=== PATIENT | male | born 1940 | race Caucasian/White ===

== ENCOUNTER 2020-02-22 15:28 | Inpatient (IN) | payer OTHER, BC ==
--- NOTE | 2020-02-22 15:41 | PDOC ---
Rapid Medical Evaluation Time Seen by Provider: 02/22/20 15:33 Medical Evaluation: 02/22/20 15:38 I have performed a brief in-person evaluation of this patient. CC: left sided chest pain staring this morning at rest. D/C'd from [facility] with dx- ileus, DUNG, hypoNa+, urinary retention PE: Lungs CTAB. RRR. No m/r/g. 2+ pedal edema. Orders: cardiac w/u Patient will proceed to ED for further evaluation. Discharge Disposition - Diagnosis Chest pain - Referrals - Patient Instructions - Post Discharge Activity
--- NOTE | 2020-02-22 16:28 | PDOC ---
History of Present Illness - General Chief Complaint: Chest Pain Stated Complaint: CHEST PAIN Time Seen by Provider: 02/22/20 15:33 - History of Present Illness Initial Comments: 79 yo male with PMH of htn, hld, chf, TIA, GERD, BPH w/ indwelling catheter, aortic stenosis w/ valve replacement, and coronary stents presenting with 2 day hx of chest pressure. Chest pressure started at noon, lasted 15 minutes, and radiated to the left arm. He endorses SOB that is consistent with his baseline CHF. He had 1 episode of hematuria that resolved spontaneously. He denies meneses, n/v/d, abd pain, bloody stool. 02/22/20 18:24 Past History - Medical History Allergies/Adverse Reactions: Allergies Allergy/AdvReac Type Severity Reaction Status Date / Time No Known Allergies Allergy Verified 02/22/20 15:43 Home Medications: Ambulatory Orders Amlodipine Besylate 5 mg PO DAILY 02/22/20 Atorvastatin Ca [Lipitor] 20 mg PO HS 02/22/20 Carvedilol [Coreg -] 3.125 mg PO BID 02/22/20 Docusate Sodium [Colace -] 100 mg PO BID 02/22/20 Ergocalciferol (Vitamin D2) [Vitamin D2] 50,000 unit PO WEEKLY 02/22/20 Ferrous Sulfate 325 mg PO BID 02/22/20 Levothyroxine [Synthroid -] 100 mcg PO DAILY 02/22/20 Metoprolol Succinate [Toprol Xl] 25 mg PO DAILY 02/22/20 Tamsulosin HCl 0.4 mg PO DAILY 02/22/20 Cardiac Disorders: Yes COPD: No CHF: No Disorders: Yes (urinary retention iyer in place) HTN: Yes - Surgical History Cardiac Surgery: Yes (x 2) GI Surgery: Yes - Psycho-Social/Smoking History Smoking History: Never smoked - Substance Abuse Hx (Audit-C & DAST Scrn) How often the patient has a drink containing alcohol: Never Score: In Men: 4 or > Positive; In Women: 3 or > Positive: 0 Screen Result (Pos requires Nsg. Audit-10AR): Negative Review of Systems - Review of Systems Constitutional: No: Chills, Fever HEENTM: No: Recent change in vision, Double Vision Respiratory: Yes: Shortness of Breath. No: Cough Cardiac (ROS): Yes: Chest Pain, Edema, Chest Tightness (radiating to the left). No: Palpitations ABD/GI: No: Blood Streaked Bowels, Diarrhea, Nausea, Vomiting : Yes: Hematuria. No: Dysuria Musculoskeletal: No: Joint Pain, Joint Swelling Integumentary: No: Dryness, Erythema, Lesions Neurological: No: Headache Psychiatric: No: Anxiety, Depression, Mood Swings Endocrine: No: Intolerance to Cold, Intolerance to Heat *Physical Exam - Vital Signs Last Vital Signs Temp Pulse Resp BP Pulse Ox 98 F 61 18 116/70 99 02/22/20 15:38 02/22/20 15:38 02/22/20 15:38 02/22/20 15:38 02/22/20 15:38 - Physical Exam General Appearance: Yes: Appropriately Dressed. No: Apparent Distress HEENT: positive: Normal Voice. negative: EOMI Neck: negative: Tender, Rigid Respiratory/Chest: positive: Normal Breath Sounds, Other. negative: Chest Tender, Respiratory Distress Cardiovascular: positive: Regular Rhythm, Regular Rate, S1, S2, Edema (b/l LE edema) Gastrointestinal/Abdominal: positive: Flat, Soft. negative: Tender Musculoskeletal: positive: Normal Inspection. negative: CVA Tenderness Extremity: positive: Normal Inspection Integumentary: positive: Normal Color, Dry, Warm Neurologic: positive: Fully Oriented, Alert, Normal Mood/Affect ED Treatment Course - LABORATORY CBC & Chemistry Diagram: 02/22/20 16:15 02/22/20 16:15 Medical Decision Making - Medical Decision Making 79 yo male with PMH of htn, hld, chf, TIA, GERD, BPH w/ indwelling catheter, aortic stenosis w/ valve replacement, and coronary stents presenting with 2 day hx of chest pressure. EKG does not show any st elevations. BNP is elevated at 6400 1st Troponin is negative 2nd Troponin is pending Plan to admit for observation/telemetry Discharge - Discharge Information Problems reviewed: Yes Clinical Impression/Diagnosis: Chest pain, Bilateral lower extremity edema - Admission Yes - Follow up/Referral - Patient Discharge Instructions - Post Discharge Activity
[2020-02-22 16:40] LABS: BASO % 0.7 % (0-2.0); EOS % 3.1 % (0-4.5); HEMATOCRIT 34.9 % (35.4-49); HEMOGLOBIN 11.3 GM/dL (11.7-16.9); LYMPH % 11.3 % (8-40); MCH 26.2 pg (25.7-33.7); MCHC 32.3 g/dl (32.0-35.9); MEAN CELL VOLUME 81.2 fl (80-96); MEAN PLT VOLUME 8.5 fl (7.5-11.1); MONO % 9.8 % (3.8-10.2); NEUT % 75.1 % (42.8-82.8); PLATELET COUNT 271 K/MM3 (134-434); RBC 4.29 M/mm3 (4.00-5.60); RDW 17.5 % (11.9-15.9)
[2020-02-22 16:47] LABS: INR 1.18 (0.83-1.09); PROTHROMBIN TIME (PATIENT) 13.9 SEC (9.7-13.0)
[2020-02-22 16:50] LABS: ACTIVATED PTT 34.9 SECONDS (25.2-36.5)
[2020-02-22 17:29] LABS: ALBUMIN 2.8 g/dl (3.4-5.0); BILIRUBIN,TOTAL 0.4 mg/dL (0.2-1); BLOOD UREA NITROGEN 26.3 mg/dL (7-18); CALCIUM 8.6 mg/dL (8.5-10.1); CREATININE 1.3 mg/dL (0.55-1.3); MAGNESIUM 2.2 mg/dL (1.8-2.4); N-TERMINAL BNP 6407.7 pg/ml (5-450); POTASSIUM 4.8 mmol/L (3.5-5.1); TOT PROT 6.9 g/dl (6.4-8.2)
--- NOTE | 2020-02-22 18:23 | PDOC ---
Documentation entered by Tyra Grady SCRIBE, acting as scribe for Sharonda Morales MD. Sharonda Morales MD: This documentation has been prepared by the edmondibeMiguel A Ana, SCRIBE, under my direction and personally reviewed by me in its entirety. I confirm that the documentation accurately reflects all work, treatment, procedures, and medical decision making performed by me. Attending Attestation - Resident Resident Name: Cindy Tarango - ED Attending Attestation I have performed the following: I have examined & evaluated the patient, The case was reviewed & discussed with the resident, I agree w/resident's findings & plan, Exceptions are as noted - HPI HPI: 02/22/20 17:03 Patient is an 79 year old male with a significant past medical history of hypertension, hld, chf, TIA, GERD, BPH w/ indwelling catheter, aortic stenosis w/ valve replacement, and coronary stents, who presents to the ED with chest pressure x2 days. Patient denies: This patient's just 2 1/2 weeks ago and he then he recently moved to [place] because his daughter lives here. All his physicians were in [place] Allergies: NKDA 02/22/20 18:18 02/22/20 18:49 - Physicial Exam PE: 02/22/20 18:23 wnwd 79 yo male p/w 2 days of shortness of breath and chest pain head ncat neck supple lungs fine bibasilar rales cvs [id number] abdomen nontender skin warm and dry extremities +3 pitting edema LE neuro axox3,ambulatory psych sad affect - Medical Decision Making 02/22/20 18:29 troponin first negative bnp >6000 02/22/20 18:38 ekg NSR with !st degree AV block with , RBBB, qs in II,III,aVF We have no prior ekgs pt now comfortable, he took 325 mg aspirin this morning plan Telemetry admission Discharge - Discharge Information Problems reviewed: Yes Clinical Impression/Diagnosis: Chest pain, Bilateral lower extremity edema - Follow up/Referral - Patient Discharge Instructions - Post Discharge Activity
--- NOTE | 2020-02-22 19:34 | PN ---
Teaching Attending Note Name of Resident: Bowen Ojeda ATTENDING PHYSICIAN STATEMENT I saw and evaluated the patient. I reviewed the resident's note and discussed the case with the resident. I agree with the resident's findings and plan as documented. SUBJECTIVE: Patient is an 79 year old man with a PMH of HTN, CHF, TIA, GERD, BPH, Hypothy roidism, Urinary retention (with indwelling iyer catheter), Aortic stenosis (with valve replacement) and Coronary stents presenting with 2 day history of chest pressure. Chest pressure started at noon, lasted 15 minutes, and radiated to the left arm. He reports SOB that is consistent with his baseline CHF, but he has had worsening SOB over the past 6 months. has also had orthopnea and increasing leg edema. He has not been taking prescribed Lasix as well as most his other drugs because he feels they are "too many". He had 1 episode of hematuria that resolved spontaneously. Patient denies abdominal pain, headache, palpitations, dizziness, fever, chills, nausea, vomiting, diarrhea, constipation, dysuria, frequency, urgency, melena or hematochezia. Patient's about twenty days ago and he then moved to [place] because his daughter lives here. All his physicians were in [place], [place]. Uses a walker/cane. Denies alcohol, tobacco or illicit drug use. No sick contacts or recent travels. Family history is unremarkable. OBJECTIVE: Alert Vital Signs Period Temp Pulse Resp BP Sys/Pantoja Pulse Ox Last 24 Hr 98 F 61-61 18-18 116/70 99-100 HEENT: No Jaundice, eye redness or discharge, PERRLA, EOMI. Normocephalic, atraumatic. External ears are normal and hearing is grossly intact. No nasal discharge. Neck: Supple, nontender. No palpable adenopathy or thyromegaly. No JVD Chest: Good effort. Bibasilar crackles. Clear to percussion. Heart: Regular. No S3 or rub; 2/6 MARISSA. Abdomen: Not distended, soft, nontender and no HSM. No rebound or guarding. Normal bowel sounds. Ext: Peripheral pulses intact. Leg edema. Chronic stasis dermatitis changes. Skin: Warm and dry. No petechiae, rash or ecchymosis. Neuro: Alert. Oriented x3. CN 2-12 grossly intact. Sensation grossly intact in all four extremities and DTR are symmetric. Psych: Appropriate mood and affect. Good insight. Home Medications Medication Instructions Recorded Amlodipine Besylate 5 mg PO DAILY 02/22/20 Aspirin [ASA -] 325 mg PO DAILY 02/22/20 Atorvastatin Ca [Lipitor] 20 mg PO HS 02/22/20 Carvedilol [Coreg -] 3.125 mg PO BID 02/22/20 Docusate Sodium [Colace -] 100 mg PO BID 02/22/20 Ergocalciferol (Vitamin D2) 50,000 unit PO WEEKLY 02/22/20 [Vitamin D2] Ferrous Sulfate 325 mg PO BID 02/22/20 Levothyroxine [Synthroid -] 100 mcg PO DAILY 02/22/20 Metoprolol Succinate [Toprol Xl] 25 mg PO DAILY 02/22/20 Sodium Bicarbonate - 1,950 mg PO TID 02/22/20 Tamsulosin HCl 0.4 mg PO DAILY 02/22/20 Abnormal Lab Results 02/22/20 02/22/20 02/22/20 16:15 16:15 16:15 Hgb 11.3 L Hct 34.9 L RDW 17.5 H PT with INR 13.90 H INR 1.18 H Anion Gap 4 L BUN 26.3 H ALT 12 L B-Natriuretic Peptide 6407.7 H Albumin 2.8 L Current Medications Generic Name Dose Route Start Last Admin Trade Name Freq PRN Reason Stop Dose Admin Atorvastatin Calcium 20 mg 02/22/20 22:00 Lipitor - PO HS [facility] Docusate Sodium 100 mg 02/22/20 22:00 Colace - PO BID [facility] Enoxaparin Sodium 40 mg 02/23/20 10:00 Lovenox - SQ DAILY [facility] Ergocalciferol 50,000 unit 02/22/20 22:00 Drisdol - PO Serrano@2200 [facility] Ferrous Sulfate 325 mg 02/22/20 22:00 Feosol - PO BID [facility] Furosemide 40 mg 02/22/20 21:45 Lasix Injection - IVPUSH DAILY [facility] Levothyroxine Sodium 100 mcg 02/23/20 07:00 Synthroid - PO DAILY@0700 [facility] Tamsulosin HCl 0.4 mg 02/23/20 10:00 Flomax - PO DAILY [facility] ASSESSMENT AND PLAN: 1. Chest pain/CHF exacerbation - Has risk factors for ACS. CHF exacerbation likely precipitated in part by nonadherence with medications. EKG shows NSR at 63/minute, 1o AV block, RBBB, LAD, LAE, q wave in II, III, aVF and QTc [address]-T wave changes. No old EKG available for comparison. Troponin is negative x2. Will avoid drugs that may prolong QTc. CXR has been done, but we are unable to see the film. Reportedly took Aspirin 325 mg. Will admit to telemetry, get ECHO, TSH, fasting lipids and urinalysis STAT. Will treat with escalating doses of IV Lasix to achieve adequate diuresis, restrict dietary salt intake, monitor renal function, monitor and replete electrolytes, get daily weight and consult Cardiology. During the day, will work with his family to get his medical records from [facility]. Will also confirm the last time his iyer was changed. Viral testing for COVID-19 ordered and patient placed on airborne, droplet and contact isolation. Will continue comprehensive care for all of patients comorbid conditions including Flomax for BPH and Synthroid for hypothroidism. 2. Hypoalbuminemia - Possibly due to combined effects of malnutrition and inflammation associated with comorbid conditions. Will ensure adequate dietary protein intake and also consult statistics manager. Urinalysis pending. 3. Anemia - Cause unclear. Will do basic anemia work up including serial stool guaiacs, reticulocyte count and iron studies. 4. Hypertension Will hold all outpatient antihypertensive drugs for now to permit liberal use of IV lasix for diuresis. Subsequently, will revise regimen to ensure [id number] excellent BP control. Patient counseled on the injurious effects of uncontrolled hypertension. Nonpharmacologic measures to control hypertension like weight loss, salt restriction and exercise stressed. Importance of adherence to treatment regimen and attainment of normotension emphasized. 5. DVT prophylaxis - Lovenox 40 mg SQ q 24 hours. 6. Advance directives - Full code
--- NOTE | 2020-02-22 21:44 | HP ---
CHIEF COMPLAINT: chest pain PCP: none, recently moved to area HISTORY OF PRESENT ILLNESS: Patient is an 79 year old man with a PMH of HTN, CHF, Aortic Stenosis (with valve replacement), coronary stent placement, TIA, GERD, BPH, Urinary retention (with indwelling iyer catheter), and Hypothyroidism with 2 day history of chest pain. Pt reports 2 episodes (once yesterday evening and once today afternoon) of 5/10 pressure-like chest pain that radiates to his L shoulder and resolve spontaneously. The first episode lasted "1-2 minutes" and the second episode today lasted longer at "about 5-10 minutes." Reports taking aspiring 325 mg after his second episode. Pt was sitting during both episodes with no exertion beforehand. Pt reports associated dizziness, orthopnea, leg swelling (over the last 2-3 weeks), and dyspnea on exertion (over the last 6 months; not acutely worsened from baseline). Denies headache, PND, palpitations, fevers, chills, nausea, vomiting, diarrhea, abdominal pain, and constipation. Pt reports not taking his prescribed lasix along with his other home medications because he doesn't want to be taking so many medications. A recent change in the pt's life has been that his of nearly 60 years about 3 weeks ago and the pt reports feelings of depression and hopelessness; without active suicidal or homicidal ideation. Pt also with 1 episode of self-resolving hematuria. ER course was notable for: (1) Trops neg x 2; BNP > 6000 (2) No ST elevations or T wave changes on EKG (3) CXR to be done Recent Travel: none; Sick Contacts: none PAST MEDICAL HISTORY: As per HPI. Per pt's daughter, pt seen at [facility] on 01[facility]; indwelling iyer placed then. Most of pt's doctor were at [facility] PAST SURGICAL HISTORY: Stent Placement x2 (appox 10 years ago and 20 years ago) Aortic Valve Replacement ("at least 10 years ago" Social History: Pt used to live in [place] with his before his passed. He has now moved to [place] to be closer to his daughter and lives on his own; within 5 minutes of his daughter. Daughter checks in on pt 3-5 days/week; expresses desire to get the pt a home health aide. Pt ambulates on own with walker/cane and can handle most of his ADLs. Smoking: quit 40 years ago; 10 year hx of 1.5 ppd before then Alcohol: denies Drugs: denies Family Hx - denies family hx Allergies - no known allergies No Known Allergies Allergy (Verified 02/22/20 15:43) HOME MEDICATIONS: Home Medications Medication Instructions Recorded Amlodipine Besylate 5 mg PO DAILY 02/22/20 Atorvastatin Ca [Lipitor] 20 mg PO HS 02/22/20 Carvedilol [Coreg -] 3.125 mg PO BID 02/22/20 Docusate Sodium [Colace -] 100 mg PO BID 02/22/20 Ergocalciferol (Vitamin D2) 50,000 unit PO WEEKLY 02/22/20 [Vitamin D2] Ferrous Sulfate 325 mg PO BID 02/22/20 Levothyroxine [Synthroid -] 100 mcg PO DAILY 02/22/20 Metoprolol Succinate [Toprol Xl] 25 mg PO DAILY 02/22/20 Tamsulosin HCl 0.4 mg PO DAILY 02/22/20 Patient reports he has not been taking his home meds. REVIEW OF SYSTEMS as per HPI PHYSICAL EXAMINATION Vital Signs - 24 hr 02/22/20 02/22/20 02/22/20 15:38 16:00 16:54 Temperature 98 F Pulse Rate 61 61 Respiratory 18 18 Rate Blood Pressure 116/70 O2 Sat by Pulse 99 100 100 Oximetry (%) GENERAL: Awake, alert, and fully oriented, in no acute distress. HEAD: NCAT EYES: PERRLA, EOMI, sclera white, conjunctiva clear. EARS, NOSE, THROAT: oropharynx clear without exudates. Moist mucous membranes. NECK: supple without lymphadenopathy, trachea midline LUNGS: Bilateral crackles at the bases. Breath sounds equal. No wheezes. No accessory muscle use. HEART: Regular rate and rhythm, normal S1 and S2. Systolic mumur over aortic area. ABDOMEN: Soft, nontender, not distended, normoactive bowel sounds. No suprapubic tenderness MUSCULOSKELETAL: Moving all extremities equally and spontaneously. UPPER EXTREMITIES: 2+ pulses, warm, well-perfused. No edema. LOWER EXTREMITIES: 2+ pulses, warm, well-perfused. No calf tenderness. 2+ pitting edema NEUROLOGICAL: Sensation to light touch and strength grossly intact. Normal speech. Normal gait. PSYCHIATRIC: Cooperative. Good eye contact. Depressed mood and affect. SKIN: lower extremity skin excoriations bilaterally; hyperkeratosis around both ankles. Laboratory Results - last 24 hr 02/22/20 02/22/20 02/22/20 16:15 16:15 16:15 WBC 8.0 RBC 4.29 Hgb 11.3 L Hct 34.9 L MCV 81.2 MCH 26.2 MCHC 32.3 RDW 17.5 H Plt Count 271 MPV 8.5 Absolute Neuts (auto) 6.0 Neutrophils % 75.1 Lymphocytes % 11.3 Monocytes % 9.8 Eosinophils % 3.1 Basophils % 0.7 Nucleated RBC % 0 PT with INR 13.90 H INR 1.18 H PTT (Actin FS) 34.9 Sodium 137 Potassium 4.8 Chloride 107 Carbon Dioxide 25 Anion Gap 4 L BUN 26.3 H Creatinine 1.3 Est GFR (CKD-EPI)AfAm 59.73 Est GFR (CKD-EPI)NonAf 51.53 Random Glucose 78 Calcium 8.6 Magnesium 2.2 Total Bilirubin 0.4 AST 32 ALT 12 L Alkaline Phosphatase 101 Creatine Kinase 35 Troponin I 0.02 B-Natriuretic Peptide 6407.7 H Total Protein 6.9 Albumin 2.8 L 02/22/20 19:35 WBC RBC Hgb Hct MCV MCH MCHC RDW Plt Count MPV Absolute Neuts (auto) Neutrophils % Lymphocytes % Monocytes % Eosinophils % Basophils % Nucleated RBC % PT with INR INR PTT (Actin FS) Sodium Potassium Chloride Carbon Dioxide Anion Gap BUN Creatinine Est GFR (CKD-EPI)AfAm Est GFR (CKD-EPI)NonAf Random Glucose Calcium Magnesium Total Bilirubin AST ALT Alkaline Phosphatase Creatine Kinase Troponin I 0.02 B-Natriuretic Peptide Total Protein Albumin ASSESSMENT/PLAN: Patient is an 79 year old man with a PMH of HTN, CHF, Aortic Stenosis (with valve replacement), coronary stent placement, TIA, GERD, BPH, Urinary retention (with indwelling iyer catheter), and Hypothyroidism being admitted to telemetry for CHF exacerbation. #Chest Pain/Acute on Chronic CHF exacerbation (likely 2/2 to medication non- adherence) Troponin neg (x2) Pt recently moved from [place]; no ECHO on file; BNP 6407.7 (baseline unkn own) - continue to trend troponin - IV lasix 40 daily; escalate according to pt response - f/u CXR - ECHO - Strict monitoring of I/O; daily weights - Repeat EKG as pt has no previous EKG in system for comparison - check TSH, fasting lipids, and UA - monitor electrolytes and renal function #Anemia (unclear etiology, Hb 11.3) self-resolving hematuria - check iron studies, reticulocyte count, and serial stool guiacs - check UA #Suspected Acute Complicated UTI Likely 2/2 to chronic indwelling iyer cather (played on 02/06) - UA with 3+ leuk esterase, wbc - check urine cx - rocephin 1g daily #Hypoalbuminemia 2/2 to malnutrition vs inflammation from comorbid conditions - consult jewel hole driller - check UA #HTN - hold home antihypertensive: metoprolol 25 daily; amlodipine 5 daily; coreg 3.125 bid #BPH - continue home flomax 0.4 mg #HLD - continue lipitor 20 mg #Hypothyroid - Synthroid 100 mcg PO #DVT PPx - Lovenox 40 mg SQ daily #FEN -F - PO -E - monitor lytes; replete PRN -N - low Na diet Dispo: Admit to telemetry Visit type - Medication Review Med list reviewed for High Risk Meds patients 65 and older: Yes - Emergency Visit Emergency Visit: Yes ED Registration Date: 02/22/20 Care time: The patient presented to the Emergency Department on the above date and was hospitalized for further evaluation of their emergent condition. - New Patient This patient is new to me today: Yes Date on this admission: 02/23/20 - Critical Care Critical Care patient: No ATTENDING PHYSICIAN STATEMENT I saw and evaluated the patient. I reviewed the resident's note and discussed the case with the resident. I agree with the resident's findings and plan as documented. SUBJECTIVE: OBJECTIVE: ASSESSMENT AND PLAN:
[2020-02-22] MEDS ORDERED: DOCUSATE SODIUM 100 MG CAPSULE (FP) PO ONE (21:52)
[2020-02-22] MEDS ORDERED: ATORVASTATIN CA 20 MG TABLET (FP) ONE (21:52)
[2020-02-22] MEDS ORDERED: FERROUS SO4 325 MG TABLET (FP) ONE (21:53)
[2020-02-22] MEDS ORDERED: FUROSEMIDE 40 MG/4 ML INJECTABLE VIAL ONE (21:53)
[2020-02-22] MEDS ORDERED: ERGOCALCIFEROL (VIT D2) 50,000 UNIT (1.25 MG) CAPSULE PO SCH (22:00)
[2020-02-22] MEDS: ATORVASTATIN CA 20 MG TABLET (FP) PO SCH (22:29)
[2020-02-22] MEDS: DOCUSATE SODIUM 100 MG CAPSULE (FP) PO SCH (22:29)
[2020-02-22] MEDS: FUROSEMIDE 40 MG/4 ML INJECTABLE VIAL IVPUSH SCH (22:29)
[2020-02-22] MEDS: FERROUS SO4 325 MG TABLET (FP) PO SCH (22:29)
[2020-02-22 22:50] LABS: EPI CELLS 20 /uL (0-25.1); HYALINE CASTS 5 /uL (0-3.1); URINE APPEARANCE TURBID; URINE BACTERIA 5261 /uL (0-1359); URINE BILIRUBIN NEGATIVE (NEGATIVE); URINE COLOR YELLOW; URINE GLUCOSE (UA) NEGATIVE (NEGATIVE); URINE KETONE NEGATIVE (NEGATIVE); URINE LEUK ESTERASE 3+ (NEGATIVE); URINE NITRITE NEGATIVE (NEGATIVE); URINE PROTEIN 1+ (NEGATIVE); URINE RBC 132 /uL (0-23.9); URINE UROBILINOGEN 0.2 mg/dL (0.2-1.0); URINE WBC 1575 /uL (0-25.8)
[2020-02-23 00:23] LABS: YEAST NONE SEEN (NEGATIVE)
[2020-02-23] MEDS: LEVOTHYROXINE NA 100 MCG TABLET (FP) PO SCH (06:33)
[2020-02-23 08:17] LABS: ALBUMIN 2.7 g/dl (3.4-5.0); BILIRUBIN,TOTAL 0.5 mg/dL (0.2-1); BLOOD UREA NITROGEN 25.8 mg/dL (7-18); CALCIUM 8.3 mg/dL (8.5-10.1); CREATININE 1.3 mg/dL (0.55-1.3); MAGNESIUM 2.1 mg/dL (1.8-2.4); PHOSPHOROUS 3.2 mg/dL (2.5-4.9); POTASSIUM 4.6 mmol/L (3.5-5.1); TOT PROT 6.2 g/dl (6.4-8.2)
[2020-02-23] MEDS ORDERED: DEXTROSE 5%-WATER - 50 ML IVPB ONE (09:28)
[2020-02-23] MEDS ORDERED: cefTRIAXone SODIUM 1 GM VIAL ONE (09:28)
[2020-02-23] MEDS: DOCUSATE SODIUM 100 MG CAPSULE (FP) PO SCH ×2 (09:43→21:05)
[2020-02-23] MEDS: FERROUS SO4 325 MG TABLET (FP) PO SCH ×2 (09:43→21:05)
[2020-02-23] MEDS: TAMSULOSIN HCL 0.4 MG CAP PO SCH (09:43)
[2020-02-23] MEDS: ENOXAPARIN NA (PORCINE) 40 MG/0.4 ML DISP.SYRIN SQ SCH (09:44)
--- NOTE | 2020-02-23 09:58 | EKG ---
Test Reason : Blood Pressure : / mmHG Vent. Rate : 063 BPM Atrial Rate : 063 BPM P-R Int : 248 ms QRS Dur : 168 ms QT Int : 492 ms P-R-T Axes : 033 -88 067 degrees QTc Int : 503 ms SINUS RHYTHM WITH 1ST DEGREE A-V BLOCK WITH PREMATURE ATRIAL COMPLEXES POSSIBLE LEFT ATRIAL ENLARGEMENT LEFT AXIS DEVIATION /LAFB RIGHT BUNDLE BRANCH BLOCK INFERIOR INFARCT , AGE UNDETERMINED ANTEROLATERAL INFARCT , AGE UNDETERMINED ABNORMAL ECG NO PREVIOUS ECGS AVAILABLE Confirmed by Rivas Puri ([id number]) on 02/23/2020 9:57:36 AM Referred By: Confirmed By:Rivas Puri
[2020-02-23] MEDS ORDERED: CEFTRIAXONE 1 GM in DEXTROSE 5%-WATER - 50 ML IVPB SCH (10:00)
--- NOTE | 2020-02-23 10:01 | EKG ---
Test Reason : Blood Pressure : / mmHG Vent. Rate : 061 BPM Atrial Rate : 061 BPM P-R Int : 238 ms QRS Dur : 174 ms QT Int : 498 ms P-R-T Axes : 012 244 055 degrees QTc Int : 501 ms SINUS RHYTHM WITH 1ST DEGREE A-V BLOCK WITH PREMATURE ATRIAL COMPLEXES RIGHT BUNDLE BRANCH BLOCK INFERIOR INFARCT (CITED ON OR BEFORE 22-FEB-2020) ANTEROLATERAL INFARCT (CITED ON OR BEFORE 22-FEB-2020) ABNORMAL ECG WHEN COMPARED WITH ECG OF 22-FEB-2020 15:42, NO SIGNIFICANT CHANGE WAS FOUND Confirmed by Rivas Puri ([id number]) on 02/23/2020 10:01:34 AM Referred By: Confirmed By:Rivas Puri
[2020-02-23 10:36] LABS: HEMATOCRIT 33.8 % (35.4-49); HEMOGLOBIN 10.6 GM/dL (11.7-16.9); MCH 25.5 pg (25.7-33.7); MCHC 31.4 g/dl (32.0-35.9); MEAN CELL VOLUME 81.2 fl (80-96); MEAN PLT VOLUME 8.7 fl (7.5-11.1); PLATELET COUNT 255 K/MM3 (134-434); RBC 4.16 M/mm3 (4.00-5.60); RDW 16.9 % (11.9-15.9); WHITE BLOOD COUNT 7.8 K/mm3 (4.0-10.0)
[2020-02-23] MEDS: CEFTRIAXONE 1 GM in DEXTROSE 5%-WATER - 50 ML IVPB SCH (11:13)
[2020-02-23] MEDS: FUROSEMIDE 40 MG/4 ML INJECTABLE VIAL IVPUSH SCH (11:13)
--- NOTE | 2020-02-23 11:40 | ECHO ---
Name: LANI LEBRON Exam:Adult Echocardiogram Study Date: 02/23/2020 10:19 AM Age: 79 yrs Reason For Study: LV Function Height: 72 in Weight: 140 lb BSA: 1.8 m2 MMode/2D Measurements & Calculations IVSd: 2.0 cm Ao root diam: 3.6 cm LVIDd: 4.4 cm LA dimension: 4.6 cm LVIDs: 4.0 cm ACS: 1.4 cm LVPWd: 0.92 cm LVPWs: 0.94 cm EDV(Teich): 86.4 ml ESV(Teich): 70.0 ml LVOT diam: 2.3 cm LAV (MOD-bp): 56.0 ml TAPSE: 1.1 cm Doppler Measurements & Calculations MVA(VTI): 2.2 cm2 MV E max junior: 108.1 cm/sec MV V2 max: 127.0 cm/sec MV A max junior: 69.6 cm/sec MV max P.5 mmHg MV E/A: 1.6 MV V2 mean: 78.9 cm/sec MV dec time: 0.20 sec MV mean P.7 mmHg MV V2 VTI: 35.3 cm Ao V2 max: 184.6 cm/sec LV V1 max P.5 mmHg Ao max P.6 mmHg LV V1 mean P.4 mmHg Ao V2 mean: 127.8 cm/sec LV V1 max: 78.5 cm/sec Ao mean P.8 mmHg LV V1 mean: 56.7 cm/sec Ao V2 VTI: 40.7 cm LV V1 VTI: 18.4 cm SERAFIN(I,D): 1.9 cm2 SERAFIN(V,D): 1.8 cm2 MR max junior: 471.3 cm/sec SV(LVOT): 76.9 ml MR max P.8 mmHg TR max junior: 258.8 cm/sec PA V2 max: 93.7 cm/sec TR max P.0 mmHg PA max P.5 mmHg Med Peak E' Junior: 4.1 cm/sec Med E/e': 26.6 Lat Peak E' Junior: 8.0 cm/sec Lat E/e': 13.5 Tech Comments Study not completed because patient grew impatient. Procedure Study Quality: Fair. Left Ventricle The left ventricle is normal in size. There is mild concentric left ventricular hypertrophy. Ejection Fraction = 35%. Left ventricular systolic function is mild to moderately reduced. The transmitral spectral Dop pler flow pattern is suggestive of pseudonormalization. There is moderate global hypokinesis of the left ventri ena. Right Ventricle The right ventricle is normal in size and function. Atria The left atrium is mildly dilated. Right atrial size is normal. Mitral Valve There is mild mitral valve thickening. There is mild mitral regurgitation. Tricuspid Valve The tricuspid valve is not well visualized, but is grossly normal. There is mild tricuspid regurgitat ion. Right ventricular systolic pressure is elevated at 30-40mmHg. Aortic Valve The prosthetic aortic valve is well-seated. There is a bioprosthetic aortic valve. No hemodynamically significant valvular aortic stenosis. No aortic regurgitation is present. Pulmonic Valve The pulmonic valve is not well seen, but is grossly normal. Great Vessels The aortic root is not well visualized. Pericardium/Pleura There is no pericardial effusion. Interpretation Summary LV: Normal size,mild LVH, global hypokinesia, EF around 35% , pseudonormal pattern on inflow, E/e' 13 mmhg RV: Appears normal LA: Mildly dilated AV; Bioprosthesis, we; seated, normal functio, mPG 8 mmHg Mild MR Mild TR with RVSP 38 mmHg. Rivas Puri 02/23/2020 11:40 AM
[2020-02-23 13:28] VITALS: BMI 19.9
--- NOTE | 2020-02-23 14:43 | CON.CARD ---
Cardiology Consult (text) - Consultation Consultation Note: cc: le edema, abd pain hpi: 79 m hx htn, syst chf, as s/p remote bio avr, cad s/p remote pci, tia, here with le edema, abd pain. Pt poor historian. Denies cp, says he had epigastric bloating yesterday that has resolved. No sob palps dizzy loc pnd orthopnea. Reports le edema present for several days. Has not followed with cardio recently since moving from [place]. pmh: per hpi psh: avr social: no tob fam: no premature cad ros: per hpi; all others nl meds: Ambulatory Orders Amlodipine Besylate 5 mg PO DAILY 02/22/20 Atorvastatin Ca [Lipitor] 20 mg PO HS 02/22/20 Carvedilol [Coreg -] 3.125 mg PO BID 02/22/20 Docusate Sodium [Colace -] 100 mg PO BID 02/22/20 Ergocalciferol (Vitamin D2) [Vitamin D2] 50,000 unit PO WEEKLY 02/22/20 Ferrous Sulfate 325 mg PO BID 02/22/20 Levothyroxine [Synthroid -] 100 mcg PO DAILY 02/22/20 Metoprolol Succinate [Toprol Xl] 25 mg PO DAILY 02/22/20 Tamsulosin HCl 0.4 mg PO DAILY 02/22/20 Current Medications Generic Name Dose Route Start Last Admin Trade Name Freq PRN Reason Stop Dose Admin Atorvastatin Calcium 20 mg 02/22/20 22:00 02/22/20 22:29 Lipitor - PO Not Given HS [facility] Carvedilol 3.125 mg 02/23/20 22:00 Coreg - PO BID JORDAN Docusate Sodium 100 mg 02/22/20 22:00 02/23/20 09:43 Colace - PO 100 mg BID JORDAN Administration Enoxaparin Sodium 40 mg 02/23/20 10:00 02/23/20 09:44 Lovenox - SQ Not Given DAILY JORDAN Ergocalciferol 50,000 unit 02/22/20 22:00 02/22/20 22:29 Drisdol - PO Not Given Serrano@2200 JORDAN Ferrous Sulfate 325 mg 02/22/20 22:00 02/23/20 09:43 Feosol - PO 325 mg BID JORDAN Administration Furosemide 40 mg 02/22/20 21:45 02/23/20 11:13 Lasix Injection - IVPUSH 40 mg DAILY JORDAN Administration Ceftriaxone Sodium 1 gm/ 50 mls @ 100 mls/hr 02/23/20 10:00 02/23/20 11:13 Dextrose IVPB 100 mls/hr DAILY JORDAN Administration Levothyroxine Sodium 100 mcg 02/23/20 07:00 02/23/20 06:33 Synthroid - PO 100 mcg DAILY@0700 JORDAN Administration Tamsulosin HCl 0.4 mg 02/23/20 10:00 02/23/20 09:43 Flomax - PO 0.4 mg DAILY JORDAN Administration pe: Vital Signs Period Temp Pulse Resp BP Sys/Pantoja Pulse Ox Last 24 Hr 97.7 F-98.1 F 60-65 18-20 114-141/60-79 96-100 nad no jvd rrr s1s2 no mrg cta bl nl eff aao3 1-2+ le edema bl, no c/c abd nt nd pos bs no jaundice diaphoresis +dp pt no carotid bruits Laboratory Last Values WBC 7.8 K/mm3 (4.0-10.0) 02/23/20 06:05 RBC 4.16 M/mm3 (4.00-5.60) 02/23/20 06:05 Hgb 10.6 GM/dL (11.7-16.9) L 02/23/20 06:05 Hct 33.8 % (35.4-49) L 02/23/20 06:05 MCV 81.2 fl (80-96) 02/23/20 06:05 MCH 25.5 pg (25.7-33.7) L 02/23/20 06:05 MCHC 31.4 g/dl (32.0-35.9) L 02/23/20 06:05 RDW 16.9 % (11.9-15.9) H 02/23/20 06:05 Plt Count 255 K/MM3 (134-434) 02/23/20 06:05 MPV 8.7 fl (7.5-11.1) 02/23/20 06:05 Absolute Neuts (auto) 6.0 K/mm3 (1.5-8.0) 02/22/20 16:15 Neutrophils % 75.1 % (42.8-82.8) 02/22/20 16:15 Lymphocytes % 11.3 % (8-40) 02/22/20 16:15 Monocytes % 9.8 % (3.8-10.2) 02/22/20 16:15 Eosinophils % 3.1 % (0-4.5) 02/22/20 16:15 Basophils % 0.7 % (0-2.0) 02/22/20 16:15 Nucleated RBC % 0 % (0-0) 02/22/20 16:15 Retic Count 1.81 % (0.5-1.5) H 02/23/20 09:36 PT with INR 13.90 SEC (9.7-13.0) H 02/22/20 16:15 INR 1.18 (0.83-1.09) H 02/22/20 16:15 PTT (Actin FS) 34.9 SECONDS (25.2-36.5) 02/22/20 16:15 Sodium 139 mmol/L (136-145) 02/23/20 06:05 Potassium 4.6 mmol/L (3.5-5.1) 02/23/20 06:05 Chloride 108 mmol/L (98-107) H 02/23/20 06:05 Carbon Dioxide 25 mmol/L (21-32) 02/23/20 06:05 Anion Gap 6 MMOL/L (8-16) L 02/23/20 06:05 BUN 25.8 mg/dL (7-18) H 02/23/20 06:05 Creatinine 1.3 mg/dL (0.55-1.3) 02/23/20 06:05 Est GFR (CKD-EPI)AfAm 59.73 02/23/20 06:05 Est GFR (CKD-EPI)NonAf 51.53 02/23/20 06:05 Random Glucose 75 mg/dL (74-106) 02/23/20 06:05 Calcium 8.3 mg/dL (8.5-10.1) L 02/23/20 06:05 Phosphorus 3.2 mg/dL (2.5-4.9) 02/23/20 06:05 Magnesium 2.1 mg/dL (1.8-2.4) 02/23/20 06:05 Iron 30 ug/dL (50-175) L 02/23/20 06:05 TIBC 274 ug/dL (250-450) 02/23/20 06:05 Iron Saturation 10 % (17.5-39) L 02/23/20 06:05 Unsaturated IBC 244 ug/dL (200-275) 02/23/20 06:05 Ferritin 40.7 ng/ml (8-388) 02/23/20 06:05 Total Bilirubin 0.5 mg/dL (0.2-1) 02/23/20 06:05 AST 28 U/L (15-37) 02/23/20 06:05 ALT 10 U/L (13-61) L 02/23/20 06:05 Alkaline Phosphatase 89 U/L (45-117) 02/23/20 06:05 Creatine Kinase 35 U/L (26-308) 02/22/20 16:15 Troponin I 0.02 ng/ml (0.00-0.05) 02/23/20 01:06 B-Natriuretic Peptide 6407.7 pg/ml (5-450) H 02/22/20 16:15 Total Protein 6.2 g/dl (6.4-8.2) L 02/23/20 06:05 Albumin 2.7 g/dl (3.4-5.0) L 02/23/20 06:05 Triglycerides 58 mg/dL (0-150) 02/23/20 06:05 Cholesterol 125 mg/dL (50-200) 02/23/20 06:05 Total LDL Cholesterol 65 mg/dL (5-100) 02/23/20 06:05 HDL Cholesterol 43 mg/dL (40-60) 02/23/20 06:05 TSH 5.05 uIU/ml (0.358-3.74) H 02/23/20 06:05 Urine Color Yellow 02/22/20 21:28 Urine Appearance Turbid 02/22/20 21:28 Urine pH 6.0 (5.0-8.0) 02/22/20 21:28 Ur Specific [place] 1.015 (1.010-1.035) 02/22/20 21:28 Urine Protein 1+ (NEGATIVE) H 02/22/20 21:28 Urine Glucose (UA) Negative (NEGATIVE) 02/22/20 21:28 Urine Ketones Negative (NEGATIVE) 02/22/20 21:28 Urine Blood 2+ (NEGATIVE) H 02/22/20 21:28 Urine Nitrite Negative (NEGATIVE) 02/22/20 21:28 Urine Bilirubin Negative (NEGATIVE) 02/22/20 21:28 Urine Urobilinogen 0.2 mg/dL (0.2-1.0) 02/22/20 21:28 Ur Leukocyte Esterase 3+ (NEGATIVE) H 02/22/20 21:28 Urine WBC (Auto) 1575 /uL (0-25.8) 02/22/20 21:28 Urine RBC (Auto) 132 /uL (0-23.9) 02/22/20 21:28 Urine Casts (Auto) 5 /uL (0-3.1) 02/22/20 21:28 U Pathogenic Cast Auto None seen /lpf (NEGATIVE) 02/22/20 21:28 U Epithel Cells (Auto) 20 /uL (0-25.1) 02/22/20 21:28 Urine Bacteria (Auto) 5261 /uL (0-1359) 02/22/20 21:28 Urine Yeast (Auto) None seen (NEGATIVE) 02/22/20 21:28 echo 02/2020: lvef 35%, global hk, nl rv, lae, nl bio avr, mild mr, mild tr, rvsp 38 ecg: sr, rbbb cxr: clear tele: sr a/p: 79 m hx htn, syst chf, as s/p remote bio avr, cad s/p remote pci, tia, here with le edema, abd pain. acute syst chf: -continue iv lasix, monitor daily chem7, wts -resume home coreg for chf regimen -no signs acs, trops negx3 htn: -cont coreg, monitor avr: -stable, nl fcn on echo cad, remote pci: -stable, no signs acs -cont statin, bb, asa uti: -on abx
--- NOTE | 2020-02-23 15:00 | PN ---
Teaching Attending Note Name of Resident: Tor Thorne ATTENDING PHYSICIAN STATEMENT I saw and evaluated the patient. I reviewed the resident's note and discussed the case with the resident. I agree with the resident's findings and plan as documented. SUBJECTIVE: No further CP. No palpitations/SOB/cough/sputum.No fevers/chills. Reports lghtheadedness. No nausea/vomiting/limb numbness or weakness. OBJECTIVE: Afebrile, Hemodynamicaly Stable. Last Vital Signs Temp Pulse Resp BP Pulse Ox 98.1 F 65 18 114/62 96 02/23/20 09:46 02/23/20 09:46 02/23/20 09:46 02/23/20 09:46 02/23/20 09:46 HEENT - Atraumatic, normocephalic. Heart - S1, S2, SM Lungs - decreased air entry at bases Abdomen - Soft, non-tender. Bowel Sounds normal. Extremities - bilateral LE edema L>R, with venous stasis skin changes on L Laboratory Results - last 24 hr 02/22/20 02/22/20 02/22/20 16:15 16:15 16:15 WBC 8.0 RBC 4.29 Hgb 11.3 L Hct 34.9 L MCV 81.2 MCH 26.2 MCHC 32.3 RDW 17.5 H Plt Count 271 MPV 8.5 Absolute Neuts (auto) 6.0 Neutrophils % 75.1 Lymphocytes % 11.3 Monocytes % 9.8 Eosinophils % 3.1 Basophils % 0.7 Nucleated RBC % 0 Retic Count PT with INR 13.90 H INR 1.18 H PTT (Actin FS) 34.9 Sodium 137 Potassium 4.8 Chloride 107 Carbon Dioxide 25 Anion Gap 4 L BUN 26.3 H Creatinine 1.3 Est GFR (CKD-EPI)AfAm 59.73 Est GFR (CKD-EPI)NonAf 51.53 Random Glucose 78 Calcium 8.6 Phosphorus Magnesium 2.2 Iron TIBC Iron Saturation Unsaturated IBC Ferritin Total Bilirubin 0.4 AST 32 ALT 12 L Alkaline Phosphatase 101 Creatine Kinase 35 Troponin I 0.02 B-Natriuretic Peptide 6407.7 H Total Protein 6.9 Albumin 2.8 L Triglycerides Cholesterol Total LDL Cholesterol HDL Cholesterol TSH Urine Color Urine Appearance Urine pH Ur Specific [place] Urine Protein Urine Glucose (UA) Urine Ketones Urine Blood Urine Nitrite Urine Bilirubin Urine Urobilinogen Ur Leukocyte Esterase Urine WBC (Auto) Urine RBC (Auto) Urine Casts (Auto) U Pathogenic Cast Auto U Epithel Cells (Auto) Urine Bacteria (Auto) Urine Yeast (Auto) 02/22/20 02/22/20 02/23/20 19:35 21:28 01:06 WBC RBC Hgb Hct MCV MCH MCHC RDW Plt Count MPV Absolute Neuts (auto) Neutrophils % Lymphocytes % Monocytes % Eosinophils % Basophils % Nucleated RBC % Retic Count PT with INR INR PTT (Actin FS) Sodium Potassium Chloride Carbon Dioxide Anion Gap BUN Creatinine Est GFR (CKD-EPI)AfAm Est GFR (CKD-EPI)NonAf Random Glucose Calcium Phosphorus Magnesium Iron TIBC Iron Saturation Unsaturated IBC Ferritin Total Bilirubin AST ALT Alkaline Phosphatase Creatine Kinase Troponin I 0.02 0.02 B-Natriuretic Peptide Total Protein Albumin Triglycerides Cholesterol Total LDL Cholesterol HDL Cholesterol TSH Urine Color Yellow Urine Appearance Turbid Urine pH 6.0 Ur Specific [place] 1.015 Urine Protein 1+ H Urine Glucose (UA) Negative Urine Ketones Negative Urine Blood 2+ H Urine Nitrite Negative Urine Bilirubin Negative Urine Urobilinogen 0.2 Ur Leukocyte Esterase 3+ H Urine WBC (Auto) 1575 Urine RBC (Auto) 132 Urine Casts (Auto) 5 U Pathogenic Cast Auto None seen U Epithel Cells (Auto) 20 Urine Bacteria (Auto) 5261 Urine Yeast (Auto) None seen 02/23/20 02/23/20 02/23/20 06:05 06:05 06:05 WBC 7.8 RBC 4.16 Hgb 10.6 L Hct 33.8 L MCV 81.2 MCH 25.5 L MCHC 31.4 L RDW 16.9 H Plt Count 255 MPV 8.7 Absolute Neuts (auto) Neutrophils % Lymphocytes % Monocytes % Eosinophils % Basophils % Nucleated RBC % Retic Count Cancelled PT with INR INR PTT (Actin FS) Sodium 139 Potassium 4.6 Chloride 108 H Carbon Dioxide 25 Anion Gap 6 L BUN 25.8 H Creatinine 1.3 Est GFR (CKD-EPI)AfAm 59.73 Est GFR (CKD-EPI)NonAf 51.53 Random Glucose 75 Calcium 8.3 L Phosphorus 3.2 Magnesium 2.1 Iron 30 L TIBC 274 Iron Saturation 10 L Unsaturated IBC 244 Ferritin 40.7 Total Bilirubin 0.5 AST 28 ALT 10 L Alkaline Phosphatase 89 Creatine Kinase Troponin I B-Natriuretic Peptide Total Protein 6.2 L Albumin 2.7 L Triglycerides 58 Cholesterol 125 Total LDL Cholesterol 65 HDL Cholesterol 43 TSH 5.05 H Urine Color Urine Appearance Urine pH Ur Specific [place] Urine Protein Urine Glucose (UA) Urine Ketones Urine Blood Urine Nitrite Urine Bilirubin Urine Urobilinogen Ur Leukocyte Esterase Urine WBC (Auto) Urine RBC (Auto) Urine Casts (Auto) U Pathogenic Cast Auto U Epithel Cells (Auto) Urine Bacteria (Auto) Urine Yeast (Auto) 02/23/20 09:36 WBC RBC Hgb Hct MCV MCH MCHC RDW Plt Count MPV Absolute Neuts (auto) Neutrophils % Lymphocytes % Monocytes % Eosinophils % Basophils % Nucleated RBC % Retic Count 1.81 H PT with INR INR PTT (Actin FS) Sodium Potassium Chloride Carbon Dioxide Anion Gap BUN Creatinine Est GFR (CKD-EPI)AfAm Est GFR (CKD-EPI)NonAf Random Glucose Calcium Phosphorus Magnesium Iron TIBC Iron Saturation Unsaturated IBC Ferritin Total Bilirubin AST ALT Alkaline Phosphatase Creatine Kinase Troponin I B-Natriuretic Peptide Total Protein Albumin Triglycerides Cholesterol Total LDL Cholesterol HDL Cholesterol TSH Urine Color Urine Appearance Urine pH Ur Specific [place] Urine Protein Urine Glucose (UA) Urine Ketones Urine Blood Urine Nitrite Urine Bilirubin Urine Urobilinogen Ur Leukocyte Esterase Urine WBC (Auto) Urine RBC (Auto) Urine Casts (Auto) U Pathogenic Cast Auto U Epithel Cells (Auto) Urine Bacteria (Auto) Urine Yeast (Auto) Current Medications Generic Name Dose Route Start Last Admin Trade Name Freq PRN Reason Stop Dose Admin Aspirin 81 mg 02/24/20 10:00 Asa - PO DAILY ON LICENSE OF [facility] Atorvastatin Calcium 20 mg 02/22/20 22:00 02/22/20 22:29 Lipitor - PO Not Given HS ON LICENSE OF [facility] Carvedilol 3.125 mg 02/23/20 22:00 Coreg - PO BID ON LICENSE OF [facility] Docusate Sodium 100 mg 02/22/20 22:00 02/23/20 09:43 Colace - PO 100 mg BID ON LICENSE OF [facility] Administration Enoxaparin Sodium 40 mg 02/23/20 10:00 02/23/20 09:44 Lovenox - SQ Not Given DAILY ON LICENSE OF [facility] Ergocalciferol 50,000 unit 02/22/20 22:00 02/22/20 22:29 Drisdol - PO Not Given [email or web address]@2200 ON LICENSE OF [facility] Ferrous Sulfate 325 mg 02/22/20 22:00 02/23/20 09:43 Feosol - PO 325 mg BID ON LICENSE OF [facility] Administration Furosemide 40 mg 02/22/20 21:45 02/23/20 11:13 Lasix Injection - IVPUSH 40 mg DAILY JORDAN Administration Ceftriaxone Sodium 1 gm/ 50 mls @ 100 mls/hr 02/23/20 10:00 02/23/20 11:13 Dextrose IVPB 100 mls/hr DAILY JODRAN Administration Levothyroxine Sodium 100 mcg 02/23/20 07:00 02/23/20 06:33 Synthroid - PO 100 mcg DAILY@0700 JORDAN Administration Tamsulosin HCl 0.4 mg 02/23/20 10:00 02/23/20 09:43 Flomax - PO 0.4 mg DAILY JORDAN Administration Home Medications Medication Instructions Recorded Amlodipine Besylate 5 mg PO DAILY 02/22/20 Atorvastatin Ca [Lipitor] 20 mg PO HS 02/22/20 Carvedilol [Coreg -] 3.125 mg PO BID 02/22/20 Docusate Sodium [Colace -] 100 mg PO BID 02/22/20 Ergocalciferol (Vitamin D2) 50,000 unit PO WEEKLY 02/22/20 [Vitamin D2] Ferrous Sulfate 325 mg PO BID 02/22/20 Levothyroxine [Synthroid -] 100 mcg PO DAILY 02/22/20 Metoprolol Succinate [Toprol Xl] 25 mg PO DAILY 02/22/20 Tamsulosin HCl 0.4 mg PO DAILY 02/22/20 ASSESSMENT/PLAN: 79 year old male with history of HTN, CHF, Aortic Stenosis (s/p bioprosthetic valve replacement), CAD s/p PCI/Stent, Hx TIA, GERD, BPH, Urinary retention (with indwelling jauregui catheter), and Hypothyroidism presents with 2 day history of intermittent chest pain, Le edema, orthopnea, SOB on exertion. Admits to non- compliance with home meds including Lasix. 1. Acute on Chronic Systolic CHF decompensation CXR - Cardiomegaly BNP - 6407 Echo - global hypokinesis, EF 35%, Bioprosthetic AVR Seen by Cardiology - to continue IV lasix diuresis, BB For optimization of HF meds by Cardio. LE edema, L>R - Duplex shows no evidence of DVT. 2. Hx Iron Deficiency Anemia Iron Sat 10/ Feritin 40 On Fe SO4 supplementation Hx of Hematuria - No evidence of current acute blood loss - GI nor For further out-patient work-up with GI and Urology. 3. Possible UTI (Catheter associated) Urine Cx pending Empiric Ceftriaxone pending Urine Cx. Change Jauregui. 4. CAD - no signs of ACS Continue Aspirin, BB, Statin. 5. Lightheadedness - etiology unclear. Will check orthostatics and CT Head. No acute neurological deficits. PT eval. 6. HTN - Resume Coreg. Hold Norvasc. Confirm BP meds as home meds have Coreg and metoprolol listed. 7. BPH with indwelling jauregui - continue Flomax. 8. HLD - Continiue Statin 9. Hypothyroidism - continue Synthroid, TSH 5.05. DVT Px - Lovenox SQ
[2020-02-23] MEDS: ATORVASTATIN CA 20 MG TABLET (FP) PO SCH (21:04)
[2020-02-23] MEDS: CARVEDILOL 3.125 MG TABLET (FP) PO SCH (21:04)
--- NOTE | 2020-02-23 22:16 | PN ---
Physical Exam: SUBJECTIVE: No overnight events.Patient seen and examined. Complains back pain. OBJECTIVE: Vital Signs Period Temp Pulse Resp BP Sys/Pantoja Pulse Ox Last 24 Hr 97.7 F-98.1 F 60-67 18-20 114-149/60-88 96-100 GENERAL: The patient is awake, alert, and oriented X 2, in no acute distress. HEENT: Normal with no signs of trauma. No ptosis. Ears normal, nares patent, oropharynx clear without exudates, moist mucous membranes. LUNGS: Breath sounds at bases, clear to auscultation bilaterally, no wheezes, no crackles, no accessory muscle use. HEART: Regular rate and rhythm, S1, S2 without murmur, rub or gallop.systolic murmur ABDOMEN: Soft, nontender, nondistended, normoactive bowel sounds, EXTREMITIES: 2+ edema b/l LE. edema increased more on L. skin changes associated with venous stasis on L LE. NEUROLOGICAL: Normal speech, gait not observed. PSYCH: normal affect. SKIN: Warm, dry, normal turgor, no rashes or lesions noted BACK: Stage 1 ulcer in sacral decubitus ulcer Laboratory Results - last 24 hr 02/22/20 02/23/20 02/23/20 21:28 01:06 06:05 WBC 7.8 RBC 4.16 Hgb 10.6 L Hct 33.8 L MCV 81.2 MCH 25.5 L MCHC 31.4 L RDW 16.9 H Plt Count 255 MPV 8.7 Retic Count Cancelled Sodium Potassium Chloride Carbon Dioxide Anion Gap BUN Creatinine Est GFR (CKD-EPI)AfAm Est GFR (CKD-EPI)NonAf Random Glucose Calcium Phosphorus Magnesium Iron TIBC Iron Saturation Unsaturated IBC Ferritin Total Bilirubin AST ALT Alkaline Phosphatase Troponin I 0.02 Total Protein Albumin Triglycerides Cholesterol Total LDL Cholesterol HDL Cholesterol Vitamin B12 Serum Folate TSH Urine Color Yellow Urine Appearance Turbid Urine pH 6.0 Ur Specific [place] 1.015 Urine Protein 1+ H Urine Glucose (UA) Negative Urine Ketones Negative Urine Blood 2+ H Urine Nitrite Negative Urine Bilirubin Negative Urine Urobilinogen 0.2 Ur Leukocyte Esterase 3+ H Urine WBC (Auto) 1575 Urine RBC (Auto) 132 Urine Casts (Auto) 5 U Pathogenic Cast Auto None seen U Epithel Cells (Auto) 20 Urine Bacteria (Auto) 5261 Urine Yeast (Auto) None seen 02/23/20 02/23/20 02/23/20 06:05 06:05 09:36 WBC RBC Hgb Hct MCV MCH MCHC RDW Plt Count MPV Retic Count 1.81 H Sodium 139 Potassium 4.6 Chloride 108 H Carbon Dioxide 25 Anion Gap 6 L BUN 25.8 H Creatinine 1.3 Est GFR (CKD-EPI)AfAm 59.73 Est GFR (CKD-EPI)NonAf 51.53 Random Glucose 75 Calcium 8.3 L Phosphorus 3.2 Magnesium 2.1 Iron 30 L TIBC 274 Iron Saturation 10 L Unsaturated IBC 244 Ferritin 40.7 Total Bilirubin 0.5 AST 28 ALT 10 L Alkaline Phosphatase 89 Troponin I Total Protein 6.2 L Albumin 2.7 L Triglycerides 58 Cholesterol 125 Total LDL Cholesterol 65 HDL Cholesterol 43 Vitamin B12 191 L Serum Folate 10 TSH 5.05 H Urine Color Urine Appearance Urine pH Ur Specific [place] Urine Protein Urine Glucose (UA) Urine Ketones Urine Blood Urine Nitrite Urine Bilirubin Urine Urobilinogen Ur Leukocyte Esterase Urine WBC (Auto) Urine RBC (Auto) Urine Casts (Auto) U Pathogenic Cast Auto U Epithel Cells (Auto) Urine Bacteria (Auto) Urine Yeast (Auto) Active Medications Generic Name Dose Route Start Last Admin Trade Name Freq PRN Reason Stop Dose Admin Aspirin 81 mg 02/24/20 10:00 Asa - PO DAILY [facility] Atorvastatin Calcium 20 mg 02/22/20 22:00 02/23/20 21:04 Lipitor - PO 20 mg HS JORDAN Administration Carvedilol 3.125 mg 02/23/20 22:00 02/23/20 21:04 Coreg - PO 3.125 mg BID [facility] Administration Docusate Sodium 100 mg 02/22/20 22:00 02/23/20 21:05 Colace - PO Not Given BID [facility] Enoxaparin Sodium 40 mg 02/23/20 10:00 02/23/20 09:44 Lovenox - SQ Not Given DAILY [facility] Ergocalciferol 50,000 unit 02/22/20 22:00 02/22/20 22:29 Drisdol - PO Not Given Serrano@2200 [facility] Ferrous Sulfate 325 mg 02/22/20 22:00 02/23/20 21:05 Feosol - PO Not Given BID [facility] Furosemide 40 mg 02/22/20 21:45 02/23/20 11:13 Lasix Injection - IVPUSH 40 mg DAILY JORDAN Administration Ceftriaxone Sodium 1 gm/ 50 mls @ 100 mls/hr 02/23/20 10:00 02/23/20 11:13 Dextrose IVPB 100 mls/hr DAILY JORDAN Administration Levothyroxine Sodium 100 mcg 02/23/20 07:00 02/23/20 06:33 Synthroid - PO 100 mcg DAILY@0700 JORDAN Administration Tamsulosin HCl 0.4 mg 02/23/20 10:00 02/23/20 09:43 Flomax - PO 0.4 mg DAILY JORDAN Administration ASSESSMENT/PLAN: 79 YO PMH BPH, urinary retention w/ indwelling iyer catheter, LE edema HTN, CHF, aortic stenosis (s/p bioprosthetic valve replacement), CAD s/p PCI/Stent, GERD, and TIA hx p/w 2 days of iintermittent CP. SOB, orthopnea, and LE edema worsened over the past 6 months 2/2 noncomplaince with home meds. #Chest pain EKG: NSR. 1st degree AV block w/ premature atrial complexes. R bundle branch block. trops negative X3 #Acute on Chronic Systolic CHF -CXR: Cardiomegaly, BNP - 6407 -Echo: global hypokinesis, EF 35% -cardio c/s apprecaited. C/w IV lasix & coreg -LE edema more on the L LE. Duplex LE: no evidence of DVT #UTI -UA: 1+ protein, 2+ blood, 132 RBCs, 3+ leukoesterase, 1575 WBcs, 5261 bacteria, epithelial cells 20 -Urine Cx pending. started on Empiric Ceftriaxone 1 gm -Change Iyer. #Lightheadedness/blurry vision -CTH: no acute pathology. multiple chronic supratentorial & infratentorial infarcts -check orthostatics in AM #Stage 1 ulcer -frequent positioning every 2 hrs #Iron Deficiency Anemia LOWIron 30, Iron Sat 10 NORMAL ferritin 40.7, TIBC 274 home dose of ferrous sulfate 325 PO BID h/o hematuria. outpt f/u w/ Urology & GI #CAD -c/w ASA, atorvastatin 20 mg PO HS, coreg 3.125 mg PO BID #HTN c/w coreg #BPH c/w flomax #HLD -c.w atorvastatin 20 mg PO HS #Hypothyroidism continue Synthroid 100 mcg PO DAILY #DVT PPX Lovenox 40 mg SQ #Severe protein calorie malnutrition >2% wt loss in 1 weeek, caloric intake <50% of nutritional needs for >5 days Visit type - Emergency Visit Emergency Visit: Yes ED Registration Date: 02/22/20 Care time: The patient presented to the Emergency Department on the above date and was hospitalized for further evaluation of their emergent condition. - New Patient This patient is new to me today: No - Critical Care Critical Care patient: No - Medication Review Med list reviewed for High Risk Meds patients 65 and older: Yes ATTENDING PHYSICIAN STATEMENT I saw and evaluated the patient. I reviewed the resident's note and discussed the case with the resident. I agree with the resident's findings and plan as documented. SUBJECTIVE: OBJECTIVE: ASSESSMENT AND PLAN:
[2020-02-24] MEDS ORDERED: cefTRIAXone SODIUM 1 GM VIAL ONE (09:20)
[2020-02-24] MEDS ORDERED: DEXTROSE 5%-WATER - 50 ML IVPB ONE (09:21)
[2020-02-24] MEDS: DOCUSATE SODIUM 100 MG CAPSULE (FP) PO SCH ×3 (10:23→21:42)
[2020-02-24] MEDS: CARVEDILOL 3.125 MG TABLET (FP) PO SCH ×2 (10:23→21:43)
[2020-02-24] MEDS: FERROUS SO4 325 MG TABLET (FP) PO SCH ×3 (10:23→21:41)
[2020-02-24] MEDS: ASPIRIN 81 MG CHEWABLE TABLETS PO SCH (10:23)
[2020-02-24] MEDS: LEVOTHYROXINE NA 100 MCG TABLET (FP) PO SCH (10:23)
[2020-02-24] MEDS: TAMSULOSIN HCL 0.4 MG CAP PO SCH (10:23)
[2020-02-24] MEDS: FUROSEMIDE 40 MG/4 ML INJECTABLE VIAL IVPUSH SCH (10:23)
[2020-02-24] MEDS: ENOXAPARIN NA (PORCINE) 40 MG/0.4 ML DISP.SYRIN SQ SCH ×2 (10:24→10:36)
[2020-02-24] MEDS: CEFTRIAXONE 1 GM in DEXTROSE 5%-WATER - 50 ML IVPB SCH (10:24)
[2020-02-24] MEDS: ASCORBIC ACID 250 MG TABLET (FP) PO SCH (12:07)
[2020-02-24] MEDS ORDERED: LIDOCAINE HCL 2% JELLY (30 ML/TUBE) TP ONE (12:30)
--- NOTE | 2020-02-24 12:32 | PN ---
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 (short form) - Note 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: ID CONSULT DICTATED + URINE C/S PSEUDOMONAS IN PT WITH CHRONIC INDWELLING CATHETER FOR BPH ? SIGNIFICANCE PT NON TOXIC APPEARING NO EVIDENCE OF SYSTEMIC INFECTION AFEBRILE, NORMAL WBC CHANGE BARNETT, REPEAT U/A, C/S OBSERVE OFF ANTIBIOTICS
--- NOTE | 2020-02-24 12:48 | PN ---
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 (short form) - Note 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: cc: le edema, abd pain s: edema, dyspnea improvign. no chest pain, palps, dizziness Current Medications Generic Name Dose Route Start Last Admin Trade Name Ernesto PRN Reason Stop Dose Admin Ascorbic Acid 250 mg 02/24/20 12:00 Vitamin C - PO DAILY [facility] Aspirin 81 mg 02/24/20 10:00 02/24/20 10:23 Asa - PO 81 mg DAILY JORDAN Administration Atorvastatin Calcium 20 mg 02/22/20 22:00 02/23/20 21:04 Lipitor - PO 20 mg HS JORDAN Administration Carvedilol 3.125 mg 02/23/20 22:00 02/24/20 10:23 Coreg - PO 3.125 mg BID JORDAN Administration Docusate Sodium 100 mg 02/22/20 22:00 02/24/20 10:35 Colace - PO Not Given BID JORDAN Enoxaparin Sodium 40 mg 02/23/20 10:00 02/24/20 10:36 Lovenox - SQ Not Given DAILY [facility] Ergocalciferol 50,000 unit 02/22/20 22:00 02/22/20 22:29 Drisdol - PO Not Given Serrano@2200 [facility] Ferrous Sulfate 325 mg 02/22/20 22:00 02/24/20 10:36 Feosol - PO Not Given BID [facility] Furosemide 40 mg 02/22/20 21:45 02/24/20 10:23 Lasix Injection - IVPUSH 40 mg DAILY JORDAN Administration Levothyroxine Sodium 100 mcg 02/23/20 07:00 02/24/20 10:23 Synthroid - PO Not Given DAILY@0700 [facility] Tamsulosin HCl 0.4 mg 02/23/20 10:00 02/24/20 10:23 Flomax - PO 0.4 mg DAILY JORDAN Administration Vital Signs Period Temp Pulse Resp BP Sys/Pantoja Pulse Ox Last 24 Hr 97.8 F-98.3 F 63-74 18-20 127-149/64-88 97-100 nad no jvd rrr s1s2 no mrg cta bl nl eff aao3 1-2+ le edema bl, no c/c abd nt nd pos bs no jaundice diaphoresis +dp pt no carotid bruits not agitated echo 02/2020: lvef 35%, global hk, nl rv, lae, nl bio avr, mild mr, mild tr, rvsp 38 ecg: sr, rbbb cxr: clear tele: sr a/p: 80 m hx htn, syst chf, as s/p remote bio avr, cad s/p remote pci, tia, here with le edema, abd pain. acute syst chf: -continue iv lasix, monitor daily chem7, wts -resumed home coreg for chf regimen -no signs acs, trops negx3 htn: -cont coreg, monitor avr: -stable, nl fcn on echo cad, remote pci: -stable, no signs acs -cont statin, bb, asa uti: -on abx
[2020-02-24] MEDS ORDERED: PIPERACILLIN/TAZOB 3.375 GM 3.375 GM in DEXTROSE 5%-WATER - 50 ML IVPB SCH ×2 (13:00→18:00)
--- NOTE | 2020-02-24 13:33 | CONS ---
DATE OF CONSULTATION: DATE OF DICTATION: 02/24/2020 CHIEF COMPLAINT: The patient is an 79-year-old male who is evaluated for positive urine culture. The patient does not give a reliable history. He recently became a . His approximately 2-1/2 weeks ago. Since that time he has been despondent and had admitted to noncompliance with his medication. He is from [place]; however, moved to [place] to be with his daughters. He is now admitted with 2-day history of chest pain. He was admitted to the telemetry floor and was evaluated by cardiology. The patient has an indwelling Jauregui catheter. According to the notes, it was placed on February 07, 2020, at a facility in [place] due to acute urinary retention from BPH. Urinalysis shows many white cells. Urine culture is growing a pseudomonas species. He was empirically treated with ceftriaxone. At the present time he is awake and alert. He has no complaints of suprapubic or flank pain. The urine in the Jauregui collection bag has been clear. He denies any fever or chills. Denies prior history of urinary tract infection or history of multidrug-resistant organisms. Patient reportedly had 1 episode of gross hematuria which has since resolved. PAST MEDICAL HISTORY: Positive for hypertension, hyperlipidemia, congestive heart failure, TIA, gastroesophageal reflux, BPH, aortic stenosis, coronary artery disease. PAST SURGICAL HISTORY: Status post coronary artery stent, aortic valve replacement with a bioprosthetic valve approximately 10 years ago. ALLERGIES: No known allergies. MEDICATIONS: Include Zosyn, Flomax, Lovenox, Lipitor, Coreg, aspirin, Lasix, Colace, Synthroid. SOCIAL HISTORY: As per HPI. Nonsmoker, nondrinker. REVIEW OF SYSTEMS: Neurologic: No loss of consciousness, seizure activity, focal weakness. Cardiac: As per HPI. Respiratory: Negative cough or sputum production. Gastrointestinal: Negative vomiting or diarrhea. Genitourinary: As per HPI. LABORATORY DATA: White count 7.8, hematocrit 33.8, platelet count 255, creatinine 1.3. Urinalysis: White cells 1575, 132 red cells. Chest x-ray negative. Urine culture growing pseudomonas species. COVID-19 PCR negative. PHYSICAL EXAMINATION: General: He is out of bed to chair. Vital Signs: Temperature 98.3, blood pressure 127/64, pulse 66, regular. Respirations 20 per minute. Patient is nontoxic appearing, in no acute distress. Cardiac: Heart sounds S1, S2. Lungs: Clear. Abdomen: Soft, nontender. No suprapubic or flank tenderness. Extremities: Positive for edema. Genitourinary: Urine in Jauregui collection bag appears clear. IMPRESSION: Positive urine culture pseudomonas species in patient with chronic indwelling Jauregui catheter for benign prostatic hypertrophy. Significance of positive urine culture not clear. Patient is not toxic appearing. No evidence of systemic infection. He is afebrile with a normal white blood cell count. At this time advise change of Jauregui catheter, repeat urinalysis and urine culture. Observe off antibiotics at this time. Should he develop any fever or other change in his clinical condition, will start antibiotics, but for now will observe. Case discussed with primary care physician. Thank you for the kind referral. OLENA ATKINS M.D. [id number]
--- NOTE | 2020-02-24 14:56 | PN ---
Teaching Attending Note Name of Resident: Tor Thorne ATTENDING PHYSICIAN STATEMENT I saw and evaluated the patient. I reviewed the resident's note and discussed the case with the resident. I agree with the resident's findings and plan as documented. SUBJECTIVE: Seen and examined at bedside. Patient reports he feels weak. Has LLE pain which appears muscular on exam. 2+ LE edema Satting in the high 90s on room air. Has poor air movement. OBJECTIVE: Last Vital Signs Temp Pulse Resp BP Pulse Ox 98.1 F 74 20 104/56 L 97 02/24/20 13:39 02/24/20 13:39 02/24/20 10:49 02/24/20 13:39 02/24/20 10:49 PE: per resident note Labs/Imaging: reviewed ASSESSMENT AND PLAN: 79 year old male with history of HTN, CHF, Aortic Stenosis (s/p bioprosthetic valve replacement), CAD s/p PCI/Stent, Hx TIA, GERD, BPH, Urinary retention (with indwelling iyer catheter), and Hypothyroidism presents with 2 day history of intermittent chest pain, Le edema, orthopnea, SOB on exertion. Admits to non- compliance with home meds including Lasix. # Acute on Chronic Systolic CHF decompensation. Pt remains hypervolemic: requires additional inpt diuresis CXR - Cardiomegaly BNP - 6407 Echo - global hypokinesis, EF 35%, Bioprosthetic AVR Seen by Cardiology - to continue IV lasix diuresis, BB For optimization of HF meds by Cardio. LE edema, L>R - Duplex shows no evidence of DVT. #Hx Iron Deficiency Anemia Iron Sat 10/ Feritin 40 On Fe SO4 supplementation Hx of Hematuria - No evidence of current acute blood loss - GI nor For further out-patient work-up with GI and Urology. # Possible UTI (Catheter associated) Urine Cx shows pseudomonas will replace iyer and reculture DC abx for now ID on board: appreciate recs # CAD - no signs of ACS Continue Aspirin, BB, Statin. # Lightheadedness - etiology unclear. Will check orthostatics and CT Head. No acute neurological deficits. PT eval. # HTN - Resume Coreg. Hold Norvasc. Confirm BP meds as home meds have Coreg and metoprolol listed. # BPH with indwelling iyer - continue Flomax. # HLD - Continiue Statin # Hypothyroidism - continue Synthroid, TSH 5.05. DVT Px - Lovenox SQ
--- NOTE | 2020-02-24 15:34 | PN ---
Physical Exam: SUBJECTIVE: No overnight events.Patient seen and examined. Complains of LLE pain. OBJECTIVE: Vital Signs Period Temp Pulse Resp BP Sys/Pantoja Pulse Ox Last 24 Hr 97.8 F-98.3 F 63-74 18-20 104-149/56-86 97-100 GENERAL: The patient is awake, alert, and oriented X 2, in no acute distress. HEENT: Normal with no signs of trauma. No ptosis. Ears normal, nares patent, oropharynx clear without exudates, moist mucous membranes. LUNGS: decreased Breath sounds at bases, clear to auscultation bilaterally, no wheezes, no crackles, no accessory muscle use. HEART: Regular rate and rhythm, S1, S2 without murmur, rub or gallop.systolic murmur ABDOMEN: Soft, nontender, nondistended, normoactive bowel sounds, EXTREMITIES: 2+ edema b/l LE. edema increased more on L. skin changes associated with venous stasis on L LE. NEUROLOGICAL: Normal speech, gait not observed. PSYCH: normal affect. SKIN: Warm, dry, normal turgor, no rashes or lesions noted BACK: Stage 1 ulcer in sacral decubitus ulcer Laboratory Results - last 24 hr 02/23/20 02/23/20 01:06 06:05 Iron 30 L TIBC 274 Iron Saturation 10 L Unsaturated IBC 244 Ferritin 40.7 Triglycerides 58 Cholesterol 125 Total LDL Cholesterol 65 HDL Cholesterol 43 Vitamin B12 191 L Serum Folate 10 COVID-19 (ROBIN) Not detected Active Medications Generic Name Dose Route Start Last Admin Trade Name Freq PRN Reason Stop Dose Admin Ascorbic Acid 250 mg 02/24/20 12:00 02/24/20 12:07 Vitamin C - PO Not Given DAILY [facility] Aspirin 81 mg 02/24/20 10:00 02/24/20 10:23 Asa - PO 81 mg DAILY JORDAN Administration Atorvastatin Calcium 20 mg 02/22/20 22:00 02/23/20 21:04 Lipitor - PO 20 mg HS JORDAN Administration Carvedilol 3.125 mg 02/23/20 22:00 02/24/20 10:23 Coreg - PO 3.125 mg BID JORDAN Administration Docusate Sodium 100 mg 02/22/20 22:00 02/24/20 10:35 Colace - PO Not Given BID JORDAN Enoxaparin Sodium 40 mg 02/23/20 10:00 02/24/20 10:36 Lovenox - SQ Not Given DAILY [facility] Ergocalciferol 50,000 unit 02/22/20 22:00 02/22/20 22:29 Drisdol - PO Not Given [email or web address] [facility] Ferrous Sulfate 325 mg 02/22/20 22:00 02/24/20 10:36 Feosol - PO Not Given BID JORDAN Furosemide 40 mg 02/22/20 21:45 02/24/20 10:23 Lasix Injection - IVPUSH 40 mg DAILY JORDAN Administration Levothyroxine Sodium 100 mcg 02/23/20 07:00 02/24/20 10:23 Synthroid - PO Not Given DAILY@0700 [facility] Tamsulosin HCl 0.4 mg 02/23/20 10:00 02/24/20 10:23 Flomax - PO 0.4 mg DAILY JORDAN Administration ASSESSMENT/PLAN: 79 YO PMH BPH, urinary retention w/ indwelling iyer catheter, LE edema HTN, CHF, aortic stenosis (s/p bioprosthetic valve replacement), CAD s/p PCI/Stent, GERD, and TIA hx p/w 2 days of iintermittent CP. SOB, orthopnea, and LE edema worsened over the past 6 months 2/2 noncompliance with home meds. #Chest pain EKG: NSR. 1st degree AV block w/ premature atrial complexes. R bundle branch block. trops negative X3 #Acute on Chronic Systolic CHF -CXR: Cardiomegaly, BNP - 6407 -Echo: global hypokinesis, EF 35% -C/w IV lasix & coreg -LE edema more on the L LE. Duplex LE: no evidence of DVT #UTI -UA: 1+ protein, 2+ blood, 132 RBCs, 3+ leukoesterase, 1575 WBcs, 5261 bacteria, epithelial cells 20 -Urine Cx pseudomonas > 100,00 CFU. s/p Ceftriaxone 1 gm -ID C/S appreciated. replace indwelling iyer catheter. order repeat urine cx after iyer catheter replaced, as per ID #Lightheadedness/blurry vision -CTH: no acute pathology. multiple chronic supratentorial & infratentorial infarcts -check orthostatics in AM #Stage 1 ulcer -frequent positioning every 2 hrs, out of bed as tolerated -air flow mattress ordered #Iron Deficiency Anemia LOWIron 30, Iron Sat 10 NORMAL ferritin 40.7, TIBC 274 -home dose of ferrous sulfate 325 PO BID -started vitamin C 250 mg PO daily h/o hematuria. outpt f/u w/ Urology & GI #CAD -c/w ASA, atorvastatin 20 mg PO HS, coreg 3.125 mg PO BID #HTN c/w coreg #BPH c/w flomax #HLD -c.w atorvastatin 20 mg PO HS #Hypothyroidism continue Synthroid 100 mcg PO DAILY #DVT PPX Lovenox 40 mg SQ #DISPO maintain med surg Visit type - Emergency Visit Emergency Visit: Yes ED Registration Date: 02/22/20 Care time: The patient presented to the Emergency Department on the above date and was hospitalized for further evaluation of their emergent condition. - New Patient This patient is new to me today: No - Critical Care Critical Care patient: No - Medication Review Med list reviewed for High Risk Meds patients 65 and older: Yes ATTENDING PHYSICIAN STATEMENT I saw and evaluated the patient. I reviewed the resident's note and discussed the case with the resident. I agree with the resident's findings and plan as documented. SUBJECTIVE: OBJECTIVE: ASSESSMENT AND PLAN:
[2020-02-24 18:15] LABS: EPI CELLS >36 /uL (0-25.1); HYALINE CASTS 6 /uL (0-3.1); URINE APPEARANCE CLEAR; URINE BACTERIA 48 /uL (0-1359); URINE BILIRUBIN NEGATIVE (NEGATIVE); URINE COLOR YELLOW; URINE GLUCOSE (UA) NEGATIVE (NEGATIVE); URINE KETONE NEGATIVE (NEGATIVE); URINE LEUK ESTERASE 2+ (NEGATIVE); URINE NITRITE NEGATIVE (NEGATIVE); URINE PROTEIN TRACE (NEGATIVE); URINE RBC 92 /uL (0-23.9); URINE UROBILINOGEN 0.2 mg/dL (0.2-1.0); URINE WBC 68 /uL (0-25.8)
[2020-02-24] MEDS: ATORVASTATIN CA 20 MG TABLET (FP) PO SCH (21:43)
[2020-02-25] MEDS: LEVOTHYROXINE NA 100 MCG TABLET (FP) PO SCH (06:56)
[2020-02-25 07:54] LABS: BASO % 0.8 % (0-2.0); EOS % 3.6 % (0-4.5); HEMATOCRIT 33.7 % (35.4-49); HEMOGLOBIN 10.9 GM/dL (11.7-16.9); LYMPH % 13.7 % (8-40); MCHC 32.2 g/dl (32.0-35.9); MEAN CELL VOLUME 80.5 fl (80-96); MEAN PLT VOLUME 8.9 fl (7.5-11.1); MONO % 10.3 % (3.8-10.2); NEUT % 71.6 % (42.8-82.8); PLATELET COUNT 264 K/MM3 (134-434); RBC 4.18 M/mm3 (4.00-5.60); RDW 16.9 % (11.9-15.9)
[2020-02-25 08:36] LABS: BILIRUBIN,TOTAL 0.2 mg/dL (0.2-1); POTASSIUM 4.5 mmol/L (3.5-5.1)
[2020-02-25 08:44] LABS: ALBUMIN 2.7 g/dl (3.4-5.0); BLOOD UREA NITROGEN 26.6 mg/dL (7-18); CALCIUM 8.2 mg/dL (8.5-10.1); CREATININE 1.3 mg/dL (0.55-1.3); PHOSPHOROUS 3.1 mg/dL (2.5-4.9); TOT PROT 6.4 g/dl (6.4-8.2)
[2020-02-25] MEDS: FUROSEMIDE 40 MG/4 ML INJECTABLE VIAL IVPUSH SCH (10:17)
[2020-02-25] MEDS: CARVEDILOL 3.125 MG TABLET (FP) PO SCH ×2 (10:17→21:18)
[2020-02-25] MEDS: ASPIRIN 81 MG CHEWABLE TABLETS PO SCH (10:17)
[2020-02-25] MEDS: TAMSULOSIN HCL 0.4 MG CAP PO SCH (10:17)
[2020-02-25] MEDS: ASCORBIC ACID 250 MG TABLET (FP) PO SCH (10:18)
[2020-02-25] MEDS: DOCUSATE SODIUM 100 MG CAPSULE (FP) PO SCH ×2 (10:18→21:21)
[2020-02-25] MEDS: FERROUS SO4 325 MG TABLET (FP) PO SCH ×2 (10:18→21:18)
[2020-02-25] MEDS: ENOXAPARIN NA (PORCINE) 40 MG/0.4 ML DISP.SYRIN SQ SCH (10:18)
--- NOTE | 2020-02-25 11:54 | PN ---
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 (short form) - Note 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: cc: le edema, abd pain s: edema improving. no chest pain, palps, dizziness. complains of nausea. Current Medications Generic Name Dose Route Start Last Admin Trade Name Ernesto PRN Reason Stop Dose Admin Ascorbic Acid 250 mg 02/24/20 12:00 02/25/20 10:18 Vitamin C - PO Not Given DAILY [facility] Aspirin 81 mg 02/24/20 10:00 02/25/20 10:17 Asa - PO 81 mg DAILY JORDAN Administration Atorvastatin Calcium 20 mg 02/22/20 22:00 02/24/20 21:43 Lipitor - PO 20 mg HS JORDAN Administration Carvedilol 3.125 mg 02/23/20 22:00 02/25/20 10:17 Coreg - PO 3.125 mg BID JORDAN Administration Docusate Sodium 100 mg 02/22/20 22:00 02/25/20 10:18 Colace - PO Not Given BID JORDAN Enoxaparin Sodium 40 mg 02/23/20 10:00 02/25/20 10:18 Lovenox - SQ Not Given DAILY [facility] Ergocalciferol 50,000 unit 02/22/20 22:00 02/22/20 22:29 Drisdol - PO Not Given [email or web address]@2200 [facility] Ferrous Sulfate 325 mg 02/22/20 22:00 02/25/20 10:18 Feosol - PO Not Given BID JORDAN Furosemide 40 mg 02/22/20 21:45 02/25/20 10:17 Lasix Injection - IVPUSH 40 mg DAILY JORDAN Administration Levothyroxine Sodium 100 mcg 02/23/20 07:00 02/25/20 06:56 Synthroid - PO 100 mcg DAILY@0700 JORDAN Administration Tamsulosin HCl 0.4 mg 02/23/20 10:00 02/25/20 10:17 Flomax - PO 0.4 mg DAILY JORDAN Administration Vital Signs Period Temp Pulse Resp BP Sys/Pantoja Pulse Ox Last 24 Hr 97.8 F-98.4 F 63-86 20-20 104-141/56-84 96-98 nad no jvd rrr s1s2 no mrg cta bl nl eff aao3 1-2+ le edema bl, no c/c abd nt nd pos bs no jaundice diaphoresis +dp pt no carotid bruits not agitated echo 02/2020: lvef 35%, global hk, nl rv, lae, nl bio avr, mild mr, mild tr, rvsp 38 ecg: sr, rbbb cxr: clear tele: sr a/p: 79 m hx htn, syst chf, as s/p remote bio avr, cad s/p remote pci, tia, here with le edema, abd pain. acute syst chf: -edema improving. continue iv lasix, monitor daily chem7, wts -resumed home coreg for chf regimen, start lisinopril 2.5 mg daily -no signs acs, trops negx3 htn: -cont coreg, monitor avr: -stable, nl fcn on echo cad, remote pci: -stable, no signs acs -cont statin, bb, asa uti: -on abx
[2020-02-25] MEDS: PANTOPRAZOLE 20 MG TABLET PO SCH (13:21)
[2020-02-25] MEDS: LISINOPRIL 5 MG TABLET (FP) PO SCH (13:21)
--- NOTE | 2020-02-25 14:36 | PN ---
Teaching Attending Note Name of Resident: Tor Thorne ATTENDING PHYSICIAN STATEMENT I saw and evaluated the patient. I reviewed the resident's note and discussed the case with the resident. I agree with the resident's findings and plan as documented. SUBJECTIVE: Seen and examined at bedside. Patient complains of some burning abdominal pain after eating. Hemodynamically stable. Volume status improved but still not euvolemic.Restarted on Coreg and lisinopril per cardiology. OBJECTIVE: Last Vital Signs Temp Pulse Resp BP Pulse Ox 98.7 F 76 20 133/77 97 02/25/20 09:00 02/25/20 09:00 02/25/20 09:00 02/25/20 09:00 02/25/20 09:00 PE: per resident note Labs/Imaging: reviewed ASSESSMENT AND PLAN: 79 year old male with history of HTN, CHF, Aortic Stenosis (s/p bioprosthetic valve replacement), CAD s/p PCI/Stent, Hx TIA, GERD, BPH, Urinary retention (with indwelling iyer catheter), and Hypothyroidism presents with 2 day history of intermittent chest pain, Le edema, orthopnea, SOB on exertion. Admits to non- compliance with home meds including Lasix. # Acute on Chronic Systolic CHF decompensation. Pt remains hypervolemic: requires additional inpt diuresis CXR - Cardiomegaly BNP - 6407 Echo - global hypokinesis, EF 35%, Bioprosthetic AVR Seen by Cardiology - to continue IV lasix diuresis, BB For optimization of HF meds by Cardio. LE edema, L>R - Duplex shows no evidence of DVT. #Hx Iron Deficiency Anemia Iron Sat 10/ Feritin 40 On Fe SO4 supplementation Hx of Hematuria - No evidence of current acute blood loss - GI nor For further out-patient work-up with GI and Urology. # Possible UTI (Catheter associated) Urine Cx shows pseudomonas. Iyer replaced and pending reculture holding abx for now ID on board: appreciate recs # CAD - no signs of ACS Continue Aspirin, BB, Statin. # Lightheadedness - etiology unclear. Will check orthostatics and CT Head. No acute neurological deficits. PT eval. # HTN - Resume Coreg. Hold Norvasc. Confirm BP meds as home meds have Coreg and metoprolol listed. # BPH with indwelling iyer - continue Flomax. # HLD - Continiue Statin # Hypothyroidism - continue Synthroid, TSH 5.05. DVT Px - Lovenox SQ
--- NOTE | 2020-02-25 17:24 | PN ---
Physical Exam: SUBJECTIVE: No overnight events. Patient seen and examined. C/o L leg pain again. Also c/o burning epigastric pain after meals OBJECTIVE: Vital Signs Period Temp Pulse Resp BP Sys/Patnoja Pulse Ox Last 24 Hr 97.6 F-98.7 F 63-86 20-20 112-141/65-84 96-98 GENERAL: The patient is awake, alert, and oriented X 2, in no acute distress. HEENT: Normal with no signs of trauma. No ptosis. Ears normal, nares patent, oropharynx clear without exudates, moist mucous membranes. LUNGS: decreased Breath sounds at bases, clear to auscultation bilaterally, no wheezes, no crackles, no accessory muscle use. HEART: Regular rate and rhythm, S1, S2 without murmur, rub or gallop.systolic murmur ABDOMEN: Soft, nontender, nondistended, normoactive bowel sounds, EXTREMITIES: 2+ edema b/l LE; improving. skin changes associated with venous stasis on L LE. L Leg non-TTP. NEUROLOGICAL: Normal speech, gait not observed. PSYCH: normal affect. SKIN: Warm, dry, normal turgor, no rashes or lesions noted BACK: Stage 1 ulcer in sacral decubitus ulcer Laboratory Results - last 24 hr 02/24/20 02/25/20 02/25/20 16:05 05:25 05:25 WBC 7.0 RBC 4.18 Hgb 10.9 L Hct 33.7 L MCV 80.5 MCH 26.0 MCHC 32.2 RDW 16.9 H Plt Count 264 MPV 8.9 Absolute Neuts (auto) 5.0 Neutrophils % 71.6 Lymphocytes % 13.7 D Monocytes % 10.3 H Eosinophils % 3.6 Basophils % 0.8 Nucleated RBC % 0 Sodium 138 Potassium 4.5 Chloride 105 Carbon Dioxide 26 Anion Gap 8 BUN 26.6 H Creatinine 1.3 Est GFR (CKD-EPI)AfAm 59.73 Est GFR (CKD-EPI)NonAf 51.53 Random Glucose 76 Calcium 8.2 L Phosphorus 3.1 Magnesium 2.0 Total Bilirubin 0.2 AST 26 ALT 11 L Alkaline Phosphatase 82 Total Protein 6.4 Albumin 2.7 L Urine Color Yellow Urine Appearance Clear Urine pH 6.0 Ur Specific Harleigh 1.010 Urine Protein Trace Urine Glucose (UA) Negative Urine Ketones Negative Urine Blood 2+ H Urine Nitrite Negative Urine Bilirubin Negative Urine Urobilinogen 0.2 Ur Leukocyte Esterase 2+ H Urine WBC (Auto) 68 Urine RBC (Auto) 92 Urine Casts (Auto) 6 U Pathogenic Cast Auto None U Epithel Cells (Auto) >36 U Sm Round Cell (Auto) None Urine Bacteria (Auto) 48 Active Medications Generic Name Dose Route Start Last Admin Trade Name Freq PRN Reason Stop Dose Admin Ascorbic Acid 250 mg 02/24/20 12:00 02/25/20 10:18 Vitamin C - PO Not Given DAILY REPLACED BY [facility] Aspirin 81 mg 02/24/20 10:00 02/25/20 10:17 Asa - PO 81 mg DAILY REPLACED BY [facility] Administration Atorvastatin Calcium 20 mg 02/22/20 22:00 02/24/20 21:43 Lipitor - PO 20 mg HS REPLACED BY [facility] Administration Carvedilol 3.125 mg 02/23/20 22:00 02/25/20 10:17 Coreg - PO 3.125 mg BID REPLACED BY [facility] Administration Docusate Sodium 100 mg 02/22/20 22:00 02/25/20 10:18 Colace - PO Not Given BID REPLACED BY [facility] Enoxaparin Sodium 40 mg 02/23/20 10:00 02/25/20 10:18 Lovenox - SQ Not Given DAILY REPLACED BY [facility] Ergocalciferol 50,000 unit 02/22/20 22:00 02/22/20 22:29 Drisdol - PO Not Given [email or web address]@2200 REPLACED BY [facility] Ferrous Sulfate 325 mg 02/22/20 22:00 02/25/20 10:18 Feosol - PO Not Given BID REPLACED BY [facility] Furosemide 40 mg 02/22/20 21:45 02/25/20 10:17 Lasix Injection - IVPUSH 40 mg DAILY REPLACED BY [facility] Administration Levothyroxine Sodium 100 mcg 02/23/20 07:00 02/25/20 06:56 Synthroid - PO 100 mcg DAILY@0700 REPLACED BY [facility] Administration Lisinopril 2.5 mg 02/25/20 12:00 02/25/20 13:21 Prinivil PO Not Given DAILY REPLACED BY [facility] Pantoprazole Sodium 20 mg 02/25/20 13:00 02/25/20 13:21 Protonix - PO Not Given DAILY REPLACED BY [facility] Tamsulosin HCl 0.4 mg 02/23/20 10:00 02/25/20 10:17 Flomax - PO 0.4 mg DAILY REPLACED BY [facility] Administration ASSESSMENT/PLAN: 79 YO PMH BPH, urinary retention w/ indwelling iyer catheter, LE edema HTN, CHF, aortic stenosis (s/p bioprosthetic valve replacement), CAD s/p PCI/Stent, GERD, and TIA hx p/w 2 days of iintermittent CP. SOB, orthopnea, and LE edema worsened over the past 6 months 2/2 noncompliance with home meds. #Chest pain EKG: NSR. 1st degree AV block w/ premature atrial complexes. R bundle branch block. trops negative X3 resolved #Acute on Chronic Systolic CHF -CXR: Cardiomegaly, BNP - 6407 -Echo: global hypokinesis, EF 35% - Duplex LE: no evidence of DVT -Cardio c/s appreciated. start lisinopril 2.5 mg daily -C/w IV lasix & coreg. #UTI -UA: 1+ protein, 2+ blood, 132 RBCs, 3+ leukoesterase, 1575 WBcs, 5261 bacteria, epithelial cells 20 -Urine Cx pseudomonas > 100,00 CFU. s/p Ceftriaxone 1 gm -indwelling iyer catheter replaced. f/u repeat urine cx after iyer was replaced as per ID #Stage 1 ulcer -frequent positioning every 2 hrs, out of bed as tolerated -air flow mattress ordered #Iron Deficiency Anemia LOWIron 30, Iron Sat 10 NORMAL ferritin 40.7, TIBC 274 -home dose of ferrous sulfate 325 PO BID -started vitamin C 250 mg PO daily h/o hematuria. outpt f/u w/ Urology & GI #GERD Start Protonix 20 mg Daily #Lightheadedness/blurry vision -CTH: no acute pathology. multiple chronic supratentorial & infratentorial infarcts -resolved #CAD -c/w ASA, atorvastatin 20 mg PO HS, coreg 3.125 mg PO BID #HTN c/w coreg #BPH c/w flomax #HLD -c.w atorvastatin 20 mg PO HS #Hypothyroidism continue Synthroid 100 mcg PO DAILY #DVT PPX Lovenox 40 mg SQ #DISPO maintain med surg Visit type - Emergency Visit Emergency Visit: Yes ED Registration Date: 02/22/20 Care time: The patient presented to the Emergency Department on the above date and was hospitalized for further evaluation of their emergent condition. - New Patient This patient is new to me today: No - Critical Care Critical Care patient: No - Medication Review Med list reviewed for High Risk Meds patients 65 and older: Yes ATTENDING PHYSICIAN STATEMENT I saw and evaluated the patient. I reviewed the resident's note and discussed the case with the resident. I agree with the resident's findings and plan as documented. SUBJECTIVE: OBJECTIVE: ASSESSMENT AND PLAN:
[2020-02-25] MEDS: ATORVASTATIN CA 20 MG TABLET (FP) PO SCH (21:18)
[2020-02-26] MEDS: LEVOTHYROXINE NA 100 MCG TABLET (FP) PO SCH (06:21)
[2020-02-26] MEDS: ASPIRIN 81 MG CHEWABLE TABLETS PO SCH (09:54)
[2020-02-26] MEDS: FUROSEMIDE 40 MG/4 ML INJECTABLE VIAL IVPUSH SCH (09:54)
[2020-02-26] MEDS: TAMSULOSIN HCL 0.4 MG CAP PO SCH (09:54)
[2020-02-26] MEDS: DOCUSATE SODIUM 100 MG CAPSULE (FP) PO SCH (09:54)
[2020-02-26] MEDS: FERROUS SO4 325 MG TABLET (FP) PO SCH (09:54)
[2020-02-26] MEDS: CARVEDILOL 3.125 MG TABLET (FP) PO SCH (09:54)
[2020-02-26] MEDS: ENOXAPARIN NA (PORCINE) 40 MG/0.4 ML DISP.SYRIN SQ SCH (09:54)
[2020-02-26] MEDS: ASCORBIC ACID 250 MG TABLET (FP) PO SCH (09:55)
[2020-02-26] MEDS: PANTOPRAZOLE 20 MG TABLET PO SCH (09:55)
[2020-02-26] MEDS: LISINOPRIL 5 MG TABLET (FP) PO SCH (09:55)
--- NOTE | 2020-02-26 12:15 | PN ---
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 (short form) - Note 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: cc: le edema, abd pain s: edema improved. no chest pain, palps, dizziness. walked in halls, felt well Current Medications Generic Name Dose Route Start Last Admin Trade Name Ernesto PRN Reason Stop Dose Admin Ascorbic Acid 250 mg 02/24/20 12:00 02/26/20 09:55 Vitamin C - PO 250 mg DAILY J[facility]AN Administration Aspirin 81 mg 02/24/20 10:00 02/26/20 09:54 Asa - PO 81 mg DAILY [facility] Administration Atorvastatin Calcium 20 mg 02/22/20 22:00 02/25/20 21:18 Lipitor - PO Not Given HS JORDAN Carvedilol 3.125 mg 02/23/20 22:00 02/26/20 09:54 Coreg - PO 3.125 mg BID JORDAN Administration Docusate Sodium 100 mg 02/22/20 22:00 02/26/20 09:54 Colace - PO Not Given BID J[facility] Enoxaparin Sodium 40 mg 02/23/20 10:00 02/26/20 09:54 Lovenox - SQ Not Given DAILY [facility] Ergocalciferol 50,000 unit 02/22/20 22:00 02/22/20 22:29 Drisdol - PO Not Given Serrano@2200 [facility] Ferrous Sulfate 325 mg 02/22/20 22:00 02/26/20 09:54 Feosol - PO 325 mg BID [facility] Administration Furosemide 40 mg 02/22/20 21:45 02/26/20 09:54 Lasix Injection - IVPUSH 40 mg DAILY [facility] Administration Levothyroxine Sodium 100 mcg 02/23/20 07:00 02/26/20 06:21 Synthroid - PO 100 mcg DAILY@0700 [facility] Administration Lisinopril 2.5 mg 02/25/20 12:00 02/26/20 09:55 Prinivil PO 2.5 mg DAILY [facility] Administration Pantoprazole Sodium 20 mg 02/25/20 13:00 02/26/20 09:55 Protonix - PO 20 mg DAILY J[facility] Administration Tamsulosin HCl 0.4 mg 02/23/20 10:00 02/26/20 09:54 Flomax - PO 0.4 mg DAILY [facility] Administration Vital Signs Period Temp Pulse Resp BP Sys/Pantoja Pulse Ox Last 24 Hr 97.4 F-98.4 F 62-81 18-20 112-138/63-88 96-100 nad no jvd rrr s1s2 no mrg cta bl nl eff aao3 trace le edema bl, no c/c abd nt nd pos bs no jaundice diaphoresis +dp pt no carotid bruits not agitated CBC, BMP 02/25/20 05:25 02/25/20 05:25 echo 02/2020: lvef 35%, global hk, nl rv, lae, nl bio avr, mild mr, mild tr, rvsp 38 ecg: sr, rbbb cxr: clear tele: sr a/p: 79 m hx htn, syst chf, as s/p remote bio avr, cad s/p remote pci, tia, here with le edema, abd pain. acute syst chf: -vol status improved after iv lasix, can change to po for tomorrow -cont coreg, lisinopril for chf -no signs acs, trops negx3 htn: -cont current meds avr: -stable, nl fcn on echo cad, remote pci: -stable, no signs acs -cont statin, bb, asa
[2020-02-26 13:52] VITALS: BP 125/69; PULSE 83; TEMP 97.8
--- NOTE | 2020-02-26 14:47 | PN ---
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, Physician History of Present Illness: AWAKE, ALERT IN BED NO COMPLAINTS NO C/O SUPRAPUBIC OR FLANK PAIN NO F/C URINE IN BARNETT COLLECTION BAG CLEAR REPEAT URINE C/S MIXED ORGANISMS - Current Medication List Current Medications: Active Medications Ascorbic Acid (Vitamin C -) 250 mg PO DAILY [facility] Last Admin: 02/26/20 09:55 Dose: 250 mg Documented by: Aspirin (Asa -) 81 mg PO DAILY [facility] Last Admin: 02/26/20 09:54 Dose: 81 mg Documented by: Atorvastatin Calcium (Lipitor -) 20 mg PO HS [facility] Last Admin: 02/25/20 21:18 Dose: Not Given Documented by: Carvedilol (Coreg -) 3.125 mg PO BID [facility] Last Admin: 02/26/20 09:54 Dose: 3.125 mg Documented by: Docusate Sodium (Colace -) 100 mg PO BID [facility] Last Admin: 02/26/20 09:54 Dose: Not Given Documented by: Enoxaparin Sodium (Lovenox -) 40 mg SQ DAILY [facility] Last Admin: 02/26/20 09:54 Dose: Not Given Documented by: Ergocalciferol (Drisdol -) 50,000 unit PO Serrano@2200 [facility] Last Admin: 02/22/20 22:29 Dose: Not Given Documented by: Ferrous Sulfate (Feosol -) 325 mg PO BID [facility] Last Admin: 02/26/20 09:54 Dose: 325 mg Documented by: Furosemide (Lasix -) 40 mg PO DAILY [facility] Levothyroxine Sodium (Synthroid -) 100 mcg PO DAILY@0700 [facility] Last Admin: 02/26/20 06:21 Dose: 100 mcg Documented by: Lisinopril (Prinivil) 2.5 mg PO DAILY [facility] Last Admin: 02/26/20 09:55 Dose: 2.5 mg Documented by: Pantoprazole Sodium (Protonix -) 20 mg PO DAILY [facility] Last Admin: 02/26/20 09:55 Dose: 20 mg Documented by: Tamsulosin HCl (Flomax -) 0.4 mg PO DAILY [facility] Last Admin: 02/26/20 09:54 Dose: 0.4 mg Documented by: - Objective Vital Signs: Vital Signs Temperature 97.8 F 02/26/20 13:50 Pulse Rate 83 02/26/20 13:50 Respiratory Rate 18 02/26/20 09:35 Blood Pressure 125/69 02/26/20 13:50 O2 Sat by Pulse Oximetry (%) 100 02/26/20 13:50 Constitutional: Yes: No Distress Eyes: Yes: Conjunctiva Clear Cardiovascular: Yes: Regular Rate and Rhythm, S1, S2 Respiratory: Yes: CTA Bilaterally Gastrointestinal: Yes: Normal Bowel Sounds, Soft, Tenderness Labs: CBC, BMP 02/25/20 05:25 02/25/20 05:25 INR, PTT INR 1.18 (0.83-1.09) H 02/22/20 16:15 Assessment/Plan PROBABLE URINARY TRACT COLONIZATION NON-TOXIC APPEARING NO EVIDENCE OF SYSTEMIC INFECTION AFEBRILE WBC WNL OBSERVE OFF ANTIBIOTICS
--- NOTE | 2020-02-26 16:05 | PN ---
Teaching Attending Note Name of Resident: Tor Thorne ATTENDING PHYSICIAN STATEMENT I saw and evaluated the patient. I reviewed the resident's note and discussed the case with the resident. I agree with the resident's findings and plan as documented. SUBJECTIVE: Seen and examined at bedside. Patient's edema is significantly improved. Mild 2+ edema to mid calf and left lower extremity. Patient received 40 units IV Lasix today. Can be discharged on his home medications. Repeat urine culture again positive for non-lactose fermenting gram-negative bacilli, assumed to be repeat positive Pseudomonas culture. Discussed with ID: This likely represents colonization, not infection and we will not treat with antibiotics at this time.Patient is medically cleared for discharge. OBJECTIVE: Last Vital Signs Temp Pulse Resp BP Pulse Ox 97.8 F 83 18 125/69 100 02/26/20 13:50 02/26/20 13:50 02/26/20 09:35 02/26/20 13:50 02/26/20 13:50 PE: per resident note Labs/Imaging: reviewed ASSESSMENT AND PLAN: 79 year old male with history of HTN, CHF, Aortic Stenosis (s/p bioprosthetic valve replacement), CAD s/p PCI/Stent, Hx TIA, GERD, BPH, Urinary retention (with indwelling iyer catheter), and Hypothyroidism presents with 2 day history of intermittent chest pain, Le edema, orthopnea, SOB on exertion. Admits to non- compliance with home meds including Lasix. Patient admitted for CHF exacerbation. Echocardiogram showed global hypokinesis and EF of 35%. Patient was diuresed with good effect. Can be discharged on his home medications. Repeat urine culture again positive for non-lactose fermenting gram-negative bacilli, assumed to be repeat positive Pseudomonas culture. Discussed with ID: This likely represents colonization, not infection and we will not treat with antibiotics at this time.Patient is medically cleared for discharge.
--- NOTE | 2020-02-26 19:17 | DS ---
Physical Exam: SUBJECTIVE: No overnight events. Patient seen and examined. Endorses leg cramp improved. OBJECTIVE: Vital Signs Period Temp Pulse Resp BP Sys/Pantoja Pulse Ox Last 24 Hr 97.7 F-98.4 F 62-83 18-20 117-137/63-81 96-100 PHYSICAL EXAM GENERAL: The patient is awake, alert, and oriented X 2, in no acute distress. HEENT: Normal with no signs of trauma. No ptosis. Ears normal, nares patent, oropharynx clear without exudates, moist mucous membranes. LUNGS: decreased Breath sounds at bases, clear to auscultation bilaterally, no wheezes, no crackles, no accessory muscle use. HEART: Regular rate and rhythm, S1, S2 without murmur, rub or gallop.systolic murmur ABDOMEN: Soft, nontender, nondistended, normoactive bowel sounds, EXTREMITIES: 2+ edema b/l LE; improving. skin changes associated with venous stasis on L LE. L Leg non-TTP. NEUROLOGICAL: Normal speech, gait not observed. PSYCH: normal affect. SKIN: Warm, dry, normal turgor, no rashes or lesions noted BACK: Stage 1 ulcer in sacral decubitus ulcer LABS HOSPITAL COURSE: 79 YO PMH BPH, urinary retention w/ indwelling iyer catheter, LE edema HTN, CHF, aortic stenosis (s/p bioprosthetic valve replacement), CAD s/p PCI/Stent, GERD, and TIA hx p/w 2 days of iintermittent CP. SOB, orthopnea, and LE edema worsened over the past 6 months 2/2 noncompliance with home meds. EKG showed NSR w/ 1st degree AV block w/ premature atrial complexes. R bundle branch block. T rops negative X3. Chest pain resolved. Patient was found to have acute on Chronic Systolic CHF. CXR showed Cardiomegaly. BNP was 6407. Echo showed global hypokinesis, EF 35%. Pt was given lisinopril, lasix, and coreg. UA showed 1+ protein, 2+ blood, 132 RBCs, 3+ leukoesterase, 1575 WBcs, 5261 bacteria, epithelial cells 20, and urine culture showed pseudomonas > 100,00 CFU. Managed with Ceftriaxone. Indwelling iyer catheter was replaced. Pt found to have protein calorie malnutrition. Was found to have Iron Deficiency Anemia. LOW Iron 30, Iron Sat 10// NORMAL ferritin 40.7, TIBC 274. Managed with iron supplements and vitamin C. Pt is stable for discharge. Date of Admission:02/22/20 Date of Discharge: 02/26/20 Minutes to complete discharge: 45 Discharge Summary Problems reviewed: Yes Reason For Visit: HEMATURIA CHEST PAIN Condition: Stable - Instructions Diet, Activity, Other Instructions: You came into the hospital for chest pain and worsening shortness of breath/leg swelling. You were found to have an exacerbation of your congestive heart failure. Echocardiogram showed reduced functioning of your heart. This condition is known as "CONGESTIVE HEART FAILURE (CHF)". You were given medication to promote urination of the excessive fluid in your body. You were also given medication to lower your blood pressure. Your symptoms improved. EKG showed a normal rhythm, and a "First-Degree AV Block". This AV block is a very common benign finding. Imaging of your chest showed an enlarged heart. Analysis of your urine showed bacteria within your bladder. An infectious disease specialist determined that this is likely due to colonization. This does not require antibiotic treatment. Your iyer catheter was changed. Your bloodwork showed that you are anemic and iron deficient. Please continue taking your iron supplements (ferrous sulfate) and take vitamin C daily to help the iron absorption. You reported a history of chronic blood in urine. Please follow-up with a urologist regarding your bloody urine. Your symptoms improved. You are stable for discharge. MEDICATION Please STOP taking metoprolol succinate (Toprol). Please STOP taking amlodipine besylate. Please START taking furosemide (Lasix) 40 mg once a day. Please START taking Aspirin 81 mg once a day. Please START taking carvedilol (coreg) 3.125 mg twice a day. Please START taking lisinopril (Prinivil) 2.5 mg daily Please START taking pantoprazole (protonix) 20 mg once a day. Please START taking vitamin C 250 mg once a day. Please START taking colace 100mg twice a day. Please CONTINUE taking your home medication ferrous sulfate (iron supplements) 325 mg twice day. Please CONTINUE taking your other home medications as prescribed. FOLLOW-UP Please follow-up with primary care physician or a physician [facility] regarding your hospital visit and for general health maintenance. Please follow-up with field checker, Dr. Lozano, regarding your heart failure re [facility]. Please follow-up with urologist, Dr. Owens, regarding your urinary tract infection, iyer catheter, and history of blood in the urine. Please continue with a low sodium/fat/cholesterol diet. ADDITIONAL INFORMATION Please call 911 or come directly to the emergency department if you experience chest pain, shortness of breath, unusual bleeding, unusual headache, vision change, difficulty speaking, numbness, tingling, loss of alertness/awareness, loss of function, or any alarming symptoms. Referrals: [facility] [Provider Group] Alexei Lozano MD [Staff Physician] - Rosalina Owens MD [Staff Physician] - Disposition: PENITENTIARY FACILITY - Home Medications Comprehensive Discharge Medication List: Ambulatory Orders Atorvastatin Ca [Lipitor] 20 mg PO HS 02/22/20 Docusate Sodium [Colace -] 100 mg PO BID 02/22/20 Ergocalciferol (Vitamin D2) [Vitamin D2] 50,000 unit PO WEEKLY 02/22/20 Ferrous Sulfate 325 mg PO BID 02/22/20 Levothyroxine [Synthroid -] 100 mcg PO DAILY 02/22/20 Tamsulosin HCl 0.4 mg PO DAILY 02/22/20 Ascorbic Acid [Vitamin C -] 250 mg PO DAILY tablet 02/26/20 Aspirin [ASA -] 81 mg PO DAILY tab.chew 02/26/20 Carvedilol [Coreg -] 3.125 mg PO BID tablet 02/26/20 Docusate Sodium [Colace -] 100 mg PO BID capsule 02/26/20 Furosemide [Lasix -] 40 mg PO DAILY tablet 02/26/20 Lisinopril [Prinivil] 2.5 mg PO DAILY tablet 02/26/20 Pantoprazole Sodium [Protonix -] 20 mg PO DAILY tablet.ec 02/26/20 This patient is new to me today: No Emergency Visit: Yes ED Registration Date: 02/22/20 Care time: The patient presented to the Emergency Department on the above date and was hospitalized for further evaluation of their emergent condition. Critical Care patient: No - Discharge Referral Referred to [facility] No ATTENDING PHYSICIAN STATEMENT I saw and evaluated the patient. I reviewed the resident's note and discussed the case with the resident. I agree with the resident's findings and plan as documented. SUBJECTIVE: OBJECTIVE: ASSESSMENT AND PLAN:
[2020-02-27] MEDS ORDERED: FUROSEMIDE 40 MG TABLET (FP) PO SCH (10:00)
== END 2020-02-26 18:11 | DRG 291 ==
LOC: JER 15:28 → JERBED 17:39 → OBSVTOIN 20:52 → J4W 02-23 02:49
PROVIDERS: ADMIT Internal Medicine; ATTEND Internal Medicine
DX: I11.0 Hypertensive heart disease with heart failure (principal); E43 Unspecified severe protein-calorie malnutrition; T83.518A Infection and inflammatory reaction due to other urinary catheter, initial encounter; N39.0 Urinary tract infection, site not specified; E46 Unspecified protein-calorie malnutrition; Z68.1 Body mass index [BMI] 19.9 or less, adult; E78.5 Hyperlipidemia, unspecified; B96.5 Pseudomonas (aeruginosa) (mallei) (pseudomallei) as the cause of diseases classified elsewhere; I50.23 Acute on chronic systolic (congestive) heart failure; K21.9 Gastro-esophageal reflux disease without esophagitis; N40.0 Benign prostatic hyperplasia without lower urinary tract symptoms; I35.0 Nonrheumatic aortic (valve) stenosis; D50.9 Iron deficiency anemia, unspecified; I44.0 Atrioventricular block, first degree; I45.10 Unspecified right bundle-branch block; E03.9 Hypothyroidism, unspecified; R33.9 Retention of urine, unspecified; L89.151 Pressure ulcer of sacral region, stage 1; D50.1 Sideropenic dysphagia; I25.10 Atherosclerotic heart disease of native coronary artery without angina pectoris; R42 Dizziness and giddiness; Z95.2 Presence of prosthetic heart valve; Z86.73 Personal history of transient ischemic attack (TIA), and cerebral infarction without residual deficits; Z95.5 Presence of coronary angioplasty implant and graft
CPT/HCPCS: 36415; 70450-TC; 71045-TC-FY; 80053; 80061; 81003; 82550; 82607; 82728; 82746; 83540; 83550; 83721; 83735; 83880; 84100; 84443; 84484; 85025; 85027; 85044; 85610; 85730; 87077; 87086; 87186; 93005; 93010; 93306-TC; 93971-TC; 97116-GP; 97161-GP; 99285-25; E0186; G0378; U0003

== ENCOUNTER 2020-03-29 21:50 | Inpatient (IN) | payer OTHER, BC ==
[2020-03-29] MEDS ORDERED: SODIUM CHLORIDE IV ONE (22:17)
--- NOTE | 2020-03-29 22:27 | PDOC ---
History of Present Illness - General Chief Complaint: Blood Pressure Problem Stated Complaint: HYPOTENSION Time Seen by Provider: 03/29/20 21:57 History Source: [facility] Exam Limitations: Clinical Condition, Dementia - History of Present Illness Initial Comments: 03/29/20 22:20 79M PMH CHF, CAD, HTN, BPH, hypothyroidism BIBEMS from [facility] for hypotension and lethargy. Pt c/o suprapubic pain. Pt unable to fully participate in H&P 2/2 AAOx1, poor historian. Hx per [place] paperwork. Notably, DNR / DNI, no abx. NKDA. Past History - Medical History Allergies/Adverse Reactions: Allergies Allergy/AdvReac Type Severity Reaction Status Date / Time No Known Allergies Allergy Verified 03/29/20 22:00 Home Medications: Ambulatory Orders Atorvastatin Ca [Lipitor] 20 mg PO HS 02/22/20 Ergocalciferol (Vitamin D2) [Vitamin D2] 50,000 unit PO WEEKLY 02/22/20 Ferrous Sulfate 325 mg PO DAILY 02/22/20 Levothyroxine [Synthroid -] 100 mcg PO DAILY 02/22/20 Tamsulosin HCl 0.4 mg PO DAILY 02/22/20 Ascorbic Acid [Vitamin C -] 250 mg PO DAILY tablet 02/26/20 Aspirin [ASA -] 81 mg PO DAILY tab.chew 02/26/20 Carvedilol [Coreg -] 3.125 mg PO BID tablet 02/26/20 Docusate Sodium [Colace -] 100 mg PO BID capsule 02/26/20 Furosemide [Lasix -] 40 mg PO DAILY tablet 02/26/20 Pantoprazole Sodium [Protonix -] 20 mg PO DAILY tablet.ec 02/26/20 Acetaminophen 650 mg PO QID PRN 03/29/20 Albuterol Sulfate [Proventil Hfa] 6.7 gm IH TID PRN 03/29/20 Mag Hydrox/Aluminum Hyd/Simeth [Maalox Advanced Suspension] 30 ml PO BID PRN 03/29/20 Melatonin 3 mg PO HS 03/29/20 Cardiac Disorders: Yes COPD: No CHF: No GI Disorders: Yes (GERD) Disorders: Yes (urinary retention iyer in place) HTN: Yes - Surgical History Cardiac Surgery: Yes (x 2) GI Surgery: Yes - Psycho-Social/Smoking History Smoking History: Never smoked Have you smoked in the past 12 months: No - Substance Abuse Hx (Audit-C & DAST Scrn) How often the patient has a drink containing alcohol: Never Score: In Men: 4 or > Positive; In Women: 3 or > Positive: 0 Screen Result (Pos requires Nsg. Audit-10AR): Negative In the last yr the pt used illegal drug/Rx for NonMed reason: No Score: Yes response is considered Positive: 0 Screen Result (Positive result requires Nsg. DAST-10): Negative Review of Systems - Review of Systems Able to Perform ROS?: No Comments:: 03/30/20 01:47 LIMITED 2/2 POOR HISTORIAN Denies f/c RESP: Denies SOB, cough CARD: Denies chest pain GI: + abd pain *Physical Exam - Vital Signs Last Vital Signs Temp Pulse Resp BP Pulse Ox 97.3 F L 72 17 71/52 L 100 03/29/20 21:55 03/29/20 21:55 03/29/20 21:55 03/29/20 21:55 03/29/20 21:55 - Physical Exam 03/30/20 01:47 GEN: Elderly, NAD, AAOx1 to self only. HEENT: NC/AT, EOMI, PERRL. Supple neck w/ FROM. CV: S1/S2, RRR, no m/r/g LUNG: CTAB, no wheezes, crackles, rales, rhonchi. GI: +TTP suprapubically, o/w soft w/ +BS. No blood on stool via rectal thermometer MSK: No LE edema. No obvious deformities of all extremities. SKIN: stage II sacral decub PSYCH: Follows simple commands NEURO: Moves all extremities ED Treatment Course - LABORATORY CBC & Chemistry Diagram: 03/29/20 22:50 03/29/20 22:50 Medical Decision Making - Medical Decision Making 03/30/20 01:47 79M BIBEMS from [facility] for hypotension and lethargy. Limited hx by patient. BP 70s/50s. Sepsis w/u; consider UTI as source fluids Per MOLST and goals of care: DNR/DNI, no abx 03/29/20 23:03 dw HCP Amber re: goals of care: states please provide abx as indicated; dw risks and benefits of central line and decided against central access. Maintain DNR/DNI. 03/29/20 23:32 read back WBC 34 CBC reviewed; large left shift CXR reviewed w/o obvious infiltrates Will obtain urine and start Vanc/Zosyn admit 03/29/20 23:53 labs reviewed hemolysis on K very high BNP but BP also fluid responsive will sign out to PM team for further management 03/30/20 00:03 read back BUN/CR 190s/7 Discharge - Discharge Information Problems reviewed: Yes Clinical Impression/Diagnosis: Sepsis Condition: Poor - Admission Yes - Follow up/Referral - Patient Discharge Instructions - Post Discharge Activity
--- NOTE | 2020-03-29 22:30 | PDOC ---
Documentation entered by Kerrie John SCRIBE, acting as scribe for Sharonda Morales MD. Sharonda Morales MD: This documentation has been prepared by the Dora christensen Brenda, SCRIBE, under my direction and personally reviewed by me in its entirety. I confirm that the documentation accurately reflects all work, treatment, procedures, and medical decision making performed by me. Attending Attestation - Resident Resident Name: Eddie Camacho - ED Attending Attestation I have performed the following: I have examined & evaluated the patient, The case was reviewed & discussed with the resident, I agree w/resident's findings & plan, Exceptions are as noted - HPI HPI: 03/29/20 22:22 this 79 yo male BIBA from [facility] for hypotension PMH: HTN,BPH,indwelling iyer catheter, chf,aortic stenosis s/p bioprosthetic valve replacement,CAD s/p PCI,stent,GERD,TIA - Physicial Exam PE: 03/29/20 22:24 Cachetic 79 yo male BIBA for low blood pressure head ncat dry mucus membranes neck no jvd,no bruit lungs cta b/l cvs [id number] abdomen distended bladder there is a stage 2 decubitus ulcer on sacrum skin warm and dry extremities LE edema neuro alert and conversant 03/29/20 22:26 03/30/20 00:30 - Medical Decision Making 03/29/20 22:28 79 yo male who is DNI/DNR was brought in from care home for hypotension concern for sepsis,ACS plan CBC,COMP,TROPONIN,ua,CXR,bc 03/29/20 22:59 In reviewing the specifics of his advanced directives and he does not want cpr,intubation,surgery,dialysis,antibiotics His daughter is the health care proxy 03/29/20 23:11 Dr Eddie Ruvalcaba spoke with the health care proxy daughter Amber and she refused placement of the central line but did give approval of antibiotics 03/30/20 00:17 pt appears very dehydrated ,he has dry mucus membranes Last month his bun was 25 with a normal creatinin and today the bun= 190 and his cr=7 -Leukocytosis of 35,000 wih shift 03/30/20 00:31 imp: sepsis,DUNG Discharge - Discharge Information Problems reviewed: Yes Clinical Impression/Diagnosis: Sepsis Condition: Poor - Follow up/Referral - Patient Discharge Instructions - Post Discharge Activity
[2020-03-29 23:17] LABS: BASO % 0.1 % (0-2.0); HEMATOCRIT 36.3 % (35.4-49); HEMOGLOBIN 11.9 GM/dL (11.7-16.9); LYMPH % 1.3 % (8-40); MCH 25.6 pg (25.7-33.7); MCHC 32.7 g/dl (32.0-35.9); MEAN CELL VOLUME 78.2 fl (80-96); MEAN PLT VOLUME 9.7 fl (7.5-11.1); MONO % 1.6 % (3.8-10.2); RBC 4.64 M/mm3 (4.00-5.60); RDW 17.8 % (11.9-15.9)
[2020-03-29 23:26] LABS: INR 0.95 (0.83-1.09); PROTHROMBIN TIME (PATIENT) 11.2 SEC (9.7-13.0)
[2020-03-29 23:29] LABS: ACTIVATED PTT 29.3 SECONDS (25.2-36.5); PLATELET COUNT 116 K/MM3 (134-434); WHITE BLOOD COUNT 34.9 K/mm3 (4.0-10.0)
[2020-03-29] MEDS ORDERED: PIPERACILLIN/TAZOB 3.375 GM 3.375 GM in DEXTROSE 5%-WATER - 50 ML IVPB ONE (23:31)
[2020-03-29] MEDS ORDERED: VANCOMYCIN 1 GM in D5W (PRE-DOCKED) 1,000 MG/250 ML IVPB ONE (23:31)
[2020-03-29 23:45] LABS: ALBUMIN 2.1 g/dl (3.4-5.0); BILIRUBIN,TOTAL 0.7 mg/dL (0.2-1); CALCIUM 8.4 mg/dL (8.5-10.1); POTASSIUM 5.9 mmol/L (3.5-5.1); TOT PROT 6.6 g/dl (6.4-8.2)
[2020-03-29] MEDS ORDERED: VANCOMYCIN 1 GRAM (PRE-DOCKED) 1,000 MG/250 ML BAG IVPB ONE (23:48)
[2020-03-29] MEDS ORDERED: PIPERACILLIN/TAZOB 3.375 GM 3.375 GM/50 ML BAG IVPB ONE (23:49)
[2020-03-29 23:50] LABS: N-TERMINAL BNP > 35000.0 pg/ml (5-450)
[2020-03-30] LABS: BLOOD UREA NITROGEN 192.9 mg/dL (7-18); CREATININE 7.8 mg/dL (0.55-1.3)
[2020-03-30] MEDS ORDERED: ACETAMINOPHEN 1000 MG/100 ML VIAL (NON FORMULARY) IVPB ONE (00:07)
[2020-03-30] MEDS ORDERED: ACETAMINOPHEN INJECTION 100 ML IVPB ONE (00:08)
[2020-03-30] MEDS ORDERED: SODIUM CHLORIDE 1,000 ML IV SCH ×2 (00:30→02:15)
[2020-03-30 01:01] LABS: EPI CELLS >36 /uL (0-25.1); HYALINE CASTS 5 /uL (0-3.1); URINE APPEARANCE CLEAR; URINE BACTERIA 8997 /uL (0-1359); URINE BILIRUBIN NEGATIVE (NEGATIVE); URINE COLOR YELLOW; URINE GLUCOSE (UA) NEGATIVE (NEGATIVE); URINE KETONE NEGATIVE (NEGATIVE); URINE LEUK ESTERASE 3+ (NEGATIVE); URINE NITRITE NEGATIVE (NEGATIVE); URINE PROTEIN 1+ (NEGATIVE); URINE RBC 20 /uL (0-23.9); URINE UROBILINOGEN 0.2 mg/dL (0.2-1.0); URINE WBC 20 /uL (0-25.8)
--- NOTE | 2020-03-30 01:02 | HP ---
CHIEF COMPLAINT:here from [facility] with low blood pressure PCP: Dr. Saldana HISTORY OF PRESENT ILLNESS: Mr. Solares is an 79 year old male BIBA from [facility] for hypotension (SBP in the 70's). He has a past medical history of hypertension, CHF, aortic stenosis s/p bioprosthetic valve replacement, CAD, prior stent, GERD,TIA,BPH and indwelling iyer. ER course notable for: (1)leukocytosis (WBC 34.9), lactic acid level normal, received IV Vancomycin and Pippercillin. (2)BUN 192.9 creatinine 7.8, received 2 liters of IVF. (3)potassium 5.9 (4) sodium 131 (5) BNP >15498 (60 UA with 3+ leukoesterase and 2+ blood Resuscitation Status: DNR/DNI status As per health care proxy ,does not want aggressive medical treatment and was ok with giving IV antibiotics. Recent Travel: no PAST MEDICAL HISTORY: hypertension CHF aortic stenosis CAD with PCI GERD TIA BPH PAST SURGICAL HISTORY: aortic valve replacement Social History: Smoking:unable to obtain Alcohol:unable to obtain Drugs:unable to obtain Allergies No Known Allergies Allergy (Verified 03/29/20 22:00) HOME MEDICATIONS: Home Medications Medication Instructions Recorded Atorvastatin Ca [Lipitor] 20 mg PO HS 02/22/20 Ergocalciferol (Vitamin D2) 50,000 unit PO WEEKLY 02/22/20 [Vitamin D2] Ferrous Sulfate 325 mg PO DAILY 02/22/20 Levothyroxine [Synthroid -] 100 mcg PO DAILY 02/22/20 Tamsulosin HCl 0.4 mg PO DAILY 02/22/20 Ascorbic Acid [Vitamin C -] 250 mg PO DAILY tablet 02/26/20 Aspirin [ASA -] 81 mg PO DAILY tab.chew 02/26/20 Carvedilol [Coreg -] 3.125 mg PO BID tablet 02/26/20 Docusate Sodium [Colace -] 100 mg PO BID capsule 02/26/20 Furosemide [Lasix -] 40 mg PO DAILY tablet 02/26/20 Pantoprazole Sodium [Protonix -] 20 mg PO DAILY tablet.ec 02/26/20 Acetaminophen 650 mg PO QID PRN 03/29/20 Albuterol Sulfate [Proventil Hfa] 6.7 gm IH TID PRN 03/29/20 Mag Hydrox/Aluminum Hyd/Simeth 30 ml PO BID PRN 03/29/20 [Maalox Advanced Suspension] Melatonin 3 mg PO HS 03/29/20 REVIEW OF SYSTEMS unable to obtain accurate ROS due to patient mental status CONSTITUTIONAL: Absent: fever, chills, diaphoresis, generalized weakness, malaise, loss of appetite, weight change HEENT: Absent: rhinorrhea, nasal congestion, throat pain, throat swelling, difficulty swallowing, mouth swelling, ear pain, eye pain, visual changes CARDIOVASCULAR: Absent: chest pain, syncope, palpitations, irregular heart rate, lighthead edness, peripheral edema RESPIRATORY: Absent: cough, shortness of breath, dyspnea with exertion, orthopnea, wheezing, stridor, hemoptysis GASTROINTESTINAL: Absent: abdominal pain, abdominal distension, nausea, vomiting, diarrhea, constipation, melena, hematochezia GENITOURINARY: Absent: dysuria, frequency, urgency, hesitancy, hematuria, flank pain, genital pain MUSCULOSKELETAL: Absent: myalgia, arthralgia, joint swelling, back pain, neck pain SKIN: Absent: rash, itching, pallor HEMATOLOGIC/IMMUNOLOGIC: Absent: easy bleeding, easy bruising, lymphadenopathy, frequent infections ENDOCRINE: Absent: unexplained weight gain, unexplained weight loss, heat intolerance, cold intolerance NEUROLOGIC: Absent: headache, focal weakness or paresthesias, dizziness, unsteady gait, seizure, mental status changes, bladder or bowel incontinence PSYCHIATRIC: Absent: anxiety, depression, suicidal or homicidal ideation, hallucinations. PHYSICAL EXAMINATION Vital Signs - 24 hr 03/29/20 03/29/20 03/30/20 21:55 23:15 00:15 Temperature 97.3 F L Pulse Rate 72 Pulse Rate [ 66 72 Apical] Respiratory 17 15 18 Rate Blood Pressure 71/52 L Blood Pressure 81/60 L 109/66 [Right Arm] O2 Sat by Pulse 100 100 100 Oximetry (%) General no acute distress, poor dentition Vital signs reviewed afebrile bp improved Neck no JVD Neuro awake, appears disoriented speech clear answers simple questions appropriatelt Lungs CTA nonlabored breathing effort Heart s1s2 rate regular + grade 3/6 MARISSA Abdomen soft nontender nondistended Extremities warm to touch no pitting edema no cyanosis Mood appears Laboratory Results - last 24 hr 03/29/20 03/29/20 03/29/20 22:50 22:50 22:50 WBC 34.9 H* RBC 4.64 Hgb 11.9 Hct 36.3 MCV 78.2 L MCH 25.6 L MCHC 32.7 RDW 17.8 H Plt Count 116 L D MPV 9.7 Absolute Neuts (auto) 33.8 H Neutrophils % 97.0 H D Lymphocytes % 1.3 L D Monocytes % 1.6 L D Eosinophils % 0.0 D Basophils % 0.1 Nucleated RBC % 0 PT with INR 11.20 INR 0.95 PTT (Actin FS) 29.3 Sodium 131 L Potassium 5.9 H Chloride 96 L Carbon Dioxide 19 L Anion Gap 16 BUN 192.9 H* Creatinine 7.8 H* Est GFR (CKD-EPI)AfAm 6.84 Est GFR (CKD-EPI)NonAf 5.91 Random Glucose 106 Lactic Acid Calcium 8.4 L Total Bilirubin 0.7 AST 78 H ALT 21 Alkaline Phosphatase 217 H Troponin I B-Natriuretic Peptide Total Protein 6.6 Albumin 2.1 L 03/29/20 03/29/20 22:50 22:50 WBC RBC Hgb Hct MCV MCH MCHC RDW Plt Count MPV Absolute Neuts (auto) Neutrophils % Lymphocytes % Monocytes % Eosinophils % Basophils % Nucleated RBC % PT with INR INR PTT (Actin FS) Sodium Potassium Chloride Carbon Dioxide Anion Gap BUN Creatinine Est GFR (CKD-EPI)AfAm Est GFR (CKD-EPI)NonAf Random Glucose Lactic Acid 1.9 Calcium Total Bilirubin AST ALT Alkaline Phosphatase Troponin I 0.05 B-Natriuretic Peptide > 93330.0 H Total Protein Albumin ASSESSMENT/PLAN: Mr. Solares is an 79 year old male with a past medical history of hypertension, CHF, aortic stenosis s/p bioprosthetic valve replacement,CAD s/p PCI,stent,GERD,TIA, BPH and indwelling iyer who presented from [facility] with hypotension. He was found to have leukocytosis/sepsis, acute renal insufficiency, hyperkalemia and hyponatremia. He is being admitted to telemetry for conservative medical treatment. As per health care proxy she does not want aggressive medical treatment. 1. hypotension likely in the setting of sepsis and acute renal failure improved with IVF continue to monitor BP closely hold coreg 2. acute renal failure /hyperkalemia received 2 liters of IVF c/w NS @ 75cc/hr repeat BMP in am Nephrology consulted- Dr. Hollingsworth 3. leukocytosis currently afebrile, lactic acid normal, UA w/ 3+ leukoesterase and 2+ blood received IV Vancomycin and pippercillin c/w IV pippercillin 2.275gm q8hr urine and blood cultures pending Infectious Diseases- Dr. Crews consulted for IV antibiotic recs in the setting of ARF 4. elevated BNP/Hx aortic stenosis with aortic valve replacement patient has a harsh systolic murmur appears euvolemic on exam monitor for signs of fluid overload 5. hx CAD denies active angina troponin normal c/w asa and statin 6. BPH c/w tamulosin 7. hypopthyroidism c/w synthroid 8. rule out covid follow up on covid test maintain o2 sat >90% maintain strict contact and droplet isolation precautions FEN IVF NS @75cc/hr BMP daily low sodium diet DVT Prophylaxis heparin sq Patient prognosis is poor. Health care proxy does not want aggressive treatment. Resuscitation Status: DNR/DNI status Family Medical History Family History: Unable to Obtain Visit type - Medication Review Med list reviewed for High Risk Meds patients 65 and older: Yes - Emergency Visit Emergency Visit: Yes ED Registration Date: 03/29/20 Care time: The patient presented to the Emergency Department on the above date and was hospitalized for further evaluation of their emergent condition. - New Patient This patient is new to me today: Yes Date on this admission: 03/30/20 - Critical Care Critical Care patient: No
[2020-03-30] MEDS ORDERED: ALBUTEROL SO4 HFA INHALER IH PRN (01:38)
[2020-03-30] MEDS ORDERED: PIPERACILLIN/TAZOB 3.375 GM 3.375 GM in DEXTROSE 5%-WATER - 50 ML IVPB SCH (02:00)
[2020-03-30 02:49] LABS: ANISOCYTOSIS 1+; MACROCYTOSIS 1+
[2020-03-30] MEDS ORDERED: LEVOTHYROXINE NA 25 MCG TABLET (FP) ONE (05:43)
[2020-03-30] MEDS ORDERED: PANTOPRAZOLE 20 MG TABLET PO ONE (05:43)
[2020-03-30] MEDS: LEVOTHYROXINE NA 100 MCG TABLET (FP) PO SCH (06:08)
[2020-03-30] MEDS: PANTOPRAZOLE 20 MG TABLET PO SCH (06:08)
--- NOTE | 2020-03-30 07:15 | CONSULT ---
Consult Consult Specialty:: Nephrology Reason for Consultation:: DUNG - History of Present Illness Chief Complaint: sent in for hypotension History of Present Illness: Pt is an 79 year old male with pmhx of chf, htn, aortic stenosis, cad, gerd, tia, and bph with indwelling iyer who was sent in for hypotension. He was found to be in acute renal failure. He is awake and able to answer some questions. He denies shortness of breath. I called his daughter Amber [phone] and discussed his care. She does not want any aggressive measures including dialysis. He denies chest pain. He did respond to fluids. - History Source History Provided By: Patient, Family Member, Medical Record - Past Medical History Cardio/Vascular: Yes: CHF, HTN - Smoking History Smoking history: Never smoked Have you smoked in the past 12 months: No Home Medications - Allergies Allergies/Adverse Reactions: Allergies Allergy/AdvReac Type Severity Reaction Status Date / Time No Known Allergies Allergy Verified 03/29/20 22:00 - Home Medications Home Medications: Ambulatory Orders Atorvastatin Ca [Lipitor] 20 mg PO HS 02/22/20 Ergocalciferol (Vitamin D2) [Vitamin D2] 50,000 unit PO WEEKLY 02/22/20 Ferrous Sulfate 325 mg PO DAILY 02/22/20 Levothyroxine [Synthroid -] 100 mcg PO DAILY 02/22/20 Tamsulosin HCl 0.4 mg PO DAILY 02/22/20 Ascorbic Acid [Vitamin C -] 250 mg PO DAILY tablet 02/26/20 Aspirin [ASA -] 81 mg PO DAILY tab.chew 02/26/20 Carvedilol [Coreg -] 3.125 mg PO BID tablet 02/26/20 Docusate Sodium [Colace -] 100 mg PO BID capsule 02/26/20 Furosemide [Lasix -] 40 mg PO DAILY tablet 02/26/20 Pantoprazole Sodium [Protonix -] 20 mg PO DAILY tablet.ec 02/26/20 Acetaminophen 650 mg PO QID PRN 03/29/20 Albuterol Sulfate [Proventil Hfa] 6.7 gm IH TID PRN 03/29/20 Mag Hydrox/Aluminum Hyd/Simeth [Maalox Advanced Suspension] 30 ml PO BID PRN 03/29/20 Melatonin 3 mg PO HS 03/29/20 Family Medical History Family History: Denies Review of Systems - Review of Systems Constitutional: reports: Loss of Appetite, Malaise, Weakness Eyes: reports: No Symptoms HENT: reports: No Symptoms Neck: reports: No Symptoms Cardiovascular: reports: No Symptoms Respiratory: reports: No Symptoms Gastrointestinal: reports: No Symptoms Genitourinary: reports: Other (iyer) Musculoskeletal: reports: Muscle Weakness Hematology/Lymphatic: reports: No Symptoms Psychiatric: reports: No Symptoms Physical Exam Vital Signs: Vital Signs Temperature 97.3 F L 03/29/20 21:55 Pulse Rate 65 03/30/20 06:08 Respiratory Rate 18 03/30/20 06:08 Blood Pressure 92/58 L 03/30/20 06:08 O2 Sat by Pulse Oximetry (%) 100 03/30/20 06:08 Constitutional: Yes: Calm Eyes: Yes: Conjunctiva Clear HENT: Yes: Atraumatic Neck: Yes: Supple Cardiovascular: Yes: S1, S2 Respiratory: Yes: On Nasal O2 Gastrointestinal: Yes: Soft Renal/: Yes: Iyer Present Musculoskeletal: Yes: Muscle Weakness Edema: No Integumentary: Yes: Venous Stasis Changes Neurological: Yes: Oriented Psychiatric: Yes: Oriented Labs: CBC, BMP 03/29/20 22:50 03/29/20 22:50 Imaging - Results Chest X-ray: Report Reviewed Problem List - Problems (1) DUNG (acute kidney injury) Code(s): N17.9 - ACUTE KIDNEY FAILURE, UNSPECIFIED (2) Hyperkalemia Code(s): E87.5 - HYPERKALEMIA (3) Sepsis Code(s): A41.9 - SEPSIS, UNSPECIFIED ORGANISM Assessment/Plan Current Medications Generic Name Dose Route Start Last Admin Trade Name Freq PRN Reason Stop Dose Admin Albuterol Sulfate 2 puff 03/30/20 01:38 Ventolin Hfa Inhaler - IH TID PRN ASTHMA Ascorbic Acid 250 mg 03/30/20 10:00 Vitamin C - PO DAILY JORDAN Aspirin 81 mg 03/30/20 10:00 Asa - PO DAILY JORDAN Atorvastatin Calcium 20 mg 03/30/20 22:00 Lipitor - PO HS JORDAN Docusate Sodium 100 mg 03/30/20 10:00 Colace - PO BID JORDAN Ergocalciferol 50,000 unit 03/30/20 01:45 Drisdol - PO WEEKLY JORDAN Ferrous Sulfate 325 mg 03/30/20 10:00 Feosol - PO DAILY JORDAN Heparin Sodium (Porcine) 5,000 unit 03/30/20 10:00 Heparin - SQ BID JORDAN Piperacillin Sod/Tazobactam 50 mls @ 100 mls/hr 03/30/20 02:00 Sod 2.25 gm/ Dextrose IVPB Q8H-IV JORDAN Protocol Sodium Chloride 1,000 mls @ 75 mls/hr 03/30/20 02:15 03/30/20 02:16 Normal Saline - IV 75 mls/hr ASDIR JORDAN Administration Piperacillin Sod/Tazobactam 50 mls @ 100 mls/hr 03/30/20 10:00 Sod 2.25 gm/ Dextrose IVPB 03/31/20 02:29 Q8H-IV [facility] Protocol Levothyroxine Sodium 100 mcg 03/30/20 07:00 03/30/20 06:08 Synthroid - PO 100 mcg ACBK JORDAN Administration Pantoprazole Sodium 20 mg 03/30/20 07:00 03/30/20 06:08 Protonix - PO 20 mg ACBK JORDAN Administration Tamsulosin HCl 0.4 mg 03/30/20 08:30 Flomax - PO DAILY@0830 [facility] Laboratory Tests 03/29/20 03/29/20 03/30/20 22:50 22:50 10:05 Sodium 137 Potassium 4.7 BUN 176.2 H* Creatinine 6.6 H Lactic Acid 1.9 B-Natriuretic Peptide > 92220.0 H Impression 1. DUNG 2. sepsis 3. hyperkalemia 4. hypotension 5. chf 6. bph 7. cad 8. tia 9. 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
[2020-03-30] MEDS ORDERED: TAMSULOSIN HCL 0.4 MG CAP ONE (08:34)
[2020-03-30] MEDS: TAMSULOSIN HCL 0.4 MG CAP PO SCH (08:54)
[2020-03-30 08:58] LABS: EPI CELLS >36 /uL (0-25.1); HYALINE CASTS 247 /uL (0-3.1); URINE APPEARANCE TURBID; URINE BACTERIA 7864 /uL (0-1359); URINE BILIRUBIN NEGATIVE (NEGATIVE); URINE COLOR YELLOW; URINE GLUCOSE (UA) NEGATIVE (NEGATIVE); URINE KETONE NEGATIVE (NEGATIVE); URINE LEUK ESTERASE 3+ (NEGATIVE); URINE NITRITE NEGATIVE (NEGATIVE); URINE PROTEIN 2+ (NEGATIVE); URINE WBC 27186 /uL (0-25.8)
--- NOTE | 2020-03-30 09:24 | PN ---
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, Physician Chief Complaint: Sepsis DUNG History of Present Illness: Mr. Solares is an 79 year old male BIBA from [facility] for hypotension (SBP in the 70's). He has a past medical history of hypertension, CHF, aortic stenosis s/p bioprosthetic valve replacement, CAD, prior stent, GERD,TIA,BPH and indwelling iyer. NAD c/o fatigue lethargic Denies any pain or SOB - Current Medication List Current Medications: Active Medications Albuterol Sulfate (Ventolin Hfa Inhaler -) 2 puff IH TID PRN PRN Reason: ASTHMA Ascorbic Acid (Vitamin C -) 250 mg PO DAILY [facility] Aspirin (Asa -) 81 mg PO DAILY JORDAN Atorvastatin Calcium (Lipitor -) 20 mg PO HS JORDAN Docusate Sodium (Colace -) 100 mg PO BID JORDAN Ergocalciferol (Drisdol -) 50,000 unit PO WEEKLY JORDAN Ferrous Sulfate (Feosol -) 325 mg PO DAILY JORDAN Heparin Sodium (Porcine) (Heparin -) 5,000 unit SQ BID JORDAN Piperacillin Sod/Tazobactam (Sod 2.25 gm/ Dextrose) 50 mls @ 100 mls/hr IVPB Q8H-IV [facility]; Protocol Sodium Chloride (Normal Saline -) 1,000 mls @ 75 mls/hr IV ASDIR [facility] Last Admin: 03/30/20 02:16 Dose: 75 mls/hr Documented by: Piperacillin Sod/Tazobactam (Sod 2.25 gm/ Dextrose) 50 mls @ 100 mls/hr IVPB Q8H-IV [facility]; Protocol Stop: 03/31/20 02:29 Levothyroxine Sodium (Synthroid -) 100 mcg PO ACBK [facility] Last Admin: 03/30/20 06:08 Dose: 100 mcg Documented by: Pantoprazole Sodium (Protonix -) 20 mg PO ACBK [facility] Last Admin: 03/30/20 06:08 Dose: 20 mg Documented by: Tamsulosin HCl (Flomax -) 0.4 mg PO DAILY@0830 [facility] Last Admin: 03/30/20 08:54 Dose: Not Given Documented by: - Objective Vital Signs: Vital Signs Temperature 97.3 F L 03/29/20 21:55 Pulse Rate 65 03/30/20 08:40 Respiratory Rate 20 03/30/20 07:20 Blood Pressure 102/63 03/30/20 07:20 O2 Sat by Pulse Oximetry (%) 100 03/30/20 08:40 Constitutional: Yes: No Distress, Calm, Cachectic Cardiovascular: Yes: Regular Rate and Rhythm Respiratory: Yes: Regular, CTA Bilaterally Gastrointestinal: Yes: Normal Bowel Sounds, Soft, Tenderness (LLQ) Genitourinary: Yes: Iyer Present Musculoskeletal: Yes: Muscle Weakness Extremities: Yes: Other (generalized atrophy) Edema: No Peripheral Pulses WNL: Yes Neurological: Yes: Alert, Lethargy Labs: CBC, BMP 03/29/20 22:50 03/29/20 22:50 INR, PTT INR 0.95 (0.83-1.09) 03/29/20 22:50 Problem List - Problems (1) Chronic retention of urine Assessment/Plan: -Continue iyer cath Problems reviewed: Yes Code(s): R33.9 - RETENTION OF URINE, UNSPECIFIED (2) DUNG (acute kidney injury) Assessment/Plan: -IVF -Nephrology consult -Renal U/S -UC pending -Cr trending down -Continue IVF Problems reviewed: Yes Code(s): N17.9 - ACUTE KIDNEY FAILURE, UNSPECIFIED (3) Hyperkalemia Assessment/Plan: -resolved Problems reviewed: Yes Code(s): E87.5 - HYPERKALEMIA (4) Sepsis Assessment/Plan: -ID consult -IV Zosyn -No Lactic acidosis -Afebrile -Cultures: Microbiology 03/29/20 22:50 Blood - Peripheral Venous Blood Culture - Preliminary Pending Organism Pending Organism#2 03/29/20 22:50 Blood - Peripheral Venous Blood Culture - Preliminary Pending Organism Pending Organism#2 Problems reviewed: Yes Code(s): A41.9 - SEPSIS, UNSPECIFIED ORGANISM Assessment/Plan See problem list
[2020-03-30] MEDS: ASPIRIN 81 MG CHEWABLE TABLETS PO SCH (09:44)
[2020-03-30] MEDS: FERROUS SO4 325 MG TABLET (FP) PO SCH (09:45)
[2020-03-30] MEDS: DOCUSATE SODIUM 100 MG CAPSULE (FP) PO SCH ×2 (09:45→22:09)
[2020-03-30] MEDS: ASCORBIC ACID 250 MG TABLET (FP) PO SCH (09:45)
[2020-03-30] MEDS ORDERED: PIPERACILLIN/TAZOB 2.25 GM 2.25 GM/50 ML BAG IVPB ONE ×2 (09:47→18:41)
[2020-03-30] MEDS ORDERED: HEPARIN NA (PORCINE) 5,000 UNITS/ML 1ML VIAL ONE ×3 (09:47→22:12)
[2020-03-30] MEDS ORDERED: PIPERACILLIN/TAZOB 2.25 GM 2.25 GM in DEXTROSE 5%-WATER - 50 ML IVPB SCH (10:00)
[2020-03-30] MEDS: HEPARIN NA (PORCINE) 5,000 UNITS/ML 1ML VIAL SQ SCH ×2 (10:00→22:37)
[2020-03-30] MEDS ORDERED: PATIENT'S OWN MEDICATION (NON-FORMULARY) (Ferrous Sulfate [Ferrous Sulfate] 325 MG) PO SCH (10:00)
[2020-03-30] MEDS ORDERED: VANCOMYCIN 1 GM in D5W (PRE-DOCKED) 1,000 MG/250 ML IVPB SCH (10:00)
[2020-03-30 10:53] LABS: BASO % 0.3 % (0-2.0); EOS % 0.1 % (0-4.5); HEMATOCRIT 35.1 % (35.4-49); LYMPH % 1.6 % (8-40); MCH 24.6 pg (25.7-33.7); MCHC 31.3 g/dl (32.0-35.9); MEAN CELL VOLUME 78.6 fl (80-96); MEAN PLT VOLUME 9.2 fl (7.5-11.1); MONO % 3.3 % (3.8-10.2); NEUT % 94.7 % (42.8-82.8); PLATELET COUNT 103 K/MM3 (134-434); RBC 4.46 M/mm3 (4.00-5.60); RDW 17.6 % (11.9-15.9)
--- NOTE | 2020-03-30 10:53 | EKG ---
Test Reason : Blood Pressure : / mmHG Vent. Rate : 073 BPM Atrial Rate : 073 BPM P-R Int : 144 ms QRS Dur : 206 ms QT Int : 482 ms P-R-T Axes : 000 -81 083 degrees QTc Int : 531 ms NORMAL SINUS RHYTHM LEFT AXIS DEVIATION NON-SPECIFIC INTRA-VENTRICULAR CONDUCTION BLOCK INFERIOR INFARCT (CITED ON OR BEFORE 22-FEB-2020) ANTEROLATERAL INFARCT (CITED ON OR BEFORE 22-FEB-2020) ABNORMAL ECG Confirmed by Christiano Arias MD ([id number]) on 03/30/2020 10:52:36 AM Referred By: Confirmed By:Christiano Arias MD
[2020-03-30 11:14] LABS: ALBUMIN 1.8 g/dl (3.4-5.0); BILIRUBIN,TOTAL 0.6 mg/dL (0.2-1); CALCIUM 8.1 mg/dL (8.5-10.1); CREATININE 6.6 mg/dL (0.55-1.3); POTASSIUM 4.7 mmol/L (3.5-5.1); TOT PROT 5.6 g/dl (6.4-8.2)
[2020-03-30 11:15] LABS: WHITE BLOOD COUNT 31.5 K/mm3 (4.0-10.0)
[2020-03-30 11:37] LABS: BLOOD UREA NITROGEN 176.2 mg/dL (7-18)
--- NOTE | 2020-03-30 13:54 | PN ---
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 (short form) - Note 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: ID consult dictated imp/reccd gram positive bacteremia- ?strep UTI ARF with bioprosthetic aortic valve DNR/DNI vanco by levels ceftriaxone f/u cultures will need echo with history of bioprosthetic valve f/u renal sonogram
[2020-03-30 14:01] LABS: ANISOCYTOSIS 1+; MACROCYTOSIS 0; PLATELET ESTIMATE DECREASED
[2020-03-30] MEDS ORDERED: SODIUM CHLORIDE 0.45% 1,000 ML with SODIUM BICARBONATE 8.4% - 50 MEQ IV SCH (15:00)
[2020-03-30] MEDS ORDERED: CEFTRIAXONE 2 GM-D5W BAG 2 GM/50 ML BAG IVPB SCH (15:15)
[2020-03-30] MEDS ORDERED: CEFTRIAXONE 2 GM/100 ML BAG IVPB ONE (15:32)
[2020-03-30] MEDS: PIPERACILLIN/TAZOB 2.25 GM 2.25 GM in DEXTROSE 5%-WATER - 50 ML IVPB SCH ×2 (16:00→18:51)
[2020-03-30] MEDS ORDERED: CEFTRIAXONE 2 GM in DEXTROSE 5%-WATER 100 ML IVPB SCH (16:23)
[2020-03-30] MEDS: SODIUM CHLORIDE 0.45% 1,000 ML with SODIUM BICARBONATE 8.4% - 50 MEQ IV SCH (16:32)
--- NOTE | 2020-03-30 19:22 | CONS ---
DATE OF CONSULTATION: DATE OF DICTATION: 03/30/2020 INFECTIOUS DISEASE CONSULTATION HISTORY OF PRESENT ILLNESS: This is an elderly man, he is 79. He was recently in the hospital in February at which time he presented with chest pain, shortness of breath, orthopnea, and lower extremity edema. His chest pain resolved. He had some mild heart failure, for which he was treated. He was admitted on the and discharged on the . He now presents on the 29 of March with hypotension and lethargy and suprapubic discomfort. In the ER he was noted to have a white count of 34,000. He received vancomycin and Zosyn. Urinalysis was noted to have blood and leukocyte esterase positive. He was noted to be in acute renal failure with a creatinine of 7.8. He was admitted. PAST MEDICAL HISTORY: Notable for a history of hypertension, CHF, aortic stenosis, coronary artery disease with stents, GERD, TIA, BPH. He has had a bioprosthetic aortic valve. He has a chronic indwelling Jauregui catheter, history of lower extremity edema, and CHF in the past. He has had a TIA in the past. He had no known drug allergies. Current he is unable to give any history. [facility] tamsulosin, Protonix, melatonin, levothyroxine, Lasix, ferrous sulfate, vitamin D, Colace, Coreg, Lipitor, aspirin, vitamin C, Proventil. SOCIAL HISTORY: No history of cigarette use. Rest is unknown. [facility] at the [facility]. Per the history and physical he is DNR, DNI, but family is okay with IV antibiotics. There is no history of any recent travel. He has no allergies. REVIEW OF SYSTEMS: Was not obtainable. PHYSICAL EXAMINATION: General: He has no fever. Vital Signs: Temperature is 97.7, pulse is 67, blood pressure is 100/62, respiratory rate is 16, he is saturating 100% on 2 L. HEENT: Normocephalic. Eyes are anicteric. He had dry oral mucosa. Lungs: Diminished breath sounds at the bases. Heart: Regular rate and rhythm. Abdomen: Soft, nontender. He has a Jauregui draining. Extremities: Without edema. Skin: He has a stage 2 decubitus ulcer that has no edema or drainage. LABORATORY: Notable for an admitting white count of 34.9 today is 31.5, hemoglobin of 11, platelets of 103. BUN and creatinine are 192 and 7.8 on admission, this morning 176 and 6.6. Albumin is 1.8, alkaline phosphatase of 188 with an AST of 76. Urinalysis has 3+ leukocytes with 27,000 white cells. COVID PCR serology is pending. Blood cultures are growing gram-positive cocci in chains. Prior urine from February shows pseudomonas and group B enterococcus. IMPRESSION: In summary, this is an elderly man with sepsis secondary to gram- positive bacteremia possibly Streptococcus, urinary tract infection, acute renal failure, aortic stenosis with bioprosthetic aortic valve, do not resuscitate/do not intubate. Would continue vancomycin by levels and ceftriaxone. Follow up cultures. Will need echocardiogram given the bioprosthetic valve, and follow up a renal sonogram. Further recommendations to follow. Kalani [id number] MTDIra
[2020-03-30] MEDS: ATORVASTATIN CA 20 MG TABLET (FP) PO SCH (22:37)
[2020-03-31] MEDS: PIPERACILLIN/TAZOB 2.25 GM 2.25 GM in DEXTROSE 5%-WATER - 50 ML IVPB SCH ×3 (03:12→17:46)
[2020-03-31] MEDS ORDERED: PIPERACILLIN/TAZOB 2.25 GM 2.25 GM/50 ML BAG IVPB ONE ×2 (03:13→11:23)
[2020-03-31 07:35] LABS: HEMATOCRIT 37.4 % (35.4-49); HEMOGLOBIN 12.1 GM/dL (11.7-16.9); LYMPH % 1.4 % (8-40); MCH 25.5 pg (25.7-33.7); MCHC 32.4 g/dl (32.0-35.9); MEAN CELL VOLUME 78.7 fl (80-96); MEAN PLT VOLUME 9.4 fl (7.5-11.1); NEUT % 95.6 % (42.8-82.8); PLATELET COUNT 102 K/MM3 (134-434); RBC 4.76 M/mm3 (4.00-5.60)
[2020-03-31 07:50] LABS: ALBUMIN 1.9 g/dl (3.4-5.0); ALK PHOS 215 U/L (45-117); ANION GAP 15 MMOL/L (8-16); BILIRUBIN,TOTAL 0.7 mg/dL (0.2-1); CALCIUM 7.9 mg/dL (8.5-10.1); CHLORIDE 104 mmol/L (98-107); CO2 18 mmol/L (21-32); CREATININE 5.2 mg/dL (0.55-1.3); GLUCOSE,RANDOM 64 mg/dL (74-106); MAGNESIUM 2.4 mg/dL (1.8-2.4); POTASSIUM 4.1 mmol/L (3.5-5.1); SGOT/AST 99 U/L (15-37); SGPT/ALT 31 U/L (13-61); SODIUM 137 mmol/L (136-145)
[2020-03-31 07:51] LABS: WHITE BLOOD COUNT 34.2 K/mm3 (4.0-10.0)
[2020-03-31 08:06] LABS: BLOOD UREA NITROGEN > 150.0 mg/dL (7-18)
--- NOTE | 2020-03-31 08:50 | PN ---
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, Physician - Current Medication List Current Medications: Active Medications Albuterol Sulfate (Ventolin Hfa Inhaler -) 2 puff IH TID PRN PRN Reason: ASTHMA Ascorbic Acid (Vitamin C -) 250 mg PO DAILY [facility] Last Admin: 03/30/20 09:45 Dose: Not Given Documented by: Aspirin (Asa -) 81 mg PO DAILY [facility] Last Admin: 03/30/20 09:44 Dose: Not Given Documented by: Atorvastatin Calcium (Lipitor -) 20 mg PO HS [facility] Last Admin: 03/30/20 22:37 Dose: 20 mg Documented by: Docusate Sodium (Colace -) 100 mg PO BID [facility] Last Admin: 03/30/20 22:09 Dose: Not Given Documented by: Ergocalciferol (Drisdol -) 50,000 unit PO WEEKLY [facility] Ferrous Sulfate (Feosol -) 325 mg PO DAILY [facility] Last Admin: 03/30/20 09:45 Dose: Not Given Documented by: Heparin Sodium (Porcine) (Heparin -) 5,000 unit SQ BID [facility] Last Admin: 03/30/20 22:37 Dose: 5,000 unit Documented by: Sodium Bicarbonate 50 meq/ (Sodium Chloride) 1,050 mls @ 65 mls/hr IV Q16H [facility] Last Admin: 03/30/20 16:32 Dose: 65 mls/hr Documented by: Piperacillin Sod/Tazobactam (Sod 2.25 gm/ Dextrose) 50 mls @ 100 mls/hr IVPB Q8H-IV [facility]; Protocol Last Admin: 03/31/20 03:12 Dose: 100 mls/hr Documented by: Levothyroxine Sodium (Synthroid -) 100 mcg PO ACBK [facility] Last Admin: 03/30/20 06:08 Dose: 100 mcg Documented by: Pantoprazole Sodium (Protonix -) 20 mg PO ACBK [facility] Last Admin: 03/30/20 06:08 Dose: 20 mg Documented by: Tamsulosin HCl (Flomax -) 0.4 mg PO DAILY@0830 [facility] Last Admin: 03/30/20 08:54 Dose: Not Given Documented by: - Objective Vital Signs: Vital Signs Temperature 98.6 F 03/31/20 07:00 Pulse Rate 78 03/31/20 08:45 Respiratory Rate 17 03/31/20 08:32 Blood Pressure 118/73 03/31/20 08:45 O2 Sat by Pulse Oximetry (%) 100 03/31/20 08:32 Cardiovascular: Yes: S1, S2 Respiratory: Yes: Regular, CTA Bilaterally Gastrointestinal: Yes: Normal Bowel Sounds, Soft. No: Tenderness Neurological: Yes: Alert, Weakness Labs: CBC, BMP 03/31/20 06:13 03/31/20 06:13 INR, PTT INR 0.95 (0.83-1.09) 03/29/20 22:50 Problem List - Problems (1) Dysphagia Assessment/Plan: swallow eval Code(s): R13.10 - DYSPHAGIA, UNSPECIFIED (2) Weakness Code(s): R53.1 - WEAKNESS (3) DUNG (acute kidney injury) Assessment/Plan: -IVF -Nephrology consult -Renal U/S -UC pending -Cr trending down -Continue IVF Code(s): N17.9 - ACUTE KIDNEY FAILURE, UNSPECIFIED (4) Chronic retention of urine Assessment/Plan: -Continue iyer cath Code(s): R33.9 - RETENTION OF URINE, UNSPECIFIED (5) Sepsis Assessment/Plan: -ID consult -IV Zosyn -No Lactic acidosis -Afebrile -Cultures: Microbiology 03/29/20 22:50 Blood - Peripheral Venous Blood Culture - Preliminary Group D Strep Or Entero Coccus Non Lactose Fermenting Gnb 03/29/20 22:50 Blood - Peripheral Venous Blood Culture - Preliminary Group D Strep Or Entero Coccus Non Lactose Fermenting Gnb 03/30/20 00:27 Urine - Urine - Catheterized Urine Culture - Final Contaminated: Please Repeat Code(s): A41.9 - SEPSIS, UNSPECIFIED ORGANISM
[2020-03-31] MEDS: LEVOTHYROXINE NA 100 MCG TABLET (FP) PO SCH (09:01)
[2020-03-31] MEDS: PANTOPRAZOLE 20 MG TABLET PO SCH (09:01)
--- NOTE | 2020-03-31 09:14 | CONSULT ---
Admitting History and Physical - Admission History of Present Illness: 79 year old male BIBA from [facility] for hypotension (SBP in the 70's). He has a past medical history of hypertension, CHF, aortic stenosis s/p bioprosthetic valve replacement, CAD, prior stent, GERD,TIA,BPH and indwelling iyer. NAD c/o fatigue lethargic Denies any pain or SOB Selected Entries 03/31/20 03/31/20 03/31/20 00:00 02:00 03:17 Temperature 98.7 F Pulse Rate [ 66 68 65 Apical] Blood Pressure 98/63 105/73 101/75 [Right Arm] 03/31/20 03/31/20 07:00 08:45 Temperature 98.6 F Pulse Rate [ 74 78 Apical] Blood Pressure 95/80 118/73 [Right Arm] Laboratory Tests 03/29/20 03/30/20 03/31/20 22:50 00:27 06:13 WBC 34.9 H* BUN > 150.0 H* COVID-19 (ROBIN) Pending 03/31/20 06:13 WBC 34.2 H* BUN COVID-19 (ROBIN) ID imp-gram positive bacteremia- ?strep UTI ARF with bioprosthetic aortic valve DNR/DNI History Source: Patient Limitations to Obtaining History: Clinical Condition - Past Medical History Cardiovascular: Yes: CHF, HTN - Smoking History Smoking history: Never smoked Have you smoked in the past 12 months: No History - Admission Reason For Visit: SEPSIS, HYPOTENSION - Diagnostics X-ray: Report Reviewed - General Mental Status: Awake and Alert, Able to Follow Commands, Vague, Intermittently Confused Attention: Intact Ability to Follow Directions: Good Head/Neck Control: WFL - Hearing Hearing: Functional Speech Evaluation - Communication Primary Language: MALAY Communication: Yes: Within Normal Limits Oral Expression Ability: Yes: No Impairment - Speech Production Able to Make Needs Known: Yes: WNL Intelligibility: Yes: WNL - Speech Characteristics Voice Loudness: Normal Voice Pitch: Yes: Normal Voice Phonatory-based Quality: Yes: Normal Speech Pattern: Normal Speech Clarity: < 100% Nasal Resonance: Normal Articulation: Yes: Precise - Language/Auditory Comprehension Follows: Yes: 2 Stage Simple Commands Observation: Able to respond to yes/no queries: Yes, Yes/No Confusion: No, Comprehends Conversational Speech: Yes - Language/Verbal Expression Able to Respond to Simple Queries: Yes: WNL - Swallow Evaluation/Bedside Assessment Current Nutritional Intake: NPO Oral Secretions: Yes: Dryness Facial Symmetry at Rest: Symmetrical Facial Symmetry on Retraction: Symmetrical Against Resistance Opening: Normal Against Resistance Closing: Normal Pucker Lips: Normal Smile: Normal Lingual Movement: Normal, Symmetric Lingual Speed of Movement: Normal Lingual Movement Strgth Against Opposition: Normal Lingual Movement Characteristics: Normal Velopharyngeal Movement: Normal Laryngeal Elevation: Impaired Laryngeal Movement: Reduced Excursion, Labored,delay initiation Rate of Intake: Slow/Holding Bolus Size: Small Labial Seal: WFL Chewing: Impaired Oral Prep Time: Increased A-P Transit: Impaired Pocketing: None Timing of Swallow: Delayed Coughing/Throat Clear: No Change in Voice: No Recommendations - Speech Evaluation, Impression/Plan Impression: with oral holding, effortful swallow onset. Overtly tolerated 1 sip of water, 2 1/2 tsp puree. Resistent for PO trials but seems to tolerate? - Dysphagia Impressions/Plan Swallowing Skills: Impaired Dysphagia Impressions: Ongoing Evaluation *Silent aspiration: cannot be R/O at bedside Dysphagia Treatment Plan: Small Bites, Chin Tuck/Down, Clear Pocket Food, Safe Rate, 1/2 tsp. at a time, Elevate HOB during feed Recommendations: Modified Barium Swallow (if difficulty persists) - Recommendations Diet Consistency: Dysphagia Pureed Medication Administration: Crushed with applesauce Liquids: [place] Thick Supplement: Ensure Pudding, Other (2 suzette hn)
[2020-03-31] MEDS ORDERED: VANCOMYCIN 1 GRAM (PRE-DOCKED) 1,000 MG/250 ML BAG IVPB ONE ×2 (09:15→09:28)
[2020-03-31] MEDS: TAMSULOSIN HCL 0.4 MG CAP PO SCH (09:24)
[2020-03-31] MEDS: SODIUM BICARBONATE 8.4% - 50 MEQ in SODIUM CHLORIDE 0.45% 1,000 ML IV SCH (09:53)
[2020-03-31 10:40] LABS: ANISOCYTOSIS 1+; MACROCYTOSIS 0; PLATELET ESTIMATE DECREASED; TARGET CELLS 1+
[2020-03-31 10:48] LABS: HEMATOCRIT 34.3 % (35.4-49); MCH 24.7 pg (25.7-33.7); MEAN CELL VOLUME 77.1 fl (80-96); MEAN PLT VOLUME 8.9 fl (7.5-11.1); PLATELET COUNT 108 K/MM3 (134-434); RBC 4.44 M/mm3 (4.00-5.60); RDW 17.9 % (11.9-15.9)
[2020-03-31 10:52] LABS: WHITE BLOOD COUNT 35.2 K/mm3 (4.0-10.0)
[2020-03-31] MEDS: ASPIRIN 81 MG CHEWABLE TABLETS PO SCH (11:22)
[2020-03-31] MEDS: FERROUS SO4 325 MG TABLET (FP) PO SCH (11:22)
[2020-03-31] MEDS: DOCUSATE SODIUM 100 MG CAPSULE (FP) PO SCH ×2 (11:22→22:09)
[2020-03-31] MEDS: ASCORBIC ACID 250 MG TABLET (FP) PO SCH (11:22)
[2020-03-31] MEDS ORDERED: HEPARIN NA (PORCINE) 5,000 UNITS/ML 1ML VIAL ONE (11:24)
[2020-03-31] MEDS: HEPARIN NA (PORCINE) 5,000 UNITS/ML 1ML VIAL SQ SCH ×3 (11:31→22:17)
[2020-03-31] MEDS: SODIUM CHLORIDE 0.45% 1,000 ML with SODIUM BICARBONATE 8.4% - 50 MEQ IV SCH (12:06)
--- NOTE | 2020-03-31 16:15 | CONSULT ---
Consultation: REQUESTING PROVIDER: Dr. Saldana CONSULT REQUEST: We have been asked to medically evaluate this patient for leukocytosis. HISTORY OF PRESENT ILLNESS: Patient is an 79 year old male with past medical history of HTN, CHF, aortic stenosis, CAD, GERD, TIA, BPH on indwelling iyer and hypothyroidism, was brought in from [facility] for hypotension. At the ED, patient was found to be hypotensive, with elevated wbc and in acute renal failure. He was started on IVF to which he responded and IV antibiotics. Patient is lethargic, answers yes or no to some questions. He reports feeling unwell and fatigue, but denies any fevers, chills, headache, chest pain, shortness of breath, abdominal pain, diarrhea, urinary symptoms. During his hospital course, patient was found to have UTI and grp D strep and NLFGNB bacteremia. We were consulted for further evaluation of leukocytosis. PMHx; HTN, CHF, aortic stenosis, CAD, GERD, TIA, BPH on indwelling iyer and hypothyroidism PSHx:aortic valve replacement Allergies: NKDA SHx: unable to obtain REVIEW OF SYSTEMS: CONSTITUTIONAL: generalized weakness Absent: fever, chills, diaphoresis,malaise, loss of appetite, weight change HEENT: Absent: rhinorrhea, nasal congestion, throat pain, throat swelling, difficulty swallowing, mouth swelling, ear pain, eye pain, visual changes CARDIOVASCULAR: Absent: chest pain, syncope, palpitations, irregular heart rate, lightheadedness, peripheral edema RESPIRATORY: Absent: cough, shortness of breath, dyspnea with exertion, orthopnea, wheezing, stridor, hemoptysis GASTROINTESTINAL: Absent: abdominal pain, abdominal distension, nausea, vomiting, diarrhea, con stipation, melena, hematochezia GENITOURINARY: Absent: dysuria, frequency, urgency, hesitancy, hematuria, flank pain, genital pain MUSCULOSKELETAL: Absent: myalgia, arthralgia, joint swelling, back pain, neck pain SKIN: Absent: rash, itching, pallor HEMATOLOGIC/IMMUNOLOGIC: Absent: easy bleeding, easy bruising, lymphadenopathy, frequent infections ENDOCRINE: Absent: unexplained weight gain, unexplained weight loss, heat intolerance, cold intolerance NEUROLOGIC: Absent: headache, focal weakness or paresthesias, dizziness, unsteady gait, seizure, mental status changes, bladder or bowel incontinence PSYCHIATRIC: Absent: anxiety, depression, suicidal or homicidal ideation, hallucinations. PHYSICAL EXAMINATION Vital Signs - 24 hr 03/31/20 03/31/20 03/31/20 00:00 02:00 03:17 Temperature 98.7 F Pulse Rate Pulse Rate [ 66 68 65 Apical] Respiratory 17 22 H Rate Blood Pressure Blood Pressure 98/63 105/73 101/75 [Right Arm] O2 Sat by Pulse 98 96 100 Oximetry (%) 03/31/20 03/31/20 03/31/20 07:00 08:32 08:45 Temperature 98.6 F Pulse Rate Pulse Rate [ 74 78 Apical] Respiratory 17 17 Rate Blood Pressure Blood Pressure 95/80 118/73 [Right Arm] O2 Sat by Pulse 100 100 Oximetry (%) 03/31/20 03/31/20 03/31/20 14:03 14:09 15:36 Temperature 98.4 F 98.1 F Pulse Rate 72 Pulse Rate [ 66 Apical] Respiratory 18 18 16 Rate Blood Pressure 112/64 Blood Pressure 102/66 [Right Arm] O2 Sat by Pulse 100 100 99 Oximetry (%) GENERAL: lethargic, in no acute distress. HEAD: Normal with no signs of trauma. EYES:sclera anicteric, conjunctiva clear. EARS, NOSE, THROAT: dry mucous membranes. NECK: Normal range of motion, supple LUNGS: decreased breath sounds on bilateral bases HEART: Regular rate and rhythm, normal S1 and S2, +holosytolic murmur ABDOMEN: Soft, nontender, not distended, normoactive bowel sounds LOWER EXTREMITIES: 2+ pulses, warm, well-perfused. No peripheral edema. SKIN: Warm, dry, normal t[place]. Laboratory Results - last 24 hr 03/30/20 03/31/20 03/31/20 00:27 06:13 06:13 WBC RBC Hgb Hct MCV MCH MCHC RDW Plt Count MPV Absolute Neuts (auto) Neutrophils % Neutrophils % (Manual) Band Neutrophils % Lymphocytes % Lymphocytes % (Manual) Monocytes % Monocytes % (Manual) Eosinophils % Eosinophils % (Manual) Basophils % Basophils % (Manual) Myelocytes % (Man) Promyelocytes % (Man) Blast Cells % (Manual) Nucleated RBC % Metamyelocytes Hypochromia Platelet Estimate Polychromasia Poikilocytosis Anisocytosis Microcytosis Macrocytosis Target Cells Sumner Cells Sodium 137 Potassium 4.1 Chloride 104 Carbon Dioxide 18 L Anion Gap 15 BUN > 150.0 H* Creatinine 5.2 H Est GFR (CKD-EPI)AfAm 11.18 Est GFR (CKD-EPI)NonAf 9.64 Random Glucose 64 L Calcium 7.9 L Magnesium 2.4 Total Bilirubin 0.7 AST 99 H ALT 31 Alkaline Phosphatase 215 H Total Protein 6.0 L Albumin 1.9 L Random Vancomycin 8.6 COVID-19 (ROBIN) Not detected 03/31/20 03/31/20 06:13 10:35 WBC 34.2 H* 35.2 H* RBC 4.76 4.44 Hgb 12.1 11.0 L Hct 37.4 34.3 L MCV 78.7 L 77.1 L MCH 25.5 L 24.7 L MCHC 32.4 32.0 RDW 18.0 H 17.9 H Plt Count 102 L 108 L MPV 9.4 8.9 Absolute Neuts (auto) 32.7 H Neutrophils % 95.6 H Neutrophils % (Manual) 95.9 H Band Neutrophils % 0.0 Lymphocytes % 1.4 L Lymphocytes % (Manual) 2.1 L D Monocytes % 3.0 L Monocytes % (Manual) 2 L Eosinophils % 0.0 D Eosinophils % (Manual) 0.0 D Basophils % 0.0 Basophils % (Manual) 0.0 Myelocytes % (Man) 0 Promyelocytes % (Man) 0 Blast Cells % (Manual) 0 Nucleated RBC % 0 Metamyelocytes 0 Hypochromia 0 Platelet Estimate Decreased Polychromasia 0 Poikilocytosis 0 Anisocytosis 1+ Microcytosis 1+ Macrocytosis 0 Target Cells 1+ Lakia Cells 2+ Sodium Potassium Chloride Carbon Dioxide Anion Gap BUN Creatinine Est GFR (CKD-EPI)AfAm Est GFR (CKD-EPI)NonAf Random Glucose Calcium Magnesium Total Bilirubin AST ALT Alkaline Phosphatase Total Protein Albumin Random Vancomycin COVID-19 (ROBIN) Active Medications Generic Name Dose Route Start Last Admin Trade Name Freq PRN Reason Stop Dose Admin Albuterol Sulfate 2 puff 03/30/20 01:38 Ventolin Hfa Inhaler - IH TID PRN ASTHMA Ascorbic Acid 250 mg 03/30/20 10:00 03/31/20 11:22 Vitamin C - PO Not Given DAILY [facility] Aspirin 81 mg 03/30/20 10:00 03/31/20 11:22 Asa - PO Not Given DAILY [facility] Atorvastatin Calcium 20 mg 03/30/20 22:00 03/30/20 22:37 Lipitor - PO 20 mg HS JORDAN Administration Docusate Sodium 100 mg 03/30/20 10:00 03/31/20 11:22 Colace - PO Not Given BID JORDAN Ergocalciferol 50,000 unit 04/02/20 10:00 Drisdol - PO Fr@1000 JORDAN Ferrous Sulfate 325 mg 03/30/20 10:00 03/31/20 11:22 Feosol - PO Not Given DAILY JORDAN Heparin Sodium (Porcine) 5,000 unit 03/30/20 10:00 03/31/20 11:31 Heparin - SQ 5,000 unit BID JORDAN Administration Piperacillin Sod/Tazobactam 50 mls @ 100 mls/hr 03/30/20 18:30 03/31/20 11:31 Sod 2.25 gm/ Dextrose IVPB 100 mls/hr Q8H-IV JORDAN Administration Protocol Sodium Bicarbonate 50 meq/ 1,050 mls @ 65 mls/hr 03/31/20 09:10 03/31/20 09:53 Sodium Chloride IV 65 mls/hr Q16H JORDAN Administration Levothyroxine Sodium 100 mcg 03/30/20 07:00 03/31/20 09:01 Synthroid - PO Not Given ACBK [facility] Pantoprazole Sodium 20 mg 03/30/20 07:00 03/31/20 09:01 Protonix - PO Not Given ACBK JORDAN Tamsulosin HCl 0.4 mg 03/30/20 08:30 03/31/20 09:24 Flomax - PO Not Given DAILY@0830 [facility] ASSESSMENT/PLAN: Patient is an 79 year old male with past medical history of HTN, CHF, aortic stenosis, CAD, GERD, TIA, BPH on indwelling iyer and hypothyroidism, was brought in from [facility] for hypotension. Patient was found to have UTI and bacteremia. We have been asked to medically evaluate this patient for leukocytosis. #Leukocytosis -neutrophilia with left shift most likely 2/2 sepsis 2/2 bacteremia and UTI -peripheral smear no bands or blast cells -continue IV antibiotics -trend cbc - Dispo: We will continue to follow the patient. Thank you for this consultative o pportunity. Visit type - Medication Review Med list reviewed for High Risk Meds patients 65 and older: Yes - Emergency Visit Emergency Visit: Yes ED Registration Date: 03/29/20 Care time: The patient presented to the Emergency Department on the above date and was hospitalized for further evaluation of their emergent condition. - New Patient This patient is new to me today: Yes Date on this admission: 03/31/20 - Critical Care Critical Care patient: No ATTENDING PHYSICIAN STATEMENT I saw and evaluated the patient. I reviewed the resident's note and discussed the case with the resident. I agree with the resident's findings and plan as documented. SUBJECTIVE: OBJECTIVE: ASSESSMENT AND PLAN:
--- NOTE | 2020-03-31 16:45 | PN ---
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 (short form) - Note 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: more awake he wants orange juice feels lousy Vital Signs Period Temp Pulse Resp BP Sys/Pantoja Pulse Ox Last 24 Hr 98.1 F-98.7 F 65-78 16-22 95-118/63-80 96-100 cor-rrr lungs decreased bs at bases abd soft,nt ext no edema +iyer CBC, BMP 03/31/20 10:35 03/31/20 06:13 Microbiology 03/29/20 22:50 Blood - Peripheral Venous Blood Culture - Preliminary Group D Strep Or Entero Coccus Non Lactose Fermenting Gnb 03/29/20 22:50 Blood - Peripheral Venous Blood Culture - Preliminary Group D Strep Or Entero Coccus Non Lactose Fermenting Gnb 03/30/20 00:27 Urine - Urine - Catheterized Urine Culture - Final Contaminated: Please Repeat imp/reccd polymicrobial bacteremia- suspect urinary source UTI ARF with bioprosthetic aortic valve DNR/DNI vanco by levels-redosed this am, level in am zosyn repeat blood cultures f/u cultures will need echo with history of bioprosthetic valve
[2020-03-31] MEDS ORDERED: PIPERACILLIN/TAZOBACTAM 2.25 GM VIAL IVPB ONE (17:43)
[2020-03-31] MEDS ORDERED: DEXTROSE 5%-WATER - 50 ML IVPB ONE (17:43)
--- NOTE | 2020-03-31 18:12 | PN ---
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, Physician History of Present Illness: Pt seen and examined at bedside. He is awake but appears fatigued. He denies shortness of breath. - Current Medication List Current Medications: Active Medications Albuterol Sulfate (Ventolin Hfa Inhaler -) 2 puff IH TID PRN PRN Reason: ASTHMA Ascorbic Acid (Vitamin C -) 250 mg PO DAILY [facility] Last Admin: 03/31/20 11:22 Dose: Not Given Documented by: Aspirin (Asa -) 81 mg PO DAILY [facility] Last Admin: 03/31/20 11:22 Dose: Not Given Documented by: Atorvastatin Calcium (Lipitor -) 20 mg PO HS [facility] Last Admin: 03/30/20 22:37 Dose: 20 mg Documented by: Docusate Sodium (Colace -) 100 mg PO BID [facility] Last Admin: 03/31/20 11:22 Dose: Not Given Documented by: Ergocalciferol (Drisdol -) 50,000 unit PO Fr@1000 JORDAN Ferrous Sulfate (Feosol -) 325 mg PO DAILY [facility] Last Admin: 03/31/20 11:22 Dose: Not Given Documented by: Heparin Sodium (Porcine) (Heparin -) 5,000 unit SQ BID [facility] Last Admin: 03/31/20 11:31 Dose: 5,000 unit Documented by: Piperacillin Sod/Tazobactam (Sod 2.25 gm/ Dextrose) 50 mls @ 100 mls/hr IVPB Q8H-IV JORDAN; Protocol Last Admin: 03/31/20 17:46 Dose: 100 mls/hr Documented by: Sodium Bicarbonate 50 meq/ (Sodium Chloride) 1,050 mls @ 65 mls/hr IV Q16H [facility] Last Admin: 03/31/20 09:53 Dose: 65 mls/hr Documented by: Levothyroxine Sodium (Synthroid -) 100 mcg PO ACBK [facility] Last Admin: 03/31/20 09:01 Dose: Not Given Documented by: Pantoprazole Sodium (Protonix -) 20 mg PO ACBK [facility] Last Admin: 03/31/20 09:01 Dose: Not Given Documented by: Tamsulosin HCl (Flomax -) 0.4 mg PO DAILY@0830 [facility] Last Admin: 03/31/20 09:24 Dose: Not Given Documented by: - Objective Vital Signs: Vital Signs Temperature 98.1 F 03/31/20 15:36 Pulse Rate 72 03/31/20 15:36 Respiratory Rate 16 03/31/20 15:36 Blood Pressure 112/64 03/31/20 15:36 O2 Sat by Pulse Oximetry (%) 99 03/31/20 16:01 Constitutional: Yes: Calm Eyes: Yes: Conjunctiva Clear Cardiovascular: Yes: S1, S2 Respiratory: Yes: On Nasal O2 Gastrointestinal: Yes: Soft Genitourinary: Yes: Incontinence Musculoskeletal: Yes: Muscle Weakness Edema: No Neurological: Yes: Confusion Labs: CBC, BMP 03/31/20 10:35 03/31/20 06:13 INR, PTT INR 0.95 (0.83-1.09) 03/29/20 22:50 Problem List - Problems (1) DUNG (acute kidney injury) Code(s): N17.9 - ACUTE KIDNEY FAILURE, UNSPECIFIED (2) Hyperkalemia Code(s): E87.5 - HYPERKALEMIA (3) Sepsis Code(s): A41.9 - SEPSIS, UNSPECIFIED ORGANISM Assessment/Plan Current Medications Generic Name Dose Route Start Last Admin Trade Name Freq PRN Reason Stop Dose Admin Albuterol Sulfate 2 puff 03/30/20 01:38 Ventolin Hfa Inhaler - IH TID PRN ASTHMA Ascorbic Acid 250 mg 03/30/20 10:00 03/31/20 11:22 Vitamin C - PO Not Given DAILY [facility] Aspirin 81 mg 03/30/20 10:00 03/31/20 11:22 Asa - PO Not Given DAILY [facility] Atorvastatin Calcium 20 mg 03/30/20 22:00 03/30/20 22:37 Lipitor - PO 20 mg HS JORDAN Administration Docusate Sodium 100 mg 03/30/20 10:00 03/31/20 11:22 Colace - PO Not Given BID JORDAN Ergocalciferol 50,000 unit 04/02/20 10:00 Drisdol - PO Fr@1000 JORDAN Ferrous Sulfate 325 mg 03/30/20 10:00 03/31/20 11:22 Feosol - PO Not Given DAILY [facility] Heparin Sodium (Porcine) 5,000 unit 03/30/20 10:00 03/31/20 11:31 Heparin - SQ 5,000 unit BID JORDAN Administration Piperacillin Sod/Tazobactam 50 mls @ 100 mls/hr 03/30/20 18:30 03/31/20 17:46 Sod 2.25 gm/ Dextrose IVPB 100 mls/hr Q8H-IV JORDAN Administration Protocol Sodium Bicarbonate 50 meq/ 1,050 mls @ 65 mls/hr 03/31/20 09:10 03/31/20 09:53 Sodium Chloride IV 65 mls/hr Q16H JORDAN Administration Levothyroxine Sodium 100 mcg 03/30/20 07:00 03/31/20 09:01 Synthroid - PO Not Given ACBK [facility] Pantoprazole Sodium 20 mg 03/30/20 07:00 03/31/20 09:01 Protonix - PO Not Given ACBK [facility] Tamsulosin HCl 0.4 mg 03/30/20 08:30 03/31/20 09:24 Flomax - PO Not Given DAILY@0830 [facility] Impression 1. DUNG 2. sepsis 3. hyperkalemia 4. hypotension 5. chf 6. bph 7. cad 8. tia 9. gerd Plan - renal function continues to improve - cont current fluids - repeat labs in am - daughter does not want any aggressive measures - follow cultures - potassium is improved
[2020-03-31] MEDS: ATORVASTATIN CA 20 MG TABLET (FP) PO SCH (22:11)
[2020-04-01] MEDS ORDERED: PIPERACILLIN/TAZOBACTAM 2.25 GM VIAL IVPB ONE ×3 (01:01→17:01)
[2020-04-01] MEDS ORDERED: DEXTROSE 5%-WATER - 50 ML IVPB ONE ×3 (01:01→17:02)
[2020-04-01] MEDS: SODIUM BICARBONATE 8.4% - 50 MEQ in SODIUM CHLORIDE 0.45% 1,000 ML IV SCH (01:24)
[2020-04-01] MEDS: PIPERACILLIN/TAZOB 2.25 GM 2.25 GM in DEXTROSE 5%-WATER - 50 ML IVPB SCH ×3 (01:25→17:58)
[2020-04-01] MEDS: LEVOTHYROXINE NA 100 MCG TABLET (FP) PO SCH (06:31)
[2020-04-01] MEDS: PANTOPRAZOLE 20 MG TABLET PO SCH (06:31)
--- NOTE | 2020-04-01 08:30 | PN ---
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, Physician - Current Medication List Current Medications: Active Medications Albuterol Sulfate (Ventolin Hfa Inhaler -) 2 puff IH TID PRN PRN Reason: ASTHMA Ascorbic Acid (Vitamin C -) 250 mg PO DAILY [facility] Last Admin: 03/31/20 11:22 Dose: Not Given Documented by: Aspirin (Asa -) 81 mg PO DAILY [facility] Last Admin: 03/31/20 11:22 Dose: Not Given Documented by: Atorvastatin Calcium (Lipitor -) 20 mg PO HS [facility] Last Admin: 03/31/20 22:11 Dose: 20 mg Documented by: Docusate Sodium (Colace -) 100 mg PO BID [facility] Last Admin: 03/31/20 22:09 Dose: Not Given Documented by: Ergocalciferol (Drisdol -) 50,000 unit PO Fr@1000 JORDAN Ferrous Sulfate (Feosol -) 325 mg PO DAILY [facility] Last Admin: 03/31/20 11:22 Dose: Not Given Documented by: Heparin Sodium (Porcine) (Heparin -) 5,000 unit SQ BID [facility] Last Admin: 03/31/20 22:17 Dose: Not Given Documented by: Piperacillin Sod/Tazobactam (Sod 2.25 gm/ Dextrose) 50 mls @ 100 mls/hr IVPB Q8H-IV [facility]; Protocol Last Admin: 04/01/20 01:25 Dose: 100 mls/hr Documented by: Sodium Bicarbonate 50 meq/ (Sodium Chloride) 1,050 mls @ 65 mls/hr IV Q16H [facility] Last Admin: 04/01/20 01:24 Dose: 65 mls/hr Documented by: Levothyroxine Sodium (Synthroid -) 100 mcg PO ACBK [facility] Last Admin: 04/01/20 06:31 Dose: 100 mcg Documented by: Pantoprazole Sodium (Protonix -) 20 mg PO ACBK [facility] Last Admin: 04/01/20 06:31 Dose: 20 mg Documented by: Tamsulosin HCl (Flomax -) 0.4 mg PO DAILY@0830 [facility] Last Admin: 03/31/20 09:24 Dose: Not Given Documented by: - Objective Vital Signs: Vital Signs Temperature 98 F 04/01/20 05:56 Pulse Rate 84 04/01/20 05:56 Respiratory Rate 18 04/01/20 05:56 Blood Pressure 118/69 04/01/20 05:56 O2 Sat by Pulse Oximetry (%) 100 04/01/20 05:56 Cardiovascular: Yes: Murmur, S1, S2 Respiratory: Yes: Regular, CTA Bilaterally Gastrointestinal: Yes: Normal Bowel Sounds, Soft Neurological: Yes: Alert, Weakness Labs: CBC, BMP 03/31/20 10:35 03/31/20 06:13 INR, PTT INR 0.95 (0.83-1.09) 03/29/20 22:50 Problem List - Problems (1) Dysphagia Assessment/Plan: swallow eval noted dysphagia diet Code(s): R13.10 - DYSPHAGIA, UNSPECIFIED (2) Weakness Code(s): R53.1 - WEAKNESS (3) DUNG (acute kidney injury) Assessment/Plan: -IVF -Nephrology consult -Renal U/S -UC pending -Cr trending down -Continue IVF Code(s): N17.9 - ACUTE KIDNEY FAILURE, UNSPECIFIED (4) Chronic retention of urine Assessment/Plan: -Continue iyer cath Code(s): R33.9 - RETENTION OF URINE, UNSPECIFIED (5) Sepsis Assessment/Plan: -ID consult appreciated -IV Zosyn -No Lactic acidosis -Afebrile -Cultures: Microbiology 03/29/20 22:50 Blood - Peripheral Venous Blood Culture - Preliminary Group D Strep Or Entero Coccus Non Lactose Fermenting Gnb 03/29/20 22:50 Blood - Peripheral Venous Blood Culture - Preliminary Group D Strep Or Entero Coccus Non Lactose Fermenting Gnb 03/30/20 00:27 Urine - Urine - Catheterized Urine Culture - Final Contaminated: Please Repeat Echo Code(s): A41.9 - SEPSIS, UNSPECIFIED ORGANISM
--- NOTE | 2020-04-01 09:04 | PN ---
Teaching Attending Note Name of Resident: Jennifer Aguirre ATTENDING PHYSICIAN STATEMENT I saw and evaluated the patient. I reviewed the resident's note and discussed the case with the resident. I agree with the resident's findings and plan as documented. ASSESSMENT AND PLAN: Patient is an 79 year old male with past medical history of HTN, CHF, aortic stenosis, CAD, GERD, TIA, BPH on indwelling iyer and hypothyroidism, was brought in from [facility] for hypotension. Patient was found to have UTI and bacteremia. We have been asked to medically evaluate this patient for leukocytosis. #Leukocytosis -neutrophilia with left shift most likely 2/2 sepsis 2/2 bacteremia and UTI -peripheral smear no bands or blast cells -continue IV antibiotics -trend cbc will follow -
[2020-04-01 10:00] LABS: BASO % 0.5 % (0-2.0); EOS % 0.2 % (0-4.5); HEMATOCRIT 37.6 % (35.4-49); HEMOGLOBIN 12.1 GM/dL (11.7-16.9); LYMPH % 1.8 % (8-40); MCH 25.6 pg (25.7-33.7); MCHC 32.2 g/dl (32.0-35.9); MEAN CELL VOLUME 79.3 fl (80-96); MEAN PLT VOLUME 9.1 fl (7.5-11.1); MONO % 2.6 % (3.8-10.2); NEUT % 94.9 % (42.8-82.8); PLATELET COUNT 131 K/MM3 (134-434); RBC 4.75 M/mm3 (4.00-5.60); RDW 17.5 % (11.9-15.9); WHITE BLOOD COUNT 28.3 K/mm3 (4.0-10.0)
[2020-04-01] MEDS: TAMSULOSIN HCL 0.4 MG CAP PO SCH (10:17)
[2020-04-01] MEDS: FERROUS SO4 325 MG TABLET (FP) PO SCH (10:17)
[2020-04-01] MEDS: DOCUSATE SODIUM 100 MG CAPSULE (FP) PO SCH ×2 (10:17→21:52)
[2020-04-01] MEDS: HEPARIN NA (PORCINE) 5,000 UNITS/ML 1ML VIAL SQ SCH ×2 (10:17→21:53)
[2020-04-01] MEDS: ASCORBIC ACID 250 MG TABLET (FP) PO SCH (10:30)
[2020-04-01] MEDS: ASPIRIN 81 MG CHEWABLE TABLETS PO SCH (10:32)
[2020-04-01 10:36] LABS: ALBUMIN 1.8 g/dl (3.4-5.0); BILIRUBIN,TOTAL 0.9 mg/dL (0.2-1); CALCIUM 7.8 mg/dL (8.5-10.1); CREATININE 3.7 mg/dL (0.55-1.3); POTASSIUM 3.5 mmol/L (3.5-5.1)
--- NOTE | 2020-04-01 10:47 | PN ---
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, [employer] - Note 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: Selected Entries 03/31/20 04/01/20 04/01/20 18:41 02:00 05:56 Supper NPO Temperature 97.6 F 98 F Pulse Rate 71 84 Blood Pressure 113/58 L 118/69 On puree/nectar. Tolerated thickened liquid on 5s, tsp at a time Voice dysphonic which pt reports is not baseline. Cough response on sip of water, c/w aspiration Rec-hold lunch mbs to further assess swallowing function
[2020-04-01 10:53] LABS: BLOOD UREA NITROGEN 142.8 mg/dL (7-18)
[2020-04-01 11:15] LABS: ANISOCYTOSIS 1+; MACROCYTOSIS 2+; PLATELET ESTIMATE DECREASED
[2020-04-01] MEDS ORDERED: POTASSIUM CHLORIDE ORAL LIQUID 20 MEQ/15 ML PO ONE (12:28)
--- NOTE | 2020-04-01 12:28 | PN ---
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, Physician History of Present Illness: Pt seen and examined at bedside. He denies shortness of breath. He is awake. - Current Medication List Current Medications: Active Medications Albuterol Sulfate (Ventolin Hfa Inhaler -) 2 puff IH TID PRN PRN Reason: ASTHMA Ascorbic Acid (Vitamin C -) 250 mg PO DAILY [facility] Last Admin: 04/01/20 10:30 Dose: 250 mg Documented by: Aspirin (Asa -) 81 mg PO DAILY [facility] Last Admin: 04/01/20 10:32 Dose: 81 mg Documented by: Atorvastatin Calcium (Lipitor -) 20 mg PO HS [facility] Last Admin: 03/31/20 22:11 Dose: 20 mg Documented by: Docusate Sodium (Colace -) 100 mg PO BID [facility] Last Admin: 04/01/20 10:17 Dose: Not Given Documented by: Ergocalciferol (Drisdol -) 50,000 unit PO Fr@1000 JORDAN Ferrous Sulfate (Feosol -) 325 mg PO DAILY [facility] Last Admin: 04/01/20 10:17 Dose: 325 mg Documented by: Heparin Sodium (Porcine) (Heparin -) 5,000 unit SQ BID [facility] Last Admin: 04/01/20 10:17 Dose: 5,000 unit Documented by: Piperacillin Sod/Tazobactam (Sod 2.25 gm/ Dextrose) 50 mls @ 100 mls/hr IVPB Q8H-IV [facility]; Protocol Last Admin: 04/01/20 10:18 Dose: 100 mls/hr Documented by: Sodium Bicarbonate 50 meq/ (Sodium Chloride) 1,050 mls @ 65 mls/hr IV Q16H [facility] Last Admin: 04/01/20 01:24 Dose: 65 mls/hr Documented by: Levothyroxine Sodium (Synthroid -) 100 mcg PO ACBK [facility] Last Admin: 04/01/20 06:31 Dose: 100 mcg Documented by: Pantoprazole Sodium (Protonix -) 20 mg PO ACBK [facility] Last Admin: 04/01/20 06:31 Dose: 20 mg Documented by: Tamsulosin HCl (Flomax -) 0.4 mg PO DAILY@0830 [facility] Last Admin: 04/01/20 10:17 Dose: 0.4 mg Documented by: - Objective Vital Signs: Vital Signs Temperature 98 F 04/01/20 05:56 Pulse Rate 84 04/01/20 05:56 Respiratory Rate 18 04/01/20 05:56 Blood Pressure 118/69 04/01/20 05:56 O2 Sat by Pulse Oximetry (%) 100 04/01/20 05:56 Constitutional: Yes: Calm Eyes: Yes: Conjunctiva Clear HENT: Yes: Atraumatic Neck: Yes: Supple Cardiovascular: Yes: S1, S2 Respiratory: Yes: CTA Bilaterally Gastrointestinal: Yes: Soft Genitourinary: Yes: Jauregui Present Musculoskeletal: Yes: Muscle Weakness Edema: No Neurological: Yes: Oriented Psychiatric: Yes: Oriented Labs: CBC, BMP 04/01/20 09:37 04/01/20 09:37 INR, PTT INR 0.95 (0.83-1.09) 03/29/20 22:50 Problem List - Problems (1) DUNG (acute kidney injury) Code(s): N17.9 - ACUTE KIDNEY FAILURE, UNSPECIFIED (2) Hyperkalemia Code(s): E87.5 - HYPERKALEMIA (3) Sepsis Code(s): A41.9 - SEPSIS, UNSPECIFIED ORGANISM Assessment/Plan Current Medications Generic Name Dose Route Start Last Admin Trade Name Freq PRN Reason Stop Dose Admin Albuterol Sulfate 2 puff 03/30/20 01:38 Ventolin Hfa Inhaler - IH TID PRN ASTHMA Ascorbic Acid 250 mg 03/30/20 10:00 04/01/20 10:30 Vitamin C - PO 250 mg DAILY JORDAN Administration Aspirin 81 mg 03/30/20 10:00 04/01/20 10:32 Asa - PO 81 mg DAILY JORDAN Administration Atorvastatin Calcium 20 mg 03/30/20 22:00 03/31/20 22:11 Lipitor - PO 20 mg HS JORDAN Administration Docusate Sodium 100 mg 03/30/20 10:00 04/01/20 10:17 Colace - PO Not Given BID JORDAN Ergocalciferol 50,000 unit 04/02/20 10:00 Drisdol - PO Fr@1000 JORDAN Ferrous Sulfate 325 mg 03/30/20 10:00 04/01/20 10:17 Feosol - PO 325 mg DAILY JORDAN Administration Heparin Sodium (Porcine) 5,000 unit 03/30/20 10:00 04/01/20 10:17 Heparin - SQ 5,000 unit BID JORDAN Administration Piperacillin Sod/Tazobactam 50 mls @ 100 mls/hr 03/30/20 18:30 04/01/20 10:18 Sod 2.25 gm/ Dextrose IVPB 100 mls/hr Q8H-IV JORDAN Administration Protocol Sodium Bicarbonate 50 meq/ 1,050 mls @ 65 mls/hr 03/31/20 09:10 04/01/20 01:24 Sodium Chloride IV 65 mls/hr Q16H JORDAN Administration Levothyroxine Sodium 100 mcg 03/30/20 07:00 04/01/20 06:31 Synthroid - PO 100 mcg ACBK JORDAN Administration Pantoprazole Sodium 20 mg 03/30/20 07:00 04/01/20 06:31 Protonix - PO 20 mg ACBK JORDAN Administration Tamsulosin HCl 0.4 mg 03/30/20 08:30 04/01/20 10:17 Flomax - PO 0.4 mg DAILY@0830 JORDAN Administration Impression 1. DUNG 2. sepsis 3. hyperkalemia 4. hypotension 5. chf 6. bph 7. cad 8. tia 9. gerd Plan - replace potassium - change fluids to 1/2 ns - repeat labs in am - renal function is improving - mental status improving
[2020-04-01] MEDS: SODIUM CHLORIDE 0.45% 1,000 ML IV SCH (15:11)
[2020-04-01] MEDS: ACETAMINOPHEN 500 MG TABLET (FP) PO PRN (19:47)
[2020-04-01] MEDS ORDERED: MELATONIN 5 MG TABLETS PO ONE (21:39)
[2020-04-01] MEDS: ATORVASTATIN CA 20 MG TABLET (FP) PO SCH (21:53)
[2020-04-02] MEDS ORDERED: PIPERACILLIN/TAZOBACTAM 2.25 GM VIAL IVPB ONE ×2 (00:35→09:42)
[2020-04-02] MEDS ORDERED: DEXTROSE 5%-WATER - 50 ML IVPB ONE ×2 (00:36→09:43)
[2020-04-02] MEDS: PIPERACILLIN/TAZOB 2.25 GM 2.25 GM in DEXTROSE 5%-WATER - 50 ML IVPB SCH ×2 (01:03→09:55)
[2020-04-02] MEDS: SODIUM CHLORIDE 0.45% 1,000 ML IV SCH (05:54)
[2020-04-02] MEDS: PANTOPRAZOLE 20 MG TABLET PO SCH (06:18)
[2020-04-02] MEDS: ACETAMINOPHEN 500 MG TABLET (FP) PO PRN ×2 (06:20→11:40)
[2020-04-02] MEDS: LEVOTHYROXINE NA 100 MCG TABLET (FP) PO SCH (06:20)
[2020-04-02 08:17] LABS: BASO % 0.1 % (0-2.0); EOS % 1.1 % (0-4.5); HEMATOCRIT 33.2 % (35.4-49); HEMOGLOBIN 10.9 GM/dL (11.7-16.9); LYMPH % 3.5 % (8-40); MCH 25.9 pg (25.7-33.7); MCHC 32.9 g/dl (32.0-35.9); MEAN CELL VOLUME 78.7 fl (80-96); MEAN PLT VOLUME 8.8 fl (7.5-11.1); MONO % 3.9 % (3.8-10.2); NEUT % 91.4 % (42.8-82.8); PLATELET COUNT 143 K/MM3 (134-434); RBC 4.21 M/mm3 (4.00-5.60); RDW 17.3 % (11.9-15.9); WHITE BLOOD COUNT 17.3 K/mm3 (4.0-10.0)
[2020-04-02 08:29] LABS: ALBUMIN 1.6 g/dl (3.4-5.0); BILIRUBIN,TOTAL 0.8 mg/dL (0.2-1); CALCIUM 7.8 mg/dL (8.5-10.1); CREATININE 2.7 mg/dL (0.55-1.3); POTASSIUM 3.4 mmol/L (3.5-5.1); TOT PROT 5.5 g/dl (6.4-8.2)
[2020-04-02] MEDS ORDERED: POTASSIUM CHLORIDE ORAL LIQUID 20 MEQ/15 ML PO ONE (08:33)
--- NOTE | 2020-04-02 08:37 | PN ---
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, Physician - Current Medication List Current Medications: Active Medications Acetaminophen (Tylenol -) 1,000 mg PO Q6H PRN PRN Reason: PAIN Last Admin: 04/02/20 06:20 Dose: 1,000 mg Documented by: Albuterol Sulfate (Ventolin Hfa Inhaler -) 2 puff IH TID PRN PRN Reason: ASTHMA Ascorbic Acid (Vitamin C -) 250 mg PO DAILY [facility] Last Admin: 04/01/20 10:30 Dose: 250 mg Documented by: Aspirin (Asa -) 81 mg PO DAILY [facility] Last Admin: 04/01/20 10:32 Dose: 81 mg Documented by: Atorvastatin Calcium (Lipitor -) 20 mg PO HS [facility] Last Admin: 04/01/20 21:53 Dose: 20 mg Documented by: Docusate Sodium (Colace -) 100 mg PO BID [facility] Last Admin: 04/01/20 21:52 Dose: Not Given Documented by: Ergocalciferol (Drisdol -) 50,000 unit PO Fr@1000 JORDAN Ferrous Sulfate (Feosol -) 325 mg PO DAILY [facility] Last Admin: 04/01/20 10:17 Dose: 325 mg Documented by: Heparin Sodium (Porcine) (Heparin -) 5,000 unit SQ BID [facility] Last Admin: 04/01/20 21:53 Dose: 5,000 unit Documented by: Piperacillin Sod/Tazobactam (Sod 2.25 gm/ Dextrose) 50 mls @ 100 mls/hr IVPB Q8H-IV [facility]ORDAN; Protocol Last Admin: 04/02/20 01:03 Dose: 100 mls/hr Documented by: Potassium Chloride/Sodium Chloride (1/2ns+20meq Kcl) 20 meq in 1,000 mls @ 75 mls/hr IV ASDIR [facility] Levothyroxine Sodium (Synthroid -) 100 mcg PO ACBK [facility] Last Admin: 04/02/20 06:20 Dose: 100 mcg Documented by: Pantoprazole Sodium (Protonix -) 20 mg PO ACBK [facility] Last Admin: 04/02/20 06:18 Dose: Not Given Documented by: Potassium Chloride (K-Dur -) 30 meq PO ONCE ONE Stop: 04/02/20 08:34 Tamsulosin HCl (Flomax -) 0.4 mg PO DAILY@0830 [facility] Last Admin: 04/01/20 10:17 Dose: 0.4 mg Documented by: - Objective Vital Signs: Vital Signs Temperature 97.6 F 04/02/20 06:00 Pulse Rate 65 04/02/20 06:00 Respiratory Rate 18 04/02/20 06:00 Blood Pressure 125/67 04/02/20 06:00 O2 Sat by Pulse Oximetry (%) 100 04/02/20 06:00 Cardiovascular: Yes: S1, S2 Respiratory: Yes: Regular, CTA Bilaterally Gastrointestinal: Yes: Normal Bowel Sounds, Soft Genitourinary: Yes: Iyer Present Labs: CBC, BMP 04/02/20 07:26 04/02/20 07:26 INR, PTT INR 0.95 (0.83-1.09) 03/29/20 22:50 Problem List - Problems (1) Dysphagia Assessment/Plan: swallow eval noted dysphagia diet Code(s): R13.10 - DYSPHAGIA, UNSPECIFIED (2) Weakness Assessment/Plan: PT Code(s): R53.1 - WEAKNESS (3) DUNG (acute kidney injury) Assessment/Plan: -Nephrology consult -Renal U/S -UC pending -Cr trending down -Continue IVF With KCL Laboratory Tests 03/30/20 03/31/20 04/01/20 10:05 06:13 09:37 BUN 176.2 H* > 150.0 H* 142.8 H* Creatinine 6.6 H 5.2 H 3.7 H 04/02/20 07:26 BUN Creatinine 2.7 H Laboratory Tests 03/30/20 03/31/20 04/01/20 10:05 06:13 09:37 Potassium 4.7 4.1 3.5 04/02/20 07:26 Potassium 3.4 L Code(s): N17.9 - ACUTE KIDNEY FAILURE, UNSPECIFIED (4) Chronic retention of urine Assessment/Plan: -Continue iyer cath Code(s): R33.9 - RETENTION OF URINE, UNSPECIFIED (5) Sepsis Assessment/Plan: -ID consult appreciated -IV Zosyn -No Lactic acidosis -Afebrile -Cultures: Microbiology 03/31/20 17:30 Blood - Peripheral Venous Blood Culture - Preliminary NO GROWTH OBTAINED AFTER 24 HOURS, INCUBATION TO CONTINUE FOR 4 DAYS. 03/31/20 17:15 Blood - Peripheral Venous Blood Culture - Preliminary NO GROWTH OBTAINED AFTER 24 HOURS, INCUBATION TO CONTINUE FOR 4 DAYS. 03/29/20 22:50 Blood - Peripheral Venous Blood Culture - Final Group D Strep Or Entero Coccus Pseudomonas Species 03/29/20 22:50 Blood - Peripheral Venous Blood Culture - Final Enterococcus Faecalis Pseudomonas Aeruginosa 03/30/20 00:27 Urine - Urine - Catheterized Urine Culture - Final Contaminated: Please Repeat Laboratory Tests 03/29/20 04/01/20 04/02/20 22:50 09:37 07:26 WBC 34.9 H* 28.3 H 17.3 H Code(s): A41.9 - SEPSIS, UNSPECIFIED ORGANISM
[2020-04-02] MEDS: SODIUM CHLORIDE 0.45%/POT 20 MEQ/1,000 ML INFUS.BAG IV SCH (09:01)
[2020-04-02] MEDS: TAMSULOSIN HCL 0.4 MG CAP PO SCH (09:01)
[2020-04-02] MEDS: DOCUSATE SODIUM 100 MG CAPSULE (FP) PO SCH ×2 (09:02→21:04)
[2020-04-02 09:07] LABS: BLOOD UREA NITROGEN 115.3 mg/dL (7-18)
[2020-04-02] MEDS: HEPARIN NA (PORCINE) 5,000 UNITS/ML 1ML VIAL SQ SCH ×2 (09:54→21:05)
[2020-04-02] MEDS: ASPIRIN 81 MG CHEWABLE TABLETS PO SCH (09:55)
[2020-04-02] MEDS: FERROUS SO4 325 MG TABLET (FP) PO SCH (09:55)
[2020-04-02 09:58] LABS: ANISOCYTOSIS 2+; MACROCYTOSIS 0; PLATELET ESTIMATE DECREASED; TARGET CELLS 1+
[2020-04-02] MEDS ORDERED: ERGOCALCIFEROL (VIT D2) 50,000 UNIT (1.25 MG) CAPSULE PO SCH (10:00)
[2020-04-02] MEDS: ASCORBIC ACID 250 MG TABLET (FP) PO SCH (10:08)
--- NOTE | 2020-04-02 10:24 | PN ---
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, FLOOR CLERK - Note 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: Selected Entries 04/01/20 04/01/20 04/01/20 02:00 05:56 10:00 Breakfast Diet Tolerated Supper Temperature 97.6 F 98 F 97.6 F Pulse Rate 71 84 82 Blood Pressure 113/58 L 118/69 118/61 04/01/20 04/01/20 04/01/20 14:00 18:00 21:42 Breakfast 25% Diet Tolerated Poor Poor Supper 25% Temperature 97.9 F 97.7 F 97.5 F L Pulse Rate 80 80 74 Blood Pressure 102/65 105/67 111/50 L 04/02/20 06:00 Breakfast Diet Tolerated Supper Temperature 97.6 F Pulse Rate 65 Blood Pressure 125/67 Laboratory Tests 03/31/20 04/01/20 04/02/20 06:13 09:37 07:26 WBC 34.2 H* 28.3 H 17.3 H MBS- Mod to severe stasis with puree. Aspiration on thin liquid RD-- Dysphagia Puree (thinned out) nectar thick liquids per FLOOR CLERK recs - TwoCal daily - rec MVI w/minerals Suggest Pt needs pureed consistency to be thinned out to reduce stasis in pharynx 2 hard swallows per 1/2 tsp Alternate with sip of nectar thick liquid No thin liquids
--- NOTE | 2020-04-02 13:08 | PN ---
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, Physician History of Present Illness: Pt seen and examined at bedside. He is awake and alert. He denies shortness of breath. - Current Medication List Current Medications: Active Medications Acetaminophen (Tylenol -) 1,000 mg PO Q6H PRN PRN Reason: PAIN Last Admin: 04/02/20 11:40 Dose: 1,000 mg Documented by: Albuterol Sulfate (Ventolin Hfa Inhaler -) 2 puff IH TID PRN PRN Reason: ASTHMA Ascorbic Acid (Vitamin C -) 250 mg PO DAILY [facility] Last Admin: 04/02/20 10:08 Dose: 250 mg Documented by: Aspirin (Asa -) 81 mg PO DAILY [facility] Last Admin: 04/02/20 09:55 Dose: 81 mg Documented by: Atorvastatin Calcium (Lipitor -) 20 mg PO HS [facility] Last Admin: 04/01/20 21:53 Dose: 20 mg Documented by: Docusate Sodium (Colace -) 100 mg PO BID [facility] Last Admin: 04/02/20 09:02 Dose: Not Given Documented by: Ergocalciferol (Drisdol -) 50,000 unit PO Fr@1000 [facility] Last Admin: 04/02/20 09:04 Dose: Not Given Documented by: Ferrous Sulfate (Feosol -) 325 mg PO DAILY [facility] Last Admin: 04/02/20 09:55 Dose: 325 mg Documented by: Heparin Sodium (Porcine) (Heparin -) 5,000 unit SQ BID [facility] Last Admin: 04/02/20 09:54 Dose: 5,000 unit Documented by: Piperacillin Sod/Tazobactam (Sod 2.25 gm/ Dextrose) 50 mls @ 100 mls/hr IVPB Q8H-IV [facility]ORDAN; Protocol Last Admin: 04/02/20 09:55 Dose: 100 mls/hr Documented by: Potassium Chloride/Sodium Chloride (1/2ns+20meq Kcl) 20 meq in 1,000 mls @ 75 mls/hr IV ASDIR [facility] Last Admin: 04/02/20 09:01 Dose: 75 mls/hr Documented by: Levothyroxine Sodium (Synthroid -) 100 mcg PO ACBK [facility] Last Admin: 04/02/20 06:20 Dose: 100 mcg Documented by: Pantoprazole Sodium (Protonix -) 20 mg PO ACBK [facility] Last Admin: 04/02/20 06:18 Dose: Not Given Documented by: Tamsulosin HCl (Flomax -) 0.4 mg PO DAILY@0830 [facility] Last Admin: 04/02/20 09:01 Dose: Not Given Documented by: - Objective Vital Signs: Vital Signs Temperature 97.6 F 04/02/20 06:00 Pulse Rate 65 04/02/20 06:00 Respiratory Rate 18 04/02/20 06:00 Blood Pressure 125/67 04/02/20 06:00 O2 Sat by Pulse Oximetry (%) 100 04/02/20 09:00 Constitutional: Yes: Calm Eyes: Yes: Conjunctiva Clear HENT: Yes: Atraumatic Neck: Yes: Supple Cardiovascular: Yes: S1, S2 Respiratory: Yes: CTA Bilaterally Gastrointestinal: Yes: Soft Genitourinary: Yes: Jauregui Present Musculoskeletal: Yes: WNL Edema: No Neurological: Yes: Confusion Labs: CBC, BMP 04/02/20 07:26 04/02/20 07:26 INR, PTT INR 0.95 (0.83-1.09) 03/29/20 22:50 Problem List - Problems (1) DUNG (acute kidney injury) Code(s): N17.9 - ACUTE KIDNEY FAILURE, UNSPECIFIED (2) Hyperkalemia Code(s): E87.5 - HYPERKALEMIA (3) Sepsis Code(s): A41.9 - SEPSIS, UNSPECIFIED ORGANISM Assessment/Plan Current Medications Generic Name Dose Route Start Last Admin Trade Name Freq PRN Reason Stop Dose Admin Acetaminophen 1,000 mg 04/01/20 13:07 04/02/20 11:40 Tylenol - PO 1,000 mg Q6H PRN Administration PAIN Albuterol Sulfate 2 puff 03/30/20 01:38 Ventolin Hfa Inhaler - IH TID PRN ASTHMA Ascorbic Acid 250 mg 03/30/20 10:00 04/02/20 10:08 Vitamin C - PO 250 mg DAILY [facility] Administration Aspirin 81 mg 03/30/20 10:00 04/02/20 09:55 Asa - PO 81 mg DAILY JORDAN Administration Atorvastatin Calcium 20 mg 03/30/20 22:00 04/01/20 21:53 Lipitor - PO 20 mg HS [facility] Administration Docusate Sodium 100 mg 03/30/20 10:00 04/02/20 09:02 Colace - PO Not Given BID [facility] Ergocalciferol 50,000 unit 04/02/20 10:00 04/02/20 09:04 Drisdol - PO Not Given Fr@1000 [facility] Ferrous Sulfate 325 mg 03/30/20 10:00 04/02/20 09:55 Feosol - PO 325 mg DAILY [facility]ORDAN Administration Heparin Sodium (Porcine) 5,000 unit 03/30/20 10:00 04/02/20 09:54 Heparin - SQ 5,000 unit BID JORDAN Administration Piperacillin Sod/Tazobactam 50 mls @ 100 mls/hr 03/30/20 18:30 04/02/20 09:55 Sod 2.25 gm/ Dextrose IVPB 100 mls/hr Q8H-IV JORDAN Administration Protocol Potassium Chloride/Sodium Chloride 20 meq in 1,000 mls @ 75 mls/hr 04/02/20 08:45 04/02/20 09:01 1/2ns+20meq Kcl IV 75 mls/hr ASDIR [facility] Administration Levothyroxine Sodium 100 mcg 03/30/20 07:00 04/02/20 06:20 Synthroid - PO 100 mcg ACBK JORDAN Administration Pantoprazole Sodium 20 mg 03/30/20 07:00 04/02/20 06:18 Protonix - PO Not Given ACBK [facility]AN Tamsulosin HCl 0.4 mg 03/30/20 08:30 04/02/20 09:01 Flomax - PO Not Given DAILY@0830 [facility] Impression 1. DUNG 2. sepsis 3. hyperkalemia 4. hypotension 5. chf 6. bph 7. cad 8. tia 9. gerd Plan - renal function continues to improve - replace potassium - repeat labs in am - renal function is improving - mental status improving
--- NOTE | 2020-04-02 14:22 | PN.HO ---
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 (short form) - Note 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: Patient seen and examined at bedside; lethargic and not willing to participate in conversation stating he is tired General: cachectic, in NAD HEENT: NCAT, PERRL, anicteric sclera CVS: S1, S2, no m/r/g Resp: anterior lung alcala CTA ABd: +BS, soft, NT, nD Ext: no ll edema 79y M with multiple medical comorbidities including BPH with indwelling chronic iyer presents with hypotension; found to have UTI with leukocytosis. Heme consulted for management/workup of leukocytosis Leukocytosis: left shift with no immature cells; consistent with infectious process -wbc count trending down, continue with antibiotic management
--- NOTE | 2020-04-02 15:08 | PN ---
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 (short form) - Note 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: more awake feels lousy Vital Signs Period Temp Pulse Resp BP Sys/Pantoja Pulse Ox Last 24 Hr 97.5 F-97.7 F 65-80 16-18 105-131/50-78 98-100 cor-rrr lungs clear abd soft,nt +iyer ext no edema CBC, BMP 04/02/20 07:26 04/02/20 07:26 Microbiology 04/01/20 09:37 Blood - Peripheral Venous Blood Culture - Preliminary NO GROWTH OBTAINED AFTER 24 HOURS, INCUBATION TO CONTINUE FOR 4 DAYS. 03/31/20 22:25 Urine - Urine Ieyr Urine Culture - Preliminary Presumptive Ps Aeruginosa 03/31/20 17:30 Blood - Peripheral Venous Blood Culture - Preliminary NO GROWTH OBTAINED AFTER 24 HOURS, INCUBATION TO CONTINUE FOR 4 DAYS. 03/31/20 17:15 Blood - Peripheral Venous Blood Culture - Preliminary NO GROWTH OBTAINED AFTER 24 HOURS, INCUBATION TO CONTINUE FOR 4 DAYS. 03/29/20 22:50 Blood - Peripheral Venous Blood Culture - Final Group D Strep Or Entero Coccus Pseudomonas Species 03/29/20 22:50 Blood - Peripheral Venous Blood Culture - Final Enterococcus Faecalis Pseudomonas Aeruginosa 03/30/20 00:27 Urine - Urine - Catheterized Urine Culture - Final Contaminated: Please Repeat imp/reccd polymicrobial bacteremia- suspect urinary source UTI ARF with bioprosthetic aortic valve DNR/DNI check echo switch to ampicillin/cefepime
--- NOTE | 2020-04-02 19:21 | ECHO ---
Version: 1 Name: LANI LEBRON Exam: Adult Echocardiogram Study Date: 04/02/2020, 3:36 PM Age: 79 Years MMode/2D Measurements & Calculations IVSd: 1.73 cm LVIDs: 3.0 cm LVIDd: 4.8 cm LVPWd: 1.20 cm LAV (MOD-bp): 93.0 ml LVOT diam: 2.05 cm LA dimension: 4.9 cm Doppler Measurements & Calculations MR max P.8 mmHg Ao max P.0 mmHg SERAFIN(I,D): 1.23 cm Ao mean P.9 mmHg LV V1 mean: 50.0 cm/sec Ao V2 max: 206.1 cm/sec LV V1 mean P.14 mmHg AI P1/2t: 252.4 msec TR max roberto: 225.7 cm/sec TR max P.6 mmHg Left Ventricle There is moderate concentric left ventricular hypertrophy. Ejection Fraction = 35-40%. The transmitr al spectral Doppler flow pattern is suggestive of pseudonormalization. There is moderate to severe glob al hypokinesis of the left ventricle. Severe hypokinesis of the apical anterior wall and apex. Right Ventricle The right ventricle is grossly normal size. The right ventricular systolic function is grossly vance l. Atria The left atrium is moderately dilated. Right atrial size is normal. Mitral Valve There is mild to moderate mitral annular calcification. No significant mitral valve stenosis. There is mild to moderate mitral regurgitation. Tricuspid Valve The tricuspid valve is normal in structure and function. There is mild tricuspid regurgitation. Aortic Valve There is a bioprosthetic aortic valve. The prosthetic aortic valve is well-seated. No hemodynamicall y significant valvular aortic stenosis. Compared to prior study, overall findings are similar. Mild ao rtic regurgitation is now noted. Mild aortic regurgitation. Pulmonic Valve The pulmonic valve is not well seen, but is grossly normal. There is no pulmonic valvular stenosis. There is no pulmonic valvular regurgitation. Great Vessels The aortic root is normal size. Pericardium/Pleura There is no pericardial effusion. Tech Comments TDS. LIMITED STUDY. Please compare with study done on 02/23/2020. Patient very thin. Scanned supine. Summary Statements Clinical correlation is recommended. Would consider a transesophageal echocardiogram if clinically i ndicated. Ejection Fraction = 35-40%. There is moderate to severe global hypokinesis of the left ventricle. Severe hypokinesis of the apical anterior wall and apex. The left atrium is moderately dilated. There is mild to moderate mitral annular calcification. There is mild to moderate mitral regurgitation. There is mild tricuspid regurgitation. There is a bioprosthetic aortic valve. The prosthetic aortic valve is well-seated. Mild aortic regurgitation. Compared to prior study, overall findings are similar. Mild aortic regurgitation is now noted. Clinical correlation is recommended. Would consider a transesophageal echocardiogram if clinically indicated. MD [place]inas *Mary Ellen 04/02/2020, 7:21 PM Ordering Physician: Madhuri Crews Referring Physician: MADHURI CREWS Performed By: Irlanda Sanchez
[2020-04-02] MEDS ORDERED: AMPICILLIN SODIUM 2 GM VIAL ONE (20:54)
[2020-04-02] MEDS ORDERED: SODIUM CHLORIDE 100 ML IVPB ONE (20:54)
[2020-04-02] MEDS ORDERED: DEXTROSE 5%-WATER 100 ML IVPB ONE (20:55)
[2020-04-02] MEDS ORDERED: CEFEPIME HCL 1 GM VIAL (RESTRICTED TO ID) ONE (20:55)
[2020-04-02] MEDS: AMPICILLIN - 2 GM in SODIUM CHLORIDE 100 ML IVPB SCH (20:58)
[2020-04-02] MEDS: ATORVASTATIN CA 20 MG TABLET (FP) PO SCH (21:05)
[2020-04-02] MEDS ORDERED: MELATONIN 5 MG TABLETS PO ONE (21:59)
[2020-04-02] MEDS: CEFEPIME 1 GM in DEXTROSE 5%-WATER 100 ML IVPB SCH (22:30)
[2020-04-03] MEDS ORDERED: SODIUM CHLORIDE 100 ML IVPB ONE ×4 (01:57→22:37)
[2020-04-03] MEDS ORDERED: AMPICILLIN SODIUM 2 GM VIAL ONE ×4 (01:57→22:37)
[2020-04-03] MEDS: SODIUM CHLORIDE 0.45%/POT 20 MEQ/1,000 ML INFUS.BAG IV SCH ×2 (02:24→09:16)
[2020-04-03] MEDS: AMPICILLIN - 2 GM in SODIUM CHLORIDE 100 ML IVPB SCH ×4 (02:24→22:39)
[2020-04-03] MEDS: ACETAMINOPHEN 500 MG TABLET (FP) PO PRN ×2 (05:47→18:08)
[2020-04-03] MEDS: PANTOPRAZOLE 20 MG TABLET PO SCH (06:27)
[2020-04-03] MEDS: LEVOTHYROXINE NA 100 MCG TABLET (FP) PO SCH (06:29)
[2020-04-03] MEDS ORDERED: PT OWN MED DRAWER 7, Y5N ONE ×2 (08:49→15:38)
[2020-04-03] MEDS ORDERED: CEFEPIME HCL 1 GM VIAL (RESTRICTED TO ID) ONE ×2 (08:49→22:37)
[2020-04-03] MEDS ORDERED: DEXTROSE 5%-WATER 100 ML IVPB ONE ×2 (08:50→22:38)
[2020-04-03] MEDS: ASPIRIN 81 MG CHEWABLE TABLETS PO SCH (09:13)
[2020-04-03] MEDS: FERROUS SO4 325 MG TABLET (FP) PO SCH (09:13)
[2020-04-03] MEDS: CEFEPIME 1 GM in DEXTROSE 5%-WATER 100 ML IVPB SCH ×2 (09:14→22:54)
[2020-04-03] MEDS: HEPARIN NA (PORCINE) 5,000 UNITS/ML 1ML VIAL SQ SCH ×2 (09:15→22:54)
[2020-04-03] MEDS: TAMSULOSIN HCL 0.4 MG CAP PO SCH (09:16)
[2020-04-03] MEDS: DOCUSATE SODIUM 100 MG CAPSULE (FP) PO SCH ×2 (09:17→22:55)
[2020-04-03] MEDS: ASCORBIC ACID 250 MG TABLET (FP) PO SCH (09:17)
--- NOTE | 2020-04-03 10:15 | PN ---
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, Physician Chief Complaint: Sepsis DUNG UTI Bacteremia Dysphagia History of Present Illness: Mr. Solares is an 79 year old male BIBA from [facility] for hypotension (SBP in the 70's). He has a past medical history of hypertension, CHF, aortic stenosis s/p bioprosthetic valve replacement, CAD, prior stent, GERD,TIA,BPH and indwelling iyer. NAD c/o fatigue lethargic Denies any pain or SOB Afebrile - Current Medication List Current Medications: Active Medications Acetaminophen (Tylenol -) 1,000 mg PO Q6H PRN PRN Reason: PAIN Last Admin: 04/03/20 05:47 Dose: 1,000 mg Documented by: Albuterol Sulfate (Ventolin Hfa Inhaler -) 2 puff IH TID PRN PRN Reason: ASTHMA Ascorbic Acid (Vitamin C -) 250 mg PO DAILY [facility] Last Admin: 04/03/20 09:17 Dose: 250 mg Documented by: Aspirin (Asa -) 81 mg PO DAILY [facility] Last Admin: 04/03/20 09:13 Dose: 81 mg Documented by: Atorvastatin Calcium (Lipitor -) 20 mg PO HS [facility] Last Admin: 04/02/20 21:05 Dose: 20 mg Documented by: Docusate Sodium (Colace -) 100 mg PO BID [facility] Last Admin: 04/03/20 09:17 Dose: Not Given Documented by: Ergocalciferol (Drisdol -) 50,000 unit PO Fr@1000 [facility] Last Admin: 04/02/20 09:04 Dose: Not Given Documented by: Ferrous Sulfate (Feosol -) 325 mg PO DAILY [facility] Last Admin: 04/03/20 09:13 Dose: 325 mg Documented by: Heparin Sodium (Porcine) (Heparin -) 5,000 unit SQ BID [facility] Last Admin: 04/03/20 09:15 Dose: 5,000 unit Documented by: Potassium Chloride/Sodium Chloride (1/2ns+20meq Kcl) 20 meq in 1,000 mls @ 75 mls/hr IV ASDIR [facility] Last Admin: 04/03/20 09:16 Dose: 75 mls/hr Documented by: Ampicillin Sodium 2 gm/ Sodium (Chloride) 100 mls @ 200 mls/hr IVPB Q6H-IV [facility]; Protocol Last Admin: 04/03/20 09:12 Dose: 200 mls/hr Documented by: Cefepime HCl 1 gm/ Dextrose 100 mls @ 100 mls/hr IVPB BID [facility]; Protocol Last Admin: 04/03/20 09:14 Dose: 100 mls/hr Documented by: Levothyroxine Sodium (Synthroid -) 100 mcg PO [facility] Last Admin: 04/03/20 06:29 Dose: 100 mcg Documented by: Pantoprazole Sodium (Protonix -) 20 mg PO [facility] Last Admin: 04/03/20 06:27 Dose: Not Given Documented by: Tamsulosin HCl (Flomax -) 0.4 mg PO DAILY@0830 [facility] Last Admin: 04/03/20 09:16 Dose: Not Given Documented by: - Objective Vital Signs: Vital Signs Temperature 97.9 F 04/03/20 02:00 Pulse Rate 87 04/03/20 06:00 Respiratory Rate 18 04/03/20 06:00 Blood Pressure 114/76 04/03/20 06:00 O2 Sat by Pulse Oximetry (%) 99 04/03/20 06:00 Constitutional: Yes: No Distress, Calm, Cachectic Cardiovascular: Yes: Regular Rate and Rhythm Respiratory: Yes: Regular, CTA Bilaterally Gastrointestinal: Yes: Normal Bowel Sounds, Soft Genitourinary: Yes: Iyer Present Musculoskeletal: Yes: Muscle Weakness Extremities: Yes: WNL Edema: No Peripheral Pulses WNL: Yes Neurological: Yes: Alert, Lethargy Labs: CBC, BMP 04/02/20 07:26 04/02/20 07:26 INR, PTT INR 0.95 (0.83-1.09) 03/29/20 22:50 Problem List - Problems (1) Chronic retention of urine Assessment/Plan: -Continue iyer cath Problems reviewed: Yes Code(s): R33.9 - RETENTION OF URINE, UNSPECIFIED (2) DUNG (acute kidney injury) Assessment/Plan: -Nephrology consult -Renal U/S -UC possible pseudomonas -Cr trending down -Continue IVF Code(s): N17.9 - ACUTE KIDNEY FAILURE, UNSPECIFIED (3) Hyperkalemia Assessment/Plan: -resolved Problems reviewed: Yes Code(s): E87.5 - HYPERKALEMIA (4) Sepsis Assessment/Plan: -ID consult -IV Cefepime + Ampicillin -No Lactic acidosis -Afebrile -Cultures: Microbiology 03/29/20 22:50 Blood - Peripheral Venous Blood Culture - Preliminary Pending Organism Pending Organism#2 03/29/20 22:50 Blood - Peripheral Venous Blood Culture - Preliminary Pending Organism Pending Organism#2 Problems reviewed: Yes Code(s): A41.9 - SEPSIS, UNSPECIFIED ORGANISM (5) Failure to thrive Assessment/Plan: -Add multivitamin -Ensure pudding + Magic cup -Seen by Speech pathology -MBS- Mod to severe stasis with puree. Aspiration on thin liquid -Dysphagia puree thinned out with nectar thick liquids Problems reviewed: Yes Code(s): OQR6744 - (6) Malnutrition Problems reviewed: Yes Code(s): E46 - UNSPECIFIED PROTEIN-CALORIE MALNUTRITION (7) Bacteremia Assessment/Plan: -Cultures: Microbiology 04/01/20 09:37 Blood - Peripheral Venous Blood Culture - Preliminary NO GROWTH OBTAINED AFTER 48 HOURS, INCUBATION TO CONTINUE FOR 3 DAYS. 03/31/20 17:30 Blood - Peripheral Venous Blood Culture - Preliminary NO GROWTH OBTAINED AFTER 48 HOURS, INCUBATION TO CONTINUE FOR 3 DAYS. 03/31/20 17:15 Blood - Peripheral Venous Blood Culture - Preliminary NO GROWTH OBTAINED AFTER 48 HOURS, INCUBATION TO CONTINUE FOR 3 DAYS. 03/31/20 22:25 Urine - Urine Iyer Urine Culture - Preliminary Presumptive Ps Aeruginosa 03/29/20 22:50 Blood - Peripheral Venous Blood Culture - Final Group D Strep Or Entero Coccus Pseudomonas Species 03/29/20 22:50 Blood - Peripheral Venous Blood Culture - Final Enterococcus Faecalis Pseudomonas Aeruginosa 03/30/20 00:27 Urine - Urine - Catheterized Urine Culture - Final Contaminated: Please Repeat -rest as above Problems reviewed: Yes Code(s): R78.81 - BACTEREMIA Assessment/Plan See problem list
[2020-04-03] MEDS: MULTIVITAMINS (DAILY MVI) TABLET (FP) PO SCH (11:10)
[2020-04-03 13:00] LABS: BASO % 0.1 % (0-2.0); EOS % 1.2 % (0-4.5); HEMATOCRIT 32.3 % (35.4-49); HEMOGLOBIN 10.5 GM/dL (11.7-16.9); LYMPH % 3.3 % (8-40); MCH 25.9 pg (25.7-33.7); MCHC 32.6 g/dl (32.0-35.9); MEAN CELL VOLUME 79.6 fl (80-96); MEAN PLT VOLUME 8.6 fl (7.5-11.1); MONO % 4.3 % (3.8-10.2); NEUT % 91.1 % (42.8-82.8); PLATELET COUNT 197 K/MM3 (134-434); RBC 4.06 M/mm3 (4.00-5.60); RDW 17.1 % (11.9-15.9); WHITE BLOOD COUNT 15.8 K/mm3 (4.0-10.0)
[2020-04-03 13:28] LABS: ALBUMIN 1.7 g/dl (3.4-5.0); BILIRUBIN,TOTAL 0.6 mg/dL (0.2-1); CALCIUM 7.6 mg/dL (8.5-10.1); CREATININE 1.7 mg/dL (0.55-1.3); POTASSIUM 4.3 mmol/L (3.5-5.1); TOT PROT 5.8 g/dl (6.4-8.2)
[2020-04-03 13:30] LABS: BLOOD UREA NITROGEN 76.6 mg/dL (7-18)
--- NOTE | 2020-04-03 14:01 | PN ---
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, Physician History of Present Illness: Pt seen and examined at bedside. He is awake and alert. He denies shortness of breath. - Current Medication List Current Medications: Active Medications Acetaminophen (Tylenol -) 1,000 mg PO Q6H PRN PRN Reason: PAIN Last Admin: 04/03/20 05:47 Dose: 1,000 mg Documented by: Albuterol Sulfate (Ventolin Hfa Inhaler -) 2 puff IH TID PRN PRN Reason: ASTHMA Ascorbic Acid (Vitamin C -) 250 mg PO DAILY [facility] Last Admin: 04/03/20 09:17 Dose: 250 mg Documented by: Aspirin (Asa -) 81 mg PO DAILY [facility] Last Admin: 04/03/20 09:13 Dose: 81 mg Documented by: Atorvastatin Calcium (Lipitor -) 20 mg PO HS [facility] Last Admin: 04/02/20 21:05 Dose: 20 mg Documented by: Docusate Sodium (Colace -) 100 mg PO BID [facility] Last Admin: 04/03/20 09:17 Dose: Not Given Documented by: Ergocalciferol (Drisdol -) 50,000 unit PO Fr@1000 [facility] Last Admin: 04/02/20 09:04 Dose: Not Given Documented by: Ferrous Sulfate (Feosol -) 325 mg PO DAILY [facility] Last Admin: 04/03/20 09:13 Dose: 325 mg Documented by: Heparin Sodium (Porcine) (Heparin -) 5,000 unit SQ BID [facility] Last Admin: 04/03/20 09:15 Dose: 5,000 unit Documented by: Potassium Chloride/Sodium Chloride (1/2ns+20meq Kcl) 20 meq in 1,000 mls @ 75 mls/hr IV ASDIR [facility] Last Admin: 04/03/20 09:16 Dose: 75 mls/hr Documented by: Ampicillin Sodium 2 gm/ Sodium (Chloride) 100 mls @ 200 mls/hr IVPB Q6H-IV [facility]; Protocol Last Admin: 04/03/20 09:12 Dose: 200 mls/hr Documented by: Cefepime HCl 1 gm/ Dextrose 100 mls @ 100 mls/hr IVPB BID [facility]; Protocol Last Admin: 04/03/20 09:14 Dose: 100 mls/hr Documented by: Levothyroxine Sodium (Synthroid -) 100 mcg PO [facility] Last Admin: 04/03/20 06:29 Dose: 100 mcg Documented by: Multivitamins/Minerals/Vitamin C (Tab-A-Vit -) 1 tab PO DAILY [facility] Last Admin: 04/03/20 11:10 Dose: 1 tab Documented by: Pantoprazole Sodium (Protonix -) 20 mg PO [facility] Last Admin: 04/03/20 06:27 Dose: Not Given Documented by: Tamsulosin HCl (Flomax -) 0.4 mg PO DAILY@0830 [facility] Last Admin: 04/03/20 09:16 Dose: Not Given Documented by: - Objective Vital Signs: Vital Signs Temperature 98.2 F 04/03/20 10:00 Pulse Rate 75 04/03/20 10:00 Respiratory Rate 18 04/03/20 10:00 Blood Pressure 133/75 04/03/20 10:00 O2 Sat by Pulse Oximetry (%) 100 04/03/20 10:00 Constitutional: Yes: Calm Eyes: Yes: Conjunctiva Clear HENT: Yes: Atraumatic Neck: Yes: Supple Cardiovascular: Yes: S1, S2 Respiratory: Yes: CTA Bilaterally Gastrointestinal: Yes: Soft Genitourinary: Yes: Jauregui Present Musculoskeletal: Yes: Muscle Weakness Edema: No Integumentary: Yes: WNL Neurological: Yes: Oriented Labs: CBC, BMP 04/03/20 12:10 04/03/20 12:10 INR, PTT INR 0.95 (0.83-1.09) 03/29/20 22:50 Problem List - Problems (1) DUNG (acute kidney injury) Code(s): N17.9 - ACUTE KIDNEY FAILURE, UNSPECIFIED (2) Hyperkalemia Code(s): E87.5 - HYPERKALEMIA (3) Sepsis Code(s): A41.9 - SEPSIS, UNSPECIFIED ORGANISM Assessment/Plan Current Medications Generic Name Dose Route Start Last Admin Trade Name Freq PRN Reason Stop Dose Admin Acetaminophen 1,000 mg 04/01/20 13:07 04/03/20 05:47 Tylenol - PO 1,000 mg Q6H PRN Administration PAIN Albuterol Sulfate 2 puff 03/30/20 01:38 Ventolin Hfa Inhaler - IH TID PRN ASTHMA Ascorbic Acid 250 mg 03/30/20 10:00 04/03/20 09:17 Vitamin C - PO 250 mg DAILY [facility] Administration Aspirin 81 mg 03/30/20 10:00 04/03/20 09:13 Asa - PO 81 mg DAILY [facility] Administration Atorvastatin Calcium 20 mg 03/30/20 22:00 04/02/20 21:05 Lipitor - PO 20 mg HS [facility] Administration Docusate Sodium 100 mg 03/30/20 10:00 04/03/20 09:17 Colace - PO Not Given BID [facility] Ergocalciferol 50,000 unit 04/02/20 10:00 04/02/20 09:04 Drisdol - PO Not Given Fr@1000 [facility] Ferrous Sulfate 325 mg 03/30/20 10:00 04/03/20 09:13 Feosol - PO 325 mg DAILY [facility] Administration Heparin Sodium (Porcine) 5,000 unit 03/30/20 10:00 04/03/20 09:15 Heparin - SQ 5,000 unit BID [facility] Administration Potassium Chloride/Sodium Chloride 20 meq in 1,000 mls @ 75 mls/hr 04/02/20 08:45 04/03/20 09:16 1/2ns+20meq Kcl IV 75 mls/hr ASDIR [facility] Administration Ampicillin Sodium 2 gm/ Sodium 100 mls @ 200 mls/hr 04/02/20 21:00 04/03/20 09:12 Chloride IVPB 200 mls/hr Q6H-IV [facility] Administration Protocol Cefepime HCl 1 gm/ Dextrose 100 mls @ 100 mls/hr 04/02/20 22:00 04/03/20 09:14 IVPB 100 mls/hr BID [facility] Administration Protocol Levothyroxine Sodium 100 mcg 03/30/20 07:00 04/03/20 06:29 Synthroid - PO 100 mcg ACBK [facility] Administration Multivitamins/Minerals/Vitamin C 1 tab 04/03/20 10:15 04/03/20 11:10 Tab-A-Vit - PO 1 tab DAILY [facility] Administration Pantoprazole Sodium 20 mg 03/30/20 07:00 04/03/20 06:27 Protonix - PO Not Given ACBK [facility] Tamsulosin HCl 0.4 mg 03/30/20 08:30 04/03/20 09:16 Flomax - PO Not Given DAILY@0830 [facility] Impression 1. DUNG 2. sepsis 3. hyperkalemia 4. hypotension 5. chf 6. bph 7. cad 8. tia 9. gerd 10. hypernatremia Plan - renal function is improving - sodium rising - change fluids to d5w with potassium - repeat labs in am - po intake is poor
[2020-04-03 14:21] LABS: ANISOCYTOSIS 1+; MACROCYTOSIS 0; PLATELET ESTIMATE NORMAL
--- NOTE | 2020-04-03 15:23 | PN ---
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 (short form) - Note 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: Patient seen in follow up. No new complaints today. No events overnight. Meds reviewed. Current Medications Generic Name Dose Route Start Last Admin Trade Name Freq PRN Reason Stop Dose Admin Acetaminophen 1,000 mg 04/01/20 13:07 04/03/20 05:47 Tylenol - PO 1,000 mg Q6H PRN Administration PAIN Albuterol Sulfate 2 puff 03/30/20 01:38 Ventolin Hfa Inhaler - IH TID PRN ASTHMA Ascorbic Acid 250 mg 03/30/20 10:00 04/03/20 09:17 Vitamin C - PO 250 mg DAILY [facility] Administration Aspirin 81 mg 03/30/20 10:00 04/03/20 09:13 Asa - PO 81 mg DAILY [facility] Administration Atorvastatin Calcium 20 mg 03/30/20 22:00 04/02/20 21:05 Lipitor - PO 20 mg HS [facility] Administration Docusate Sodium 100 mg 03/30/20 10:00 04/03/20 09:17 Colace - PO Not Given BID [facility] Ergocalciferol 50,000 unit 04/02/20 10:00 04/02/20 09:04 Drisdol - PO Not Given Fr@1000 [facility] Ferrous Sulfate 325 mg 03/30/20 10:00 04/03/20 09:13 Feosol - PO 325 mg DAILY [facility] Administration Heparin Sodium (Porcine) 5,000 unit 03/30/20 10:00 04/03/20 09:15 Heparin - SQ 5,000 unit BID [facility] Administration Ampicillin Sodium 2 gm/ Sodium 100 mls @ 200 mls/hr 04/02/20 21:00 04/03/20 14:09 Chloride IVPB 200 mls/hr Q6H-IV [facility] Administration Protocol Cefepime HCl 1 gm/ Dextrose 100 mls @ 100 mls/hr 04/02/20 22:00 04/03/20 09:14 IVPB 100 mls/hr BID [facility] Administration Protocol Potassium Chloride 20 meq/ 1,010 mls @ 65 mls/hr 04/03/20 14:15 Dextrose IVPB Q15H [facility] Levothyroxine Sodium 100 mcg 03/30/20 07:00 04/03/20 06:29 Synthroid - PO 100 mcg ACBK [facility] Administration Multivitamins/Minerals/Vitamin C 1 tab 04/03/20 10:15 04/03/20 11:10 Tab-A-Vit - PO 1 tab DAILY [facility] Administration Pantoprazole Sodium 20 mg 03/30/20 07:00 04/03/20 06:27 Protonix - PO Not Given ACBK [facility] Tamsulosin HCl 0.4 mg 03/30/20 08:30 04/03/20 09:16 Flomax - PO Not Given DAILY@0830 [facility] On exam: Last Vital Signs Temp Pulse Resp BP Pulse Ox 98.2 F 75 18 133/75 100 04/03/20 10:00 04/03/20 10:00 04/03/20 10:00 04/03/20 10:00 04/03/20 10:00 General:Supine in bed Chest: breathing comfortably Abdomen: Soft, no organomegaly, no masses. Neuro: Alert, oriented, non-focal. Labs reviewed: CBC, BMP 04/03/20 12:10 04/03/20 12:10 Assessment. Prior neutrophilia in context of UTI, now resolving. Hematology will sign off. Please call if any questions, or new issues arise. Microcytosis possibly attributable to a thalassemia trait - would discontinue oral iron supplementatiion unless iron deficiency is confirmed.
[2020-04-03] MEDS: POTASSIUM CHLORIDE 20 MEQ in DEXTROSE 5%-WATER - 1,000 ML IVPB SCH (16:54)
[2020-04-03] MEDS: ATORVASTATIN CA 20 MG TABLET (FP) PO SCH (22:53)
[2020-04-04] MEDS ORDERED: AMPICILLIN SODIUM 2 GM VIAL ONE ×4 (01:29→21:03)
[2020-04-04] MEDS ORDERED: SODIUM CHLORIDE 100 ML IVPB ONE ×4 (01:30→21:03)
[2020-04-04] MEDS: ACETAMINOPHEN 500 MG TABLET (FP) PO PRN ×3 (02:45→16:52)
[2020-04-04] MEDS: AMPICILLIN - 2 GM in SODIUM CHLORIDE 100 ML IVPB SCH ×4 (02:51→21:20)
[2020-04-04] MEDS: POTASSIUM CHLORIDE 20 MEQ in DEXTROSE 5%-WATER - 1,000 ML IVPB SCH (06:07)
[2020-04-04] MEDS: LEVOTHYROXINE NA 100 MCG TABLET (FP) PO SCH (06:14)
[2020-04-04] MEDS: PANTOPRAZOLE 20 MG TABLET PO SCH (06:14)
[2020-04-04] MEDS ORDERED: PT OWN MED DRAWER 7, Y5N ONE (10:02)
[2020-04-04] MEDS ORDERED: DEXTROSE 5%-WATER 100 ML IVPB ONE ×2 (10:02→21:04)
[2020-04-04] MEDS ORDERED: CEFEPIME HCL 1 GM VIAL (RESTRICTED TO ID) ONE ×2 (10:02→21:04)
[2020-04-04] MEDS: ASCORBIC ACID 250 MG TABLET (FP) PO SCH (10:18)
[2020-04-04] MEDS: POLYETHYLENE GLYCOL 3350 119 GM BTL PO SCH (10:19)
[2020-04-04] MEDS: CEFEPIME 1 GM in DEXTROSE 5%-WATER 100 ML IVPB SCH ×2 (10:19→21:22)
[2020-04-04] MEDS: MULTIVITAMINS (DAILY MVI) TABLET (FP) PO SCH (10:19)
[2020-04-04] MEDS: HEPARIN NA (PORCINE) 5,000 UNITS/ML 1ML VIAL SQ SCH ×2 (10:23→21:21)
[2020-04-04] MEDS: FERROUS SO4 325 MG TABLET (FP) PO SCH (10:23)
[2020-04-04] MEDS: ASPIRIN 81 MG CHEWABLE TABLETS PO SCH (10:30)
[2020-04-04] MEDS: TAMSULOSIN HCL 0.4 MG CAP PO SCH (10:30)
--- NOTE | 2020-04-04 10:35 | PN ---
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, Physician Chief Complaint: Sepsis DUNG UTI Bacteremia Dysphagia History of Present Illness: Mr. Solares is an 79 year old male BIBA from [facility] for hypotension (SBP in the 70's). He has a past medical history of hypertension, CHF, aortic stenosis s/p bioprosthetic valve replacement, CAD, prior stent, GERD,TIA,BPH and indwelling iyer. NAD c/o fatigue lethargic Denies any pain or SOB Afebrile - Current Medication List Current Medications: Active Medications Acetaminophen (Tylenol -) 1,000 mg PO Q6H PRN PRN Reason: PAIN Last Admin: 04/04/20 08:54 Dose: 1,000 mg Documented by: Albuterol Sulfate (Ventolin Hfa Inhaler -) 2 puff IH TID PRN PRN Reason: ASTHMA Ascorbic Acid (Vitamin C -) 250 mg PO DAILY [facility] Last Admin: 04/04/20 10:18 Dose: Not Given Documented by: Aspirin (Asa -) 81 mg PO DAILY [facility] Last Admin: 04/04/20 10:30 Dose: Not Given Documented by: Atorvastatin Calcium (Lipitor -) 20 mg PO HS [facility] Last Admin: 04/03/20 22:53 Dose: 20 mg Documented by: Ferrous Sulfate (Feosol -) 325 mg PO DAILY [facility] Last Admin: 04/04/20 10:23 Dose: Not Given Documented by: Heparin Sodium (Porcine) (Heparin -) 5,000 unit SQ BID [facility] Last Admin: 04/04/20 10:23 Dose: Not Given Documented by: Ampicillin Sodium 2 gm/ Sodium (Chloride) 100 mls @ 200 mls/hr IVPB Q6H-IV [facility]; Protocol Last Admin: 04/04/20 02:51 Dose: 200 mls/hr Documented by: Cefepime HCl 1 gm/ Dextrose 100 mls @ 100 mls/hr IVPB BID [facility]; Protocol Last Admin: 04/04/20 10:19 Dose: Not Given Documented by: Potassium Chloride 20 meq/ (Dextrose) 1,010 mls @ 65 mls/hr IVPB Q15H [facility] Last Admin: 04/04/20 06:07 Dose: 65 mls/hr Documented by: Levothyroxine Sodium (Synthroid -) 100 mcg PO ACBK [facility] Last Admin: 04/04/20 06:14 Dose: 100 mcg Documented by: Multivitamins/Minerals/Vitamin C (Tab-A-Vit -) 1 tab PO DAILY [facility] Last Admin: 04/04/20 10:19 Dose: Not Given Documented by: Pantoprazole Sodium (Protonix -) 20 mg PO ACBK [facility] Last Admin: 04/04/20 06:14 Dose: Not Given Documented by: Polyethylene Glycol (Miralax (For Daily Use) -) 17 gm PO DAILY [facility] Last Admin: 04/04/20 10:19 Dose: Not Given Documented by: Tamsulosin HCl (Flomax -) 0.4 mg PO DAILY@0830 [facility] Last Admin: 04/04/20 10:30 Dose: Not Given Documented by: - Objective Vital Signs: Vital Signs Temperature 97.8 F 04/04/20 08:53 Pulse Rate 77 04/04/20 08:53 Respiratory Rate 20 04/04/20 08:53 Blood Pressure 150/84 04/04/20 08:53 O2 Sat by Pulse Oximetry (%) 98 04/04/20 08:53 Constitutional: Yes: No Distress, Calm, Cachectic Cardiovascular: Yes: Regular Rate and Rhythm Respiratory: Yes: Regular, CTA Bilaterally Gastrointestinal: Yes: Normal Bowel Sounds, Soft Genitourinary: Yes: Iyer Present Musculoskeletal: Yes: Muscle Weakness Edema: No Peripheral Pulses WNL: Yes Neurological: Yes: Alert, Oriented Psychiatric: Yes: Alert, Oriented Labs: CBC, BMP 04/03/20 12:10 04/03/20 12:10 INR, PTT INR 0.95 (0.83-1.09) 03/29/20 22:50 Problem List - Problems (1) Chronic retention of urine Assessment/Plan: -Continue iyer cath Problems reviewed: Yes Code(s): R33.9 - RETENTION OF URINE, UNSPECIFIED (2) DUNG (acute kidney injury) Assessment/Plan: -Nephrology consult -Renal U/S -UC possible pseudomonas -Cr trending down -Continue IVF Problems reviewed: Yes Code(s): N17.9 - ACUTE KIDNEY FAILURE, UNSPECIFIED (3) Hyperkalemia Assessment/Plan: -resolved Problems reviewed: Yes Code(s): E87.5 - HYPERKALEMIA (4) Sepsis Assessment/Plan: -ID consult -IV Cefepime + Ampicillin -No Lactic acidosis -Afebrile -Cultures: Microbiology 03/29/20 22:50 Blood - Peripheral Venous Blood Culture - Preliminary Pending Organism Pending Organism#2 03/29/20 22:50 Blood - Peripheral Venous Blood Culture - Preliminary Pending Organism Pending Organism#2 Problems reviewed: Yes Code(s): A41.9 - SEPSIS, UNSPECIFIED ORGANISM (5) Failure to thrive Assessment/Plan: -Add multivitamin -Ensure pudding + Magic cup -Seen by Speech pathology -MBS- Mod to severe stasis with puree. Aspiration on thin liquid -Dysphagia puree thinned out with nectar thick liquids Problems reviewed: Yes Code(s): [id number] - (6) Malnutrition Problems reviewed: Yes Code(s): E46 - UNSPECIFIED PROTEIN-CALORIE MALNUTRITION (7) Bacteremia Assessment/Plan: -Cultures: Microbiology 04/01/20 09:37 Blood - Peripheral Venous Blood Culture - Preliminary NO GROWTH OBTAINED AFTER 48 HOURS, INCUBATION TO CONTINUE FOR 3 DAYS. 03/31/20 17:30 Blood - Peripheral Venous Blood Culture - Preliminary NO GROWTH OBTAINED AFTER 48 HOURS, INCUBATION TO CONTINUE FOR 3 DAYS. 03/31/20 17:15 Blood - Peripheral Venous Blood Culture - Preliminary NO GROWTH OBTAINED AFTER 48 HOURS, INCUBATION TO CONTINUE FOR 3 DAYS. 03/31/20 22:25 Urine - Urine Iyer Urine Culture - Preliminary Presumptive Ps Aeruginosa 03/29/20 22:50 Blood - Peripheral Venous Blood Culture - Final Group D Strep Or Entero Coccus Pseudomonas Species 03/29/20 22:50 Blood - Peripheral Venous Blood Culture - Final Enterococcus Faecalis Pseudomonas Aeruginosa 03/30/20 00:27 Urine - Urine - Catheterized Urine Culture - Final Contaminated: Please Repeat -rest as above Problems reviewed: Yes Code(s): R78.81 - BACTEREMIA Assessment/Plan See problem list
--- NOTE | 2020-04-04 12:19 | PN ---
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, Physician History of Present Illness: Pt seen and examined. he is refusing labs and refusing meds. - Current Medication List Current Medications: Active Medications Acetaminophen (Tylenol -) 1,000 mg PO Q6H PRN PRN Reason: PAIN Last Admin: 04/04/20 08:54 Dose: 1,000 mg Documented by: Albuterol Sulfate (Ventolin Hfa Inhaler -) 2 puff IH TID PRN PRN Reason: ASTHMA Ascorbic Acid (Vitamin C -) 250 mg PO DAILY [facility] Last Admin: 04/04/20 10:18 Dose: Not Given Documented by: Aspirin (Asa -) 81 mg PO DAILY [facility] Last Admin: 04/04/20 10:30 Dose: Not Given Documented by: Atorvastatin Calcium (Lipitor -) 20 mg PO HS [facility] Last Admin: 04/03/20 22:53 Dose: 20 mg Documented by: Ferrous Sulfate (Feosol -) 325 mg PO DAILY [facility] Last Admin: 04/04/20 10:23 Dose: Not Given Documented by: Heparin Sodium (Porcine) (Heparin -) 5,000 unit SQ BID [facility] Last Admin: 04/04/20 10:23 Dose: Not Given Documented by: Ampicillin Sodium 2 gm/ Sodium (Chloride) 100 mls @ 200 mls/hr IVPB Q6H-IV [facility]; Protocol Last Admin: 04/04/20 02:51 Dose: 200 mls/hr Documented by: Cefepime HCl 1 gm/ Dextrose 100 mls @ 100 mls/hr IVPB BID [facility]; Protocol Last Admin: 04/04/20 10:19 Dose: Not Given Documented by: Potassium Chloride 20 meq/ (Dextrose) 1,010 mls @ 65 mls/hr IVPB Q15H [facility] Last Admin: 04/04/20 06:07 Dose: 65 mls/hr Documented by: Levothyroxine Sodium (Synthroid -) 100 mcg PO ACBK [facility] Last Admin: 04/04/20 06:14 Dose: 100 mcg Documented by: Multivitamins/Minerals/Vitamin C (Tab-A-Vit -) 1 tab PO DAILY [facility] Last Admin: 04/04/20 10:19 Dose: Not Given Documented by: Pantoprazole Sodium (Protonix -) 20 mg PO ACBK [facility] Last Admin: 04/04/20 06:14 Dose: Not Given Documented by: Polyethylene Glycol (Miralax (For Daily Use) -) 17 gm PO DAILY [facility] Last Admin: 04/04/20 10:19 Dose: Not Given Documented by: Tamsulosin HCl (Flomax -) 0.4 mg PO DAILY@0830 [facility] Last Admin: 04/04/20 10:30 Dose: Not Given Documented by: - Objective Vital Signs: Vital Signs Temperature 97.8 F 04/04/20 08:53 Pulse Rate 77 04/04/20 08:53 Respiratory Rate 20 04/04/20 08:53 Blood Pressure 150/84 04/04/20 08:53 O2 Sat by Pulse Oximetry (%) 98 04/04/20 08:53 Constitutional: Yes: Calm Eyes: Yes: Conjunctiva Clear HENT: Yes: Atraumatic Neck: Yes: Supple Cardiovascular: Yes: S1, S2 Respiratory: Yes: CTA Bilaterally Gastrointestinal: Yes: Normal Bowel Sounds, Soft Genitourinary: Yes: Incontinence Musculoskeletal: Yes: WNL Edema: No Psychiatric: Yes: Agitated Labs: CBC, BMP 04/03/20 12:10 04/03/20 12:10 INR, PTT INR 0.95 (0.83-1.09) 03/29/20 22:50 Problem List - Problems (1) DUNG (acute kidney injury) Code(s): N17.9 - ACUTE KIDNEY FAILURE, UNSPECIFIED (2) Hyperkalemia Code(s): E87.5 - HYPERKALEMIA (3) Sepsis Code(s): A41.9 - SEPSIS, UNSPECIFIED ORGANISM Assessment/Plan Current Medications Generic Name Dose Route Start Last Admin Trade Name Freq PRN Reason Stop Dose Admin Acetaminophen 1,000 mg 04/01/20 13:07 04/04/20 08:54 Tylenol - PO 1,000 mg Q6H PRN Administration PAIN Albuterol Sulfate 2 puff 03/30/20 01:38 Ventolin Hfa Inhaler - IH TID PRN ASTHMA Ascorbic Acid 250 mg 03/30/20 10:00 04/04/20 10:18 Vitamin C - PO Not Given DAILY [facility] Aspirin 81 mg 03/30/20 10:00 04/04/20 10:30 Asa - PO Not Given DAILY [facility] Atorvastatin Calcium 20 mg 03/30/20 22:00 04/03/20 22:53 Lipitor - PO 20 mg HS [facility] Administration Ferrous Sulfate 325 mg 03/30/20 10:00 04/04/20 10:23 Feosol - PO Not Given DAILY [facility] Heparin Sodium (Porcine) 5,000 unit 03/30/20 10:00 04/04/20 10:23 Heparin - SQ Not Given BID [facility] Ampicillin Sodium 2 gm/ Sodium 100 mls @ 200 mls/hr 04/02/20 21:00 04/04/20 02:51 Chloride IVPB 200 mls/hr Q6H-IV [facility] Administration Protocol Cefepime HCl 1 gm/ Dextrose 100 mls @ 100 mls/hr 04/02/20 22:00 04/04/20 10:19 IVPB Not Given BID [facility] Protocol Potassium Chloride 20 meq/ 1,010 mls @ 65 mls/hr 04/03/20 14:15 04/04/20 0 6:07 Dextrose IVPB 65 mls/hr Q15H [facility] Administration Levothyroxine Sodium 100 mcg 03/30/20 07:00 04/04/20 06:14 Synthroid - PO 100 mcg ACBK [facility] Administration Multivitamins/Minerals/Vitamin C 1 tab 04/03/20 10:15 04/04/20 10:19 Tab-A-Vit - PO Not Given DAILY [facility] Pantoprazole Sodium 20 mg 03/30/20 07:00 04/04/20 06:14 Protonix - PO Not Given ACBK [facility] Polyethylene Glycol 17 gm 04/04/20 10:00 04/04/20 10:19 Miralax (For Daily Use) - PO Not Given DAILY [facility] Tamsulosin HCl 0.4 mg 03/30/20 08:30 04/04/20 10:30 Flomax - PO Not Given DAILY@0830 [facility] Impression 1. DUNG 2. sepsis 3. hyperkalemia 4. hypotension 5. chf 6. bph 7. cad 8. tia 9. gerd 10. hypernatremia Plan - check bmp if he agrees - cont fluids - encourage po intake - renal function was improving - po intake is poor
[2020-04-04] MEDS: ATORVASTATIN CA 20 MG TABLET (FP) PO SCH (21:21)
[2020-04-05] MEDS: POTASSIUM CHLORIDE 20 MEQ in DEXTROSE 5%-WATER - 1,000 ML IVPB SCH ×2 (02:53→14:06)
[2020-04-05] MEDS ORDERED: AMPICILLIN SODIUM 2 GM VIAL ONE ×4 (03:03→21:55)
[2020-04-05] MEDS ORDERED: SODIUM CHLORIDE 100 ML IVPB ONE ×4 (03:04→21:55)
[2020-04-05] MEDS: AMPICILLIN - 2 GM in SODIUM CHLORIDE 100 ML IVPB SCH ×4 (03:09→22:07)
[2020-04-05] MEDS: ACETAMINOPHEN 500 MG TABLET (FP) PO PRN ×3 (05:06→19:22)
[2020-04-05] MEDS: LEVOTHYROXINE NA 100 MCG TABLET (FP) PO SCH (06:24)
[2020-04-05] MEDS: PANTOPRAZOLE 20 MG TABLET PO SCH (06:24)
--- NOTE | 2020-04-05 08:17 | PN ---
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, Physician Chief Complaint: ASLEEP EVENTS AND NOTES REVIEWED - Current Medication List Current Medications: Active Medications Acetaminophen (Tylenol -) 1,000 mg PO Q6H PRN PRN Reason: PAIN Last Admin: 04/05/20 05:06 Dose: 1,000 mg Documented by: Albuterol Sulfate (Ventolin Hfa Inhaler -) 2 puff IH TID PRN PRN Reason: ASTHMA Ascorbic Acid (Vitamin C -) 250 mg PO DAILY [facility] Last Admin: 04/04/20 10:18 Dose: Not Given Documented by: Aspirin (Asa -) 81 mg PO DAILY [facility] Last Admin: 04/04/20 10:30 Dose: Not Given Documented by: Atorvastatin Calcium (Lipitor -) 20 mg PO HS [facility] [place] Last Admin: 04/04/20 21:21 Dose: 20 mg Documented by: Ferrous Sulfate (Feosol -) 325 mg PO DAILY [facility] [place] Last Admin: 04/04/20 10:23 Dose: Not Given Documented by: Heparin Sodium (Porcine) (Heparin -) 5,000 unit SQ BID [facility] [place] Last Admin: 04/04/20 21:21 Dose: Not Given Documented by: Ampicillin Sodium 2 gm/ Sodium (Chloride) 100 mls @ 200 mls/hr IVPB Q6H-IV [facility] [place]; Protocol Last Admin: 04/05/20 03:09 Dose: 200 mls/hr Documented by: Cefepime HCl 1 gm/ Dextrose 100 mls @ 100 mls/hr IVPB BID [facility] [place]; Protocol Last Admin: 04/04/20 21:22 Dose: 100 mls/hr Documented by: Potassium Chloride 20 meq/ (Dextrose) 1,010 mls @ 65 mls/hr IVPB Q15H [facility] [place] Last Admin: 04/05/20 02:53 Dose: 65 mls/hr Documented by: Levothyroxine Sodium (Synthroid -) 100 mcg PO ACBK [facility] [place] Last Admin: 04/05/20 06:24 Dose: 100 mcg Documented by: Multivitamins/Minerals/Vitamin C (Tab-A-Vit -) 1 tab PO DAILY [facility] [place] Last Admin: 04/04/20 10:19 Dose: Not Given Documented by: Pantoprazole Sodium (Protonix -) 20 mg PO ACBK [facility] [place] Last Admin: 04/05/20 06:24 Dose: Not Given Documented by: Polyethylene Glycol (Miralax (For Daily Use) -) 17 gm PO DAILY [facility] [place] Last Admin: 04/04/20 10:19 Dose: Not Given Documented by: Tamsulosin HCl (Flomax -) 0.4 mg PO DAILY@0830 [facility] [place] Last Admin: 04/04/20 10:30 Dose: Not Given Documented by: - Objective Vital Signs: Vital Signs Temperature 97.6 F 04/05/20 05:12 Pulse Rate 88 04/05/20 05:12 Respiratory Rate 18 04/05/20 05:12 Blood Pressure 137/82 04/05/20 05:12 O2 Sat by Pulse Oximetry (%) 98 04/05/20 05:12 Constitutional: Yes: Mild Distress Cardiovascular: Yes: Regular Rate and Rhythm Respiratory: Yes: Diminished Gastrointestinal: Yes: Soft Musculoskeletal: Yes: Muscle Weakness Neurological: Yes: Pre-Existing Deficit Labs: CBC, BMP 04/03/20 12:10 04/03/20 12:10 INR, PTT INR 0.95 (0.83-1.09) 03/29/20 22:50 Problem List - Problems (1) DUNG (acute kidney injury) Code(s): N17.9 - ACUTE KIDNEY FAILURE, UNSPECIFIED (2) Bacteremia Code(s): R78.81 - BACTEREMIA (3) Chronic retention of urine Code(s): R33.9 - RETENTION OF URINE, UNSPECIFIED (4) Dysphagia Code(s): R13.10 - DYSPHAGIA, UNSPECIFIED (5) Failure to thrive Code(s): LRB4048 - (6) Hyperkalemia Code(s): E87.5 - HYPERKALEMIA (7) Malnutrition Code(s): E46 - UNSPECIFIED PROTEIN-CALORIE MALNUTRITION (8) Sepsis Code(s): A41.9 - SEPSIS, UNSPECIFIED ORGANISM (9) Weakness Code(s): R53.1 - WEAKNESS Assessment/Plan IV ABX PER ID F/U CULTURES CHECK LABS REPLETE ELECTROLYTES DVT PROPHYLAXIS PT EVAL NUTRITION EVAL WITH SPEECH AND SWALLOW EVAL
[2020-04-05 08:34] LABS: BASO % 0.6 % (0-2.0); HEMATOCRIT 33.3 % (35.4-49); HEMOGLOBIN 10.5 GM/dL (11.7-16.9); LYMPH % 3.8 % (8-40); MCHC 31.4 g/dl (32.0-35.9); MEAN CELL VOLUME 79.5 fl (80-96); MEAN PLT VOLUME 8.6 fl (7.5-11.1); MONO % 3.1 % (3.8-10.2); NEUT % 91.5 % (42.8-82.8); PLATELET COUNT 284 K/MM3 (134-434); RBC 4.18 M/mm3 (4.00-5.60); RDW 17.4 % (11.9-15.9); WHITE BLOOD COUNT 17.2 K/mm3 (4.0-10.0)
[2020-04-05 08:54] LABS: ALBUMIN 1.6 g/dl (3.4-5.0); BILIRUBIN,TOTAL 0.6 mg/dL (0.2-1); CALCIUM 7.6 mg/dL (8.5-10.1); CREATININE 1.1 mg/dL (0.55-1.3); TOT PROT 6.6 g/dl (6.4-8.2)
[2020-04-05 09:01] LABS: BLOOD UREA NITROGEN 37.6 mg/dL (7-18)
--- NOTE | 2020-04-05 10:14 | PN ---
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, [employer] - Note 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: Selected Entries 04/03/20 04/03/20 04/04/20 15:00 20:26 06:00 Breakfast 25% Diet Tolerated Poor Refused Refused Lunch 25% Supper 0 0 04/04/20 04/04/20 15:00 19:31 Breakfast 25% Diet Tolerated Poor Poor Lunch 0 Supper 0 Selected Entries 04/05/20 04/05/20 02:00 05:12 Temperature 97.3 F L 97.6 F Pulse Rate 86 88 Blood Pressure 132/92 137/82 Laboratory Tests 04/02/20 04/03/20 04/05/20 07:26 12:10 07:33 WBC 17.3 H 15.8 H 17.2 H Severe protein calorie malnutrition MBS- Mod to severe stasis with puree. Aspiration on thin liquid Suggest Pt needs pureed consistency to be thinned out to reduce stasis in pharynx 2 hard swallows per 1/2 tsp Alternate with sip of nectar thick liquid No thin liquids Not oriented for me, rambling, asking for cigarettes, disoriented Denies refusing meds,labs and care
[2020-04-05] MEDS ORDERED: CEFEPIME HCL 1 GM VIAL (RESTRICTED TO ID) ONE (11:21)
[2020-04-05] MEDS ORDERED: DEXTROSE 5%-WATER 100 ML IVPB ONE (11:22)
[2020-04-05] MEDS: MULTIVITAMINS (DAILY MVI) TABLET (FP) PO SCH (11:32)
[2020-04-05] MEDS: POLYETHYLENE GLYCOL 3350 119 GM BTL PO SCH (11:32)
[2020-04-05] MEDS: ASCORBIC ACID 250 MG TABLET (FP) PO SCH (11:32)
[2020-04-05] MEDS: TAMSULOSIN HCL 0.4 MG CAP PO SCH (11:33)
[2020-04-05] MEDS: ASPIRIN 81 MG CHEWABLE TABLETS PO SCH (11:33)
[2020-04-05] MEDS: FERROUS SO4 325 MG TABLET (FP) PO SCH (11:33)
[2020-04-05] MEDS: HEPARIN NA (PORCINE) 5,000 UNITS/ML 1ML VIAL SQ SCH ×3 (11:34→22:10)
--- NOTE | 2020-04-05 13:21 | PN ---
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 (short form) - Note 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: continues to feel lousy Vital Signs Period Temp Pulse Resp BP Sys/Pantoja Pulse Ox Last 24 Hr 97.3 F-98.3 F 80-88 18-20 121-137/68-92 98-100 cor-rrr lungs clear ab d soft,no distention +iyer ext no edema CBC, BMP 04/05/20 07:33 04/05/20 07:33 Microbiology 04/01/20 09:37 Blood - Peripheral Venous Blood Culture - Preliminary NO GROWTH OBTAINED AFTER 96 HOURS, INCUBATION TO CONTINUE FOR 1 DAYS. 03/31/20 17:30 Blood - Peripheral Venous Blood Culture - Preliminary NO GROWTH OBTAINED AFTER 96 HOURS, INCUBATION TO CONTINUE FOR 1 DAYS. 03/31/20 17:15 Blood - Peripheral Venous Blood Culture - Preliminary NO GROWTH OBTAINED AFTER 96 HOURS, INCUBATION TO CONTINUE FOR 1 DAYS. 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
--- NOTE | 2020-04-05 13:58 | PN ---
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, Physician History of Present Illness: Pt seen and examined at bedside. He is awake and more interactive. He denies shortness of breath. - Current Medication List Current Medications: Active Medications Acetaminophen (Tylenol -) 1,000 mg PO Q6H PRN PRN Reason: PAIN Last Admin: 04/05/20 11:38 Dose: 1,000 mg Documented by: Albuterol Sulfate (Ventolin Hfa Inhaler -) 2 puff IH TID PRN PRN Reason: ASTHMA Ascorbic Acid (Vitamin C -) 250 mg PO DAILY [facility] Last Admin: 04/05/20 11:32 Dose: 250 mg Documented by: Aspirin (Asa -) 81 mg PO DAILY [facility] Last Admin: 04/05/20 11:33 Dose: 81 mg Documented by: Atorvastatin Calcium (Lipitor -) 20 mg PO HS [facility] Last Admin: 04/04/20 21:21 Dose: 20 mg Documented by: Ferrous Sulfate (Feosol -) 325 mg PO DAILY [facility] Last Admin: 04/05/20 11:33 Dose: 325 mg Documented by: Heparin Sodium (Porcine) (Heparin -) 5,000 unit SQ BID [facility] Last Admin: 04/05/20 12:15 Dose: Not Given Documented by: Potassium Chloride 20 meq/ (Dextrose) 1,010 mls @ 65 mls/hr IVPB Q15H [facility] Last Admin: 04/05/20 02:53 Dose: 65 mls/hr Documented by: Ampicillin Sodium 2 gm/ Sodium (Chloride) 100 mls @ 200 mls/hr IVPB Q4H-IV [facility]; Protocol Cefepime HCl 2 gm/ Dextrose 100 mls @ 200 mls/hr IVPB Q8H-IV [facility]; Protocol Levothyroxine Sodium (Synthroid -) 100 mcg PO ACBK [facility] Last Admin: 04/05/20 06:24 Dose: 100 mcg Documented by: Multivitamins/Minerals/Vitamin C (Tab-A-Vit -) 1 tab PO DAILY [facility] Last Admin: 04/05/20 11:32 Dose: 1 tab Documented by: Pantoprazole Sodium (Protonix -) 20 mg PO ACBK [facility] Last Admin: 04/05/20 06:24 Dose: Not Given Documented by: Polyethylene Glycol (Miralax (For Daily Use) -) 17 gm PO DAILY [facility] Last Admin: 04/05/20 11:32 Dose: 17 grams Documented by: Tamsulosin HCl (Flomax -) 0.4 mg PO DAILY@0830 [facility] Last Admin: 04/05/20 11:33 Dose: 0.4 mg Documented by: - Objective Vital Signs: Vital Signs Temperature 97.6 F 04/05/20 05:12 Pulse Rate 88 04/05/20 05:12 Respiratory Rate 18 04/05/20 05:12 Blood Pressure 137/82 04/05/20 05:12 O2 Sat by Pulse Oximetry (%) 98 04/05/20 05:12 Constitutional: Yes: Calm Eyes: Yes: Conjunctiva Clear HENT: Yes: Atraumatic Neck: Yes: Supple Cardiovascular: Yes: S1, S2 Respiratory: Yes: CTA Bilaterally Gastrointestinal: Yes: Soft Genitourinary: Yes: WNL Musculoskeletal: Yes: WNL Edema: No Integumentary: Yes: WNL Neurological: Yes: Oriented Psychiatric: Yes: Oriented Labs: CBC, BMP 04/05/20 07:33 04/05/20 07:33 INR, PTT INR 0.95 (0.83-1.09) 03/29/20 22:50 Problem List - Problems (1) DUNG (acute kidney injury) Code(s): N17.9 - ACUTE KIDNEY FAILURE, UNSPECIFIED (2) Hyperkalemia Code(s): E87.5 - HYPERKALEMIA (3) Sepsis Code(s): A41.9 - SEPSIS, UNSPECIFIED ORGANISM Assessment/Plan Current Medications Generic Name Dose Route Start Last Admin Trade Name Freq PRN Reason Stop Dose Admin Acetaminophen 1,000 mg 04/01/20 13:07 04/05/20 11:38 Tylenol - PO 1,000 mg Q6H PRN Administration PAIN Albuterol Sulfate 2 puff 03/30/20 01:38 Ventolin Hfa Inhaler - IH TID PRN ASTHMA Ascorbic Acid 250 mg 03/30/20 10:00 04/05/20 11:32 Vitamin C - PO 250 mg DAILY [facility] Administration Aspirin 81 mg 03/30/20 10:00 04/05/20 11:33 Asa - PO 81 mg DAILY [facility] Administration Atorvastatin Calcium 20 mg 03/30/20 22:00 04/04/20 21:21 Lipitor - PO 20 mg HS [facility] Administration Ferrous Sulfate 325 mg 03/30/20 10:00 04/05/20 11:33 Feosol - PO 325 mg DAILY [facility] Administration Heparin Sodium (Porcine) 5,000 unit 03/30/20 10:00 04/05/20 12:15 Heparin - SQ Not Given BID [facility] Potassium Chloride 20 meq/ 1,010 mls @ 65 mls/hr 04/03/20 14:15 04/05/20 02:53 Dextrose IVPB 65 mls/hr Q15H [facility] Administration Ampicillin Sodium 2 gm/ Sodium 100 mls @ 200 mls/hr 04/05/20 18:00 Chloride IVPB Q4H-IV [facility] Protocol Cefepime HCl 2 gm/ Dextrose 100 mls @ 200 mls/hr 04/05/20 14:00 IVPB Q8H-IV [facility] Protocol Levothyroxine Sodium 100 mcg 03/30/20 07:00 04/05/20 06:24 Synthroid - PO 100 mcg ACBK [facility] Administration Multivitamins/Minerals/Vitamin C 1 tab 04/03/20 10:15 04/05/20 11:32 Tab-A-Vit - PO 1 tab DAILY [facility] Administration Pantoprazole Sodium 20 mg 03/30/20 07:00 04/05/20 06:24 Protonix - PO Not Given ACBK [facility] Polyethylene Glycol 17 gm 04/04/20 10:00 04/05/20 11:32 Miralax (For Daily Use) - PO 17 grams DAILY [facility] Administration Tamsulosin HCl 0.4 mg 03/30/20 08:30 04/05/20 11:33 Flomax - PO 0.4 mg DAILY@0830 [facility] Administration Impression 1. DUNG 2. sepsis 3. hyperkalemia 4. hypotension 5. chf 6. bph 7. cad 8. tia 9. gerd 10. hypernatremia Plan - change fluids to 1/2 ns and decrease rate - repeat labs in the am - encourage po intake - renal function improved - po intake is poor
[2020-04-05] MEDS ORDERED: SODIUM CHLORIDE 0.45% 1,000 ML IV SCH (14:00)
[2020-04-05] MEDS: CEFEPIME 1 GM in DEXTROSE 5%-WATER 100 ML IVPB SCH (14:06)
[2020-04-05] MEDS ORDERED: PT OWN MED DRAWER 7, Y5N ONE ×2 (14:19→17:34)
[2020-04-05] MEDS: CEFEPIME 2 GM in DEXTROSE 5%-WATER 100 ML IVPB SCH ×2 (14:37→19:23)
[2020-04-05] MEDS: ATORVASTATIN CA 20 MG TABLET (FP) PO SCH (22:10)
[2020-04-06] MEDS ORDERED: PT OWN MED DRAWER 7, Y5N ONE ×3 (01:32→17:50)
[2020-04-06] MEDS: ACETAMINOPHEN 500 MG TABLET (FP) PO PRN ×2 (01:49→08:39)
[2020-04-06] MEDS: CEFEPIME 2 GM in DEXTROSE 5%-WATER 100 ML IVPB SCH ×3 (01:50→18:13)
[2020-04-06] MEDS ORDERED: SODIUM CHLORIDE 100 ML IVPB ONE ×6 (02:33→21:13)
[2020-04-06] MEDS ORDERED: AMPICILLIN SODIUM 2 GM VIAL ONE ×6 (02:33→21:12)
[2020-04-06] MEDS: AMPICILLIN - 2 GM in SODIUM CHLORIDE 100 ML IVPB SCH ×7 (02:39→21:20)
[2020-04-06] MEDS: PANTOPRAZOLE 20 MG TABLET PO SCH (06:41)
[2020-04-06] MEDS: LEVOTHYROXINE NA 100 MCG TABLET (FP) PO SCH (06:45)
[2020-04-06] MEDS: TAMSULOSIN HCL 0.4 MG CAP PO SCH (08:38)
[2020-04-06 09:06] LABS: BASO % 0.3 % (0-2.0); EOS % 1.1 % (0-4.5); HEMATOCRIT 31.5 % (35.4-49); HEMOGLOBIN 10.2 GM/dL (11.7-16.9); LYMPH % 5.1 % (8-40); MCH 26.1 pg (25.7-33.7); MCHC 32.2 g/dl (32.0-35.9); MEAN CELL VOLUME 81.1 fl (80-96); MEAN PLT VOLUME 8.6 fl (7.5-11.1); MONO % 5.1 % (3.8-10.2); NEUT % 88.4 % (42.8-82.8); PLATELET COUNT 272 K/MM3 (134-434); RBC 3.89 M/mm3 (4.00-5.60); RDW 17.4 % (11.9-15.9); WHITE BLOOD COUNT 15.3 K/mm3 (4.0-10.0)
[2020-04-06 09:42] LABS: ALBUMIN 1.5 g/dl (3.4-5.0); CALCIUM 7.2 mg/dL (8.5-10.1); CREATININE 1.2 mg/dL (0.55-1.3); POTASSIUM 5.3 mmol/L (3.5-5.1); TOT PROT 5.4 g/dl (6.4-8.2)
[2020-04-06 09:43] LABS: BILIRUBIN,TOTAL 0.6 mg/dL (0.2-1)
--- NOTE | 2020-04-06 11:04 | PN ---
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, Physician Chief Complaint: Sepsis DUNG UTI Bacteremia Dysphagia History of Present Illness: Mr. Solares is an 79 year old male BIBA from [facility] for hypotension (SBP in the 70's). He has a past medical history of hypertension, CHF, aortic stenosis s/p bioprosthetic valve replacement, CAD, prior stent, GERD,TIA,BPH and indwelling iyer. NAD c/o fatigue lethargic Denies any pain or SOB Afebrile - Current Medication List Current Medications: Active Medications Acetaminophen (Tylenol -) 1,000 mg PO Q6H PRN PRN Reason: PAIN Last Admin: 04/06/20 08:39 Dose: 1,000 mg Documented by: Albuterol Sulfate (Ventolin Hfa Inhaler -) 2 puff IH TID PRN PRN Reason: ASTHMA Ascorbic Acid (Vitamin C -) 250 mg PO DAILY [facility] Last Admin: 04/05/20 11:32 Dose: 250 mg Documented by: Aspirin (Asa -) 81 mg PO DAILY [facility] Last Admin: 04/05/20 11:33 Dose: 81 mg Documented by: Atorvastatin Calcium (Lipitor -) 20 mg PO HS [facility] Last Admin: 04/05/20 22:10 Dose: Not Given Documented by: Ferrous Sulfate (Feosol -) 325 mg PO DAILY [facility] Last Admin: 04/05/20 11:33 Dose: 325 mg Documented by: Ampicillin Sodium 2 gm/ Sodium (Chloride) 100 mls @ 200 mls/hr IVPB Q4H-IV [facility]; Protocol Last Admin: 04/06/20 09:19 Dose: 200 mls/hr Documented by: Cefepime HCl 2 gm/ Dextrose 100 mls @ 200 mls/hr IVPB Q8H-IV [facility]; Protocol Last Admin: 04/06/20 01:50 Dose: 200 mls/hr Documented by: Sodium Chloride (1/2 Normal Saline) 1,000 mls @ 50 mls/hr IV ASDIR [facility] Stop: 04/06/20 13:58 Last Admin: 04/05/20 14:37 Dose: 50 mls/hr Documented by: Levothyroxine Sodium (Synthroid -) 100 mcg PO ACBK [facility] Last Admin: 04/06/20 06:45 Dose: 100 mcg Documented by: Multivitamins/Minerals/Vitamin C (Tab-A-Vit -) 1 tab PO DAILY [facility] Last Admin: 04/05/20 11:32 Dose: 1 tab Documented by: Pantoprazole Sodium (Protonix -) 20 mg PO ACBK [facility] Last Admin: 04/06/20 06:41 Dose: Not Given Documented by: Senna (Senna -) 2 tab PO HS [facility] Tamsulosin HCl (Flomax -) 0.4 mg PO DAILY@0830 [facility] Last Admin: 04/06/20 08:38 Dose: 0.4 mg Documented by: - Objective Vital Signs: Vital Signs Temperature 98.2 F 04/06/20 06:00 Pulse Rate 82 04/06/20 06:00 Respiratory Rate 20 04/06/20 06:00 Blood Pressure 119/68 04/06/20 06:00 O2 Sat by Pulse Oximetry (%) 98 04/06/20 06:00 Constitutional: Yes: Well Nourished, Calm Cardiovascular: Yes: Regular Rate and Rhythm Respiratory: Yes: Regular, CTA Bilaterally Gastrointestinal: Yes: Normal Bowel Sounds, Soft Genitourinary: Yes: Iyer Present Musculoskeletal: Yes: Muscle Weakness Extremities: Yes: WNL Edema: No Peripheral Pulses WNL: Yes Neurological: Yes: Alert, Oriented Psychiatric: Yes: Alert, Oriented Labs: CBC, BMP 04/06/20 08:05 04/06/20 08:05 INR, PTT INR 0.95 (0.83-1.09) 03/29/20 22:50 Problem List - Problems (1) Chronic retention of urine Assessment/Plan: -Continue iyer cath Problems reviewed: Yes Code(s): R33.9 - RETENTION OF URINE, UNSPECIFIED (2) DUNG (acute kidney injury) Assessment/Plan: -Nephrology consult -Renal U/S -UC possible pseudomonas -Cr trending down -Continue IVF Problems reviewed: Yes Code(s): N17.9 - ACUTE KIDNEY FAILURE, UNSPECIFIED (3) Hyperkalemia Assessment/Plan: -resolved Problems reviewed: Yes Code(s): E87.5 - HYPERKALEMIA (4) Sepsis Assessment/Plan: -ID consult -IV Ampicillin -No Lactic acidosis -Afebrile -Cultures: Microbiology 04/01/20 09:37 Blood - Peripheral Venous Blood Culture - Final NO GROWTH AFTER 5 DAYS INCUBATION 03/31/20 17:15 Blood - Peripheral Venous Blood Culture - Final NO GROWTH AFTER 5 DAYS INCUBATION 03/31/20 17:30 Blood - Peripheral Venous Blood Culture - Final NO GROWTH AFTER 5 DAYS INCUBATION 03/31/20 22:25 Urine - Urine Iyer Urine Culture - Final Pseudomonas Aeruginosa 03/29/20 22:50 Blood - Peripheral Venous Blood Culture - Final Group D Strep Or Entero Coccus Pseudomonas Species 03/29/20 22:50 Blood - Peripheral Venous Blood Culture - Final Enterococcus Faecalis Pseudomonas Aeruginosa 03/30/20 00:27 Urine - Urine - Catheterized Urine Culture - Final Contaminated: Please Repeat Problems reviewed: Yes Code(s): A41.9 - SEPSIS, UNSPECIFIED ORGANISM (5) Failure to thrive Assessment/Plan: -Add multivitamin -Ensure pudding + Magic cup -Seen by Speech pathology -MBS- Mod to severe stasis with puree. Aspiration on thin liquid -Dysphagia puree thinned out with nectar thick liquids Problems reviewed: Yes Code(s): [id number] - (6) Malnutrition Problems reviewed: Yes Code(s): E46 - UNSPECIFIED PROTEIN-CALORIE MALNUTRITION (7) Bacteremia Assessment/Plan: -Cultures: Microbiology 04/01/20 09:37 Blood - Peripheral Venous Blood Culture - Preliminary NO GROWTH OBTAINED AFTER 48 HOURS, INCUBATION TO CONTINUE FOR 3 DAYS. 03/31/20 17:30 Blood - Peripheral Venous Blood Culture - Preliminary NO GROWTH OBTAINED AFTER 48 HOURS, INCUBATION TO CONTINUE FOR 3 DAYS. 03/31/20 17:15 Blood - Peripheral Venous Blood Culture - Preliminary NO GROWTH OBTAINED AFTER 48 HOURS, INCUBATION TO CONTINUE FOR 3 DAYS. 03/31/20 22:25 Urine - Urine Iyer Urine Culture - Preliminary Presumptive Ps Aeruginosa 03/29/20 22:50 Blood - Peripheral Venous Blood Culture - Final Group D Strep Or Entero Coccus Pseudomonas Species 03/29/20 22:50 Blood - Peripheral Venous Blood Culture - Final Enterococcus Faecalis Pseudomonas Aeruginosa 03/30/20 00:27 Urine - Urine - Catheterized Urine Culture - Final Contaminated: Please Repeat -rest as above Problems reviewed: Yes Code(s): R78.81 - BACTEREMIA Assessment/Plan See problem list
--- NOTE | 2020-04-06 11:19 | PN ---
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: Selected Entries 04/05/20 04/05/20 04/05/20 02:00 05:12 09:00 Breakfast Lunch Supper Temperature Pulse Rate Blood Pressure O2 Sat by Pulse 100 98 98 Oximetry (%) Oxygen Delivery Room Air Method 04/05/20 04/05/20 04/05/20 10:00 15:16 18:00 Breakfast 50% Lunch 50% Supper 50% Temperature Pulse Rate Blood Pressure O2 Sat by Pulse 98 98 98 Oximetry (%) Oxygen Delivery Method 04/05/20 04/05/20 04/06/20 21:00 22:00 06:00 Breakfast Lunch Supper Temperature 98.2 F Pulse Rate 82 Blood Pressure 119/68 O2 Sat by Pulse 97 97 98 Oximetry (%) Oxygen Delivery Room Air Method Laboratory Tests 04/05/20 04/06/20 07:33 08:05 WBC 17.2 H 15.3 H Suggest Pt needs pureed consistency to be thinned out to reduce stasis in pharynx 2 hard swallows per 1/2 tsp Alternate with sip of nectar thick liquid No thin liquids
[2020-04-06] MEDS: traMADol HCL 50 MG TABLET PO PRN ×2 (11:28→21:20)
[2020-04-06] MEDS: ASPIRIN 81 MG CHEWABLE TABLETS PO SCH (11:37)
[2020-04-06] MEDS: MULTIVITAMINS (DAILY MVI) TABLET (FP) PO SCH (11:37)
[2020-04-06] MEDS: FERROUS SO4 325 MG TABLET (FP) PO SCH (11:37)
[2020-04-06] MEDS: ASCORBIC ACID 250 MG TABLET (FP) PO SCH (11:38)
[2020-04-06] MEDS: FAMOTIDINE 20 MG TABLET PO SCH (11:38)
[2020-04-06] MEDS: POLYETHYLENE GLYCOL 3350 119 GM BTL PO SCH (11:46)
[2020-04-06] MEDS ORDERED: SODIUM ZIRCONIUM CYCLOSILICATE (LOKELMA) 5 GM PACKET PO ONE (15:20)
--- NOTE | 2020-04-06 15:20 | PN ---
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, Physician History of Present Illness: Pt seen and examined at bedside. He is awake and appears comfortable. - Current Medication List Current Medications: Active Medications Acetaminophen (Tylenol -) 1,000 mg PO Q6H PRN PRN Reason: PAIN LEVEL 1-5 Albuterol Sulfate (Ventolin Hfa Inhaler -) 2 puff IH TID PRN PRN Reason: ASTHMA Ascorbic Acid (Vitamin C -) 250 mg PO DAILY [facility] Last Admin: 04/06/20 11:38 Dose: 250 mg Documented by: Aspirin (Asa -) 81 mg PO DAILY [facility] Last Admin: 04/06/20 11:37 Dose: 81 mg Documented by: Atorvastatin Calcium (Lipitor -) 20 mg PO HS [facility] Last Admin: 04/05/20 22:10 Dose: Not Given Documented by: Famotidine (Pepcid -) 20 mg PO DAILY [facility] Last Admin: 04/06/20 11:38 Dose: 20 mg Documented by: Ferrous Sulfate (Feosol -) 325 mg PO DAILY [facility] Last Admin: 04/06/20 11:37 Dose: 325 mg Documented by: Ampicillin Sodium 2 gm/ Sodium (Chloride) 100 mls @ 200 mls/hr IVPB Q4H-IV [facility]; Protocol Last Admin: 04/06/20 13:31 Dose: 200 mls/hr Documented by: Cefepime HCl 2 gm/ Dextrose 100 mls @ 200 mls/hr IVPB Q8H-IV [facility]; Protocol Last Admin: 04/06/20 11:37 Dose: 200 mls/hr Documented by: Levothyroxine Sodium (Synthroid -) 100 mcg PO ACBK [facility] Last Admin: 04/06/20 06:45 Dose: 100 mcg Documented by: Multivitamins/Minerals/Vitamin C (Tab-A-Vit -) 1 tab PO DAILY [facility] Last Admin: 04/06/20 11:37 Dose: 1 tab Documented by: Senna (Senna -) 2 tab PO [facility] Tamsulosin HCl (Flomax -) 0.4 mg PO DAILY@0830 [facility] Last Admin: 04/06/20 08:38 Dose: 0.4 mg Documented by: Tramadol HCl (Ultram -) 50 mg PO Q8H PRN PRN Reason: PAIN LEVEL 6-10 Last Admin: 04/06/20 11:28 Dose: 50 mg Documented by: - Objective Vital Signs: Vital Signs Temperature 98 F 09/15/20 10:00 Pulse Rate 82 04/06/20 10:00 Respiratory Rate 20 04/06/20 10:00 Blood Pressure 134/73 04/06/20 10:00 O2 Sat by Pulse Oximetry (%) 98 04/06/20 10:00 Constitutional: Yes: Calm Eyes: Yes: Conjunctiva Clear HENT: Yes: Atraumatic Cardiovascular: Yes: S1, S2 Respiratory: Yes: CTA Bilaterally Gastrointestinal: Yes: Soft Genitourinary: Yes: Incontinence Musculoskeletal: Yes: Muscle Weakness Neurological: Yes: Oriented Labs: CBC, BMP 04/06/20 08:05 04/06/20 08:05 INR, PTT INR 0.95 (0.83-1.09) 03/29/20 22:50 Problem List - Problems (1) DUNG (acute kidney injury) Code(s): N17.9 - ACUTE KIDNEY FAILURE, UNSPECIFIED (2) Hyperkalemia Code(s): E87.5 - HYPERKALEMIA (3) Sepsis Code(s): A41.9 - SEPSIS, UNSPECIFIED ORGANISM Assessment/Plan Current Medications Generic Name Dose Route Start Last Admin Trade Name Freq PRN Reason Stop Dose Admin Acetaminophen 1,000 mg 04/06/20 11:04 Tylenol - PO Q6H PRN PAIN LEVEL 1-5 Albuterol Sulfate 2 puff 03/30/20 01:38 Ventolin Hfa Inhaler - IH TID PRN ASTHMA Ascorbic Acid 250 mg 03/30/20 10:00 04/06/20 11:38 Vitamin C - PO 250 mg DAILY [facility] Administration Aspirin 81 mg 03/30/20 10:00 04/06/20 11:37 Asa - PO 81 mg DAILY [facility] Administration Atorvastatin Calcium 20 mg 03/30/20 22:00 04/05/20 22:10 Lipitor - PO Not Given HS [facility] Famotidine 20 mg 04/06/20 11:15 04/06/20 11:38 Pepcid - PO 20 mg DAILY [facility] Administration Ferrous Sulfate 325 mg 03/30/20 10:00 04/06/20 11:37 Feosol - PO 325 mg DAILY [facility] Administration Ampicillin Sodium 2 gm/ Sodium 100 mls @ 200 mls/hr 04/05/20 18:00 04/06/20 13:31 Chloride IVPB 200 mls/hr Q4H-IV [facility] Administration Protocol Cefepime HCl 2 gm/ Dextrose 100 mls @ 200 mls/hr 04/05/20 14:00 04/06/20 11:37 IVPB 200 mls/hr Q8H-IV [facility] Administration Protocol Levothyroxine Sodium 100 mcg 03/30/20 07:00 04/06/20 06:45 Synthroid - PO 100 mcg ACBK [facility] Administration Multivitamins/Minerals/Vitamin C 1 tab 04/03/20 10:15 04/06/20 11:37 Tab-A-Vit - PO 1 tab DAILY [facility] Administration Senna 2 tab 04/06/20 22:00 Senna - PO HS [facility] Tamsulosin HCl 0.4 mg 03/30/20 08:30 04/06/20 08:38 Flomax - PO 0.4 mg DAILY@0830 [facility] Administration Tramadol HCl 50 mg 04/06/20 11:03 04/06/20 11:28 Ultram - PO 50 mg Q8H PRN Administration PAIN LEVEL 6-10 Impression 1. DUNG 2. sepsis 3. hyperkalemia 4. hypotension 5. chf 6. bph 7. cad 8. tia 9. gerd 10. hypernatremia Plan - will give a dose of lokelma - will start fluids to drive down potassium - repeat labs in am - poor po intake
[2020-04-06] MEDS ORDERED: MAGNESIUM HYDROX 2400MG/30ML ORAL SUSPENSION 30 ML CUP PO ONE (15:21)
[2020-04-06] MEDS ORDERED: SODIUM CHLORIDE 0.45% 1,000 ML IV SCH (15:30)
--- NOTE | 2020-04-06 16:20 | PN ---
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 (short form) - Note 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: continues to feel lousy Vital Signs Period Temp Pulse Resp BP Sys/Pantoja Pulse Ox Last 24 Hr 97.6 F-98.2 F 79-90 18-20 115-134/63-76 97-98 cor-rrr lungs clear abd soft,mild lower abdominal pain to palpation ext no edema +iyer CBC, BMP 04/06/20 08:05 04/06/20 08:05 Microbiology 04/01/20 09:37 Blood - Peripheral Venous Blood Culture - Final NO GROWTH AFTER 5 DAYS INCUBATION 03/31/20 17:15 Blood - Peripheral Venous Blood Culture - Final NO GROWTH AFTER 5 DAYS INCUBATION 03/31/20 17:30 Blood - Peripheral Venous Blood Culture - Final NO GROWTH AFTER 5 DAYS INCUBATION 03/31/20 22:25 Urine - Urine Iyer Urine Culture - Final Pseudomonas Aeruginosa 03/29/20 22:50 Blood - Peripheral Venous Blood Culture - Final Group D Strep Or Entero Coccus Pseudomonas Species 03/29/20 22:50 Blood - Peripheral Venous Blood Culture - Final Enterococcus Faecalis Pseudomonas Aeruginosa 03/30/20 00:27 Urine - Urine - Catheterized Urine Culture - Final Contaminated: Please Repeat imp/reccd polymicrobial bacteremia- suspect urinary source UTI ARF-resolved BPH with chronic iyer with bioprosthetic aortic valve DNR/DNI clinically improved continue amp/cefepime day #[address] scan abd/pelvis if leukocytosis persists
[2020-04-06] MEDS: SENNOSIDES 8.6MG TABLET (FP) PO SCH ×2 (21:21→21:36)
[2020-04-06] MEDS: ATORVASTATIN CA 20 MG TABLET (FP) PO SCH (21:21)
[2020-04-07] MEDS: ACETAMINOPHEN 500 MG TABLET (FP) PO PRN (00:57)
[2020-04-07] MEDS ORDERED: AMPICILLIN SODIUM 2 GM VIAL ONE ×3 (02:04→21:32)
[2020-04-07] MEDS ORDERED: SODIUM CHLORIDE 100 ML IVPB ONE ×3 (02:05→21:33)
[2020-04-07] MEDS: AMPICILLIN - 2 GM in SODIUM CHLORIDE 100 ML IVPB SCH ×5 (02:17→21:34)
[2020-04-07] MEDS ORDERED: PT OWN MED DRAWER 7, Y5N ONE ×6 (02:30→21:18)
[2020-04-07] MEDS: CEFEPIME 2 GM in DEXTROSE 5%-WATER 100 ML IVPB SCH ×3 (03:08→18:38)
[2020-04-07] MEDS: LEVOTHYROXINE NA 100 MCG TABLET (FP) PO SCH (06:14)
[2020-04-07 09:22] LABS: ALBUMIN 1.5 g/dl (3.4-5.0); BLOOD UREA NITROGEN 30.3 mg/dL (7-18); CALCIUM 7.2 mg/dL (8.5-10.1); CREATININE 1.2 mg/dL (0.55-1.3); POTASSIUM 5.3 mmol/L (3.5-5.1)
[2020-04-07 09:24] LABS: BILIRUBIN,TOTAL 0.8 mg/dL (0.2-1); TOT PROT 5.6 g/dl (6.4-8.2)
[2020-04-07] MEDS: ASPIRIN 81 MG CHEWABLE TABLETS PO SCH (09:53)
[2020-04-07] MEDS: ASCORBIC ACID 250 MG TABLET (FP) PO SCH (09:53)
[2020-04-07] MEDS: FAMOTIDINE 20 MG TABLET PO SCH (09:53)
[2020-04-07] MEDS: TAMSULOSIN HCL 0.4 MG CAP PO SCH (09:53)
[2020-04-07] MEDS: FERROUS SO4 325 MG TABLET (FP) PO SCH (09:53)
[2020-04-07] MEDS: traMADol HCL 50 MG TABLET PO PRN (09:54)
[2020-04-07] MEDS: MULTIVITAMINS (DAILY MVI) TABLET (FP) PO SCH (09:54)
--- NOTE | 2020-04-07 11:15 | PN ---
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, Physician Chief Complaint: Sepsis DUNG UTI Bacteremia Dysphagia History of Present Illness: Mr. Solares is an 79 year old male BIBA from [facility] for hypotension (SBP in the 70's). He has a past medical history of hypertension, CHF, aortic stenosis s/p bioprosthetic valve replacement, CAD, prior stent, GERD,TIA,BPH and indwelling iyer. NAD c/o fatigue lethargic Denies any pain or SOB Afebrile CTAP + fecal impaction refuses enema twice Receiving senna 2 tabs HS received MOM once unable to receive miralax-cannot be mixed with thickeners - Current Medication List Current Medications: Active Medications Acetaminophen (Tylenol -) 1,000 mg PO Q6H PRN PRN Reason: PAIN LEVEL 1-5 Last Admin: 04/07/20 00:57 Dose: 1,000 mg Documented by: Albuterol Sulfate (Ventolin Hfa Inhaler -) 2 puff IH TID PRN PRN Reason: ASTHMA Ascorbic Acid (Vitamin C -) 250 mg PO DAILY [facility] Last Admin: 04/07/20 09:53 Dose: 250 mg Documented by: Aspirin (Asa -) 81 mg PO DAILY [facility] Last Admin: 04/07/20 09:53 Dose: 81 mg Documented by: Atorvastatin Calcium (Lipitor -) 20 mg PO [facility] Last Admin: 04/06/20 21:21 Dose: 20 mg Documented by: Famotidine (Pepcid -) 20 mg PO DAILY [facility] Last Admin: 04/07/20 09:53 Dose: 20 mg Documented by: Ferrous Sulfate (Feosol -) 325 mg PO DAILY [facility] Last Admin: 04/07/20 09:53 Dose: 325 mg Documented by: Ampicillin Sodium 2 gm/ Sodium (Chloride) 100 mls @ 200 mls/hr IVPB Q4H-IV [facility]; Protocol Last Admin: 04/07/20 05:37 Dose: 200 mls/hr Documented by: Cefepime HCl 2 gm/ Dextrose 100 mls @ 200 mls/hr IVPB Q8H-IV [facility]; Protocol Last Admin: 04/07/20 09:52 Dose: 200 mls/hr Documented by: Sodium Chloride (1/2 Normal Saline) 1,000 mls @ 50 mls/hr IV ASDIR [facility] Stop: 04/07/20 15:20 Last Admin: 04/06/20 16:10 Dose: 50 mls/hr Documented by: Levothyroxine Sodium (Synthroid -) 100 mcg PO ACBK [facility] Last Admin: 04/07/20 06:14 Dose: 100 mcg Documented by: Multivitamins/Minerals/Vitamin C (Tab-A-Vit -) 1 tab PO DAILY [facility] Last Admin: 04/07/20 09:54 Dose: 1 tab Documented by: Senna (Senna -) 2 tab PO HS [facility] Last Admin: 04/06/20 21:36 Dose: Not Given Documented by: Tamsulosin HCl (Flomax -) 0.4 mg PO DAILY@0830 [facility] Last Admin: 04/07/20 09:53 Dose: 0.4 mg Documented by: Tramadol HCl (Ultram -) 50 mg PO Q8H PRN PRN Reason: PAIN LEVEL 6-10 Last Admin: 04/07/20 09:54 Dose: 50 mg Documented by: - Objective Vital Signs: Vital Signs Temperature 98.1 F 04/07/20 08:45 Pulse Rate 89 04/07/20 08:45 Respiratory Rate 20 04/07/20 08:45 Blood Pressure 115/69 04/07/20 08:45 O2 Sat by Pulse Oximetry (%) 96 04/07/20 08:45 Constitutional: Yes: Well Nourished, No Distress, Calm Cardiovascular: Yes: Regular Rate and Rhythm Respiratory: Yes: Regular, Diminished Gastrointestinal: Yes: Normal Bowel Sounds, Soft Genitourinary: Yes: Iyer Present Musculoskeletal: Yes: Muscle Weakness Extremities: Yes: WNL Edema: No Peripheral Pulses WNL: Yes Neurological: Yes: Alert, Oriented Psychiatric: Yes: Alert, Oriented Labs: CBC, BMP 04/06/20 08:05 04/07/20 07:40 INR, PTT INR 0.95 (0.83-1.09) 03/29/20 22:50 Problem List - Problems (1) Chronic retention of urine Assessment/Plan: -Continue iyer cath Problems reviewed: Yes Code(s): R33.9 - RETENTION OF URINE, UNSPECIFIED (2) DUNG (acute kidney injury) Assessment/Plan: -Nephrology consult -Renal U/S -UC possible pseudomonas -Cr trending down -Continue IVF Problems reviewed: Yes Code(s): N17.9 - ACUTE KIDNEY FAILURE, UNSPECIFIED (3) Hyperkalemia Assessment/Plan: -resolved Problems reviewed: Yes Code(s): E87.5 - HYPERKALEMIA (4) Sepsis Assessment/Plan: -ID consult -IV Cefepime + Ampicillin -No Lactic acidosis -Afebrile -Cultures: Microbiology 03/29/20 22:50 Blood - Peripheral Venous Blood Culture - Preliminary Pending Organism Pending Organism#2 03/29/20 22:50 Blood - Peripheral Venous Blood Culture - Preliminary Pending Organism Pending Organism#2 Problems reviewed: Yes Code(s): A41.9 - SEPSIS, UNSPECIFIED ORGANISM (5) Failure to thrive Assessment/Plan: -Add multivitamin -Ensure pudding + Magic cup -Seen by Speech pathology -MBS- Mod to severe stasis with puree. Aspiration on thin liquid -Dysphagia puree thinned out with nectar thick liquids Problems reviewed: Yes Code(s): [id number] - (6) Malnutrition Problems reviewed: Yes Code(s): E46 - UNSPECIFIED PROTEIN-CALORIE MALNUTRITION (7) Bacteremia Assessment/Plan: -Cultures: Microbiology 04/01/20 09:37 Blood - Peripheral Venous Blood Culture - Preliminary NO GROWTH OBTAINED AFTER 48 HOURS, INCUBATION TO CONTINUE FOR 3 DAYS. 03/31/20 17:30 Blood - Peripheral Venous Blood Culture - Preliminary NO GROWTH OBTAINED AFTER 48 HOURS, INCUBATION TO CONTINUE FOR 3 DAYS. 03/31/20 17:15 Blood - Peripheral Venous Blood Culture - Preliminary NO GROWTH OBTAINED AFTER 48 HOURS, INCUBATION TO CONTINUE FOR 3 DAYS. 03/31/20 22:25 Urine - Urine Iyer Urine Culture - Preliminary Presumptive Ps Aeruginosa 03/29/20 22:50 Blood - Peripheral Venous Blood Culture - Final Group D Strep Or Entero Coccus Pseudomonas Species 03/29/20 22:50 Blood - Peripheral Venous Blood Culture - Final Enterococcus Faecalis Pseudomonas Aeruginosa 03/30/20 00:27 Urine - Urine - Catheterized Urine Culture - Final Contaminated: Please Repeat -rest as above Problems reviewed: Yes Code(s): R78.81 - BACTEREMIA Assessment/Plan See problem list
--- NOTE | 2020-04-07 12:23 | PN ---
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, Physician History of Present Illness: Pt seen and examined at beside. He is awake and appears comfortable. he denies shortness of breath. - Current Medication List Current Medications: Active Medications Acetaminophen (Tylenol -) 1,000 mg PO Q6H PRN PRN Reason: PAIN LEVEL 1-5 Last Admin: 04/07/20 00:57 Dose: 1,000 mg Documented by: Albuterol Sulfate (Ventolin Hfa Inhaler -) 2 puff IH TID PRN PRN Reason: ASTHMA Ascorbic Acid (Vitamin C -) 250 mg PO DAILY [facility] Last Admin: 04/07/20 09:53 Dose: 250 mg Documented by: Aspirin (Asa -) 81 mg PO DAILY [facility] Last Admin: 04/07/20 09:53 Dose: 81 mg Documented by: Atorvastatin Calcium (Lipitor -) 20 mg PO HS [facility] Last Admin: 04/06/20 21:21 Dose: 20 mg Documented by: Famotidine (Pepcid -) 20 mg PO DAILY [facility] Last Admin: 04/07/20 09:53 Dose: 20 mg Documented by: Ferrous Sulfate (Feosol -) 325 mg PO DAILY [facility] Last Admin: 04/07/20 09:53 Dose: 325 mg Documented by: Ampicillin Sodium 2 gm/ Sodium (Chloride) 100 mls @ 200 mls/hr IVPB Q4H-IV [facility]; Protocol Last Admin: 04/07/20 05:37 Dose: 200 mls/hr Documented by: Cefepime HCl 2 gm/ Dextrose 100 mls @ 200 mls/hr IVPB Q8H-IV [facility]; Protocol Last Admin: 04/07/20 09:52 Dose: 200 mls/hr Documented by: Sodium Chloride (1/2 Normal Saline) 1,000 mls @ 50 mls/hr IV ASDIR [facility] Stop: 04/07/20 15:20 Last Admin: 04/06/20 16:10 Dose: 50 mls/hr Documented by: Levothyroxine Sodium (Synthroid -) 100 mcg PO ACBK [facility] Last Admin: 04/07/20 06:14 Dose: 100 mcg Documented by: Multivitamins/Minerals/Vitamin C (Tab-A-Vit -) 1 tab PO DAILY [facility] Last Admin: 04/07/20 09:54 Dose: 1 tab Documented by: Senna (Senna -) 2 tab PO HS [facility] Last Admin: 04/06/20 21:36 Dose: Not Given Documented by: Tamsulosin HCl (Flomax -) 0.4 mg PO DAILY@0830 [facility] Last Admin: 04/07/20 09:53 Dose: 0.4 mg Documented by: Tramadol HCl (Ultram -) 50 mg PO Q8H PRN PRN Reason: PAIN LEVEL 6-10 Last Admin: 04/07/20 09:54 Dose: 50 mg Documented by: - Objective Vital Signs: Vital Signs Temperature 98.1 F 04/07/20 08:45 Pulse Rate 89 04/07/20 08:45 Respiratory Rate 20 04/07/20 08:45 Blood Pressure 115/69 04/07/20 08:45 O2 Sat by Pulse Oximetry (%) 96 04/07/20 08:45 Constitutional: Yes: Calm Eyes: Yes: Conjunctiva Clear HENT: Yes: Atraumatic Neck: Yes: Supple Cardiovascular: Yes: S1, S2 Respiratory: Yes: CTA Bilaterally Gastrointestinal: Yes: Soft Genitourinary: Yes: Jauregui Present Musculoskeletal: Yes: Muscle Weakness Edema: No Neurological: Yes: Confusion Labs: CBC, BMP 04/06/20 08:05 04/07/20 07:40 INR, PTT INR 0.95 (0.83-1.09) 03/29/20 22:50 Problem List - Problems (1) DUNG (acute kidney injury) Code(s): N17.9 - ACUTE KIDNEY FAILURE, UNSPECIFIED (2) Hyperkalemia Code(s): E87.5 - HYPERKALEMIA (3) Sepsis Code(s): A41.9 - SEPSIS, UNSPECIFIED ORGANISM Assessment/Plan Current Medications Generic Name Dose Route Start Last Admin Trade Name Freq PRN Reason Stop Dose Admin Acetaminophen 1,000 mg 04/06/20 11:04 04/07/20 00:57 Tylenol - PO 1,000 mg Q6H PRN Administration PAIN LEVEL 1-5 Albuterol Sulfate 2 puff 03/30/20 01:38 Ventolin Hfa Inhaler - IH TID PRN ASTHMA Ascorbic Acid 250 mg 03/30/20 10:00 04/07/20 09:53 Vitamin C - PO 250 mg DAILY [facility] Administration Aspirin 81 mg 03/30/20 10:00 04/07/20 09:53 Asa - PO 81 mg DAILY [facility] Administration Atorvastatin Calcium 20 mg 03/30/20 22:00 04/06/20 21:21 Lipitor - PO 20 mg HS [facility] Administration Famotidine 20 mg 04/06/20 11:15 04/07/20 09:53 Pepcid - PO 20 mg DAILY [facility] Administration Ferrous Sulfate 325 mg 03/30/20 10:00 04/07/20 09:53 Feosol - PO 325 mg DAILY [facility] Administration Ampicillin Sodium 2 gm/ Sodium 100 mls @ 200 mls/hr 04/05/20 18:00 04/07/20 05:37 Chloride IVPB 200 mls/hr Q4H-IV [facility] Administration Protocol Cefepime HCl 2 gm/ Dextrose 100 mls @ 200 mls/hr 04/05/20 14:00 04/07/20 09:52 IVPB 200 mls/hr Q8H-IV [facility] Administration Protocol Sodium Chloride 1,000 mls @ 50 mls/hr 04/06/20 15:30 04/06/20 16:10 1/2 Normal Saline IV 04/07/20 15:20 50 mls/hr ASDIR [facility] Administration Levothyroxine Sodium 100 mcg 03/30/20 07:00 04/07/20 06:14 Synthroid - PO 100 mcg ACBK [facility] Administration Multivitamins/Minerals/Vitamin C 1 tab 04/03/20 10:15 04/07/20 09:54 Tab-A-Vit - PO 1 tab DAILY [facility] Administration Senna 2 tab 04/06/20 22:00 04/06/20 21:36 Senna - PO Not Given HS [facility] Tamsulosin HCl 0.4 mg 03/30/20 08:30 04/07/20 09:53 Flomax - PO 0.4 mg DAILY@0830 [facility] Administration Tramadol HCl 50 mg 04/06/20 11:03 04/07/20 09:54 Ultram - PO 50 mg Q8H PRN Administration PAIN LEVEL 6-10 Impression 1. DUNG 2. sepsis 3. hyperkalemia 4. hypotension 5. chf 6. bph 7. cad 8. tia 9. gerd 10. hypernatremia Plan - cont lokelma - repeat labs in am - cont fluids - poor po intake
--- NOTE | 2020-04-07 13:45 | PN ---
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 Voice strong. Forgetful. Good mastication and tolerated sips of thin water well. MBS-/-stasis, silent asp on thin liquid Improving swallowing function suspected. Speech/voice improved Consider trial of Dys chopped/careful sips of thin liquid ASPIRATION PRECAUTIONS Repeat MBS if any cough, congestion, fever
--- NOTE | 2020-04-07 14:58 | PN ---
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 (short form) - Note 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: noted to have fecal impaction and left hydro on ct scan refuses to turn in bed to examine his back Vital Signs Period Temp Pulse Resp BP Sys/Pantoja Pulse Ox Last 24 Hr 97.8 F-98.5 F 75-104 20-20 100-140/56-95 86-98 cor-rrr llungs decreased bs at bases abd soft,mild suprpubic discomfort ext no edema CBC, BMP 04/06/20 08:05 04/07/20 07:40 Microbiology 04/01/20 09:37 Blood - Peripheral Venous Blood Culture - Final NO GROWTH AFTER 5 DAYS INCUBATION 03/31/20 17:15 Blood - Peripheral Venous Blood Culture - Final NO GROWTH AFTER 5 DAYS INCUBATION 03/31/20 17:30 Blood - Peripheral Venous Blood Culture - Final NO GROWTH AFTER 5 DAYS INCUBATION 03/31/20 22:25 Urine - Urine Iyer Urine Culture - Final Pseudomonas Aeruginosa 03/29/20 22:50 Blood - Peripheral Venous Blood Culture - Final Group D Strep Or Entero Coccus Pseudomonas Species 03/29/20 22:50 Blood - Peripheral Venous Blood Culture - Final Enterococcus Faecalis Pseudomonas Aeruginosa 03/30/20 00:27 Urine - Urine - Catheterized Urine Culture - Final Contaminated: Please Repeat imp/reccd pseudomona/enterococcal bacteremia secondary to UTI- contineu cefepime/ampicillin BPH with chronic iyer with bioprosthetic aortic valve DNR/DNI fecal impaction-laxatives left hydronephrosis clinically improved continue amp/cefepime day #9 antibiotics
[2020-04-07] MEDS: SODIUM ZIRCONIUM CYCLOSILICATE (LOKELMA) 5 GM PACKET PO SCH (15:55)
[2020-04-07] MEDS: SODIUM CHLORIDE 1,000 ML IV SCH (18:26)
[2020-04-07] MEDS: SENNOSIDES 8.6MG TABLET (FP) PO SCH (21:35)
[2020-04-07] MEDS: ATORVASTATIN CA 20 MG TABLET (FP) PO SCH (21:35)
[2020-04-08] MEDS: CEFEPIME 2 GM in DEXTROSE 5%-WATER 100 ML IVPB SCH ×3 (01:53→18:24)
[2020-04-08] MEDS ORDERED: AMPICILLIN SODIUM 2 GM VIAL ONE ×5 (02:15→22:20)
[2020-04-08] MEDS ORDERED: SODIUM CHLORIDE 100 ML IVPB ONE ×5 (02:16→22:20)
[2020-04-08] MEDS: AMPICILLIN - 2 GM in SODIUM CHLORIDE 100 ML IVPB SCH ×6 (03:04→22:29)
[2020-04-08] MEDS ORDERED: ACETAMINOPHEN 1000 MG/100 ML VIAL (NON FORMULARY) IVPB ONE (03:14)
[2020-04-08] MEDS ORDERED: PT OWN MED DRAWER 7, Y5N ONE ×3 (05:10→19:11)
[2020-04-08] MEDS: LEVOTHYROXINE NA 100 MCG TABLET (FP) PO SCH ×2 (06:02→06:06)
[2020-04-08] MEDS: ACETAMINOPHEN 500 MG TABLET (FP) PO PRN (10:02)
[2020-04-08] MEDS: FAMOTIDINE 20 MG TABLET PO SCH (10:02)
[2020-04-08] MEDS: MULTIVITAMINS (DAILY MVI) TABLET (FP) PO SCH (10:02)
[2020-04-08] MEDS: ASPIRIN 81 MG CHEWABLE TABLETS PO SCH (10:02)
[2020-04-08] MEDS: TAMSULOSIN HCL 0.4 MG CAP PO SCH (10:02)
[2020-04-08] MEDS: FERROUS SO4 325 MG TABLET (FP) PO SCH (10:02)
[2020-04-08] MEDS: SODIUM ZIRCONIUM CYCLOSILICATE (LOKELMA) 5 GM PACKET PO SCH (10:04)
[2020-04-08] MEDS: ASCORBIC ACID 250 MG TABLET (FP) PO SCH (10:04)
--- NOTE | 2020-04-08 10:39 | PN ---
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
--- NOTE | 2020-04-08 10:56 | PN ---
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, Physician Chief Complaint: Sepsis DUNG UTI Bacteremia Dysphagia History of Present Illness: Mr. Solares is an 79 year old male BIBA from [facility] for hypotension (SBP in the 70's). He has a past medical history of hypertension, CHF, aortic stenosis s/p bioprosthetic valve replacement, CAD, prior stent, GERD,TIA,BPH and indwelling iyer. NAD c/o fatigue lethargic Denies any pain or SOB Afebrile CTAP + fecal impaction refuses enema twice Receiving senna 2 tabs HS received MOM once unable to receive miralax-cannot be mixed with thickeners - Current Medication List Current Medications: Active Medications Acetaminophen (Tylenol -) 1,000 mg PO Q6H PRN PRN Reason: PAIN LEVEL 1-5 Last Admin: 04/07/20 00:57 Dose: 1,000 mg Documented by: Albuterol Sulfate (Ventolin Hfa Inhaler -) 2 puff IH TID PRN PRN Reason: ASTHMA Ascorbic Acid (Vitamin C -) 250 mg PO DAILY [facility] Last Admin: 04/08/20 10:04 Dose: 250 mg Documented by: Aspirin (Asa -) 81 mg PO DAILY [facility] Last Admin: 04/08/20 10:02 Dose: 81 mg Documented by: Atorvastatin Calcium (Lipitor -) 20 mg PO [facility] Last Admin: 04/07/20 21:35 Dose: 20 mg Documented by: Famotidine (Pepcid -) 20 mg PO DAILY [facility] Last Admin: 04/08/20 10:02 Dose: 20 mg Documented by: Ferrous Sulfate (Feosol -) 325 mg PO DAILY [facility] Last Admin: 04/08/20 10:02 Dose: 325 mg Documented by: Ampicillin Sodium 2 gm/ Sodium (Chloride) 100 mls @ 200 mls/hr IVPB Q4H-IV [facility]; Protocol Last Admin: 04/08/20 10:02 Dose: 200 mls/hr Documented by: Cefepime HCl 2 gm/ Dextrose 100 mls @ 200 mls/hr IVPB Q8H-IV [facility]; Protocol Last Admin: 04/08/20 10:37 Dose: 200 mls/hr Documented by: Sodium Chloride (Normal Saline -) 1,000 mls @ 42 mls/hr IV ASDIR [facility] Last Admin: 04/07/20 18:26 Dose: 42 mls/hr Documented by: Levothyroxine Sodium (Synthroid -) 100 mcg PO ACBK [facility] Last Admin: 04/08/20 06:06 Dose: Not Given Documented by: Magnesium Citrate (Citroma -) 300 ml PO ONCE ONE Stop: 04/08/20 10:52 Multivitamins/Minerals/Vitamin C (Tab-A-Vit -) 1 tab PO DAILY [facility] Last Admin: 04/08/20 10:02 Dose: 1 tab Documented by: Senna (Senna -) 2 tab PO HS [facility] Last Admin: 04/07/20 21:35 Dose: 2 tab Documented by: Sodium Zirconium Cyclosilicate (Lokelma) 10 gm PO DAILY [facility] Last Admin: 04/08/20 10:04 Dose: 10 gm Documented by: Tamsulosin HCl (Flomax -) 0.4 mg PO DAILY@0830 [facility] Last Admin: 04/08/20 10:02 Dose: 0.4 mg Documented by: Tramadol HCl (Ultram -) 50 mg PO Q8H PRN PRN Reason: PAIN LEVEL 6-10 Last Admin: 04/07/20 09:54 Dose: 50 mg Documented by: - Objective Vital Signs: Vital Signs Temperature 98.1 F 04/08/20 10:10 Pulse Rate 88 04/08/20 10:10 Respiratory Rate 22 H 04/08/20 10:10 Blood Pressure 121/72 04/08/20 10:10 O2 Sat by Pulse Oximetry (%) 97 04/08/20 10:10 Constitutional: Yes: Well Nourished, No Distress, Calm Cardiovascular: Yes: Regular Rate and Rhythm Respiratory: Yes: Regular, CTA Bilaterally Gastrointestinal: Yes: Soft, Hypoactive Bowel Sounds, Tenderness (suprapubic, RLQ+ LLQ) Genitourinary: Yes: Iyer Present Musculoskeletal: Yes: Muscle Weakness Extremities: Yes: WNL Edema: No Peripheral Pulses WNL: Yes Neurological: Yes: Alert, Oriented Psychiatric: Yes: Alert, Oriented Labs: CBC, BMP 04/06/20 08:05 04/07/20 07:40 INR, PTT INR 0.95 (0.83-1.09) 03/29/20 22:50 Problem List - Problems (1) Chronic retention of urine Assessment/Plan: -Continue iyer cath Problems reviewed: Yes Code(s): R33.9 - RETENTION OF URINE, UNSPECIFIED (2) DUNG (acute kidney injury) Assessment/Plan: -Nephrology consult -Renal U/S -UC possible pseudomonas -Cr trending down -Continue IVF Problems reviewed: Yes Code(s): N17.9 - ACUTE KIDNEY FAILURE, UNSPECIFIED (3) Hyperkalemia Assessment/Plan: -resolved Problems reviewed: Yes Code(s): E87.5 - HYPERKALEMIA (4) Sepsis Assessment/Plan: -ID consult -IV Ampicillin -No Lactic acidosis -Afebrile -Cultures: Microbiology 04/01/20 09:37 Blood - Peripheral Venous Blood Culture - Final NO GROWTH AFTER 5 DAYS INCUBATION 03/31/20 17:15 Blood - Peripheral Venous Blood Culture - Final NO GROWTH AFTER 5 DAYS INCUBATION 03/31/20 17:30 Blood - Peripheral Venous Blood Culture - Final NO GROWTH AFTER 5 DAYS INCUBATION 03/31/20 22:25 Urine - Urine Iyer Urine Culture - Final Pseudomonas Aeruginosa 03/29/20 22:50 Blood - Peripheral Venous Blood Culture - Final Group D Strep Or Entero Coccus Pseudomonas Species 03/29/20 22:50 Blood - Peripheral Venous Blood Culture - Final Enterococcus Faecalis Pseudomonas Aeruginosa 03/30/20 00:27 Urine - Urine - Catheterized Urine Culture - Final Contaminated: Please Repeat Problems reviewed: Yes Code(s): A41.9 - SEPSIS, UNSPECIFIED ORGANISM (5) Failure to thrive Assessment/Plan: -Add multivitamin -Ensure pudding + Magic cup -Seen by Speech pathology -MBS- Mod to severe stasis with puree. Aspiration on thin liquid -Dysphagia puree thinned out with nectar thick liquids Problems reviewed: Yes Code(s): [id number] - (6) Malnutrition Problems reviewed: Yes Code(s): E46 - UNSPECIFIED PROTEIN-CALORIE MALNUTRITION (7) Bacteremia Assessment/Plan: -Cultures: Microbiology 04/01/20 09:37 Blood - Peripheral Venous Blood Culture - Preliminary NO GROWTH OBTAINED AFTER 48 HOURS, INCUBATION TO CONTINUE FOR 3 DAYS. 03/31/20 17:30 Blood - Peripheral Venous Blood Culture - Preliminary NO GROWTH OBTAINED AFTER 48 HOURS, INCUBATION TO CONTINUE FOR 3 DAYS. 03/31/20 17:15 Blood - Peripheral Venous Blood Culture - Preliminary NO GROWTH OBTAINED AFTER 48 HOURS, INCUBATION TO CONTINUE FOR 3 DAYS. 03/31/20 22:25 Urine - Urine Iyer Urine Culture - Preliminary Presumptive Ps Aeruginosa 03/29/20 22:50 Blood - Peripheral Venous Blood Culture - Final Group D Strep Or Entero Coccus Pseudomonas Species 03/29/20 22:50 Blood - Peripheral Venous Blood Culture - Final Enterococcus Faecalis Pseudomonas Aeruginosa 03/30/20 00:27 Urine - Urine - Catheterized Urine Culture - Final Contaminated: Please Repeat -rest as above Problems reviewed: Yes Code(s): R78.81 - BACTEREMIA (8) Constipation Assessment/Plan: -Continue Senna 2 tabs HS -Mag citrate once Problems reviewed: Yes Code(s): K59.00 - CONSTIPATION, UNSPECIFIED Assessment/Plan See problem list
--- NOTE | 2020-04-08 11:49 | CON.PSY ---
Psychiatry Consult Chief Complaint: 79 year 9old male a [id number] at [facility] seen for Psych eval for [id number] , agitation.. Patients apparntly lost his desirae 2 Months ago and been depressede since then. Patiewnt was not seen by Mervin frankel. Staff report [id number] [patient is not eating and been agiated on the unit.. Not [id number] in any self damaging behaviour. Symptoms: reports: Depressed Mood, Appetite Disturbance, Depersonalization - Previous Psychiatric Treatment Outpatient: None Inpatient: None - Previous Substance Abuse Treatment Outpatient: None Inpatient: None - Current Medications Current Medications: Active Medications Acetaminophen (Tylenol -) 1,000 mg PO Q6H PRN PRN Reason: PAIN LEVEL 1-5 Last Admin: 04/07/20 00:57 Dose: 1,000 mg Documented by: Albuterol Sulfate (Ventolin Hfa Inhaler -) 2 puff IH TID PRN PRN Reason: ASTHMA Ascorbic Acid (Vitamin C -) 250 mg PO DAILY [facility] Last Admin: 04/08/20 10:04 Dose: 250 mg Documented by: Aspirin (Asa -) 81 mg PO DAILY [facility] Last Admin: 04/08/20 10:02 Dose: 81 mg Documented by: Atorvastatin Calcium (Lipitor -) 20 mg PO HS [facility] Last Admin: 04/07/20 21:35 Dose: 20 mg Documented by: Famotidine (Pepcid -) 20 mg PO DAILY [facility] Last Admin: 04/08/20 10:02 Dose: 20 mg Documented by: Ferrous Sulfate (Feosol -) 325 mg PO DAILY [facility] Last Admin: 04/08/20 10:02 Dose: 325 mg Documented by: Ampicillin Sodium 2 gm/ Sodium (Chloride) 100 mls @ 200 mls/hr IVPB Q4H-IV [facility]; Protocol Last Admin: 04/08/20 10:02 Dose: 200 mls/hr Documented by: Cefepime HCl 2 gm/ Dextrose 100 mls @ 200 mls/hr IVPB Q8H-IV [facility]; Protocol Last Admin: 04/08/20 10:37 Dose: 200 mls/hr Documented by: Sodium Chloride (Normal Saline -) 1,000 mls @ 42 mls/hr IV ASDIR [facility] Last Admin: 04/07/20 18:26 Dose: 42 mls/hr Documented by: Levothyroxine Sodium (Synthroid -) 100 mcg PO ACBK [facility] Last Admin: 04/08/20 06:06 Dose: Not Given Documented by: Magnesium Citrate (Citroma -) 300 ml PO ONCE ONE Stop: 04/08/20 10:52 Multivitamins/Minerals/Vitamin C (Tab-A-Vit -) 1 tab PO DAILY [facility] Last Admin: 04/08/20 10:02 Dose: 1 tab Documented by: Senna (Senna -) 2 tab PO HS [facility] Last Admin: 04/07/20 21:35 Dose: 2 tab Documented by: Sodium Zirconium Cyclosilicate (Lokelma) 10 gm PO DAILY [facility] Last Admin: 04/08/20 10:04 Dose: 10 gm Documented by: Tamsulosin HCl (Flomax -) 0.4 mg PO DAILY@0830 [facility] Last Admin: 04/08/20 10:02 Dose: 0.4 mg Documented by: Tramadol HCl (Ultram -) 50 mg PO Q8H PRN PRN Reason: PAIN LEVEL 6-10 Last Admin: 04/07/20 09:54 Dose: 50 mg Documented by: - Allergies Allergies: Allergies Allergy/AdvReac Type Severity Reaction Status Date / Time No Known Allergies Allergy Verified 03/29/20 22:00 - Current Living Status Usual Living Arrangement: Detention - Current Mental Status Evaluation Appearance: Disheveled Attitude: Guarded - Affect Affect: Constrictive Appropriateness: Not Appropriate - Mood Mood: Depressed - Speech/Language Expressive: Coherent - Psychomotor Activity Psychomotor Activity: Hyperactive - Thought Process Thought Process: Circumstantial - Thought Content Hallucinations: Absent Delusions: Absent - Self Perception Self Perception: No Impairment - Cognition Attention: Alert Memory, Short Term: 2/3 Memory, Remote with Promptin/3 - Concentration Serial Sevens Intact: No Simple Calculations Intact: No - Abstraction Proverb Interpretation: Intact Judgement: Minimally Impaired - Insight Insight: Impaired - Impulse Control Impulse Control: Minimally Impaired - Suicidal Ideation Suicidal Ideation: No - Homicidal Ideation Homicidal Ideation: No Assessment/Plan 1) Start Remeron 15 mg po hs for Depression and appetite..
[2020-04-08] MEDS ORDERED: MAGNESIUM CITRATE 300 ML BOTTLE PO ONE (12:15)
--- NOTE | 2020-04-08 12:51 | CON.PSL ---
Psychology Consult History Provided By: Medical Record, Caregiver Limitations to Obtaining History: Other Current Medications: Active Medications Acetaminophen (Tylenol -) 1,000 mg PO Q6H PRN PRN Reason: PAIN LEVEL 1-5 Last Admin: 04/07/20 00:57 Dose: 1,000 mg Documented by: Albuterol Sulfate (Ventolin Hfa Inhaler -) 2 puff IH TID PRN PRN Reason: ASTHMA Ascorbic Acid (Vitamin C -) 250 mg PO DAILY [facility] Last Admin: 04/08/20 10:04 Dose: 250 mg Documented by: Aspirin (Asa -) 81 mg PO DAILY [facility] Last Admin: 04/08/20 10:02 Dose: 81 mg Documented by: Atorvastatin Calcium (Lipitor -) 20 mg PO [facility] Last Admin: 04/07/20 21:35 Dose: 20 mg Documented by: Famotidine (Pepcid -) 20 mg PO DAILY [facility] Last Admin: 04/08/20 10:02 Dose: 20 mg Documented by: Ferrous Sulfate (Feosol -) 325 mg PO DAILY [facility] Last Admin: 04/08/20 10:02 Dose: 325 mg Documented by: Ampicillin Sodium 2 gm/ Sodium (Chloride) 100 mls @ 200 mls/hr IVPB Q4H-IV [facility]; Protocol Last Admin: 04/08/20 10:02 Dose: 200 mls/hr Documented by: Cefepime HCl 2 gm/ Dextrose 100 mls @ 200 mls/hr IVPB Q8H-IV [facility]; Protocol Last Admin: 04/08/20 10:37 Dose: 200 mls/hr Documented by: Sodium Chloride (Normal Saline -) 1,000 mls @ 42 mls/hr IV ASDIR [facility] Last Admin: 04/07/20 18:26 Dose: 42 mls/hr Documented by: Levothyroxine Sodium (Synthroid -) 100 mcg PO ACBK [facility] Last Admin: 04/08/20 06:06 Dose: Not Given Documented by: Mirtazapine (Remeron -) 15 mg PO [facility] Multivitamins/Minerals/Vitamin C (Tab-A-Vit -) 1 tab PO DAILY [facility] Last Admin: 04/08/20 10:02 Dose: 1 tab Documented by: Senna (Senna -) 2 tab PO [facility] Last Admin: 04/07/20 21:35 Dose: 2 tab Documented by: Sodium Zirconium Cyclosilicate (Lokelma) 10 gm PO DAILY [facility] Last Admin: 04/08/20 10:04 Dose: 10 gm Documented by: Tamsulosin HCl (Flomax -) 0.4 mg PO DAILY@0830 [facility] Last Admin: 04/08/20 10:02 Dose: 0.4 mg Documented by: Tramadol HCl (Ultram -) 50 mg PO Q8H PRN PRN Reason: PAIN LEVEL 6-10 Last Admin: 04/07/20 09:54 Dose: 50 mg Documented by: Allergies: Allergies Allergy/AdvReac Type Severity Reaction Status Date / Time No Known Allergies Allergy Verified 03/29/20 22:00 Does patient have pain?: Yes (Based on other chart reports he has pain ranging from 1-10.) Assessment/Plan Since the patient could not be seen nor spoken with due to telephone issues at the hospital, his nurse, Day, provided valuable information regarding this patient. He is said to become verbally and physically aggressive by expressing profanities at staff and throwing things or hitting objects in his room. These behaviors appear to be triggered by the recent loss of his (about 3 months ago). An attempt to reach him later in the day will be made. 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 Psychotropic management as ordered by Dr. Dao appears to be the best intervention for now. Once he is psychiatrically stable, psychotherapeutic i ntervention may be attempted. His nurse was spoken with Sunday. There was no change in his being uncooperative as he refused the medication prescribed by Dr. Dao. An attempt to communicate with the patient will be made if he is receptive to the consultation.
--- NOTE | 2020-04-08 13:57 | PN ---
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, [employer] - Note 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: Selected Entries 04/07/20 04/07/20 04/08/20 15:00 18:00 02:00 Breakfast 25% Intake, Oral Amount Lunch 25% Supper 75% Temperature 98.1 F Pulse Rate 89 Respiratory 20 Rate O2 Sat by Pulse 96 Oximetry (%) 04/08/20 04/08/20 06:00 10:10 Breakfast Intake, Oral 0 Amount Lunch Supper Temperature Pulse Rate 101 H 88 Respiratory 22 H Rate O2 Sat by Pulse 98 97 Oximetry (%) Laboratory Tests 04/06/20 08:05 WBC 15.3 H Selected Entries 04/07/20 04/07/20 04/08/20 15:00 18:00 02:00 Breakfast 25% Lunch 25% Supper 75% Temperature 98.1 F Pulse Rate 89 Blood Pressure 138/74 04/08/20 04/08/20 06:00 10:10 Breakfast Lunch Supper Temperature 98.1 F Pulse Rate 101 H 88 Blood Pressure 138/74 121/72 Tolerating puree/nectar. Consider trial of Dysphagia ground, janae finely minced tuna, egg salad, chicken salad no celery, oatmeal, for improved po acceptance Monitor tolerance Repeat MBS for diet upgrade?
--- NOTE | 2020-04-08 14:51 | PN ---
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, Physician History of Present Illness: Pt seen and examined at bedside. He is awake but gets easily agitated. - Current Medication List Current Medications: Active Medications Acetaminophen (Tylenol -) 1,000 mg PO Q6H PRN PRN Reason: PAIN LEVEL 1-5 Last Admin: 04/07/20 00:57 Dose: 1,000 mg Documented by: Albuterol Sulfate (Ventolin Hfa Inhaler -) 2 puff IH TID PRN PRN Reason: ASTHMA Ascorbic Acid (Vitamin C -) 250 mg PO DAILY [facility] Last Admin: 04/08/20 10:04 Dose: 250 mg Documented by: Aspirin (Asa -) 81 mg PO DAILY [facility] Last Admin: 04/08/20 10:02 Dose: 81 mg Documented by: Atorvastatin Calcium (Lipitor -) 20 mg PO HS [facility] Last Admin: 04/07/20 21:35 Dose: 20 mg Documented by: Famotidine (Pepcid -) 20 mg PO DAILY [facility] Last Admin: 04/08/20 10:02 Dose: 20 mg Documented by: Ferrous Sulfate (Feosol -) 325 mg PO DAILY [facility] Last Admin: 04/08/20 10:02 Dose: 325 mg Documented by: Ampicillin Sodium 2 gm/ Sodium (Chloride) 100 mls @ 200 mls/hr IVPB Q4H-IV [facility]; Protocol Last Admin: 04/08/20 10:02 Dose: 200 mls/hr Documented by: Cefepime HCl 2 gm/ Dextrose 100 mls @ 200 mls/hr IVPB Q8H-IV [facility]; Protocol Last Admin: 04/08/20 10:37 Dose: 200 mls/hr Documented by: Sodium Chloride (Normal Saline -) 1,000 mls @ 42 mls/hr IV ASDIR [facility] Last Admin: 04/07/20 18:26 Dose: 42 mls/hr Documented by: Levothyroxine Sodium (Synthroid -) 100 mcg PO ACBK [facility] Last Admin: 04/08/20 06:06 Dose: Not Given Documented by: Mirtazapine (Remeron -) 15 mg PO [facility] Multivitamins/Minerals/Vitamin C (Tab-A-Vit -) 1 tab PO DAILY [facility] Last Admin: 04/08/20 10:02 Dose: 1 tab Documented by: Senna (Senna -) 2 tab PO HS [facility] Last Admin: 04/07/20 21:35 Dose: 2 tab Documented by: Sodium Zirconium Cyclosilicate (Lokelma) 10 gm PO DAILY [facility] Last Admin: 04/08/20 10:04 Dose: 10 gm Documented by: Tamsulosin HCl (Flomax -) 0.4 mg PO DAILY@0830 [facility] Last Admin: 04/08/20 10:02 Dose: 0.4 mg Documented by: Tramadol HCl (Ultram -) 50 mg PO Q8H PRN PRN Reason: PAIN LEVEL 6-10 Last Admin: 04/07/20 09:54 Dose: 50 mg Documented by: - Objective Vital Signs: Vital Signs Temperature 98.1 F 04/08/20 10:10 Pulse Rate 88 04/08/20 10:10 Respiratory Rate 22 H 04/08/20 10:10 Blood Pressure 121/72 04/08/20 10:10 O2 Sat by Pulse Oximetry (%) 97 04/08/20 10:10 Constitutional: Yes: Anxious Eyes: Yes: Conjunctiva Clear HENT: Yes: Atraumatic Neck: Yes: Supple Cardiovascular: Yes: S1, S2 Respiratory: Yes: CTA Bilaterally Gastrointestinal: Yes: Soft Genitourinary: Yes: Incontinence Musculoskeletal: Yes: Muscle Weakness Edema: No Neurological: Yes: Confusion Labs: CBC, BMP 04/06/20 08:05 04/07/20 07:40 INR, PTT INR 0.95 (0.83-1.09) 03/29/20 22:50 Problem List - Problems (1) DUNG (acute kidney injury) Code(s): N17.9 - ACUTE KIDNEY FAILURE, UNSPECIFIED (2) Hyperkalemia Code(s): E87.5 - HYPERKALEMIA (3) Sepsis Code(s): A41.9 - SEPSIS, UNSPECIFIED ORGANISM Assessment/Plan Current Medications Generic Name Dose Route Start Last Admin Trade Name Freq PRN Reason Stop Dose Admin Acetaminophen 1,000 mg 04/06/20 11:04 04/07/20 00:57 Tylenol - PO 1,000 mg Q6H PRN Administration PAIN LEVEL 1-5 Albuterol Sulfate 2 puff 03/30/20 01:38 Ventolin Hfa Inhaler - IH TID PRN ASTHMA Ascorbic Acid 250 mg 03/30/20 10:00 04/08/20 10:04 Vitamin C - PO 250 mg DAILY [facility] Administration Aspirin 81 mg 03/30/20 10:00 04/08/20 10:02 Asa - PO 81 mg DAILY [facility] Administration Atorvastatin Calcium 20 mg 03/30/20 22:00 04/07/20 21:35 Lipitor - PO 20 mg HS [facility] Administration Famotidine 20 mg 04/06/20 11:15 04/08/20 10:02 Pepcid - PO 20 mg DAILY [facility] Administration Ferrous Sulfate 325 mg 03/30/20 10:00 04/08/20 10:02 Feosol - PO 325 mg DAILY [facility] Administration Ampicillin Sodium 2 gm/ Sodium 100 mls @ 200 mls/hr 04/05/20 18:00 04/08/20 10:02 Chloride IVPB 200 mls/hr Q4H-IV [facility] Administration Protocol Cefepime HCl 2 gm/ Dextrose 100 mls @ 200 mls/hr 04/05/20 14:00 04/08/20 10:37 IVPB 200 mls/hr Q8H-IV [facility] Administration Protocol Sodium Chloride 1,000 mls @ 42 mls/hr 04/07/20 12:30 04/07/20 18:26 Normal Saline - IV 42 mls/hr ASDIR [facility] Administration Levothyroxine Sodium 100 mcg 03/30/20 07:00 04/08/20 06:06 Synthroid - PO Not Given ACBK [facility] Mirtazapine 15 mg 04/08/20 22:00 Remeron - PO HS [facility] Multivitamins/Minerals/Vitamin C 1 tab 04/03/20 10:15 04/08/20 10:02 Tab-A-Vit - PO 1 tab DAILY [facility] Administration Senna 2 tab 04/06/20 22:00 04/07/20 21:35 Senna - PO 2 tab HS [facility] Administration Tamsulosin HCl 0.4 mg 03/30/20 08:30 04/08/20 10:02 Flomax - PO 0.4 mg DAILY@0830 [facility] Administration Tramadol HCl 50 mg 04/06/20 11:03 04/07/20 09:54 Ultram - PO 50 mg Q8H PRN Administration PAIN LEVEL 6-10 Impression 1. DUNG 2. sepsis 3. hyperkalemia 4. hypotension 5. chf 6. bph 7. cad 8. tia 9. gerd 10. hypernatremia Plan - check cmp if he agrees - monitor lytes - encourage po intake - renal function improved - poor po intake
[2020-04-08] MEDS: SODIUM CHLORIDE 1,000 ML IV SCH (19:57)
[2020-04-08] MEDS: ATORVASTATIN CA 20 MG TABLET (FP) PO SCH ×2 (22:12→22:29)
[2020-04-08] MEDS: SENNOSIDES 8.6MG TABLET (FP) PO SCH ×2 (22:12→22:29)
[2020-04-08] MEDS: MIRTAZAPINE 15 MG TABLET (FP) PO SCH ×2 (22:12→22:29)
[2020-04-09] MEDS ORDERED: AMPICILLIN SODIUM 2 GM VIAL ONE ×6 (01:15→22:02)
[2020-04-09] MEDS ORDERED: SODIUM CHLORIDE 100 ML IVPB ONE ×6 (01:15→22:02)
[2020-04-09] MEDS: CEFEPIME 2 GM in DEXTROSE 5%-WATER 100 ML IVPB SCH ×3 (01:18→18:30)
[2020-04-09] MEDS: AMPICILLIN - 2 GM in SODIUM CHLORIDE 100 ML IVPB SCH ×6 (02:08→22:03)
[2020-04-09] MEDS: LEVOTHYROXINE NA 100 MCG TABLET (FP) PO SCH (06:21)
[2020-04-09] MEDS: traMADol HCL 50 MG TABLET PO PRN ×2 (06:29→22:11)
[2020-04-09 08:54] LABS: BASO % 0.7 % (0-2.0); EOS % 1.1 % (0-4.5); HEMATOCRIT 31.5 % (35.4-49); HEMOGLOBIN 10.1 GM/dL (11.7-16.9); LYMPH % 5.8 % (8-40); MCH 25.9 pg (25.7-33.7); MCHC 32.1 g/dl (32.0-35.9); MEAN CELL VOLUME 80.8 fl (80-96); MEAN PLT VOLUME 8.3 fl (7.5-11.1); MONO % 6.9 % (3.8-10.2); NEUT % 85.5 % (42.8-82.8); PLATELET COUNT 337 K/MM3 (134-434); RDW 17.9 % (11.9-15.9); WHITE BLOOD COUNT 13.1 K/mm3 (4.0-10.0)
[2020-04-09 09:26] LABS: ALBUMIN 1.4 g/dl (3.4-5.0); BILIRUBIN,TOTAL 0.4 mg/dL (0.2-1); BLOOD UREA NITROGEN 27.6 mg/dL (7-18); CALCIUM 7.6 mg/dL (8.5-10.1); CREATININE 1.3 mg/dL (0.55-1.3); POTASSIUM 4.6 mmol/L (3.5-5.1); TOT PROT 5.7 g/dl (6.4-8.2)
--- NOTE | 2020-04-09 10:16 | PN ---
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, [employer] - Note 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: Selected Entries 04/07/20 04/07/20 04/08/20 15:00 18:00 02:00 Breakfast 25% Intake, Oral Amount Lunch 25% Supper 75% Temperature 98.1 F Pulse Rate 89 Respiratory 20 Rate O2 Sat by Pulse 96 Oximetry (%) 04/08/20 04/08/20 06:00 10:10 Breakfast Intake, Oral 0 Amount Lunch Supper Temperature Pulse Rate 101 H 88 Respiratory 22 H Rate O2 Sat by Pulse 98 97 Oximetry (%) Laboratory Tests 04/06/20 08:05 WBC 15.3 H Selected Entries 04/07/20 04/07/20 04/08/20 15:00 18:00 02:00 Breakfast 25% Lunch 25% Supper 75% Temperature 98.1 F Pulse Rate 89 Blood Pressure 138/74 04/08/20 04/08/20 06:00 10:10 Breakfast Lunch Supper Temperature 98.1 F Pulse Rate 101 H 88 Blood Pressure 138/74 121/72 Selected Entries 04/08/20 04/08/20 04/09/20 15:00 19:51 06:00 Breakfast 25% Lunch 25% Supper 50% Pulse Rate 94 H Blood Pressure 136/88 Tolerating puree/nectar. Reviewed with RD-Dysphagia ground, edded finely minced tuna, chicken salad no celery, for improved po acceptance Monitor tolerance Repeat MBS next week for diet upgrade?
[2020-04-09] MEDS ORDERED: MAGNESIUM HYDROX 2400MG/30ML ORAL SUSPENSION 30 ML CUP PO PRN (11:09)
[2020-04-09] MEDS ORDERED: MAGNESIUM HYDROX 2400MG/30ML ORAL SUSPENSION 30 ML CUP PO ONE (11:09)
--- NOTE | 2020-04-09 11:11 | PN ---
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, Physician Chief Complaint: Sepsis DUNG UTI Bacteremia Dysphagia History of Present Illness: Mr. Solares is an 79 year old male BIBA from [facility] for hypotension (SBP in the 70's). He has a past medical history of hypertension, CHF, aortic stenosis s/p bioprosthetic valve replacement, CAD, prior stent, GERD,TIA,BPH and indwelling iyer. NAD c/o fatigue lethargic Denies any pain or SOB Afebrile Seen by Psychiatry and evaluated by psychotherapis Started on mirtazapine 15 mg po HS- which pt refused Had Large BM yesterday - Current Medication List Current Medications: Active Medications Acetaminophen (Tylenol -) 1,000 mg PO Q6H PRN PRN Reason: PAIN LEVEL 1-5 Last Admin: 04/07/20 00:57 Dose: 1,000 mg Documented by: Albuterol Sulfate (Ventolin Hfa Inhaler -) 2 puff IH TID PRN PRN Reason: ASTHMA Ascorbic Acid (Vitamin C -) 250 mg PO DAILY [facility] Last Admin: 04/08/20 10:04 Dose: Not Given Documented by: Aspirin (Asa -) 81 mg PO DAILY [facility] Last Admin: 04/08/20 10:02 Dose: Not Given Documented by: Atorvastatin Calcium (Lipitor -) 20 mg PO HS [facility] Last Admin: 04/08/20 22:29 Dose: Not Given Documented by: Famotidine (Pepcid -) 20 mg PO DAILY [facility] Last Admin: 04/08/20 10:02 Dose: Not Given Documented by: Ferrous Sulfate (Feosol -) 325 mg PO DAILY [facility] Last Admin: 04/08/20 10:02 Dose: Not Given Documented by: Ampicillin Sodium 2 gm/ Sodium (Chloride) 100 mls @ 200 mls/hr IVPB Q4H-IV [facility]; Protocol Last Admin: 04/09/20 11:00 Dose: 200 mls/hr Documented by: Cefepime HCl 2 gm/ Dextrose 100 mls @ 200 mls/hr IVPB Q8H-IV [facility]; Protocol Last Admin: 04/09/20 11:00 Dose: 200 mls/hr Documented by: Sodium Chloride (Normal Saline -) 1,000 mls @ 42 mls/hr IV ASDIR [facility] Last Admin: 04/08/20 19:57 Dose: 42 mls/hr Documented by: Levothyroxine Sodium (Synthroid -) 100 mcg PO ACBK [facility] Last Admin: 04/09/20 06:21 Dose: 100 mcg Documented by: Mirtazapine (Remeron -) 15 mg PO [facility] Last Admin: 04/08/20 22:29 Dose: Not Given Documented by: Multivitamins/Minerals/Vitamin C (Tab-A-Vit -) 1 tab PO DAILY [facility] Last Admin: 04/08/20 10:02 Dose: Not Given Documented by: Senna (Senna -) 2 tab PO [facility] Last Admin: 04/08/20 22:29 Dose: Not Given Documented by: Tamsulosin HCl (Flomax -) 0.4 mg PO DAILY@0830 [facility] Last Admin: 04/08/20 10:02 Dose: Not Given Documented by: Tramadol HCl (Ultram -) 50 mg PO Q8H PRN PRN Reason: PAIN LEVEL 6-10 Last Admin: 04/09/20 06:29 Dose: 50 mg Documented by: - Objective Vital Signs: Vital Signs Temperature 98 F 04/08/20 22:18 Pulse Rate 94 H 04/09/20 06:00 Respiratory Rate 108 H 04/09/20 06:00 Blood Pressure 136/88 04/09/20 06:00 O2 Sat by Pulse Oximetry (%) 98 04/09/20 06:00 Constitutional: Yes: No Distress, Calm, Thin Cardiovascular: Yes: Regular Rate and Rhythm Respiratory: Yes: Regular, Diminished Gastrointestinal: Yes: Normal Bowel Sounds, Soft Genitourinary: Yes: Iyer Present Musculoskeletal: Yes: Muscle Weakness Extremities: Yes: WNL Edema: No Peripheral Pulses WNL: Yes Neurological: Yes: Alert, Oriented Psychiatric: Yes: Alert, Oriented Labs: CBC, BMP 04/09/20 07:35 04/09/20 07:25 INR, PTT INR 0.95 (0.83-1.09) 03/29/20 22:50 Problem List - Problems (1) Chronic retention of urine Assessment/Plan: -Continue iyer cath Problems reviewed: Yes Code(s): R33.9 - RETENTION OF URINE, UNSPECIFIED (2) DUNG (acute kidney injury) Assessment/Plan: -Nephrology consult -Renal U/S -UC possible pseudomonas -Cr trending down -Continue IVF Problems reviewed: Yes Code(s): N17.9 - ACUTE KIDNEY FAILURE, UNSPECIFIED (3) Hyperkalemia Assessment/Plan: -resolved Problems reviewed: Yes Code(s): E87.5 - HYPERKALEMIA (4) Sepsis Assessment/Plan: -ID consult -IV Ampicillin -No Lactic acidosis -Afebrile -Cultures: Microbiology 04/01/20 09:37 Blood - Peripheral Venous Blood Culture - Final NO GROWTH AFTER 5 DAYS INCUBATION 03/31/20 17:15 Blood - Peripheral Venous Blood Culture - Final NO GROWTH AFTER 5 DAYS INCUBATION 03/31/20 17:30 Blood - Peripheral Venous Blood Culture - Final NO GROWTH AFTER 5 DAYS INCUBATION 03/31/20 22:25 Urine - Urine Iyer Urine Culture - Final Pseudomonas Aeruginosa 03/29/20 22:50 Blood - Peripheral Venous Blood Culture - Final Group D Strep Or Entero Coccus Pseudomonas Species 03/29/20 22:50 Blood - Peripheral Venous Blood Culture - Final Enterococcus Faecalis Pseudomonas Aeruginosa 03/30/20 00:27 Urine - Urine - Catheterized Urine Culture - Final Contaminated: Please Repeat Problems reviewed: Yes Code(s): A41.9 - SEPSIS, UNSPECIFIED ORGANISM (5) Failure to thrive Assessment/Plan: -Add multivitamin -Ensure pudding + Magic cup -Seen by Speech pathology -MBS- Mod to severe stasis with puree. Aspiration on thin liquid -Dysphagia puree thinned out with nectar thick liquids Problems reviewed: Yes Code(s): [id number] - (6) Malnutrition Assessment/Plan: -Multivitamin -Mirtazapine Problems reviewed: Yes Code(s): E46 - UNSPECIFIED PROTEIN-CALORIE MALNUTRITION Qualifiers: Protein-calorie malnutrition severity: severe (7) Bacteremia Assessment/Plan: -Cultures: Microbiology 04/01/20 09:37 Blood - Peripheral Venous Blood Culture - Preliminary NO GROWTH OBTAINED AFTER 48 HOURS, INCUBATION TO CONTINUE FOR 3 DAYS. 03/31/20 17:30 Blood - Peripheral Venous Blood Culture - Preliminary NO GROWTH OBTAINED AFTER 48 HOURS, INCUBATION TO CONTINUE FOR 3 DAYS. 03/31/20 17:15 Blood - Peripheral Venous Blood Culture - Preliminary NO GROWTH OBTAINED AFTER 48 HOURS, INCUBATION TO CONTINUE FOR 3 DAYS. 03/31/20 22:25 Urine - Urine Iyer Urine Culture - Preliminary Presumptive Ps Aeruginosa 03/29/20 22:50 Blood - Peripheral Venous Blood Culture - Final Group D Strep Or Entero Coccus Pseudomonas Species 03/29/20 22:50 Blood - Peripheral Venous Blood Culture - Final Enterococcus Faecalis Pseudomonas Aeruginosa 03/30/20 00:27 Urine - Urine - Catheterized Urine Culture - Final Contaminated: Please Repeat -rest as above Problems reviewed: Yes Code(s): R78.81 - BACTEREMIA Assessment/Plan See problem list
--- NOTE | 2020-04-09 13:25 | PN ---
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, Physician History of Present Illness: Pt seen and examined at bedside. He appears comfortable. - Current Medication List Current Medications: Active Medications Acetaminophen (Tylenol -) 1,000 mg PO Q6H PRN PRN Reason: PAIN LEVEL 1-5 Last Admin: 04/07/20 00:57 Dose: 1,000 mg Documented by: Albuterol Sulfate (Ventolin Hfa Inhaler -) 2 puff IH TID PRN PRN Reason: ASTHMA Ascorbic Acid (Vitamin C -) 250 mg PO DAILY [facility] Last Admin: 04/08/20 10:04 Dose: Not Given Documented by: Aspirin (Asa -) 81 mg PO DAILY [facility] Last Admin: 04/08/20 10:02 Dose: Not Given Documented by: Atorvastatin Calcium (Lipitor -) 20 mg PO [facility] Last Admin: 04/08/20 22:29 Dose: Not Given Documented by: Famotidine (Pepcid -) 20 mg PO DAILY [facility] Last Admin: 04/08/20 10:02 Dose: Not Given Documented by: Ferrous Sulfate (Feosol -) 325 mg PO DAILY [facility] Last Admin: 04/08/20 10:02 Dose: Not Given Documented by: Ampicillin Sodium 2 gm/ Sodium (Chloride) 100 mls @ 200 mls/hr IVPB Q4H-IV [facility]; Protocol Last Admin: 04/09/20 11:00 Dose: 200 mls/hr Documented by: Cefepime HCl 2 gm/ Dextrose 100 mls @ 200 mls/hr IVPB Q8H-IV [facility]; Protocol Last Admin: 04/09/20 11:00 Dose: 200 mls/hr Documented by: Sodium Chloride (Normal Saline -) 1,000 mls @ 42 mls/hr IV ASDIR [facility] Last Admin: 04/08/20 19:57 Dose: 42 mls/hr Documented by: Levothyroxine Sodium (Synthroid -) 100 mcg PO ACBK [facility] Last Admin: 04/09/20 06:21 Dose: 100 mcg Documented by: Magnesium Hydroxide (Milk Of Magnesia -) 30 ml PO DAILY PRN PRN Reason: CONSTIPATION Mirtazapine (Remeron -) 15 mg PO HS [facility] Last Admin: 04/08/20 22:29 Dose: Not Given Documented by: Multivitamins/Minerals/Vitamin C (Tab-A-Vit -) 1 tab PO DAILY [facility] Last Admin: 04/08/20 10:02 Dose: Not Given Documented by: Senna (Senna -) 2 tab PO HS [facility] Last Admin: 04/08/20 22:29 Dose: Not Given Documented by: Tamsulosin HCl (Flomax -) 0.4 mg PO DAILY@0830 [facility] Last Admin: 04/08/20 10:02 Dose: Not Given Documented by: Tramadol HCl (Ultram -) 50 mg PO Q8H PRN PRN Reason: PAIN LEVEL 6-10 Last Admin: 04/09/20 06:29 Dose: 50 mg Documented by: - Objective Vital Signs: Vital Signs Temperature 97.7 F 04/09/20 11:34 Pulse Rate 90 04/09/20 11:34 Respiratory Rate 90 H 04/09/20 11:34 Blood Pressure 117/78 04/09/20 11:34 O2 Sat by Pulse Oximetry (%) 96 04/09/20 11:34 Constitutional: Yes: Calm Eyes: Yes: Conjunctiva Clear HENT: Yes: Atraumatic Neck: Yes: Supple Cardiovascular: Yes: S1, S2 Respiratory: Yes: CTA Bilaterally Gastrointestinal: Yes: Normal Bowel Sounds, Soft Genitourinary: Yes: Incontinence Musculoskeletal: Yes: WNL Edema: No Neurological: Yes: Oriented Labs: CBC, BMP 04/09/20 07:35 04/09/20 07:25 INR, PTT INR 0.95 (0.83-1.09) 03/29/20 22:50 Problem List - Problems (1) DUNG (acute kidney injury) Code(s): N17.9 - ACUTE KIDNEY FAILURE, UNSPECIFIED (2) Hyperkalemia Code(s): E87.5 - HYPERKALEMIA (3) Sepsis Code(s): A41.9 - SEPSIS, UNSPECIFIED ORGANISM Assessment/Plan Current Medications Generic Name Dose Route Start Last Admin Trade Name Freq PRN Reason Stop Dose Admin Acetaminophen 1,000 mg 04/06/20 11:04 04/07/20 00:57 Tylenol - PO 1,000 mg Q6H PRN Administration PAIN LEVEL 1-5 Albuterol Sulfate 2 puff 03/30/20 01:38 Ventolin Hfa Inhaler - IH TID PRN ASTHMA Ascorbic Acid 250 mg 03/30/20 10:00 04/08/20 10:04 Vitamin C - PO Not Given DAILY [facility] Aspirin 81 mg 03/30/20 10:00 04/08/20 10:02 Asa - PO Not Given DAILY [facility] Atorvastatin Calcium 20 mg 03/30/20 22:00 04/08/20 22:29 Lipitor - PO Not Given HS [facility] Famotidine 20 mg 04/06/20 11:15 04/08/20 10:02 Pepcid - PO Not Given DAILY [facility] Ferrous Sulfate 325 mg 03/30/20 10:00 04/08/20 10:02 Feosol - PO Not Given DAILY [facility] Ampicillin Sodium 2 gm/ Sodium 100 mls @ 200 mls/hr 04/05/20 18:00 04/09/20 11:00 Chloride IVPB 200 mls/hr Q4H-IV [facility] Administration Protocol Cefepime HCl 2 gm/ Dextrose 100 mls @ 200 mls/hr 04/05/20 14:00 04/09/20 11:00 IVPB 200 mls/hr Q8H-IV [facility] Administration Protocol Sodium Chloride 1,000 mls @ 42 mls/hr 04/07/20 12:30 04/08/20 19:57 Normal Saline - IV 42 mls/hr [facility] Administration Levothyroxine Sodium 100 mcg 03/30/20 07:00 04/09/20 06:21 Synthroid - PO 100 mcg ACBK [facility] Administration Magnesium Hydroxide 30 ml 04/09/20 11:09 Milk Of Magnesia - PO DAILY PRN CONSTIPATION Mirtazapine 15 mg 04/08/20 22:00 04/08/20 22:29 Remeron - PO Not Given HS [facility] Multivitamins/Minerals/Vitamin C 1 tab 04/03/20 10:15 04/08/20 10:02 Tab-A-Vit - PO Not Given DAILY [facility] Senna 2 tab 04/06/20 22:00 04/08/20 22:29 Senna - PO Not Given HS [facility] Tamsulosin HCl 0.4 mg 03/30/20 08:30 04/08/20 10:02 Flomax - PO Not Given DAILY@0830 [facility] Tramadol HCl 50 mg 04/06/20 11:03 04/09/20 06:29 Ultram - PO 50 mg Q8H PRN Administration PAIN LEVEL 6-10 Impression 1. DUNG 2. sepsis 3. hyperkalemia 4. hypotension 5. chf 6. bph 7. cad 8. tia 9. gerd 10. hypernatremia Plan - labs reviewed - potassium improved - monitor lytes - stable off of fluis for now - encourage po intake
--- NOTE | 2020-04-09 16:41 | PN ---
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 (short form) - Note 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: no complaints Vital Signs Period Temp Pulse Resp BP Sys/Pantoja Pulse Ox Last 24 Hr 97.8 F-98.5 F 75-104 20-20 100-140/56-95 86-98 cor-rrr llungs decreased bs at bases abd soft,mild suprpubic discomfort ext no edema CBC, BMP 04/06/20 08:05 04/07/20 07:40 Microbiology 04/01/20 09:37 Blood - Peripheral Venous Blood Culture - Final NO GROWTH AFTER 5 DAYS INCUBATION 03/31/20 17:15 Blood - Peripheral Venous Blood Culture - Final NO GROWTH AFTER 5 DAYS INCUBATION 03/31/20 17:30 Blood - Peripheral Venous Blood Culture - Final NO GROWTH AFTER 5 DAYS INCUBATION 03/31/20 22:25 Urine - Urine Iyer Urine Culture - Final Pseudomonas Aeruginosa 03/29/20 22:50 Blood - Peripheral Venous Blood Culture - Final Group D Strep Or Entero Coccus Pseudomonas Species 03/29/20 22:50 Blood - Peripheral Venous Blood Culture - Final Enterococcus Faecalis Pseudomonas Aeruginosa 03/30/20 00:27 Urine - Urine - Catheterized Urine Culture - Final Contaminated: Please Repeat imp/reccd pseudomona/enterococcal bacteremia secondary to UTI- contineu cefepime/ampicillin BPH with chronic iyer with bioprosthetic aortic valve DNR/DNI fecal impaction-laxatives left hydronephrosis clinically improved continue amp/cefepime day #11 antibiotics
[2020-04-09] MEDS: FAMOTIDINE 20 MG TABLET PO SCH (16:51)
[2020-04-09] MEDS: SODIUM CHLORIDE 1,000 ML IV SCH ×2 (16:51→20:03)
[2020-04-09] MEDS: ASPIRIN 81 MG CHEWABLE TABLETS PO SCH (16:51)
[2020-04-09] MEDS: MULTIVITAMINS (DAILY MVI) TABLET (FP) PO SCH (16:52)
[2020-04-09] MEDS: FERROUS SO4 325 MG TABLET (FP) PO SCH (16:52)
[2020-04-09] MEDS: ASCORBIC ACID 250 MG TABLET (FP) PO SCH (16:53)
[2020-04-09] MEDS: TAMSULOSIN HCL 0.4 MG CAP PO SCH (17:30)
[2020-04-09] MEDS ORDERED: PT OWN MED DRAWER 7, Y5N ONE (20:57)
[2020-04-09] MEDS: ATORVASTATIN CA 20 MG TABLET (FP) PO SCH (22:11)
[2020-04-09] MEDS: SENNOSIDES 8.6MG TABLET (FP) PO SCH (22:11)
[2020-04-09] MEDS: MIRTAZAPINE 15 MG TABLET (FP) PO SCH (22:11)
[2020-04-10] MEDS: CEFEPIME 2 GM in DEXTROSE 5%-WATER 100 ML IVPB SCH ×3 (01:01→17:17)
[2020-04-10] MEDS ORDERED: AMPICILLIN SODIUM 2 GM VIAL ONE ×5 (01:24→21:10)
[2020-04-10] MEDS ORDERED: SODIUM CHLORIDE 100 ML IVPB ONE ×5 (01:25→21:10)
[2020-04-10] MEDS: AMPICILLIN - 2 GM in SODIUM CHLORIDE 100 ML IVPB SCH ×6 (02:13→21:50)
[2020-04-10] MEDS ORDERED: MAGNESIUM SULF 50% (8.12 MEQ/2 ML-1 GM VIAL) IVPB ONE (04:05)
[2020-04-10] MEDS ORDERED: MORPHINE SULFATE 2 MG/ML VIAL IVPUSH ONE (04:06)
[2020-04-10 04:37] LABS: ALBUMIN 1.6 g/dl (3.4-5.0); BILIRUBIN,TOTAL 0.4 mg/dL (0.2-1); BLOOD UREA NITROGEN 22.6 mg/dL (7-18); CALCIUM 7.5 mg/dL (8.5-10.1); CREATININE 1.4 mg/dL (0.55-1.3); POTASSIUM 4.9 mmol/L (3.5-5.1); TOT PROT 6.3 g/dl (6.4-8.2)
[2020-04-10] MEDS ORDERED: ASPIRIN 325 MG TABLET PO ONE ×2 (05:12→05:52)
[2020-04-10] MEDS ORDERED: HEPARIN NA (PORCINE) 5,000 UNITS/ML 1ML VIAL IVPUSH PRN ×2 (05:17)
--- NOTE | 2020-04-10 05:20 | PN ---
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 (short form) - Note 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: call from RN that pt having Chest pain. EKG ordered and reviewed. QTc prolongation noted. no obvious ST changes compared to prior non diaphoretic. NAD tachycardic. + S1S2 no mrg. CTA b/l . abdomen NTND. no LE edema 2g Mg ordered STAT trop, cmp, cbc trop resulted 3.27 transfer to tele call out to Dr. Arias will start heparin drip
[2020-04-10] MEDS ORDERED: HEPARIN INFUSION - 25,000 UNITS/500 ML INFUS.BAG IVPB SCH (05:30)
[2020-04-10] MEDS: SODIUM CHLORIDE 1,000 ML IV SCH (05:45)
[2020-04-10] MEDS ORDERED: traMADol HCL 50 MG TABLET PO PRN (05:52)
[2020-04-10] MEDS ORDERED: ALBUTEROL SO4 HFA INHALER IH PRN (05:52)
[2020-04-10] MEDS ORDERED: MAGNESIUM HYDROX 2400MG/30ML ORAL SUSPENSION 30 ML CUP PO PRN (05:52)
[2020-04-10] MEDS ORDERED: MORPHINE SULFATE 2 MG/ML VIAL IVPUSH PRN (05:53)
[2020-04-10] MEDS: LEVOTHYROXINE NA 100 MCG TABLET (FP) PO SCH (06:23)
[2020-04-10] MEDS ORDERED: PT OWN MED DRAWER 7, Y5N ONE ×3 (10:51→16:15)
[2020-04-10] MEDS: TAMSULOSIN HCL 0.4 MG CAP PO SCH (11:10)
[2020-04-10] MEDS: ASPIRIN 81 MG CHEWABLE TABLETS PO SCH (11:10)
[2020-04-10] MEDS: FERROUS SO4 325 MG TABLET (FP) PO SCH (11:10)
[2020-04-10] MEDS: FAMOTIDINE 20 MG TABLET PO SCH (11:11)
[2020-04-10] MEDS: ASCORBIC ACID 250 MG TABLET (FP) PO SCH (11:11)
[2020-04-10] MEDS: MULTIVITAMINS (DAILY MVI) TABLET (FP) PO SCH (11:11)
--- NOTE | 2020-04-10 11:28 | CON.CARD ---
Consult Consult Specialty:: Cardiology Referred by:: Les Reason for Consultation:: elevated troponin - History of Present Illness Chief Complaint: sepsis History of Present Illness: 79 year old male with a history of HTN, CHF, aortic stenosis, CAD, GERD, TIA, BPH on indwelling iyer and hypothyroidism, admitted from [facility] for hypotension, elevated wbc, in acute renal failure. He was started on IVF to which he responded and IV antibiotics, found to have UTI and grp D strep and NLFGNB bacteremia. Noted today with elevated troponin but no chest pain, sob. ECG without changes. - History Source History Provided By: Medical Record - Past Medical History Cardio/Vascular: Yes: CHF, HTN - Smoking History Smoking history: Never smoked Have you smoked in the past 12 months: No - Social History Usual Living Arrangement: [facility] Home Medications - Allergies Allergies/Adverse Reactions: Allergies Allergy/AdvReac Type Severity Reaction Status Date / Time No Known Allergies Allergy Verified 03/29/20 22:00 - Home Medications Home Medications: Ambulatory Orders Atorvastatin Ca [Lipitor] 20 mg PO HS 02/22/20 Ergocalciferol (Vitamin D2) [Vitamin D2] 50,000 unit PO WEEKLY 02/22/20 Ferrous Sulfate 325 mg PO DAILY 02/22/20 Levothyroxine [Synthroid -] 100 mcg PO DAILY 02/22/20 Tamsulosin HCl 0.4 mg PO DAILY 02/22/20 Ascorbic Acid [Vitamin C -] 250 mg PO DAILY tablet 02/26/20 Aspirin [ASA -] 81 mg PO DAILY tab.chew 02/26/20 Carvedilol [Coreg -] 3.125 mg PO BID tablet 02/26/20 Docusate Sodium [Colace -] 100 mg PO BID capsule 02/26/20 Furosemide [Lasix -] 40 mg PO DAILY tablet 02/26/20 Pantoprazole Sodium [Protonix -] 20 mg PO DAILY tablet.ec 02/26/20 Acetaminophen 650 mg PO QID PRN 03/29/20 Albuterol Sulfate [Proventil Hfa] 6.7 gm IH TID PRN 03/29/20 Mag Hydrox/Aluminum Hyd/Simeth [Maalox Advanced Suspension] 30 ml PO BID PRN 03/29/20 Melatonin 3 mg PO HS 03/29/20 Family Medical History Family History: Denies Vital Signs: Vital Signs Temperature 98.8 F 04/10/20 09:00 Pulse Rate 82 09/19/20 09:00 Respiratory Rate 19 04/10/20 09:00 Blood Pressure 108/68 04/10/20 09:00 O2 Sat by Pulse Oximetry (%) 100 04/10/20 09:00 - Other Data Labs, Other Data: CBC, BMP 04/09/20 07:35 04/10/20 04:00 INR, PTT INR 0.95 (0.83-1.09) 03/29/20 22:50 Troponin, BNP 04/10/20 04:00 Troponin I 3.27 H* Troponin, BNP 04/10/20 04:00 Troponin I 3.27 H* Assessment/Plan 79 year old male with a history of HTN, CHF, aortic stenosis, CAD, GERD, TIA, BPH on indwelling iyer and hypothyroidism, admitted from [facility] for hypotension, elevated wbc, in acute renal failure. He was started on IVF to which he responded and IV antibiotics, found to have UTI and grp D strep and NLFGNB bacteremia. Noted today with elevated troponin but no chest pain, sob. ECG without changes.
--- NOTE | 2020-04-10 11:30 | PN ---
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 (short form) - Note 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: called at 5:14 am about elevated troponin. The patient has been seen by Dr Lozano and his group as recently as February. Will change consult order.
--- NOTE | 2020-04-10 11:34 | PN ---
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, Physician History of Present Illness: Sepsis DUNG UTI Bacteremia Dysphagia History of Present Illness: Mr. Solares is an 79 year old male BIBA from [facility] for hypotension (SBP in the 70's). He has a past medical history of hypertension, CHF, aortic stenosis s/p bioprosthetic valve replacement, CAD, prior stent, GERD,TIA,BPH and indwelling iyer. NAD c/o fatigue lethargic Denies any pain or SOB Afebrile Seen by Psychiatry and evaluated by psychotherapis Started on mirtazapine 15 mg po HS- which pt refused chest pain last night transferred to telemetry deniea pain at this time - Current Medication List Current Medications: Active Medications Acetaminophen (Tylenol -) 1,000 mg PO Q6H PRN PRN Reason: PAIN LEVEL 1-5 Albuterol Sulfate (Ventolin Hfa Inhaler -) 2 puff IH TID PRN PRN Reason: ASTHMA Ascorbic Acid (Vitamin C -) 250 mg PO DAILY [facility] Last Admin: 04/10/20 11:11 Dose: 250 mg Documented by: Aspirin (Asa -) 81 mg PO DAILY [facility] Last Admin: 04/10/20 11:10 Dose: 81 mg Documented by: Famotidine (Pepcid -) 20 mg PO DAILY [facility] Last Admin: 04/10/20 11:11 Dose: 20 mg Documented by: Ferrous Sulfate (Feosol -) 325 mg PO DAILY [facility] Last Admin: 04/10/20 11:10 Dose: 325 mg Documented by: Ampicillin Sodium 2 gm/ Sodium (Chloride) 100 mls @ 200 mls/hr IVPB Q4H-IV [facility]; Protocol Last Admin: 04/10/20 11:10 Dose: 200 mls/hr Documented by: Cefepime HCl 2 gm/ Dextrose 100 mls @ 200 mls/hr IVPB Q8H-IV [facility]; Protocol Last Admin: 04/10/20 11:10 Dose: 200 mls/hr Documented by: Sodium Chloride (Normal Saline -) 1,000 mls @ 42 mls/hr IV ASDIR [facility] Last Admin: 04/10/20 05:45 Dose: 42 mls/hr Documented by: Levothyroxine Sodium (Synthroid -) 100 mcg PO ACBK [facility] Last Admin: 04/10/20 06:23 Dose: 100 mcg Documented by: Magnesium Hydroxide (Milk Of Magnesia -) 30 ml PO DAILY PRN PRN Reason: CONSTIPATION Mirtazapine (Remeron -) 15 mg PO HS [facility] Morphine Sulfate (Morphine Sulfate) 1 mg IVPUSH Q4H PRN PRN Reason: PAIN LEVEL 7 - 10 Multivitamins/Minerals/Vitamin C (Tab-A-Vit -) 1 tab PO DAILY [facility] Last Admin: 04/10/20 11:11 Dose: 1 tab Documented by: Senna (Senna -) 2 tab PO HS [facility] Tamsulosin HCl (Flomax -) 0.4 mg PO DAILY@0830 [facility] Last Admin: 04/10/20 11:10 Dose: 0.4 mg Documented by: Tramadol HCl (Ultram -) 50 mg PO Q8H PRN PRN Reason: PAIN LEVEL 6-10 - Objective Vital Signs: Vital Signs Temperature 98.8 F 04/10/20 09:00 Pulse Rate 82 04/10/20 09:00 Respiratory Rate 19 04/10/20 09:00 Blood Pressure 108/68 04/10/20 09:00 O2 Sat by Pulse Oximetry (%) 100 04/10/20 09:00 Cardiovascular: Yes: S1, S2 Respiratory: Yes: Regular, CTA Bilaterally Gastrointestinal: Yes: Normal Bowel Sounds, Soft Edema: No Labs: CBC, BMP 04/10/20 04:00 INR, PTT INR 0.95 (0.83-1.09) 03/29/20 22:50 Problem List - Problems (1) Dysphagia Code(s): R13.10 - DYSPHAGIA, UNSPECIFIED (2) Weakness Code(s): R53.1 - WEAKNESS (3) DUNG (acute kidney injury) Code(s): N17.9 - ACUTE KIDNEY FAILURE, UNSPECIFIED (4) Chronic retention of urine Code(s): R33.9 - RETENTION OF URINE, UNSPECIFIED (5) Sepsis Code(s): A41.9 - SEPSIS, UNSPECIFIED ORGANISM Assessment/Plan - Problems (1) Chronic retention of urine Assessment/Plan: -Continue iyer cath Problems reviewed: Yes Code(s): R33.9 - RETENTION OF URINE, UNSPECIFIED (2) DUNG (acute kidney injury) Assessment/Plan: -Nephrology consult -Renal U/S -UC possible pseudomonas -Cr trending down -Continue IVF Problems reviewed: Yes Code(s): N17.9 - ACUTE KIDNEY FAILURE, UNSPECIFIED (3) Chest Pain with rise in troponin Assessment/Plan: -cardio -tele Orders 04/10/20 10:00 Aspirin [ASA -] 81 mg PO DAILY Laboratory Tests 04/10/20 04/10/20 04:00 10:45 Troponin I 3.27 H* 2.18 H* add lipitor (4) Sepsis Assessment/Plan: -ID consult -IV Ampicillin -No Lactic acidosis -Afebrile -Cultures: Microbiology 04/01/20 09:37 Blood - Peripheral Venous Blood Culture - Final NO GROWTH AFTER 5 DAYS INCUBATION 03/31/20 17:15 Blood - Peripheral Venous Blood Culture - Final NO GROWTH AFTER 5 DAYS INCUBATION 03/31/20 17:30 Blood - Peripheral Venous Blood Culture - Final NO GROWTH AFTER 5 DAYS INCUBATION 03/31/20 22:25 Urine - Urine Iyer Urine Culture - Final Pseudomonas Aeruginosa 03/29/20 22:50 Blood - Peripheral Venous Blood Culture - Final Group D Strep Or Entero Coccus Pseudomonas Species 03/29/20 22:50 Blood - Peripheral Venous Blood Culture - Final Enterococcus Faecalis Pseudomonas Aeruginosa 03/30/20 00:27 Urine - Urine - Catheterized Urine Culture - Final Contaminated: Please Repeat Problems reviewed: Yes Code(s): A41.9 - SEPSIS, UNSPECIFIED ORGANISM (5) Failure to thrive Assessment/Plan: -Add multivitamin -Ensure pudding + Magic cup -Seen by Speech pathology -MBS- Mod to severe stasis with puree. Aspiration on thin liquid -Dysphagia puree thinned out with nectar thick liquids Problems reviewed: Yes Code(s): [id number] - (6) Malnutrition Assessment/Plan: -Multivitamin -Mirtazapine Problems reviewed: Yes Code(s): E46 - UNSPECIFIED PROTEIN-CALORIE MALNUTRITION Qualifiers: Protein-calorie malnutrition severity: severe (7) Bacteremia Assessment/Plan: -Cultures: Microbiology 04/01/20 09:37 Blood - Peripheral Venous Blood Culture - Preliminary NO GROWTH OBTAINED AFTER 48 HOURS, INCUBATION TO CONTINUE FOR 3 DAYS. 03/31/20 17:30 Blood - Peripheral Venous Blood Culture - Preliminary NO GROWTH OBTAINED AFTER 48 HOURS, INCUBATION TO CONTINUE FOR 3 DAYS. 03/31/20 17:15 Blood - Peripheral Venous Blood Culture - Preliminary NO GROWTH OBTAINED AFTER 48 HOURS, INCUBATION TO C ONTINUE FOR 3 DAYS. 03/31/20 22:25 Urine - Urine Iyer Urine Culture - Preliminary Presumptive Ps Aeruginosa 03/29/20 22:50 Blood - Peripheral Venous Blood Culture - Final Group D Strep Or Entero Coccus Pseudomonas Species 03/29/20 22:50 Blood - Peripheral Venous Blood Culture - Final Enterococcus Faecalis Pseudomonas Aeruginosa 03/30/20 00:27 Urine - Urine - Catheterized Urine Culture - Final Contaminated: Please Repeat -rest as above Problems reviewed: Yes Code(s): R78.81 - BACTEREMIA
[2020-04-10 11:35] LABS: BASO % 0.9 % (0-2.0); EOS % 1.1 % (0-4.5); HEMOGLOBIN 10.1 GM/dL (11.7-16.9); LYMPH % 8.1 % (8-40); MCH 26.8 pg (25.7-33.7); MCHC 32.6 g/dl (32.0-35.9); MEAN CELL VOLUME 82.4 fl (80-96); MEAN PLT VOLUME 8.2 fl (7.5-11.1); MONO % 7.5 % (3.8-10.2); NEUT % 82.4 % (42.8-82.8); PLATELET COUNT 313 K/MM3 (134-434); RBC 3.75 M/mm3 (4.00-5.60); WHITE BLOOD COUNT 10.7 K/mm3 (4.0-10.0)
[2020-04-10 12:08] LABS: ALBUMIN 1.4 g/dl (3.4-5.0); BILIRUBIN,TOTAL 1.1 mg/dL (0.2-1); BLOOD UREA NITROGEN 23.4 mg/dL (7-18); CALCIUM 7.2 mg/dL (8.5-10.1); CREATININE 1.4 mg/dL (0.55-1.3); TOT PROT 5.5 g/dl (6.4-8.2)
[2020-04-10] MEDS ORDERED: ATORVASTATIN CA 40 MG TABLET (FP) PO ONE (14:14)
[2020-04-10] MEDS: NITROGLYCERIN 2% OINTMENT - 1GM PACKET TD SCH (17:17)
[2020-04-10] MEDS: MIRTAZAPINE 15 MG TABLET (FP) PO SCH (21:51)
[2020-04-10] MEDS: SENNOSIDES 8.6MG TABLET (FP) PO SCH (21:51)
[2020-04-10] MEDS: ATORVASTATIN CA 40 MG TABLET (FP) PO SCH (21:51)
[2020-04-10] MEDS ORDERED: ATORVASTATIN CA 40 MG TABLET (FP) PO SCH (22:00)
[2020-04-11] MEDS: NITROGLYCERIN 2% OINTMENT - 1GM PACKET TD SCH ×4 (00:38→18:00)
[2020-04-11] MEDS: CEFEPIME 2 GM in DEXTROSE 5%-WATER 100 ML IVPB SCH ×3 (01:03→18:27)
[2020-04-11] MEDS: AMPICILLIN - 2 GM in SODIUM CHLORIDE 100 ML IVPB SCH ×6 (01:05→22:45)
[2020-04-11] MEDS ORDERED: AMPICILLIN SODIUM 2 GM VIAL ONE ×4 (06:15→22:57)
[2020-04-11] MEDS ORDERED: SODIUM CHLORIDE 100 ML IVPB ONE ×4 (06:15→22:58)
[2020-04-11] MEDS: SODIUM CHLORIDE 1,000 ML IV SCH (06:17)
[2020-04-11] MEDS: LEVOTHYROXINE NA 100 MCG TABLET (FP) PO SCH (06:40)
[2020-04-11 06:52] LABS: BASO % 0.9 % (0-2.0); EOS % 1.4 % (0-4.5); HEMATOCRIT 31.7 % (35.4-49); HEMOGLOBIN 10.1 GM/dL (11.7-16.9); LYMPH % 6.3 % (8-40); MCHC 31.9 g/dl (32.0-35.9); MEAN CELL VOLUME 81.5 fl (80-96); MEAN PLT VOLUME 8.1 fl (7.5-11.1); MONO % 6.8 % (3.8-10.2); NEUT % 84.6 % (42.8-82.8); PLATELET COUNT 302 K/MM3 (134-434); RBC 3.89 M/mm3 (4.00-5.60); RDW 18.3 % (11.9-15.9); WHITE BLOOD COUNT 11.7 K/mm3 (4.0-10.0)
[2020-04-11 07:28] LABS: ALBUMIN 1.5 g/dl (3.4-5.0); BILIRUBIN,TOTAL 0.9 mg/dL (0.2-1); BLOOD UREA NITROGEN 21.8 mg/dL (7-18); CALCIUM 7.4 mg/dL (8.5-10.1); CREATININE 1.4 mg/dL (0.55-1.3); POTASSIUM 5.3 mmol/L (3.5-5.1); TOT PROT 5.8 g/dl (6.4-8.2)
[2020-04-11] MEDS ORDERED: PT OWN MED DRAWER 7, Y5N ONE ×3 (08:54→21:37)
[2020-04-11] MEDS: TAMSULOSIN HCL 0.4 MG CAP PO SCH (09:00)
[2020-04-11] MEDS: ASPIRIN 81 MG CHEWABLE TABLETS PO SCH (09:01)
[2020-04-11] MEDS: ASCORBIC ACID 250 MG TABLET (FP) PO SCH (09:01)
[2020-04-11] MEDS: FAMOTIDINE 20 MG TABLET PO SCH (09:01)
[2020-04-11] MEDS: FERROUS SO4 325 MG TABLET (FP) PO SCH (09:01)
[2020-04-11] MEDS: MULTIVITAMINS (DAILY MVI) TABLET (FP) PO SCH (09:03)
--- NOTE | 2020-04-11 09:31 | EKG ---
Test Reason : Blood Pressure : / mmHG Vent. Rate : 084 BPM Atrial Rate : 084 BPM P-R Int : 208 ms QRS Dur : 174 ms QT Int : 456 ms P-R-T Axes : 000 -84 077 degrees QTc Int : 538 ms SINUS RHYTHM WITH PREMATURE SUPRAVENTRICULAR COMPLEXES LEFT AXIS DEVIATION RIGHT BUNDLE BRANCH BLOCK LATERAL INFARCT (CITED ON OR BEFORE 22-FEB-2020) INFERIOR INFARCT (CITED ON OR BEFORE 22-FEB-2020) ABNORMAL ECG WHEN COMPARED WITH ECG OF 10-APR-2020 04:09, PREMATURE SUPRAVENTRICULAR COMPLEXES ARE NOW PRESENT Confirmed by Haydee Wallace ([id number]) on 04/11/2020 9:31:09 AM Referred By: Confirmed By:Haydee Wallace
--- NOTE | 2020-04-11 10:12 | PN ---
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 (short form) - Note 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: events noted transferred to monitored bed for chest pain positive troponins awaiting cardiology evaluation currently no chest pain Vital Signs Period Temp Pulse Resp BP Sys/Pantoja Pulse Ox Last 24 Hr 98.0 F-98.6 F 74-92 14-21 95-143/70-96 98-100 cor-rrr lungs decreased bs at bases abd soft,nt +iyer ext no edema CBC, BMP 04/11/20 06:00 04/11/20 06:00 Microbiology 04/01/20 09:37 Blood - Peripheral Venous Blood Culture - Final NO GROWTH AFTER 5 DAYS INCUBATION 03/31/20 17:15 Blood - Peripheral Venous Blood Culture - Final NO GROWTH AFTER 5 DAYS INCUBATION 03/31/20 17:30 Blood - Peripheral Venous Blood Culture - Final NO GROWTH AFTER 5 DAYS INCUBATION 03/31/20 22:25 Urine - Urine Iyer Urine Culture - Final Pseudomonas Aeruginosa 03/29/20 22:50 Blood - Peripheral Venous Blood Culture - Final Group D Strep Or Entero Coccus Pseudomonas Species 03/29/20 22:50 Blood - Peripheral Venous Blood Culture - Final Enterococcus Faecalis Pseudomonas Aeruginosa 03/30/20 00:27 Urine - Urine - Catheterized Urine Culture - Final Contaminated: Please Repeat imp/reccd chest pain +troponins-management per PMD and cardiology pseudomona/enterococcal bacteremia secondary to UTI- continue cefepime/ampicillin BPH with chronic iyer with bioprosthetic aortic valve DNR/DNI fecal impaction-laxatives left hydronephrosis clinically improved continue amp/cefepime day #13 antibiotics repeat labs in am
--- NOTE | 2020-04-11 10:46 | PN ---
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, Physician - Current Medication List Current Medications: Active Medications Acetaminophen (Tylenol -) 1,000 mg PO Q6H PRN PRN Reason: PAIN LEVEL 1-5 Albuterol Sulfate (Ventolin Hfa Inhaler -) 2 puff IH TID PRN PRN Reason: ASTHMA Ascorbic Acid (Vitamin C -) 250 mg PO DAILY [facility] Last Admin: 04/11/20 09:01 Dose: 250 mg Documented by: Aspirin (Asa -) 81 mg PO DAILY [facility] Last Admin: 04/11/20 09:01 Dose: 81 mg Documented by: Atorvastatin Calcium (Lipitor -) 40 mg PO [facility] Last Admin: 04/10/20 21:51 Dose: 40 mg Documented by: Famotidine (Pepcid -) 20 mg PO DAILY [facility] Last Admin: 04/11/20 09:01 Dose: 20 mg Documented by: Ferrous Sulfate (Feosol -) 325 mg PO DAILY [facility] Last Admin: 04/11/20 09:01 Dose: 325 mg Documented by: Ampicillin Sodium 2 gm/ Sodium (Chloride) 100 mls @ 200 mls/hr IVPB Q4H-IV [facility]; Protocol Last Admin: 04/11/20 09:01 Dose: 200 mls/hr Documented by: Cefepime HCl 2 gm/ Dextrose 100 mls @ 200 mls/hr IVPB Q8H-IV [facility]; Protocol Last Admin: 04/11/20 09:02 Dose: 200 mls/hr Documented by: Sodium Chloride (Normal Saline -) 1,000 mls @ 42 mls/hr IV ASDIR [facility] Last Admin: 04/11/20 06:17 Dose: 42 mls/hr Documented by: Levothyroxine Sodium (Synthroid -) 100 mcg PO ACBK [facility] Last Admin: 04/11/20 06:40 Dose: Not Given Documented by: Magnesium Hydroxide (Milk Of Magnesia -) 30 ml PO DAILY PRN PRN Reason: CONSTIPATION Mirtazapine (Remeron -) 15 mg PO [facility] Last Admin: 04/10/20 21:51 Dose: 15 mg Documented by: Morphine Sulfate (Morphine Sulfate) 1 mg IVPUSH Q4H PRN PRN Reason: PAIN LEVEL 7 - 10 Multivitamins/Minerals/Vitamin C (Tab-A-Vit -) 1 tab PO DAILY [facility] Last Admin: 04/11/20 09:03 Dose: 1 tab Documented by: Nitroglycerin (Nitro-Bid 2% Paste -) 0.5 inch TD Q6H [facility] Last Admin: 04/11/20 06:17 Dose: Not Given Documented by: Senna (Senna -) 2 tab PO HS [facility] Last Admin: 04/10/20 21:51 Dose: 2 tab Documented by: Tamsulosin HCl (Flomax -) 0.4 mg PO DAILY@0830 [facility] Last Admin: 04/11/20 09:00 Dose: 0.4 mg Documented by: Tramadol HCl (Ultram -) 50 mg PO Q8H PRN PRN Reason: PAIN LEVEL 6-10 - Objective Vital Signs: Vital Signs Temperature 98.4 F 04/11/20 06:00 Pulse Rate 88 04/11/20 06:00 Respiratory Rate 16 04/11/20 06:00 Blood Pressure 143/96 04/11/20 06:00 O2 Sat by Pulse Oximetry (%) 98 04/11/20 06:00 Labs: CBC, BMP 04/11/20 06:00 04/11/20 06:00 INR, PTT INR 0.95 (0.83-1.09) 03/29/20 22:50 Problem List - Problems (1) Dysphagia Code(s): R13.10 - DYSPHAGIA, UNSPECIFIED (2) Weakness Code(s): R53.1 - WEAKNESS (3) DUNG (acute kidney injury) Code(s): N17.9 - ACUTE KIDNEY FAILURE, UNSPECIFIED (4) Chronic retention of urine Code(s): R33.9 - RETENTION OF URINE, UNSPECIFIED (5) Sepsis Code(s): A41.9 - SEPSIS, UNSPECIFIED ORGANISM
--- NOTE | 2020-04-11 12:02 | CON.CARD ---
Cardiology Consult (text) - Consultation Consultation Note: cc: chest pain, elevated troponin hpi: 79 m hx htn, syst chf, as s/p remote bio avr, cad s/p remote pci, tia, here with hypotension, DUNG. Admitted 03/[address] low BP from [facility]. Recently had admission for CHF 02/2020 was diuresed with IV lasix. on labs here noted to have leukocytosis, DUNG with Cr 7.8, hyperkalemia. Treated with IVF, renal function improved, also treated for pseudomonas/enterococcal bacteremia, ID following. Reportedly complained of chest pain 04/10. patient does not remember event, however he is a poor historian and is unable to answer questions, tangential in conversation. history obtained from chart pmh: per hpi psh: avr social: no tob fam: no premature cad ros: per hpi; all others nl Home Medications Medication Instructions Recorded Atorvastatin Ca [Lipitor] 20 mg PO HS 02/22/20 Ergocalciferol (Vitamin D2) 50,000 unit PO WEEKLY 02/22/20 [Vitamin D2] Ferrous Sulfate 325 mg PO DAILY 02/22/20 Levothyroxine [Synthroid -] 100 mcg PO DAILY 02/22/20 Tamsulosin HCl 0.4 mg PO DAILY 02/22/20 Ascorbic Acid [Vitamin C -] 250 mg PO DAILY tablet 02/26/20 Aspirin [ASA -] 81 mg PO DAILY tab.chew 02/26/20 Carvedilol [Coreg -] 3.125 mg PO BID tablet 02/26/20 Docusate Sodium [Colace -] 100 mg PO BID capsule 02/26/20 Furosemide [Lasix -] 40 mg PO DAILY tablet 02/26/20 Pantoprazole Sodium [Protonix -] 20 mg PO DAILY tablet.ec 02/26/20 Acetaminophen 650 mg PO QID PRN 03/29/20 Albuterol Sulfate [Proventil Hfa] 6.7 gm IH TID PRN 03/29/20 Mag Hydrox/Aluminum Hyd/Simeth 30 ml PO BID PRN 03/29/20 [Maalox Advanced Suspension] Melatonin 3 mg PO HS 03/29/20 Current Medications Generic Name Dose Route Start Last Admin Trade Name Freq PRN Reason Stop Dose Admin Acetaminophen 1,000 mg 04/10/20 05:52 Tylenol - PO Q6H PRN PAIN LEVEL 1-5 Albuterol Sulfate 2 puff 04/10/20 05:52 Ventolin Hfa Inhaler - IH TID PRN ASTHMA Ascorbic Acid 250 mg 04/10/20 10:00 04/11/20 09:01 Vitamin C - PO 250 mg DAILY [facility] Administration Aspirin 81 mg 04/10/20 10:00 04/11/20 09:01 Asa - PO 81 mg DAILY [facility] Administration Atorvastatin Calcium 40 mg 04/10/20 22:00 04/10/20 21:51 Lipitor - PO 40 mg HS [facility] Administration Famotidine 20 mg 04/10/20 10:00 04/11/20 09:01 Pepcid - PO 20 mg DAILY [facility] Administration Ferrous Sulfate 325 mg 04/10/20 10:00 04/11/20 09:01 Feosol - PO 325 mg DAILY [facility] Administration Ampicillin Sodium 2 gm/ Sodium 100 mls @ 200 mls/hr 04/10/20 06:00 04/11/20 09:01 Chloride IVPB 200 mls/hr Q4H-IV [facility] Administration Protocol Cefepime HCl 2 gm/ Dextrose 100 mls @ 200 mls/hr 04/10/20 10:00 04/11/20 09:02 IVPB 200 mls/hr Q8H-IV [facility] Administration Protocol Sodium Chloride 1,000 mls @ 42 mls/hr 04/10/20 05:52 04/11/20 06:17 Normal Saline - IV 42 mls/hr ASDIR [facility] Administration Levothyroxine Sodium 100 mcg 04/10/20 07:00 04/11/20 06:40 Synthroid - PO Not Given ACBK [facility] Magnesium Hydroxide 30 ml 04/10/20 05:52 Milk Of Magnesia - PO DAILY PRN CONSTIPATION Mirtazapine 15 mg 04/10/20 22:00 04/10/20 21:51 Remeron - PO 15 mg HS [facility] Administration Morphine Sulfate 1 mg 04/10/20 05:53 Morphine Sulfate IVPUSH Q4H PRN PAIN LEVEL 7 - 10 Multivitamins/Minerals/Vitamin C 1 tab 04/10/20 10:00 04/11/20 09:03 Tab-A-Vit - PO 1 tab DAILY [facility] Administration Nitroglycerin 0.5 inch 04/10/20 18:00 04/11/20 11:57 Nitro-Bid 2% Paste - TD Not Given Q6H [facility] Senna 2 tab 04/10/20 22:00 04/10/20 21:51 Senna - PO 2 tab HS [facility] Administration Tamsulosin HCl 0.4 mg 04/10/20 08:30 04/11/20 09:00 Flomax - PO 0.4 mg DAILY@0830 [facility] Administration Tramadol HCl 50 mg 04/10/20 05:52 Ultram - PO Q8H PRN PAIN LEVEL 6-10 Vital Signs Period Temp Pulse Resp BP Sys/Pantoja Pulse Ox Last 24 Hr 98.0 F-98.6 F 74-92 14-21 95-143/70-96 98-100 nad no jvd rrr s1s2 no mrg cta bl nl eff aao3 1-2+ le edema bl, no c/c abd nt nd pos bs no jaundice diaphoresis +dp pt no carotid bruits echo 02/2020: lvef 35%, global hk, nl rv, lae, nl bio avr, mild mr, mild tr, rvsp 38 echo 03/2020 EF 35-40%, mod to severe global hypokinesis of LV, severe hypokinesis of apical anterior wall and apex, LA mod dilated, mild to mod MAC, mild to mod MR, mild TR, bio AVR, well seated prosthetic valve, mild AR ecg: sr, rbbb, PVCs cxr: clear tele: sr, PVCs a/p: 79 m hx htn, syst chf, as s/p remote bio avr, cad s/p remote pci, tia, presented with DUNG, sepsis with chest pain, elevated trops chest pain, elevated troponin, CAD, remote PCI - patient unable to give further history regarding chest pain, denies pain now - EKG unchanged from prior - may be 2/2 demand in setting of underlying anemia, DUNG vs NSTEMI from plaque rupture - also with wall motion abnormalities on echo here from 04/02/2020, known underlying CAD - given poor prognosis and desire to minimize invasive procedures, would defer ischemic workup at this point and continue medical management for underlying CAD - cont aspirin, statin chronic syst chf: - held coreg for low BPs, not on FLACO/ARB due to DUNG - appears euvolemic, hold diuretics hypotension, septic shock, UTI - bacteremia 2/2 UTI, bcx no growth from 04/01 - improved with IVF, abx - manage per pmd, ID DUNG - improving with IVF htn: - bp stable off meds avr: -stable, nl fcn on echo
--- NOTE | 2020-04-11 14:35 | PN ---
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 (short form) - Note 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: 1. DUNG 2. sepsis 3. hyperkalemia 4. hypotension 5. chf 6. bph 7. cad 8. tia 9. gerd 10. hypernatremia Active Medications Acetaminophen (Tylenol -) 1,000 mg PO Q6H PRN PRN Reason: PAIN LEVEL 1-5 Albuterol Sulfate (Ventolin Hfa Inhaler -) 2 puff IH TID PRN PRN Reason: ASTHMA Ascorbic Acid (Vitamin C -) 250 mg PO DAILY [facility] Last Admin: 04/11/20 09:01 Dose: 250 mg Documented by: Aspirin (Asa -) 81 mg PO DAILY [facility] Last Admin: 04/11/20 09:01 Dose: 81 mg Documented by: Atorvastatin Calcium (Lipitor -) 40 mg PO [facility] Last Admin: 04/10/20 21:51 Dose: 40 mg Documented by: Famotidine (Pepcid -) 20 mg PO DAILY [facility] Last Admin: 04/11/20 09:01 Dose: 20 mg Documented by: Ferrous Sulfate (Feosol -) 325 mg PO DAILY [facility] Last Admin: 04/11/20 09:01 Dose: 325 mg Documented by: Ampicillin Sodium 2 gm/ Sodium (Chloride) 100 mls @ 200 mls/hr IVPB Q4H-IV [facility]; Protocol Last Admin: 04/11/20 09:01 Dose: 200 mls/hr Documented by: Cefepime HCl 2 gm/ Dextrose 100 mls @ 200 mls/hr IVPB Q8H-IV [facility]; Protocol Last Admin: 04/11/20 09:02 Dose: 200 mls/hr Documented by: Sodium Chloride (Normal Saline -) 1,000 mls @ 42 mls/hr IV ASDIR [facility] Last Admin: 04/11/20 06:17 Dose: 42 mls/hr Documented by: Levothyroxine Sodium (Synthroid -) 100 mcg PO ACBK [facility] Last Admin: 04/11/20 06:40 Dose: Not Given Documented by: Magnesium Hydroxide (Milk Of Magnesia -) 30 ml PO DAILY PRN PRN Reason: CONSTIPATION Mirtazapine (Remeron -) 15 mg PO HS [facility] Last Admin: 04/10/20 21:51 Dose: 15 mg Documented by: Morphine Sulfate (Morphine Sulfate) 1 mg IVPUSH Q4H PRN PRN Reason: PAIN LEVEL 7 - 10 Multivitamins/Minerals/Vitamin C (Tab-A-Vit -) 1 tab PO DAILY [facility] Last Admin: 04/11/20 09:03 Dose: 1 tab Documented by: Nitroglycerin (Nitro-Bid 2% Paste -) 0.5 inch TD Q6H [facility] Last Admin: 04/11/20 11:57 Dose: Not Given Documented by: Senna (Senna -) 2 tab PO HS [facility] Last Admin: 04/10/20 21:51 Dose: 2 tab Documented by: Tamsulosin HCl (Flomax -) 0.4 mg PO DAILY@0830 [facility] Last Admin: 04/11/20 09:00 Dose: 0.4 mg Documented by: Tramadol HCl (Ultram -) 50 mg PO Q8H PRN PRN Reason: PAIN LEVEL 6-10 Last Vital Signs Temp Pulse Resp BP Pulse Ox 98.4 F 88 16 143/96 98 04/11/20 06:00 04/11/20 06:00 04/11/20 10:00 04/11/20 06:00 04/11/20 10:00 CBC, BMP 04/11/20 06:00 04/11/20 06:00
[2020-04-11] MEDS: MIRTAZAPINE 15 MG TABLET (FP) PO SCH (21:41)
[2020-04-11] MEDS: ATORVASTATIN CA 40 MG TABLET (FP) PO SCH (21:41)
[2020-04-11] MEDS: SENNOSIDES 8.6MG TABLET (FP) PO SCH (21:41)
[2020-04-12] MEDS ORDERED: AMPICILLIN SODIUM 2 GM VIAL ONE ×4 (01:05→20:29)
[2020-04-12] MEDS ORDERED: SODIUM CHLORIDE 100 ML IVPB ONE ×4 (01:06→20:29)
[2020-04-12] MEDS: NITROGLYCERIN 2% OINTMENT - 1GM PACKET TD SCH ×6 (01:08→23:20)
[2020-04-12] MEDS: AMPICILLIN - 2 GM in SODIUM CHLORIDE 100 ML IVPB SCH ×6 (01:08→21:25)
[2020-04-12] MEDS ORDERED: PT OWN MED DRAWER 7, Y5N ONE ×3 (02:06→17:43)
[2020-04-12] MEDS: CEFEPIME 2 GM in DEXTROSE 5%-WATER 100 ML IVPB SCH ×3 (02:09→17:48)
[2020-04-12] MEDS: SODIUM CHLORIDE 1,000 ML IV SCH (06:12)
[2020-04-12] MEDS: LEVOTHYROXINE NA 100 MCG TABLET (FP) PO SCH (06:13)
[2020-04-12 07:56] LABS: BASO % 0.9 % (0-2.0); EOS % 1.3 % (0-4.5); HEMATOCRIT 30.9 % (35.4-49); LYMPH % 6.4 % (8-40); MCH 26.8 pg (25.7-33.7); MCHC 32.5 g/dl (32.0-35.9); MEAN CELL VOLUME 82.7 fl (80-96); MEAN PLT VOLUME 8.6 fl (7.5-11.1); MONO % 6.2 % (3.8-10.2); NEUT % 85.2 % (42.8-82.8); PLATELET COUNT 258 K/MM3 (134-434); RBC 3.74 M/mm3 (4.00-5.60); RDW 18.3 % (11.9-15.9); WHITE BLOOD COUNT 9.3 K/mm3 (4.0-10.0)
[2020-04-12 08:57] LABS: POTASSIUM 5.3 mmol/L (3.5-5.1)
[2020-04-12 09:03] LABS: ALBUMIN 1.3 g/dl (3.4-5.0); BILIRUBIN,TOTAL 0.4 mg/dL (0.2-1); BLOOD UREA NITROGEN 19.4 mg/dL (7-18); CALCIUM 7.4 mg/dL (8.5-10.1); CREATININE 1.3 mg/dL (0.55-1.3); TOT PROT 5.7 g/dl (6.4-8.2)
[2020-04-12] MEDS: TAMSULOSIN HCL 0.4 MG CAP PO SCH (10:17)
[2020-04-12] MEDS: ASPIRIN 81 MG CHEWABLE TABLETS PO SCH (10:18)
[2020-04-12] MEDS: FERROUS SO4 325 MG TABLET (FP) PO SCH (10:18)
[2020-04-12] MEDS: ASCORBIC ACID 250 MG TABLET (FP) PO SCH (10:18)
[2020-04-12] MEDS: MULTIVITAMINS (DAILY MVI) TABLET (FP) PO SCH (10:18)
[2020-04-12] MEDS: FAMOTIDINE 20 MG TABLET PO SCH (10:18)
--- NOTE | 2020-04-12 10:30 | PN ---
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 (short form) - Note 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: events noted on telemetry for elevated troponins no abdominal pain Vital Signs Period Temp Pulse Resp BP Sys/Pantoja Pulse Ox Last 24 Hr 98.5 F 82-88 15-20 114-140/74-83 97-98 cor-rrr lungs clear abd soft,nt ext no edema CBC, BMP 04/12/20 05:15 04/12/20 05:15 Microbiology 04/01/20 09:37 Blood - Peripheral Venous Blood Culture - Final NO GROWTH AFTER 5 DAYS INCUBATION 03/31/20 17:15 Blood - Peripheral Venous Blood Culture - Final NO GROWTH AFTER 5 DAYS INCUBATION 03/31/20 17:30 Blood - Peripheral Venous Blood Culture - Final NO GROWTH AFTER 5 DAYS INCUBATION 03/31/20 22:25 Urine - Urine Iyer Urine Culture - Final Pseudomonas Aeruginosa 03/29/20 22:50 Blood - Peripheral Venous Blood Culture - Final Group D Strep Or Entero Coccus Pseudomonas Species 03/29/20 22:50 Blood - Peripheral Venous Blood Culture - Final Enterococcus Faecalis Pseudomonas Aeruginosa 03/30/20 00:27 Urine - Urine - Catheterized Urine Culture - Final Contaminated: Please Repeat imp/reccd chest pain +troponins-management per PMD and cardiology severe sepsis/pseudomona/enterococcal bacteremia secondary to UTI- continue cefepime/ampicillin BPH with chronic iyer with bioprosthetic aortic valve DNR/DNI fecal impaction-laxatives left hydronephrosis clinically improved continue amp/cefepime day #14 antibiotics-would place picc line and treat for anothwe two weeks iv with ampicillin and cefepime wbc has finally normalized today
--- NOTE | 2020-04-12 11:20 | PN ---
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 (short form) - Note 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: s: no cp sob palps dizzy; +abd pain no cigs Current Medications Generic Name Dose Route Start Last Admin Trade Name Freq PRN Reason Stop Dose Admin Acetaminophen 1,000 mg 04/10/20 05:52 Tylenol - PO Q6H PRN PAIN LEVEL 1-5 Albuterol Sulfate 2 puff 04/10/20 05:52 Ventolin Hfa Inhaler - IH TID PRN ASTHMA Ascorbic Acid 250 mg 04/10/20 10:00 04/12/20 10:18 Vitamin C - PO Not Given DAILY [facility] Aspirin 81 mg 04/10/20 10:00 04/12/20 10:18 Asa - PO Not Given DAILY [facility] Atorvastatin Calcium 40 mg 04/10/20 22:00 04/11/20 21:41 Lipitor - PO Not Given HS [facility] Famotidine 20 mg 04/10/20 10:00 04/12/20 10:18 Pepcid - PO Not Given DAILY [facility] Ferrous Sulfate 325 mg 04/10/20 10:00 04/12/20 10:18 Feosol - PO Not Given DAILY JORDAN Ampicillin Sodium 2 gm/ Sodium 100 mls @ 200 mls/hr 04/10/20 06:00 04/12/20 09:33 Chloride IVPB 200 mls/hr Q4H-IV JORDAN Administration Protocol Cefepime HCl 2 gm/ Dextrose 100 mls @ 200 mls/hr 04/10/20 10:00 04/12/20 09:30 IVPB 200 mls/hr Q8H-IV JORDAN Administration Protocol Sodium Chloride 1,000 mls @ 42 mls/hr 04/10/20 05:52 04/12/20 06:12 Normal Saline - IV 42 mls/hr ASDIR JORDAN Administration Levothyroxine Sodium 100 mcg 04/10/20 07:00 04/12/20 06:13 Synthroid - PO Not Given ACBK JORDAN Magnesium Hydroxide 30 ml 04/10/20 05:52 Milk Of Magnesia - PO DAILY PRN CONSTIPATION Mirtazapine 15 mg 04/10/20 22:00 04/11/20 21:41 Remeron - PO Not Given HS [facility] Morphine Sulfate 1 mg 04/10/20 05:53 Morphine Sulfate IVPUSH Q4H PRN PAIN LEVEL 7 - 10 Multivitamins/Minerals/Vitamin C 1 tab 04/10/20 10:00 04/12/20 10:18 Tab-A-Vit - PO Not Given DAILY JORDAN Nitroglycerin 0.5 inch 04/10/20 18:00 04/12/20 11:08 Nitro-Bid 2% Paste - TD Not Given Q6H JORDAN Senna 2 tab 04/10/20 22:00 04/11/20 21:41 Senna - PO Not Given HS JORDAN Tamsulosin HCl 0.4 mg 04/10/20 08:30 04/12/20 10:17 Flomax - PO Not Given DAILY@0830 [facility] Tramadol HCl 50 mg 04/10/20 05:52 Ultram - PO Q8H PRN PAIN LEVEL 6-10 Vital Signs Period Temp Pulse Resp BP Sys/Pantoja Pulse Ox Last 24 Hr 98.5 F 82-88 15-20 114-140/74-83 97-98 nad no jvd rrr s1s2 no mrg cta bl nl eff 1+ le edema bl, no c/c abd nt nd pos bs no jaundice diaphoresis +dp pt no carotid bruits CBC, BMP 04/12/20 05:15 04/12/20 05:15 echo 02/2020: lvef 35%, global hk, nl rv, lae, nl bio avr, mild mr, mild tr, rvsp 38 echo 03/2020 EF 35-40%, mod to severe global hypokinesis of LV, severe hypokinesis of apical anterior wall and apex, LA mod dilated, mild to mod MAC, mild to mod MR, mild TR, bio AVR, well seated prosthetic valve, mild AR ecg: sr, rbbb, PVCs cxr: clear tele: sr, PVCs a/p: 79 m hx htn, syst chf, as s/p remote bio avr, cad s/p remote pci, tia, presented with DUNG, sepsis with chest pain, elevated trops chest pain, elevated troponin, CAD, remote PCI - patient unable to give further history regarding chest pain, denies pain now - EKG unchanged from prior - may be 2/2 demand in setting of underlying anemia, DUNG, vs NSTEMI from plaque rupture - also with wall motion abnormalities on echo here from 04/02/2020, known underlying CAD - given poor prognosis and desire to minimize invasive procedures, would defer ischemic workup at this point and continue medical management for underlying CAD - cont aspirin, statin chronic syst chf: - held coreg for low BPs, not on FLACO/ARB due to DUNG - appears euvolemic, hold diuretics hypotension, septic shock, UTI - bacteremia 2/2 UTI, bcx no growth from 04/01 - improved with IVF, abx - manage per pmd, ID DUNG - improving with IVF htn: - bp stable off meds avr: -stable, nl fcn on echo
--- NOTE | 2020-04-12 11:59 | PN ---
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, Physician Chief Complaint: Sepsis DUNG UTI Bacteremia Dysphagia History of Present Illness: Mr. Solares is an 79 year old male BIBA from [facility] for hypotension (SBP in the 70's). He has a past medical history of hypertension, CHF, aortic stenosis s/p bioprosthetic valve replacement, CAD, prior stent, GERD,TIA,BPH and indwelling iyer. NAD eventful weekend with chest pain transfered to ICU onheparin drip Elevated trops-peaked already, now trending down Seen by Cardiology Conservative care Refuses most of his medications c/o abd pain- recent CTAP showed constipation, encouraged to take MOM - Current Medication List Current Medications: Active Medications Acetaminophen (Tylenol -) 1,000 mg PO Q6H PRN PRN Reason: PAIN LEVEL 1-5 Albuterol Sulfate (Ventolin Hfa Inhaler -) 2 puff IH TID PRN PRN Reason: ASTHMA Ascorbic Acid (Vitamin C -) 250 mg PO DAILY [facility] Last Admin: 04/12/20 10:18 Dose: Not Given Documented by: Aspirin (Asa -) 81 mg PO DAILY [facility] Last Admin: 04/12/20 10:18 Dose: Not Given Documented by: Atorvastatin Calcium (Lipitor -) 40 mg PO HS [facility] Last Admin: 04/11/20 21:41 Dose: Not Given Documented by: Famotidine (Pepcid -) 20 mg PO DAILY [facility] Last Admin: 04/12/20 10:18 Dose: Not Given Documented by: Ferrous Sulfate (Feosol -) 325 mg PO DAILY [facility] Last Admin: 04/12/20 10:18 Dose: Not Given Documented by: Ampicillin Sodium 2 gm/ Sodium (Chloride) 100 mls @ 200 mls/hr IVPB Q4H-IV JORDAN; Protocol Last Admin: 04/12/20 09:33 Dose: 200 mls/hr Documented by: Cefepime HCl 2 gm/ Dextrose 100 mls @ 200 mls/hr IVPB Q8H-IV JORDAN; Protocol Last Admin: 04/12/20 09:30 Dose: 200 mls/hr Documented by: Sodium Chloride (Normal Saline -) 1,000 mls @ 42 mls/hr IV ASDIR [facility] Last Admin: 04/12/20 06:12 Dose: 42 mls/hr Documented by: Levothyroxine Sodium (Synthroid -) 100 mcg PO ACBK [facility] Last Admin: 04/12/20 06:13 Dose: Not Given Documented by: Magnesium Hydroxide (Milk Of Magnesia -) 30 ml PO DAILY PRN PRN Reason: CONSTIPATION Mirtazapine (Remeron -) 15 mg PO [facility] Last Admin: 04/11/20 21:41 Dose: Not Given Documented by: Morphine Sulfate (Morphine Sulfate) 1 mg IVPUSH Q4H PRN PRN Reason: PAIN LEVEL 7 - 10 Multivitamins/Minerals/Vitamin C (Tab-A-Vit -) 1 tab PO DAILY [facility] Last Admin: 04/12/20 10:18 Dose: Not Given Documented by: Nitroglycerin (Nitro-Bid 2% Paste -) 0.5 inch TD Q6H [facility] Last Admin: 04/12/20 11:08 Dose: Not Given Documented by: Senna (Senna -) 2 tab PO [facility] Last Admin: 04/11/20 21:41 Dose: Not Given Documented by: Tamsulosin HCl (Flomax -) 0.4 mg PO DAILY@0830 [facility] Last Admin: 04/12/20 10:17 Dose: Not Given Documented by: Tramadol HCl (Ultram -) 50 mg PO Q8H PRN PRN Reason: PAIN LEVEL 6-10 - Objective Vital Signs: Vital Signs Temperature 98.5 F 04/12/20 06:00 Pulse Rate 87 04/12/20 06:00 Respiratory Rate 15 04/12/20 06:00 Blood Pressure 114/74 04/12/20 06:00 O2 Sat by Pulse Oximetry (%) 97 04/12/20 06:00 Constitutional: Yes: No Distress, Calm, Cachectic Cardiovascular: Yes: Regular Rate and Rhythm Respiratory: Yes: Regular, CTA Bilaterally Gastrointestinal: Yes: Soft, Hypoactive Bowel Sounds Genitourinary: Yes: Iyer Present Musculoskeletal: Yes: Muscle Weakness Extremities: Yes: Other (generalized atrophy) Edema: No Peripheral Pulses WNL: Yes Neurological: Yes: Alert, Oriented Psychiatric: Yes: Alert, Oriented Labs: CBC, BMP 04/12/20 05:15 04/12/20 05:15 INR, PTT INR 0.95 (0.83-1.09) 03/29/20 22:50 Problem List - Problems (1) Chronic retention of urine Assessment/Plan: -Continue iyer cath Problems reviewed: Yes Code(s): R33.9 - RETENTION OF URINE, UNSPECIFIED (2) DUNG (acute kidney injury) Assessment/Plan: -Nephrology consult -Renal U/S -UC pseudomonas -Cr at baseline -Continue IVF Problems reviewed: Yes Code(s): N17.9 - ACUTE KIDNEY FAILURE, UNSPECIFIED (3) Hyperkalemia Assessment/Plan: -K hemolyzed today -repeat CMP in AM -Nephrology on board Problems reviewed: Yes Code(s): E87.5 - HYPERKALEMIA (4) Sepsis Assessment/Plan: -ID consult -IV Ampicillin + Cefepime -No Lactic acidosis -Afebrile -Cultures: Microbiology 04/01/20 09:37 Blood - Peripheral Venous Blood Culture - Final NO GROWTH AFTER 5 DAYS INCUBATION 03/31/20 17:15 Blood - Peripheral Venous Blood Culture - Final NO GROWTH AFTER 5 DAYS INCUBATION 03/31/20 17:30 Blood - Peripheral Venous Blood Culture - Final NO GROWTH AFTER 5 DAYS INCUBATION 03/31/20 22:25 Urine - Urine Iyer Urine Culture - Final Pseudomonas Aeruginosa 03/29/20 22:50 Blood - Peripheral Venous Blood Culture - Final Group D Strep Or Entero Coccus Pseudomonas Species 03/29/20 22:50 Blood - Peripheral Venous Blood Culture - Final Enterococcus Faecalis Pseudomonas Aeruginosa 03/30/20 00:27 Urine - Urine - Catheterized Urine Culture - Final Contaminated: Please Repeat Problems reviewed: Yes Code(s): A41.9 - SEPSIS, UNSPECIFIED ORGANISM (5) Failure to thrive Assessment/Plan: -Add multivitamin -Ensure pudding + Magic cup -Seen by Speech pathology -MBS- Mod to severe stasis with puree. Aspiration on thin liquid -Dysphagia puree thinned out with nectar thick liquids Problems reviewed: Yes Code(s): LSR6076 - (6) Malnutrition Assessment/Plan: -Multivitamin -Mirtazapine Problems reviewed: Yes Code(s): E46 - UNSPECIFIED PROTEIN-CALORIE MALNUTRITION Qualifiers: Protein-calorie malnutrition severity: severe (7) Bacteremia Assessment/Plan: -Cultures: Microbiology 04/01/20 09:37 Blood - Peripheral Venous Blood Culture - Final NO GROWTH AFTER 5 DAYS INCUBATION 03/31/20 17:15 Blood - Peripheral Venous Blood Culture - Final NO GROWTH AFTER 5 DAYS INCUBATION 03/31/20 17:30 Blood - Peripheral Venous Blood Culture - Final NO GROWTH AFTER 5 DAYS INCUBATION 03/31/20 22:25 Urine - Urine Iyer Urine Culture - Final Pseudomonas Aeruginosa 03/29/20 22:50 Blood - Peripheral Venous Blood Culture - Final Group D Strep Or Entero Coccus Pseudomonas Species 03/29/20 22:50 Blood - Peripheral Venous Blood Culture - Final Enterococcus Faecalis Pseudomonas Aeruginosa 03/30/20 00:27 Urine - Urine - Catheterized Urine Culture - Final Contaminated: Please Repeat -rest as above Code(s): R78.81 - BACTEREMIA (8) Chest pain Assessment/Plan: -Cardiology consult appreciated -Conservative measures -Tele monitor -Nitro patch -Echo reviewed Problems reviewed: Yes Code(s): R07.9 - CHEST PAIN, UNSPECIFIED (9) Elevated troponin Assessment/Plan: as above Problems reviewed: Yes Code(s): R79.89 - OTHER SPECIFIED ABNORMAL FINDINGS OF BLOOD CHEMISTRY (10) NSTEMI (non-ST elevated myocardial infarction) Assessment/Plan: as above Problems reviewed: Yes Code(s): I21.4 - NON-ST ELEVATION (NSTEMI) MYOCARDIAL INFARCTION (11) Abdominal pain Assessment/Plan: -2/2 to constipation Problems reviewed: Yes Code(s): R10.9 - UNSPECIFIED ABDOMINAL PAIN (12) Constipation Assessment/Plan: -Continue Senna 2 tabs HS -MOM PRN Problems reviewed: Yes Code(s): K59.00 - CONSTIPATION, UNSPECIFIED Assessment/Plan See problem list
--- NOTE | 2020-04-12 15:13 | PN ---
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, Physician History of Present Illness: Pt seen and examined at bedside. He is awake but agitated today. - Current Medication List Current Medications: Active Medications Acetaminophen (Tylenol -) 1,000 mg PO Q6H PRN PRN Reason: PAIN LEVEL 1-5 Albuterol Sulfate (Ventolin Hfa Inhaler -) 2 puff IH TID PRN PRN Reason: ASTHMA Ascorbic Acid (Vitamin C -) 250 mg PO DAILY [facility] Last Admin: 04/12/20 10:18 Dose: Not Given Documented by: Aspirin (Asa -) 81 mg PO DAILY [facility] Last Admin: 04/12/20 10:18 Dose: Not Given Documented by: Atorvastatin Calcium (Lipitor -) 40 mg PO [facility] Last Admin: 04/11/20 21:41 Dose: Not Given Documented by: Famotidine (Pepcid -) 20 mg PO DAILY [facility] Last Admin: 04/12/20 10:18 Dose: Not Given Documented by: Ferrous Sulfate (Feosol -) 325 mg PO DAILY [facility] Last Admin: 04/12/20 10:18 Dose: Not Given Documented by: Ampicillin Sodium 2 gm/ Sodium (Chloride) 100 mls @ 200 mls/hr IVPB Q4H-IV [facility]; Protocol Last Admin: 04/12/20 13:46 Dose: 200 mls/hr Documented by: Cefepime HCl 2 gm/ Dextrose 100 mls @ 200 mls/hr IVPB Q8H-IV [facility]; Protocol Last Admin: 04/12/20 09:30 Dose: 200 mls/hr Documented by: Sodium Chloride (Normal Saline -) 1,000 mls @ 42 mls/hr IV ASDIR [facility] Last Admin: 04/12/20 06:12 Dose: 42 mls/hr Documented by: Levothyroxine Sodium (Synthroid -) 100 mcg PO ACBK [facility] Last Admin: 04/12/20 06:13 Dose: Not Given Documented by: Magnesium Hydroxide (Milk Of Magnesia -) 30 ml PO DAILY PRN PRN Reason: CONSTIPATION Mirtazapine (Remeron -) 15 mg PO HS [facility] Last Admin: 04/11/20 21:41 Dose: Not Given Documented by: Morphine Sulfate (Morphine Sulfate) 1 mg IVPUSH Q4H PRN PRN Reason: PAIN LEVEL 7 - 10 Multivitamins/Minerals/Vitamin C (Tab-A-Vit -) 1 tab PO DAILY [facility] Last Admin: 04/12/20 10:18 Dose: Not Given Documented by: Nitroglycerin (Nitro-Bid 2% Paste -) 0.5 inch TD Q6H [facility] Last Admin: 04/12/20 12:45 Dose: 0.5 inch Documented by: Senna (Senna -) 2 tab PO HS [facility] Last Admin: 04/11/20 21:41 Dose: Not Given Documented by: Tamsulosin HCl (Flomax -) 0.4 mg PO DAILY@0830 [facility] Last Admin: 04/12/20 10:17 Dose: Not Given Documented by: Tramadol HCl (Ultram -) 50 mg PO Q8H PRN PRN Reason: PAIN LEVEL 6-10 - Objective Vital Signs: Vital Signs Temperature 98.5 F 04/12/20 06:00 Pulse Rate 87 04/12/20 06:00 Respiratory Rate 15 04/12/20 06:00 Blood Pressure 114/74 04/12/20 06:00 O2 Sat by Pulse Oximetry (%) 97 04/12/20 06:00 Constitutional: Yes: Calm Eyes: Yes: Conjunctiva Clear HENT: Yes: Atraumatic Neck: Yes: Supple Cardiovascular: Yes: S1, S2 Respiratory: Yes: CTA Bilaterally Gastrointestinal: Yes: Soft Genitourinary: Yes: Jauregui Present Musculoskeletal: Yes: Muscle Weakness Edema: No Neurological: Yes: Oriented Psychiatric: Yes: Agitated Labs: CBC, BMP 04/12/20 05:15 04/12/20 05:15 INR, PTT INR 0.95 (0.83-1.09) 03/29/20 22:50 Problem List - Problems (1) DUNG (acute kidney injury) Code(s): N17.9 - ACUTE KIDNEY FAILURE, UNSPECIFIED (2) Hyperkalemia Code(s): E87.5 - HYPERKALEMIA (3) Sepsis Code(s): A41.9 - SEPSIS, UNSPECIFIED ORGANISM Assessment/Plan Current Medications Generic Name Dose Route Start Last Admin Trade Name Freq PRN Reason Stop Dose Admin Acetaminophen 1,000 mg 04/10/20 05:52 Tylenol - PO Q6H PRN PAIN LEVEL 1-5 Albuterol Sulfate 2 puff 04/10/20 05:52 Ventolin Hfa Inhaler - IH TID PRN ASTHMA Ascorbic Acid 250 mg 04/10/20 10:00 04/12/20 10:18 Vitamin C - PO Not Given DAILY [facility] Aspirin 81 mg 04/10/20 10:00 04/12/20 10:18 Asa - PO Not Given DAILY [facility] Atorvastatin Calcium 40 mg 04/10/20 22:00 04/11/20 21:41 Lipitor - PO Not Given HS [facility] Famotidine 20 mg 04/10/20 10:00 04/12/20 10:18 Pepcid - PO Not Given DAILY [facility] Ferrous Sulfate 325 mg 04/10/20 10:00 04/12/20 10:18 Feosol - PO Not Given DAILY [facility] Ampicillin Sodium 2 gm/ Sodium 100 mls @ 200 mls/hr 04/10/20 06:00 04/12/20 13:46 Chloride IVPB 200 mls/hr Q4H-IV JORDAN Administration Protocol Cefepime HCl 2 gm/ Dextrose 100 mls @ 200 mls/hr 04/10/20 10:00 04/12/20 09:30 IVPB 200 mls/hr Q8H-IV JORDAN Administration Protocol Sodium Chloride 1,000 mls @ 42 mls/hr 04/10/20 05:52 04/12/20 06:12 Normal Saline - IV 42 mls/hr ASDIR [facility] Administration Levothyroxine Sodium 100 mcg 04/10/20 07:00 04/12/20 06:13 Synthroid - PO Not Given ACBK [facility] Magnesium Hydroxide 30 ml 04/10/20 05:52 Milk Of Magnesia - PO DAILY PRN CONSTIPATION Mirtazapine 15 mg 04/10/20 22:00 04/11/20 21:41 Remeron - PO Not Given HS [facility] Morphine Sulfate 1 mg 04/10/20 05:53 Morphine Sulfate IVPUSH Q4H PRN PAIN LEVEL 7 - 10 Multivitamins/Minerals/Vitamin C 1 tab 04/10/20 10:00 04/12/20 10:18 Tab-A-Vit - PO Not Given DAILY [facility] Nitroglycerin 0.5 inch 04/10/20 18:00 04/12/20 12:45 Nitro-Bid 2% Paste - TD 0.5 inch Q6H JORDAN Administration Senna 2 tab 04/10/20 22:00 04/11/20 21:41 Senna - PO Not Given HS [facility] Tamsulosin HCl 0.4 mg 04/10/20 08:30 04/12/20 10:17 Flomax - PO Not Given DAILY@0830 [facility] Tramadol HCl 50 mg 04/10/20 05:52 Ultram - PO Q8H PRN PAIN LEVEL 6-10 Impression 1. DUNG 2. sepsis 3. hyperkalemia 4. hypotension 5. chf 6. bph 7. cad 8. tia 9. gerd 10. hypernatremia Plan - potassium hemolyzed - repeat labs in am - change fluids to 1/2 ns - cardio input appreciated - encourage po intake
[2020-04-12] MEDS ORDERED: SODIUM CHLORIDE 0.45% 1,000 ML IV SCH (15:15)
[2020-04-12] MEDS: MIRTAZAPINE 15 MG TABLET (FP) PO SCH (21:25)
[2020-04-12] MEDS: ATORVASTATIN CA 40 MG TABLET (FP) PO SCH (21:25)
[2020-04-12] MEDS: SENNOSIDES 8.6MG TABLET (FP) PO SCH (21:25)
[2020-04-12] MEDS: DEXTROSE 5%-0.45% SALINE 1,000 ML IV SCH (22:00)
[2020-04-13] MEDS: ACETAMINOPHEN 500 MG TABLET (FP) PO PRN ×3 (00:12→18:53)
[2020-04-13] MEDS: ATORVASTATIN CA 40 MG TABLET (FP) PO SCH ×2 (00:13→21:50)
[2020-04-13] MEDS: MIRTAZAPINE 15 MG TABLET (FP) PO SCH ×2 (00:13→21:49)
[2020-04-13] MEDS ORDERED: AMPICILLIN SODIUM 2 GM VIAL ONE ×5 (00:56→21:52)
[2020-04-13] MEDS ORDERED: SODIUM CHLORIDE 100 ML IVPB ONE ×5 (00:56→21:52)
[2020-04-13] MEDS: AMPICILLIN - 2 GM in SODIUM CHLORIDE 100 ML IVPB SCH ×6 (01:02→21:53)
[2020-04-13] MEDS: CEFEPIME 2 GM in DEXTROSE 5%-WATER 100 ML IVPB SCH ×3 (02:21→17:10)
[2020-04-13] MEDS ORDERED: PT OWN MED DRAWER 7, Y5N ONE ×3 (06:49→15:51)
[2020-04-13] MEDS: LEVOTHYROXINE NA 100 MCG TABLET (FP) PO SCH (06:52)
[2020-04-13] MEDS: NITROGLYCERIN 2% OINTMENT - 1GM PACKET TD SCH ×3 (06:52→18:51)
[2020-04-13] MEDS: TAMSULOSIN HCL 0.4 MG CAP PO SCH ×2 (06:53→15:13)
[2020-04-13] MEDS: ASCORBIC ACID 250 MG TABLET (FP) PO SCH (10:36)
[2020-04-13] MEDS: FERROUS SO4 325 MG TABLET (FP) PO SCH (10:36)
[2020-04-13] MEDS: ASPIRIN 81 MG CHEWABLE TABLETS PO SCH (10:36)
[2020-04-13] MEDS: FAMOTIDINE 20 MG TABLET PO SCH (10:36)
[2020-04-13] MEDS: MULTIVITAMINS (DAILY MVI) TABLET (FP) PO SCH (10:36)
--- NOTE | 2020-04-13 12:06 | PN ---
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, COLORIST FORMULATOR - Note 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: Selected Entries 04/10/20 04/10/20 04/10/20 09:00 09:19 13:16 Breakfast 25% NPO NPO Diet Tolerated Lunch NPO NPO Supper Temperature Pulse Rate Blood Pressure O2 Sat by Pulse Oximetry (%) Oxygen Delivery Method 04/10/20 04/11/20 04/11/20 20:00 10:00 14:22 Breakfast NPO 50% Diet Tolerated Poor Poor Lunch NPO 75% Supper 25% Temperature Pulse Rate Blood Pressure O2 Sat by Pulse Oximetry (%) Oxygen Delivery Method 04/12/20 04/12/20 04/13/20 15:00 21:47 00:00 Breakfast 25% Diet Tolerated Poor Refused Lunch 75% Supper Temperature Pulse Rate 88 Blood Pressure 140/73 O2 Sat by Pulse Oximetry (%) Oxygen Delivery Method 04/13/20 04/13/20 04/13/20 04:00 09:00 09:41 Breakfast 75% Diet Tolerated Lunch Supper Temperature 98.2 F Pulse Rate 86 Blood Pressure 159/87 O2 Sat by Pulse 100 Oximetry (%) Oxygen Delivery Room Air Method 04/13/20 10:40 Breakfast Diet Tolerated Lunch Supper Temperature Pulse Rate 95 H Blood Pressure 127/77 O2 Sat by Pulse 100 Oximetry (%) Oxygen Delivery Method Laboratory Tests 04/09/20 04/10/20 04/11/20 07:35 10:45 06:00 WBC 13.1 H 10.7 H 11.7 H 04/12/20 05:15 WBC 9.3 MBS 04/09- SILENT ASPIRATION ON THIN LIQUID Placed on Dys chopped/nectar on . Chest pain over weekend, now in ICU, on puree/no liquid restrictions. RD contacted me to review. Suggest-Downgrade to [place] thick due to silent aspiration, and trial of dysphagia chopped. Supplements b/n meals.
--- NOTE | 2020-04-13 12:07 | PN ---
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 (short form) - Note 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: s: no cp sob palps dizzy Current Medications Generic Name Dose Route Start Last Admin Trade Name Freq PRN Reason Stop Dose Admin Acetaminophen 1,000 mg 04/10/20 05:52 04/13/20 06:56 Tylenol - PO 1,000 mg Q6H PRN Administration PAIN LEVEL 1-5 Albuterol Sulfate 2 puff 04/10/20 05:52 Ventolin Hfa Inhaler - IH TID PRN ASTHMA Ascorbic Acid 250 mg 04/10/20 10:00 04/13/20 10:36 Vitamin C - PO 250 mg DAILY JORDAN Administration Aspirin 81 mg 04/10/20 10:00 04/13/20 10:36 Asa - PO 81 mg DAILY JORDAN Administration Atorvastatin Calcium 40 mg 04/10/20 22:00 04/13/20 00:13 Lipitor - PO 40 mg HS JORDAN Administration Famotidine 20 mg 04/10/20 10:00 04/13/20 10:36 Pepcid - PO 20 mg DAILY JORDAN Administration Ferrous Sulfate 325 mg 04/10/20 10:00 04/13/20 10:36 Feosol - PO 325 mg DAILY JORDAN Administration Ampicillin Sodium 2 gm/ Sodium 100 mls @ 200 mls/hr 04/10/20 06:00 04/13/20 10:34 Chloride IVPB 200 mls/hr Q4H-IV JORDAN Administration Protocol Cefepime HCl 2 gm/ Dextrose 100 mls @ 200 mls/hr 04/10/20 10:00 04/13/20 10:34 IVPB 200 mls/hr Q8H-IV JORDAN Administration Protocol Dextrose/Sodium Chloride 1,000 mls @ 75 mls/hr 04/12/20 22:15 04/12/20 22:00 D5-1/2ns - IV 75 mls/hr ASDIR JORDAN Administration Levothyroxine Sodium 100 mcg 04/10/20 07:00 04/13/20 06:52 Synthroid - PO 100 mcg ACBK JORDAN Administration Magnesium Hydroxide 30 ml 04/10/20 05:52 Milk Of Magnesia - PO DAILY PRN CONSTIPATION Mirtazapine 15 mg 04/10/20 22:00 04/13/20 00:13 Remeron - PO 15 mg HS JORDAN Administration Multivitamins/Minerals/Vitamin C 1 tab 04/10/20 10:00 04/13/20 10:36 Tab-A-Vit - PO 1 tab DAILY JORDAN Administration Nitroglycerin 0.5 inch 04/10/20 18:00 04/13/20 06:52 Nitro-Bid 2% Paste - TD 0.5 inch Q6H JORDAN Administration Senna 2 tab 04/10/20 22:00 04/12/20 21:25 Senna - PO Not Given HS [facility] Tamsulosin HCl 0.4 mg 04/10/20 08:30 04/13/20 06:53 Flomax - PO 0.4 mg DAILY@0830 JORDAN Administration Vital Signs Period Temp Pulse Resp BP Sys/Pantoja Pulse Ox Last 24 Hr 98.2 F 77-95 16-25 119-159/66-87 98-100 nad no jvd rrr s1s2 no mrg cta bl nl eff 1+ le edema bl, no c/c abd nt nd pos bs no jaundice diaphoresis +dp pt no carotid bruits echo 02/2020: lvef 35%, global hk, nl rv, lae, nl bio avr, mild mr, mild tr, rvsp 38 echo 03/2020 EF 35-40%, mod to severe global hypokinesis of LV, severe hypokinesis of apical anterior wall and apex, LA mod dilated, mild to mod MAC, mild to mod MR, mild TR, bio AVR, well seated prosthetic valve, mild AR ecg: sr, rbbb, PVCs cxr: clear tele: sr, PVCs a/p: 79 m hx htn, syst chf, as s/p remote bio avr, cad s/p remote pci, tia, presented with DUNG, sepsis with chest pain, elevated trops chest pain, elevated troponin, CAD, remote PCI - patient unable to give further history regarding chest pain, denies pain now - EKG unchanged from prior - may be 2/2 demand in setting of underlying anemia, DUNG, vs NSTEMI from plaque rupture - also with wall motion abnormalities on echo here from 04/02/2020, known u nderlying CAD - given poor prognosis and desire to minimize invasive procedures, would defer ischemic workup at this point and continue medical management for underlying CAD - cont aspirin, statin chronic syst chf: - held coreg for low BPs, not on FLACO/ARB due to DUNG - appears euvolemic, hold diuretics hypotension, septic shock, UTI - bacteremia 2/2 UTI, bcx no growth from 04/01 - improved with IVF, abx - manage per pmd, ID DUNG - improving with IVF htn: - bp stable off meds avr: -stable, nl fcn on echo
--- NOTE | 2020-04-13 14:35 | PN ---
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, Physician History of Present Illness: Pt seen and examined at bedside. He is easily agitated. - Current Medication List Current Medications: Active Medications Acetaminophen (Tylenol -) 1,000 mg PO Q6H PRN PRN Reason: PAIN LEVEL 1-5 Last Admin: 04/13/20 06:56 Dose: 1,000 mg Documented by: Albuterol Sulfate (Ventolin Hfa Inhaler -) 2 puff IH TID PRN PRN Reason: ASTHMA Ascorbic Acid (Vitamin C -) 250 mg PO DAILY [facility] Last Admin: 04/13/20 10:36 Dose: 250 mg Documented by: Aspirin (Asa -) 81 mg PO DAILY [facility] Last Admin: 04/13/20 10:36 Dose: 81 mg Documented by: Atorvastatin Calcium (Lipitor -) 40 mg PO [facility] Last Admin: 04/13/20 00:13 Dose: 40 mg Documented by: Famotidine (Pepcid -) 20 mg PO DAILY [facility] Last Admin: 04/13/20 10:36 Dose: 20 mg Documented by: Ferrous Sulfate (Feosol -) 325 mg PO DAILY [facility] Last Admin: 04/13/20 10:36 Dose: 325 mg Documented by: Ampicillin Sodium 2 gm/ Sodium (Chloride) 100 mls @ 200 mls/hr IVPB Q4H-IV [facility]; Protocol Last Admin: 04/13/20 10:34 Dose: 200 mls/hr Documented by: Cefepime HCl 2 gm/ Dextrose 100 mls @ 200 mls/hr IVPB Q8H-IV [facility]; Protocol Last Admin: 04/13/20 10:34 Dose: 200 mls/hr Documented by: Dextrose/Sodium Chloride (D5-1/2ns -) 1,000 mls @ 75 mls/hr IV ASDIR [facility] Last Admin: 04/12/20 22:00 Dose: 75 mls/hr Documented by: Levothyroxine Sodium (Synthroid -) 100 mcg PO ACBK [facility] Last Admin: 04/13/20 06:52 Dose: 100 mcg Documented by: Magnesium Hydroxide (Milk Of Magnesia -) 30 ml PO DAILY PRN PRN Reason: CONSTIPATION Mirtazapine (Remeron -) 15 mg PO [facility] Last Admin: 04/13/20 00:13 Dose: 15 mg Documented by: Multivitamins/Minerals/Vitamin C (Tab-A-Vit -) 1 tab PO DAILY [facility] Last Admin: 04/13/20 10:36 Dose: 1 tab Documented by: Nitroglycerin (Nitro-Bid 2% Paste -) 0.5 inch TD Q6H [facility] Last Admin: 04/13/20 06:52 Dose: 0.5 inch Documented by: Senna (Senna -) 2 tab PO HS [facility] Last Admin: 04/12/20 21:25 Dose: Not Given Documented by: Tamsulosin HCl (Flomax -) 0.4 mg PO DAILY@0830 [facility] Last Admin: 04/13/20 06:53 Dose: 0.4 mg Documented by: - Objective Vital Signs: Vital Signs Temperature 98.2 F 04/13/20 04:00 Pulse Rate 86 04/13/20 12:06 Respiratory Rate 24 H 04/13/20 12:06 Blood Pressure 135/86 04/13/20 12:06 O2 Sat by Pulse Oximetry (%) 98 04/13/20 12:06 Constitutional: Yes: Calm Eyes: Yes: Conjunctiva Clear HENT: Yes: Atraumatic Cardiovascular: Yes: S1, S2 Respiratory: Yes: CTA Bilaterally Gastrointestinal: Yes: Soft Genitourinary: Yes: Incontinence Psychiatric: Yes: Agitated Labs: CBC, BMP 04/12/20 05:15 04/12/20 05:15 INR, PTT INR 0.95 (0.83-1.09) 03/29/20 22:50 Problem List - Problems (1) DUNG (acute kidney injury) Code(s): N17.9 - ACUTE KIDNEY FAILURE, UNSPECIFIED (2) Hyperkalemia Code(s): E87.5 - HYPERKALEMIA (3) Sepsis Code(s): A41.9 - SEPSIS, UNSPECIFIED ORGANISM Assessment/Plan Current Medications Generic Name Dose Route Start Last Admin Trade Name Freq PRN Reason Stop Dose Admin Acetaminophen 1,000 mg 04/10/20 05:52 04/13/20 06:56 Tylenol - PO 1,000 mg Q6H PRN Administration PAIN LEVEL 1-5 Albuterol Sulfate 2 puff 04/10/20 05:52 Ventolin Hfa Inhaler - IH TID PRN ASTHMA Ascorbic Acid 250 mg 04/10/20 10:00 04/13/20 10:36 Vitamin C - PO 250 mg DAILY [facility] Administration Aspirin 81 mg 04/10/20 10:00 04/13/20 10:36 Asa - PO 81 mg DAILY [facility] Administration Atorvastatin Calcium 40 mg 04/10/20 22:00 04/13/20 00:13 Lipitor - PO 40 mg HS [facility] Administration Famotidine 20 mg 04/10/20 10:00 04/13/20 10:36 Pepcid - PO 20 mg DAILY [facility] Administration Ferrous Sulfate 325 mg 04/10/20 10:00 04/13/20 10:36 Feosol - PO 325 mg DAILY [facility] Administration Ampicillin Sodium 2 gm/ Sodium 100 mls @ 200 mls/hr 04/10/20 06:00 04/13/20 10:34 Chloride IVPB 200 mls/hr Q4H-IV [facility] Administration Protocol Cefepime HCl 2 gm/ Dextrose 100 mls @ 200 mls/hr 04/10/20 10:00 04/13/20 10:34 IVPB 200 mls/hr Q8H-IV [facility] Administration Protocol Dextrose/Sodium Chloride 1,000 mls @ 75 mls/hr 04/12/20 22:15 04/12/20 22:00 D5-1/2ns - IV 75 mls/hr ASDIR [facility] Administration Levothyroxine Sodium 100 mcg 04/10/20 07:00 04/13/20 06:52 Synthroid - PO 100 mcg ACBK [facility] Administration Magnesium Hydroxide 30 ml 04/10/20 05:52 Milk Of Magnesia - PO DAILY PRN CONSTIPATION Mirtazapine 15 mg 04/10/20 22:00 04/13/20 00:13 Remeron - PO 15 mg HS [facility] Administration Multivitamins/Minerals/Vitamin C 1 tab 04/10/20 10:00 04/13/20 10:36 Tab-A-Vit - PO 1 tab DAILY [facility] Administration Nitroglycerin 0.5 inch 04/10/20 18:00 04/13/20 06:52 Nitro-Bid 2% Paste - TD 0.5 inch Q6H [facility] Administration Senna 2 tab 04/10/20 22:00 04/12/20 21:25 Senna - PO Not Given HS [facility] Tamsulosin HCl 0.4 mg 04/10/20 08:30 04/13/20 06:53 Flomax - PO 0.4 mg DAILY@0830 [facility] Administration Impression 1. DUNG 2. sepsis 3. hyperkalemia 4. hypotension 5. chf 6. bph 7. cad 8. tia 9. gerd 10. hypernatremia Plan - check bmp if he agrees - can cont fluids for now - monitor volume status - cardio input appreciated - encourage po intake
--- NOTE | 2020-04-13 16:10 | PN ---
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, Physician Chief Complaint: Sepsis DUNG UTI Bacteremia Dysphagia History of Present Illness: Mr. Solares is an 79 year old male BIBA from [facility] for hypotension (SBP in the 70's). He has a past medical history of hypertension, CHF, aortic stenosis s/p bioprosthetic valve replacement, CAD, prior stent, GERD,TIA,BPH and indwelling iyer. eventful weekend with chest pain transfered to ICU on heparin drip, dc'd now Elevated trops-peaked already, now trending down Seen by Cardiology Conservative care Refuses most of his medications 04/13/20: NAD Denies any pain, SOB - Current Medication List Current Medications: Active Medications Acetaminophen (Tylenol -) 1,000 mg PO Q6H PRN PRN Reason: PAIN LEVEL 1-5 Last Admin: 04/13/20 06:56 Dose: 1,000 mg Documented by: Albuterol Sulfate (Ventolin Hfa Inhaler -) 2 puff IH TID PRN PRN Reason: ASTHMA Ascorbic Acid (Vitamin C -) 250 mg PO DAILY [facility] Last Admin: 04/13/20 10:36 Dose: 250 mg Documented by: Aspirin (Asa -) 81 mg PO DAILY [facility] Last Admin: 04/13/20 10:36 Dose: 81 mg Documented by: Atorvastatin Calcium (Lipitor -) 40 mg PO HS [facility] Last Admin: 04/13/20 00:13 Dose: 40 mg Documented by: Famotidine (Pepcid -) 20 mg PO DAILY [facility] Last Admin: 04/13/20 10:36 Dose: 20 mg Documented by: Ferrous Sulfate (Feosol -) 325 mg PO DAILY [facility] Last Admin: 04/13/20 10:36 Dose: 325 mg Documented by: Ampicillin Sodium 2 gm/ Sodium (Chloride) 100 mls @ 200 mls/hr IVPB Q4H-IV [facility]; Protocol Last Admin: 04/13/20 14:15 Dose: 200 mls/hr Documented by: Cefepime HCl 2 gm/ Dextrose 100 mls @ 200 mls/hr IVPB Q8H-IV [facility]; Protocol Last Admin: 04/13/20 10:34 Dose: 200 mls/hr Documented by: Dextrose/Sodium Chloride (D5-1/2ns -) 1,000 mls @ 75 mls/hr IV ASDIR [facility] Last Admin: 04/12/20 22:00 Dose: 75 mls/hr Documented by: Levothyroxine Sodium (Synthroid -) 100 mcg PO ACBK [facility] Last Admin: 04/13/20 06:52 Dose: 100 mcg Documented by: Magnesium Hydroxide (Milk Of Magnesia -) 30 ml PO DAILY PRN PRN Reason: CONSTIPATION Mirtazapine (Remeron -) 15 mg PO [facility] Last Admin: 04/13/20 00:13 Dose: 15 mg Documented by: Multivitamins/Minerals/Vitamin C (Tab-A-Vit -) 1 tab PO DAILY [facility] Last Admin: 04/13/20 10:36 Dose: 1 tab Documented by: Nitroglycerin (Nitro-Bid 2% Paste -) 0.5 inch TD Q6H [facility] Last Admin: 04/13/20 14:00 Dose: 0.5 inch Documented by: Senna (Senna -) 2 tab PO [facility] Last Admin: 04/12/20 21:25 Dose: Not Given Documented by: Tamsulosin HCl (Flomax -) 0.4 mg PO DAILY@0830 [facility] Last Admin: 04/13/20 15:13 Dose: Not Given Documented by: - Objective Vital Signs: Vital Signs Temperature 97.7 F 04/13/20 14:52 Pulse Rate 85 04/13/20 14:52 Respiratory Rate 11 04/13/20 14:52 Blood Pressure 135/86 04/13/20 14:52 O2 Sat by Pulse Oximetry (%) 100 04/13/20 14:52 Constitutional: Yes: Well Nourished, No Distress, Calm Cardiovascular: Yes: Regular Rate and Rhythm Respiratory: Yes: Regular, CTA Bilaterally Gastrointestinal: Yes: Normal Bowel Sounds, Soft Genitourinary: Yes: Iyer Present Musculoskeletal: Yes: Muscle Weakness Extremities: Yes: WNL Edema: No Peripheral Pulses WNL: Yes Neurological: Yes: Alert, Oriented Psychiatric: Yes: Alert, Oriented Labs: CBC, BMP 04/12/20 05:15 04/12/20 05:15 INR, PTT INR 0.95 (0.83-1.09) 03/29/20 22:50 Problem List - Problems (1) Chronic retention of urine Assessment/Plan: -Continue iyer cath Problems reviewed: Yes Code(s): R33.9 - RETENTION OF URINE, UNSPECIFIED (2) DUNG (acute kidney injury) Assessment/Plan: -Nephrology consult -Renal U/S -UC pseudomonas -Cr at baseline -Continue IVF Problems reviewed: Yes Code(s): N17.9 - ACUTE KIDNEY FAILURE, UNSPECIFIED (3) Hyperkalemia Assessment/Plan: -K hemolyzed yesterday -repeat CMP in AM -Nephrology on board Problems reviewed: Yes Code(s): E87.5 - HYPERKALEMIA (4) Sepsis Assessment/Plan: -ID consult -IV Ampicillin + Cefepime -No Lactic acidosis -Afebrile -Cultures: Microbiology 04/01/20 09:37 Blood - Peripheral Venous Blood Culture - Final NO GROWTH AFTER 5 DAYS INCUBATION 03/31/20 17:15 Blood - Peripheral Venous Blood Culture - Final NO GROWTH AFTER 5 DAYS INCUBATION 03/31/20 17:30 Blood - Peripheral Venous Blood Culture - Final NO GROWTH AFTER 5 DAYS INCUBATION 03/31/20 22:25 Urine - Urine Iyer Urine Culture - Final Pseudomonas Aeruginosa 03/29/20 22:50 Blood - Peripheral Venous Blood Culture - Final Group D Strep Or Entero Coccus Pseudomonas Species 03/29/20 22:50 Blood - Peripheral Venous Blood Culture - Final Enterococcus Faecalis Pseudomonas Aeruginosa 03/30/20 00:27 Urine - Urine - Catheterized Urine Culture - Final Contaminated: Please Repeat Problems reviewed: Yes Code(s): A41.9 - SEPSIS, UNSPECIFIED ORGANISM (5) Failure to thrive Assessment/Plan: -Add multivitamin -Ensure pudding + Magic cup -Seen by Speech pathology -MBS- Mod to severe stasis with puree. Aspiration on thin liquid -Dysphagia puree thinned out with nectar thick liquids Problems reviewed: Yes Code(s): UCE2018 - (6) Malnutrition Assessment/Plan: -Multivitamin -Mirtazapine Problems reviewed: Yes Code(s): E46 - UNSPECIFIED PROTEIN-CALORIE MALNUTRITION Qualifiers: Protein-calorie malnutrition severity: severe (7) Bacteremia Assessment/Plan: -Cultures: Microbiology 04/01/20 09:37 Blood - Peripheral Venous Blood Culture - Final NO GROWTH AFTER 5 DAYS INCUBATION 03/31/20 17:15 Blood - Peripheral Venous Blood Culture - Final NO GROWTH AFTER 5 DAYS INCUBATION 03/31/20 17:30 Blood - Peripheral Venous Blood Culture - Final NO GROWTH AFTER 5 DAYS INCUBATION 03/31/20 22:25 Urine - Urine Iyer Urine Culture - Final Pseudomonas Aeruginosa 03/29/20 22:50 Blood - Peripheral Venous Blood Culture - Final Group D Strep Or Entero Coccus Pseudomonas Species 03/29/20 22:50 Blood - Peripheral Venous Blood Culture - Final Enterococcus Faecalis Pseudomonas Aeruginosa 03/30/20 00:27 Urine - Urine - Catheterized Urine Culture - Final Contaminated: Please Repeat -rest as above Problems reviewed: Yes Code(s): R78.81 - BACTEREMIA (8) Chest pain Assessment/Plan: -Cardiology consult appreciated -Conservative measures -Tele monitor -Nitro patch -Echo reviewed Problems reviewed: Yes Code(s): R07.9 - CHEST PAIN, UNSPECIFIED (9) Elevated troponin Assessment/Plan: as above Problems reviewed: Yes Code(s): R79.89 - OTHER SPECIFIED ABNORMAL FINDINGS OF BLOOD CHEMISTRY (10) NSTEMI (non-ST elevated myocardial infarction) Assessment/Plan: as above Problems reviewed: Yes Code(s): I21.4 - NON-ST ELEVATION (NSTEMI) MYOCARDIAL INFARCTION (11) Abdominal pain Assessment/Plan: -2/2 to constipation -Milk of magnesia -CTAP reviewed-unremarkable except constipation Problems reviewed: Yes Code(s): R10.9 - UNSPECIFIED ABDOMINAL PAIN (12) Constipation Assessment/Plan: -Continue Senna 2 tabs HS -MOM PRN Problems reviewed: Yes Code(s): K59.00 - CONSTIPATION, UNSPECIFIED Assessment/Plan See problem list
[2020-04-13] MEDS: SENNOSIDES 8.6MG TABLET (FP) PO SCH (21:49)
[2020-04-14] MEDS: NITROGLYCERIN 2% OINTMENT - 1GM PACKET TD SCH ×4 (00:25→17:32)
[2020-04-14] MEDS: DEXTROSE 5%-0.45% SALINE 1,000 ML IV SCH (00:33)
[2020-04-14] MEDS ORDERED: DEXTROSE 5%-0.45% SALINE 1,000 ML IV SCH (00:39)
[2020-04-14] MEDS ORDERED: ALBUTEROL SO4 HFA INHALER IH PRN (00:39)
[2020-04-14] MEDS ORDERED: ACETAMINOPHEN 500 MG TABLET (FP) PO PRN (00:39)
[2020-04-14] MEDS ORDERED: MAGNESIUM HYDROX 2400MG/30ML ORAL SUSPENSION 30 ML CUP PO PRN (00:39)
[2020-04-14] MEDS: MORPHINE SULFATE 2 MG/ML VIAL IVPUSH PRN ×2 (00:42→08:49)
[2020-04-14] MEDS ORDERED: PT OWN MED DRAWER 7, Y5N ONE ×4 (01:27→13:33)
[2020-04-14] MEDS: CEFEPIME 2 GM in DEXTROSE 5%-WATER 100 ML IVPB SCH ×3 (01:34→17:17)
[2020-04-14] MEDS: AMPICILLIN - 2 GM in SODIUM CHLORIDE 100 ML IVPB SCH ×6 (02:20→21:18)
[2020-04-14] MEDS: LEVOTHYROXINE NA 100 MCG TABLET (FP) PO SCH (06:32)
--- NOTE | 2020-04-14 07:58 | PN ---
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, Physician History of Present Illness: Sepsis DUNG UTI Bacteremia Dysphagia History of Present Illness: Mr. Solares is an 79 year old male BIBA from [facility] for hypotension (SBP in the 70's). He has a past medical history of hypertension, CHF, aortic stenosis s/p bioprosthetic valve replacement, CAD, prior stent, GERD,TIA,BPH and indwelling iyer. eventful weekend with chest pain transfered to ICU on heparin drip, dc'd now Elevated trops-peaked already, now trending down Seen by Cardiology Conservative care Refuses most of his medications 04/13/20: NAD Denies any pain, SOB 04/14 REFUSING IV - Current Medication List Current Medications: Active Medications Acetaminophen (Tylenol -) 1,000 mg PO Q6H PRN PRN Reason: PAIN LEVEL 1-5 Albuterol Sulfate (Ventolin Hfa Inhaler -) 2 puff IH TID PRN PRN Reason: ASTHMA Ascorbic Acid (Vitamin C -) 250 mg PO DAILY [facility] Aspirin (Asa -) 81 mg PO DAILY [facility] Atorvastatin Calcium (Lipitor -) 40 mg PO HS [facility] Famotidine (Pepcid -) 20 mg PO DAILY [facility] Ferrous Sulfate (Feosol -) 325 mg PO DAILY [facility] Ampicillin Sodium 2 gm/ Sodium (Chloride) 100 mls @ 200 mls/hr IVPB Q4H-IV [facility]; Protocol Last Admin: 04/14/20 06:31 Dose: Not Given Documented by: Cefepime HCl 2 gm/ Dextrose 100 mls @ 200 mls/hr IVPB Q8H-IV [facility]; Protocol Last Admin: 04/14/20 01:34 Dose: 200 mls/hr Documented by: Dextrose/Sodium Chloride (D5-1/2ns -) 1,000 mls @ 75 mls/hr IV ASDIR [facility] Last Admin: 04/14/20 01:22 Dose: 75 mls/hr Documented by: Levothyroxine Sodium (Synthroid -) 100 mcg PO ACBK [facility] Last Admin: 04/14/20 06:32 Dose: Not Given Documented by: Magnesium Hydroxide (Milk Of Magnesia -) 30 ml PO DAILY PRN PRN Reason: CONSTIPATION Mirtazapine (Remeron -) 15 mg PO HS [facility] Morphine Sulfate (Morphine Sulfate) 1 mg IVPUSH Q6H PRN PRN Reason: PAIN LEVEL 6-10 Last Admin: 04/14/20 00:42 Dose: 1 mg Documented by: Multivitamins/Minerals/Vitamin C (Tab-A-Vit -) 1 tab PO DAILY [facility] Nitroglycerin (Nitro-Bid 2% Paste -) 0.5 inch TD Q6H [facility] Last Admin: 04/14/20 06:32 Dose: Not Given Documented by: Senna (Senna -) 2 tab PO HS [facility] Tamsulosin HCl (Flomax -) 0.4 mg PO DAILY@0830 [facility] - Objective Vital Signs: Vital Signs Temperature 97.5 F L 04/14/20 06:00 Pulse Rate 83 04/14/20 06:00 Respiratory Rate 18 04/14/20 06:00 Blood Pressure 142/79 04/14/20 06:00 O2 Sat by Pulse Oximetry (%) 98 04/14/20 06:00 Cardiovascular: Yes: S1, S2 Respiratory: Yes: Regular, CTA Bilaterally Gastrointestinal: Yes: Normal Bowel Sounds, Soft. No: Tenderness Labs: CBC, BMP 04/12/20 05:15 04/12/20 05:15 INR, PTT INR 0.95 (0.83-1.09) 03/29/20 22:50 Problem List - Problems (1) Dysphagia Code(s): R13.10 - DYSPHAGIA, UNSPECIFIED (2) Weakness Code(s): R53.1 - WEAKNESS (3) DUNG (acute kidney injury) Code(s): N17.9 - ACUTE KIDNEY FAILURE, UNSPECIFIED (4) Chronic retention of urine Code(s): R33.9 - RETENTION OF URINE, UNSPECIFIED (5) Sepsis Code(s): A41.9 - SEPSIS, UNSPECIFIED ORGANISM Assessment/Plan - Problems (1) Chronic retention of urine Assessment/Plan: -Continue iyer cath Problems reviewed: Yes Code(s): R33.9 - RETENTION OF URINE, UNSPECIFIED (2) DUNG (acute kidney injury) Assessment/Plan: -Nephrology consult -Renal U/S -UC pseudomonas -Cr at baseline -REFUSING IVF--DC--LABS Problems reviewed: Yes Code(s): N17.9 - ACUTE KIDNEY FAILURE, UNSPECIFIED (3) Hyperkalemia Assessment/Plan: -K hemolyzed yesterday -repeat CMP -Nephrology on board Problems reviewed: Yes Code(s): E87.5 - HYPERKALEMIA (4) Sepsis Assessment/Plan: -ID consult -IV Ampicillin + Cefepime--IF PT AGREES -No Lactic acidosis -Afebrile -Cultures: Microbiology 04/01/20 09:37 Blood - Peripheral Venous Blood Culture - Final NO GROWTH AFTER 5 DAYS INCUBATION 03/31/20 17:15 Blood - Peripheral Venous Blood Culture - Final NO GROWTH AFTER 5 DAYS INCUBATION 03/31/20 17:30 Blood - Peripheral Venous Blood Culture - Final NO GROWTH AFTER 5 DAYS INCUBATION 03/31/20 22:25 Urine - Urine Iyer Urine Culture - Final Pseudomonas Aeruginosa 03/29/20 22:50 Blood - Peripheral Venous Blood Culture - Final Group D Strep Or Entero Coccus Pseudomonas Species 03/29/20 22:50 Blood - Peripheral Venous Blood Culture - Final Enterococcus Faecalis Pseudomonas Aeruginosa 03/30/20 00:27 Urine - Urine - Catheterized Urine Culture - Final Contaminated: Please Repeat PICC LINE Problems reviewed: Yes Code(s): A41.9 - SEPSIS, UNSPECIFIED ORGANISM (5) Failure to thrive Assessment/Plan: -Add multivitamin -Ensure pudding + Magic cup -Seen by Speech pathology -MBS- Mod to severe stasis with puree. Aspiration on thin liquid -Dysphagia puree thinned out with nectar thick liquids Problems reviewed: Yes Code(s): [id number] - (6) Malnutrition Assessment/Plan: -Multivitamin -Mirtazapine Problems reviewed: Yes Code(s): E46 - UNSPECIFIED PROTEIN-CALORIE MALNUTRITION Qualifiers: Protein-calorie malnutrition severity: severe (7) Bacteremia Assessment/Plan: -Cultures: Microbiology 04/01/20 09:37 Blood - Peripheral Venous Blood Culture - Final NO GROWTH AFTER 5 DAYS INCUBATION 03/31/20 17:15 Blood - Peripheral Venous Blood Culture - Final NO GROWTH AFTER 5 DAYS INCUBATION 03/31/20 17:30 Blood - Peripheral Venous Blood Culture - Final NO GROWTH AFTER 5 DAYS INCUBATION 03/31/20 22:25 Urine - Urine Iyer Urine Culture - Final Pseudomonas Aeruginosa 03/29/20 22:50 Blood - Peripheral Venous Blood Culture - Final Group D Strep Or Entero Coccus Pseudomonas Species 03/29/20 22:50 Blood - Peripheral Venous Blood Culture - Final Enterococcus Faecalis Pseudomonas Aeruginosa 03/30/20 00:27 Urine - Urine - Catheterized Urine Culture - Final Contaminated: Please Repeat -rest as above Problems reviewed: Yes Code(s): R78.81 - BACTEREMIA (8) Chest pain Assessment/Plan: -Cardiology consult appreciated -Conservative measures -Tele monitor -Nitro patch -Echo reviewed Problems reviewed: Yes Code(s): R07.9 - CHEST PAIN, UNSPECIFIED (9) Elevated troponin Assessment/Plan: as above Problems reviewed: Yes Code(s): R79.89 - OTHER SPECIFIED ABNORMAL FINDINGS OF BLOOD CHEMISTRY (10) NSTEMI (non-ST elevated myocardial infarction) Assessment/Plan: as above Problems reviewed: Yes Code(s): I21.4 - NON-ST ELEVATION (NSTEMI) MYOCARDIAL INFARCTION (11) Abdominal pain Assessment/Plan: -2/2 to constipation -Milk of magnesia -CTAP reviewed-unremarkable except constipation Problems reviewed: Yes Code(s): R10.9 - UNSPECIFIED ABDOMINAL PAIN (12) Constipation Assessment/Plan: -Continue Senna 2 tabs HS -MOM PRN Problems reviewed: Yes Code(s): K59.00 - CONSTIPATION, UNSPECIFIED PALLIATIVE CARE CONSULT DC PLANNING PICC LINE
[2020-04-14] MEDS: TAMSULOSIN HCL 0.4 MG CAP PO SCH (09:02)
[2020-04-14] MEDS: ASCORBIC ACID 250 MG TABLET (FP) PO SCH (09:02)
[2020-04-14] MEDS: FERROUS SO4 325 MG TABLET (FP) PO SCH (09:03)
[2020-04-14] MEDS: FAMOTIDINE 20 MG TABLET PO SCH (09:03)
[2020-04-14] MEDS: MULTIVITAMINS (DAILY MVI) TABLET (FP) PO SCH (09:03)
[2020-04-14] MEDS: ASPIRIN 81 MG CHEWABLE TABLETS PO SCH (09:03)
--- NOTE | 2020-04-14 10:05 | EKG ---
Test Reason : Blood Pressure : / mmHG Vent. Rate : 108 BPM Atrial Rate : 108 BPM P-R Int : 168 ms QRS Dur : 164 ms QT Int : 408 ms P-R-T Axes : 000 -89 069 degrees QTc Int : 546 ms POOR DATA QUALITY, INTERPRETATION MAY BE ADVERSELY AFFECTED SINUS TACHYCARDIA LEFT AXIS DEVIATION RIGHT BUNDLE BRANCH BLOCK LATERAL INFARCT (CITED ON OR BEFORE 22-FEB-2020) INFERIOR INFARCT (CITED ON OR BEFORE 22-FEB-2020) ABNORMAL ECG WHEN COMPARED WITH ECG OF 29-MAR-2020 23:55, RIGHT BUNDLE BRANCH BLOCK HAS REPLACED NON-SPECIFIC INTRA-VENTRICULAR CONDUCTION BLOCK Confirmed by Checo Kulkarni ([id number]) on 04/14/2020 10:05:08 AM Referred By: Confirmed By:Checo Kulkarni
--- NOTE | 2020-04-14 10:21 | PN ---
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, CHROME [employer]ANNING [employer]PER[employer] - Note 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: Selected Entries 04/10/20 04/10/20 04/10/20 09:00 09:19 13:16 Breakfast 25% NPO NPO Diet Tolerated Lunch NPO NPO Supper Temperature Pulse Rate Blood Pressure O2 Sat by Pulse Oximetry (%) Oxygen Delivery Method 04/10/20 04/11/20 04/11/20 20:00 10:00 14:22 Breakfast NPO 50% Diet Tolerated Poor Poor Lunch NPO 75% Supper 25% Temperature Pulse Rate Blood Pressure O2 Sat by Pulse Oximetry (%) Oxygen Delivery Method 04/12/20 04/12/20 04/13/20 15:00 21:47 00:00 Breakfast 25% Diet Tolerated Poor Refused Lunch 75% Supper Temperature Pulse Rate 88 Blood Pressure 140/73 O2 Sat by Pulse Oximetry (%) Oxygen Delivery Method 04/13/20 04/13/20 04/13/20 04:00 09:00 09:41 Breakfast 75% Diet Tolerated Lunch Supper Temperature 98.2 F Pulse Rate 86 Blood Pressure 159/87 O2 Sat by Pulse 100 Oximetry (%) Oxygen Delivery Room Air Method 04/13/20 10:40 Breakfast Diet Tolerated Lunch Supper Temperature Pulse Rate 95 H Blood Pressure 127/77 O2 Sat by Pulse 100 Oximetry (%) Oxygen Delivery Method Laboratory Tests 04/09/20 04/10/20 04/11/20 07:35 10:45 06:00 WBC 13.1 H 10.7 H 11.7 H 04/12/20 05:15 WBC 9.3 Selected Entries 04/13/20 04/13/20 04/14/20 09:41 15:00 02:00 Breakfast 75% 75% Diet Tolerated Lunch 50% 50% Temperature 97.7 F Pulse Rate 78 Blood Pressure 105/64 04/14/20 04/14/20 06:00 09:33 Breakfast 25% Diet Tolerated Poor Lunch Temperature 97.5 F L Pulse Rate 83 Blood Pressure 142/79 Laboratory Tests 04/12/20 05:15 WBC 9.3 MBS 04/09- SILENT ASPIRATION ON THIN LIQUID Downgraded to [place] thick due to silent aspiration, and upgrade trial of dysphagia chopped. Supplements b/n meals. Intermittent cooperation/po acceptance Seen by palliative care- Plan is for Petra.
[2020-04-14 11:48] LABS: BASO % 1.2 % (0-2.0); EOS % 2.3 % (0-4.5); HEMATOCRIT 30.2 % (35.4-49); HEMOGLOBIN 9.8 GM/dL (11.7-16.9); LYMPH % 7.6 % (8-40); MCH 26.4 pg (25.7-33.7); MCHC 32.4 g/dl (32.0-35.9); MEAN CELL VOLUME 81.4 fl (80-96); MEAN PLT VOLUME 8.4 fl (7.5-11.1); MONO % 8.7 % (3.8-10.2); NEUT % 80.2 % (42.8-82.8); PLATELET COUNT 212 K/MM3 (134-434); RBC 3.71 M/mm3 (4.00-5.60); RDW 18.4 % (11.9-15.9); WHITE BLOOD COUNT 7.1 K/mm3 (4.0-10.0)
[2020-04-14] MEDS: oxyCODONE HCL 5 MG TABLET PO PRN (12:12)
[2020-04-14 12:14] LABS: ALBUMIN 1.4 g/dl (3.4-5.0); BILIRUBIN,TOTAL 0.1 mg/dL (0.2-1); BLOOD UREA NITROGEN 21.4 mg/dL (7-18); CALCIUM 7.8 mg/dL (8.5-10.1); CREATININE 1.3 mg/dL (0.55-1.3); POTASSIUM 4.8 mmol/L (3.5-5.1)
--- NOTE | 2020-04-14 12:53 | PN ---
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 (short form) - Note 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: cc: chest pain s: no cp sob palps dizzy Current Medications Generic Name Dose Route Start Last Admin Trade Name Freq PRN Reason Stop Dose Admin Acetaminophen 1,000 mg 04/14/20 00:39 Tylenol - PO Q6H PRN PAIN LEVEL 1-5 Albuterol Sulfate 2 puff 04/14/20 00:39 Ventolin Hfa Inhaler - IH TID PRN ASTHMA Ascorbic Acid 250 mg 04/14/20 10:00 04/14/20 09:02 Vitamin C - PO 250 mg DAILY [facility] Administration Aspirin 81 mg 04/14/20 10:00 04/14/20 09:03 Asa - PO 81 mg DAILY [facility] Administration Atorvastatin Calcium 40 mg 04/14/20 22:00 Lipitor - PO [facility] Famotidine 20 mg 04/14/20 10:00 04/14/20 09:03 Pepcid - PO 20 mg DAILY [facility] Administration Ferrous Sulfate 325 mg 04/14/20 10:00 04/14/20 09:03 Feosol - PO 325 mg DAILY [facility] Administration Ampicillin Sodium 2 gm/ Sodium 100 mls @ 200 mls/hr 04/14/20 02:00 04/14/20 09:32 Chloride IVPB 200 mls/hr Q4H-IV [facility] Administration Protocol Cefepime HCl 2 gm/ Dextrose 100 mls @ 200 mls/hr 04/14/20 02:00 04/14/20 09:03 IVPB 200 mls/hr Q8H-IV [facility] Administration Protocol Levothyroxine Sodium 100 mcg 04/14/20 07:00 04/14/20 06:32 Synthroid - PO Not Given ACBK [facility] Magnesium Hydroxide 30 ml 04/14/20 00:39 Milk Of Magnesia - PO DAILY PRN CONSTIPATION Mirtazapine 15 mg 04/14/20 22:00 Remeron - PO [facility] Multivitamins/Minerals/Vitamin C 1 tab 04/14/20 10:00 04/14/20 09:03 Tab-A-Vit - PO 1 tab DAILY [facility] Administration Nitroglycerin 0.5 inch 04/14/20 06:00 04/14/20 11:28 Nitro-Bid 2% Paste - TD 0.5 inch Q6H [facility] Administration Oxycodone HCl 5 mg 04/14/20 09:26 04/14/20 12:12 Roxicodone - PO 5 mg Q6H PRN Administration PAIN LEVEL 6-10 Senna 2 tab 04/14/20 22:00 Senna - PO HS [facility] Tamsulosin HCl 0.4 mg 04/14/20 08:30 04/14/20 09:02 Flomax - PO 0.4 mg DAILY@0830 [facility] Administration Vital Signs Period Temp Pulse Resp BP Sys/Pantoja Pulse Ox Last 24 Hr 97.5 F-98.6 F 78-93 - 105-142/59-86 95-100 nad no jvd rrr s1s2 no mrg cta bl nl eff 1+ le edema bl, no c/c abd nt nd pos bs no jaundice diaphoresis +dp pt no carotid bruits echo 02/2020: lvef 35%, global hk, nl rv, lae, nl bio avr, mild mr, mild tr, rvsp 38 echo 03/2020 EF 35-40%, mod to severe global hypokinesis of LV, severe hypokinesis of apical anterior wall and apex, LA mod dilated, mild to mod MAC, mild to mod MR, mild TR, bio AVR, well seated prosthetic valve, mild AR ecg: sr, rbbb, PVCs cxr: clear tele: sr, PVCs a/p: 80 m hx htn, syst chf, as s/p remote bio avr, cad s/p remote pci, tia, presented with DUNG, sepsis with chest pain, elevated trops chest pain, elevated troponin, CAD, remote PCI - patient unable to give further history regarding chest pain, resolved - EKG unchanged from prior - may be 2/2 demand in setting of underlying anemia, DUNG, vs NSTEMI from plaque rupture - also with wall motion abnormalities on echo here from 04/02/2020, known underlying CAD - given poor prognosis and desire to minimize invasive procedures, would defer ischemic workup at this point and continue medical management for underlying CAD - cont aspirin, statin chronic syst chf: - held coreg for low BPs, not on FLACO/ARB due to DUNG - appears euvolemic, hold diuretics hypotension, septic shock, UTI - bacteremia 2/2 UTI, bcx no growth from 04/01 - improved with IVF, abx - manage per pmd, ID DUNG - improving with IVF htn: - bp stable off meds avr: -stable, nl fcn on echo
--- NOTE | 2020-04-14 13:13 | PN ---
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, Physician History of Present Illness: Pt seen and examined at bedside. He is agitated. - Current Medication List Current Medications: Active Medications Acetaminophen (Tylenol -) 1,000 mg PO Q6H PRN PRN Reason: PAIN LEVEL 1-5 Albuterol Sulfate (Ventolin Hfa Inhaler -) 2 puff IH TID PRN PRN Reason: ASTHMA Ascorbic Acid (Vitamin C -) 250 mg PO DAILY [facility] Last Admin: 04/14/20 09:02 Dose: 250 mg Documented by: Aspirin (Asa -) 81 mg PO DAILY [facility] Last Admin: 04/14/20 09:03 Dose: 81 mg Documented by: Atorvastatin Calcium (Lipitor -) 40 mg PO [facility] Famotidine (Pepcid -) 20 mg PO DAILY [facility] Last Admin: 04/14/20 09:03 Dose: 20 mg Documented by: Ferrous Sulfate (Feosol -) 325 mg PO DAILY [facility] Last Admin: 04/14/20 09:03 Dose: 325 mg Documented by: Ampicillin Sodium 2 gm/ Sodium (Chloride) 100 mls @ 200 mls/hr IVPB Q4H-IV [facility]; Protocol Last Admin: 04/14/20 09:32 Dose: 200 mls/hr Documented by: Cefepime HCl 2 gm/ Dextrose 100 mls @ 200 mls/hr IVPB Q8H-IV [facility]; Protocol Last Admin: 04/14/20 09:03 Dose: 200 mls/hr Documented by: Levothyroxine Sodium (Synthroid -) 100 mcg PO ACBK [facility] Last Admin: 04/14/20 06:32 Dose: Not Given Documented by: Magnesium Hydroxide (Milk Of Magnesia -) 30 ml PO DAILY PRN PRN Reason: CONSTIPATION Mirtazapine (Remeron -) 15 mg PO [facility] Multivitamins/Minerals/Vitamin C (Tab-A-Vit -) 1 tab PO DAILY [facility] Last Admin: 04/14/20 09:03 Dose: 1 tab Documented by: Nitroglycerin (Nitro-Bid 2% Paste -) 0.5 inch TD Q6H [facility] Last Admin: 04/14/20 11:28 Dose: 0.5 inch Documented by: Oxycodone HCl (Roxicodone -) 5 mg PO Q6H PRN PRN Reason: PAIN LEVEL 6-10 Last Admin: 04/14/20 12:12 Dose: 5 mg Documented by: Senna (Senna -) 2 tab PO HS [facility] Tamsulosin HCl (Flomax -) 0.4 mg PO DAILY@0830 [facility] Last Admin: 04/14/20 09:02 Dose: 0.4 mg Documented by: - Objective Vital Signs: Vital Signs Temperature 97.5 F L 04/14/20 06:00 Pulse Rate 86 04/14/20 10:00 Respiratory Rate 20 04/14/20 10:00 Blood Pressure 111/59 L 04/14/20 10:00 O2 Sat by Pulse Oximetry (%) 97 04/14/20 10:00 Constitutional: Yes: Calm Eyes: Yes: Conjunctiva Clear HENT: Yes: Atraumatic Neck: Yes: Supple Cardiovascular: Yes: S1, S2 Respiratory: Yes: CTA Bilaterally Gastrointestinal: Yes: Normal Bowel Sounds, Soft Genitourinary: Yes: Incontinence Musculoskeletal: Yes: WNL Edema: No Integumentary: Yes: WNL Psychiatric: Yes: Agitated Labs: CBC, BMP 04/14/20 10:30 04/14/20 10:30 INR, PTT INR 0.95 (0.83-1.09) 03/29/20 22:50 Problem List - Problems (1) DUNG (acute kidney injury) Code(s): N17.9 - ACUTE KIDNEY FAILURE, UNSPECIFIED (2) Hyperkalemia Code(s): E87.5 - HYPERKALEMIA (3) Sepsis Code(s): A41.9 - SEPSIS, UNSPECIFIED ORGANISM Assessment/Plan Current Medications Generic Name Dose Route Start Last Admin Trade Name Freq PRN Reason Stop Dose Admin Acetaminophen 1,000 mg 04/14/20 00:39 Tylenol - PO Q6H PRN PAIN LEVEL 1-5 Albuterol Sulfate 2 puff 04/14/20 00:39 Ventolin Hfa Inhaler - IH TID PRN ASTHMA Ascorbic Acid 250 mg 04/14/20 10:00 04/14/20 09:02 Vitamin C - PO 250 mg DAILY [facility] Administration Aspirin 81 mg 04/14/20 10:00 04/14/20 09:03 Asa - PO 81 mg DAILY [facility] Administration Atorvastatin Calcium 40 mg 04/14/20 22:00 Lipitor - PO HS [facility] Famotidine 20 mg 04/14/20 10:00 04/14/20 09:03 Pepcid - PO 20 mg DAILY [facility] Administration Ferrous Sulfate 325 mg 04/14/20 10:00 04/14/20 09:03 Feosol - PO 325 mg DAILY [facility] Administration Ampicillin Sodium 2 gm/ Sodium 100 mls @ 200 mls/hr 04/14/20 02:00 04/14/20 0 9:32 Chloride IVPB 200 mls/hr Q4H-IV [facility] Administration Protocol Cefepime HCl 2 gm/ Dextrose 100 mls @ 200 mls/hr 04/14/20 02:00 04/14/20 09:03 IVPB 200 mls/hr Q8H-IV [facility] Administration Protocol Levothyroxine Sodium 100 mcg 04/14/20 07:00 04/14/20 06:32 Synthroid - PO Not Given ACBK [facility] Magnesium Hydroxide 30 ml 04/14/20 00:39 Milk Of Magnesia - PO DAILY PRN CONSTIPATION Mirtazapine 15 mg 04/14/20 22:00 Remeron - PO [facility] Multivitamins/Minerals/Vitamin C 1 tab 04/14/20 10:00 04/14/20 09:03 Tab-A-Vit - PO 1 tab DAILY [facility] Administration Nitroglycerin 0.5 inch 04/14/20 06:00 04/14/20 11:28 Nitro-Bid 2% Paste - TD 0.5 inch Q6H [facility] Administration Oxycodone HCl 5 mg 04/14/20 09:26 04/14/20 12:12 Roxicodone - PO 5 mg Q6H PRN Administration PAIN LEVEL 6-10 Senna 2 tab 04/14/20 22:00 Senna - PO [facility] Tamsulosin HCl 0.4 mg 04/14/20 08:30 04/14/20 09:02 Flomax - PO 0.4 mg DAILY@0830 [facility] Administration Impression 1. DUNG 2. sepsis 3. hyperkalemia 4. hypotension 5. chf 6. bph 7. cad 8. tia 9. gerd 10. hypernatremia Plan - potassium improved - cont fluids - monitor volume status - labs reviewed - encourage po intake
[2020-04-14] MEDS: SENNOSIDES 8.6MG TABLET (FP) PO SCH (21:18)
[2020-04-14] MEDS: ATORVASTATIN CA 40 MG TABLET (FP) PO SCH (21:18)
[2020-04-14] MEDS: MIRTAZAPINE 15 MG TABLET (FP) PO SCH (21:18)
[2020-04-15] MEDS: NITROGLYCERIN 2% OINTMENT - 1GM PACKET TD SCH ×7 (00:44→23:32)
[2020-04-15] MEDS: AMPICILLIN - 2 GM in SODIUM CHLORIDE 100 ML IVPB SCH ×6 (01:02→21:31)
[2020-04-15] MEDS: CEFEPIME 2 GM in DEXTROSE 5%-WATER 100 ML IVPB SCH ×3 (01:02→17:42)
[2020-04-15] MEDS ORDERED: PT OWN MED DRAWER 7, Y5N ONE ×5 (01:54→17:44)
[2020-04-15] MEDS: LEVOTHYROXINE NA 100 MCG TABLET (FP) PO SCH ×2 (06:25→06:33)
--- NOTE | 2020-04-15 07:52 | PN ---
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, Physician - Current Medication List Current Medications: Active Medications Acetaminophen (Tylenol -) 1,000 mg PO Q6H PRN PRN Reason: PAIN LEVEL 1-5 Albuterol Sulfate (Ventolin Hfa Inhaler -) 2 puff IH TID PRN PRN Reason: ASTHMA Last Admin: 04/15/20 02:05 Dose: 2 puff Documented by: Ascorbic Acid (Vitamin C -) 250 mg PO DAILY [facility] Last Admin: 04/14/20 09:02 Dose: 250 mg Documented by: Aspirin (Asa -) 81 mg PO DAILY [facility] Last Admin: 04/14/20 09:03 Dose: 81 mg Documented by: Atorvastatin Calcium (Lipitor -) 40 mg PO [facility] Last Admin: 04/14/20 21:18 Dose: 40 mg Documented by: Famotidine (Pepcid -) 20 mg PO DAILY [facility] Last Admin: 04/14/20 09:03 Dose: 20 mg Documented by: Ferrous Sulfate (Feosol -) 325 mg PO DAILY [facility] Last Admin: 04/14/20 09:03 Dose: 325 mg Documented by: Ampicillin Sodium 2 gm/ Sodium (Chloride) 100 mls @ 200 mls/hr IVPB Q4H-IV [facility]; Protocol Last Admin: 04/15/20 05:41 Dose: Not Given Documented by: Cefepime HCl 2 gm/ Dextrose 100 mls @ 200 mls/hr IVPB Q8H-IV [facility]; Protocol Last Admin: 04/15/20 01:02 Dose: Not Given Documented by: Levothyroxine Sodium (Synthroid -) 100 mcg PO ACBK [facility] Last Admin: 04/15/20 06:33 Dose: Not Given Documented by: Magnesium Hydroxide (Milk Of Magnesia -) 30 ml PO DAILY PRN PRN Reason: CONSTIPATION Mirtazapine (Remeron -) 15 mg PO [facility] Last Admin: 04/14/20 21:18 Dose: 15 mg Documented by: Multivitamins/Minerals/Vitamin C (Tab-A-Vit -) 1 tab PO DAILY [facility] Last Admin: 04/14/20 09:03 Dose: 1 tab Documented by: Nitroglycerin (Nitro-Bid 2% Paste -) 0.5 inch TD Q6H [facility] Last Admin: 04/15/20 06:31 Dose: Not Given Documented by: Oxycodone HCl (Roxicodone -) 5 mg PO Q6H PRN PRN Reason: PAIN LEVEL 6-10 Last Admin: 04/14/20 12:12 Dose: 5 mg Documented by: Senna (Senna -) 2 tab PO HS [facility] Last Admin: 04/14/20 21:18 Dose: 2 tab Documented by: Tamsulosin HCl (Flomax -) 0.4 mg PO DAILY@0830 [facility] Last Admin: 04/14/20 09:02 Dose: 0.4 mg Documented by: - Objective Vital Signs: Vital Signs Temperature 97.9 F 04/15/20 05:29 Pulse Rate 95 H 04/15/20 05:29 Respiratory Rate 18 04/15/20 05:29 Blood Pressure 150/90 04/15/20 05:29 O2 Sat by Pulse Oximetry (%) 99 04/15/20 05:29 Cardiovascular: Yes: Regular Rate and Rhythm Respiratory: Yes: Regular, CTA Bilaterally Gastrointestinal: Yes: Normal Bowel Sounds, Soft Labs: CBC, BMP 04/14/20 10:30 04/14/20 10:30 INR, PTT INR 0.95 (0.83-1.09) 03/29/20 22:50 Problem List - Problems (1) Dysphagia Code(s): R13.10 - DYSPHAGIA, UNSPECIFIED (2) Weakness Code(s): R53.1 - WEAKNESS (3) DUNG (acute kidney injury) Code(s): N17.9 - ACUTE KIDNEY FAILURE, UNSPECIFIED (4) Chronic retention of urine Code(s): R33.9 - RETENTION OF URINE, UNSPECIFIED (5) Sepsis Code(s): A41.9 - SEPSIS, UNSPECIFIED ORGANISM Assessment/Plan - Problems (1) Chronic retention of urine Assessment/Plan: -Continue iyer cath Problems reviewed: Yes Code(s): R33.9 - RETENTION OF URINE, UNSPECIFIED (2) DUNG (acute kidney injury) Assessment/Plan: -Nephrology consult -Renal U/S -UC pseudomonas -Cr at baseline -REFUSING IVF--DC--LABS--refuses Problems reviewed: Yes Code(s): N17.9 - ACUTE KIDNEY FAILURE, UNSPECIFIED (3) Hyperkalemia Assessment/Plan: -K hemolyzed yesterday -repeat CMP -Nephrology on board Problems reviewed: Yes Code(s): E87.5 - HYPERKALEMIA (4) Sepsis Assessment/Plan: -ID consult -IV Ampicillin + Cefepime--IF PT AGREES -No Lactic acidosis -Afebrile -Cultures: Microbiology 04/01/20 09:37 Blood - Peripheral Venous Blood Culture - Final NO GROWTH AFTER 5 DAYS INCUBATION 03/31/20 17:15 Blood - Peripheral Venous Blood Culture - Final NO GROWTH AFTER 5 DAYS INCUBATION 03/31/20 17:30 Blood - Peripheral Venous Blood Culture - Final NO GROWTH AFTER 5 DAYS INCUBATION 03/31/20 22:25 Urine - Urine Iyer Urine Culture - Final Pseudomonas Aeruginosa 03/29/20 22:50 Blood - Peripheral Venous Blood Culture - Final Group D Strep Or Entero Coccus Pseudomonas Species 03/29/20 22:50 Blood - Peripheral Venous Blood Culture - Final Enterococcus Faecalis Pseudomonas Aeruginosa 03/30/20 00:27 Urine - Urine - Catheterized Urine Culture - Final Contaminated: Please Repeat PICC LINE Problems reviewed: Yes Code(s): A41.9 - SEPSIS, UNSPECIFIED ORGANISM (5) Failure to thrive Assessment/Plan: -Add multivitamin -Ensure pudding + Magic cup -Seen by Speech pathology -MBS- Mod to severe stasis with puree. Aspiration on thin liquid -Dysphagia puree thinned out with nectar thick liquids Problems reviewed: Yes Code(s): [id number] - (6) Malnutrition Assessment/Plan: -Multivitamin -Mirtazapine Problems reviewed: Yes Code(s): E46 - UNSPECIFIED PROTEIN-CALORIE MALNUTRITION Qualifiers: Protein-calorie malnutrition severity: severe (7) Bacteremia Assessment/Plan: -Cultures: Microbiology 04/01/20 09:37 Blood - Peripheral Venous Blood Culture - Final NO GROWTH AFTER 5 DAYS INCUBATION 03/31/20 17:15 Blood - Peripheral Venous Blood Culture - Final NO GROWTH AFTER 5 DAYS INCUBATION 03/31/20 17:30 Blood - Peripheral Venous Blood Culture - Final NO GROWTH AFTER 5 DAYS INCUBATION 03/31/20 22:25 Urine - Urine Iyer Urine Culture - Final Pseudomonas Aeruginosa 03/29/20 22:50 Blood - Peripheral Venous Blood Culture - Final Group D Strep Or Entero Coccus Pseudomonas Species 03/29/20 22:50 Blood - Peripheral Venous Blood Culture - Final Enterococcus Faecalis Pseudomonas Aeruginosa 03/30/20 00:27 Urine - Urine - Catheterized Urine Culture - Final Contaminated: Please Repeat -rest as above Problems reviewed: Yes Code(s): R78.81 - BACTEREMIA (8) Chest pain Assessment/Plan: -Cardiology consult appreciated -Conservative measures -Tele monitor -Nitro patch -Echo reviewed Problems reviewed: Yes Code(s): R07.9 - CHEST PAIN, UNSPECIFIED (9) Elevated troponin Assessment/Plan: as above Problems reviewed: Yes Code(s): R79.89 - OTHER SPECIFIED ABNORMAL FINDINGS OF BLOOD CHEMISTRY (10) NSTEMI (non-ST elevated myocardial infarction) Assessment/Plan: as above Problems reviewed: Yes Code(s): I21.4 - NON-ST ELEVATION (NSTEMI) MYOCARDIAL INFARCTION (11) Abdominal pain Assessment/Plan: -2/2 to constipation -Milk of magnesia -CTAP reviewed-unremarkable except constipation Problems reviewed: Yes Code(s): R10.9 - UNSPECIFIED ABDOMINAL PAIN (12) Constipation Assessment/Plan: -Continue Senna 2 tabs HS -MOM PRN Problems reviewed: Yes Code(s): K59.00 - CONSTIPATION, UNSPECIFIED PALLIATIVE CARE CONSULT Appreciated DC PLANNING PICC LINE Refuses
[2020-04-15] MEDS: TAMSULOSIN HCL 0.4 MG CAP PO SCH (08:38)
[2020-04-15] MEDS: FERROUS SO4 325 MG TABLET (FP) PO SCH ×2 (10:34→10:44)
[2020-04-15] MEDS: MULTIVITAMINS (DAILY MVI) TABLET (FP) PO SCH (10:34)
[2020-04-15] MEDS: FAMOTIDINE 20 MG TABLET PO SCH ×2 (10:34→10:44)
[2020-04-15] MEDS: ASCORBIC ACID 250 MG TABLET (FP) PO SCH ×2 (10:38→10:44)
[2020-04-15] MEDS: ASPIRIN 81 MG CHEWABLE TABLETS PO SCH ×2 (10:38→10:44)
--- NOTE | 2020-04-15 10:40 | PN ---
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, DIRECTOR UTILIZATION MANAGEMENT - Note 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: Selected Entries 04/10/20 04/10/20 04/10/20 09:00 09:19 13:16 Breakfast 25% NPO NPO Diet Tolerated Lunch NPO NPO Supper Temperature Pulse Rate Blood Pressure O2 Sat by Pulse Oximetry (%) Oxygen Delivery Method 04/10/20 04/11/20 04/11/20 20:00 10:00 14:22 Breakfast NPO 50% Diet Tolerated Poor Poor Lunch NPO 75% Supper 25% Temperature Pulse Rate Blood Pressure O2 Sat by Pulse Oximetry (%) Oxygen Delivery Method 04/12/20 04/12/20 04/13/20 15:00 21:47 00:00 Breakfast 25% Diet Tolerated Poor Refused Lunch 75% Supper Temperature Pulse Rate 88 Blood Pressure 140/73 O2 Sat by Pulse Oximetry (%) Oxygen Delivery Method 04/13/20 04/13/20 04/13/20 04:00 09:00 09:41 Breakfast 75% Diet Tolerated Lunch Supper Temperature 98.2 F Pulse Rate 86 Blood Pressure 159/87 O2 Sat by Pulse 100 Oximetry (%) Oxygen Delivery Room Air Method 04/13/20 10:40 Breakfast Diet Tolerated Lunch Supper Temperature Pulse Rate 95 H Blood Pressure 127/77 O2 Sat by Pulse 100 Oximetry (%) Oxygen Delivery Method Laboratory Tests 04/09/20 04/10/20 04/11/20 07:35 10:45 06:00 WBC 13.1 H 10.7 H 11.7 H 04/12/20 05:15 WBC 9.3 Selected Entries 04/13/20 04/13/20 04/14/20 09:41 15:00 02:00 Breakfast 75% 75% Diet Tolerated Lunch 50% 50% Temperature 97.7 F Pulse Rate 78 Blood Pressure 105/64 04/14/20 04/14/20 06:00 09:33 Breakfast 25% Diet Tolerated Poor Lunch Temperature 97.5 F L Pulse Rate 83 Blood Pressure 142/79 Laboratory Tests 04/12/20 05:15 WBC 9.3 Selected Entries 04/14/20 04/14/20 04/15/20 09:33 21:26 05:29 Breakfast 25% Diet Tolerated Poor Well Lunch 75% Supper 50% Temperature 97.9 F Pulse Rate 95 H Blood Pressure 150/90 Laboratory Tests 04/14/20 10:30 WBC 7.1 MBS 9/18- SILENT ASPIRATION ON THIN LIQUID Downgraded to [place] thick due to silent aspiration, and upgrade trial of dysphagia chopped. Supplements b/n meals. Eating more
--- NOTE | 2020-04-15 12:00 | PN ---
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 (short form) - Note 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: s: no cp sob palps dizzy no cigs Current Medications Generic Name Dose Route Start Last Admin Trade Name Freq PRN Reason Stop Dose Admin Acetaminophen 1,000 mg 04/14/20 00:39 Tylenol - PO Q6H PRN PAIN LEVEL 1-5 Albuterol Sulfate 2 puff 04/14/20 00:39 04/15/20 02:05 Ventolin Hfa Inhaler - IH 2 puff TID PRN Administration ASTHMA Ascorbic Acid 250 mg 04/14/20 10:00 04/15/20 10:44 Vitamin C - PO Not Given DAILY [facility] Aspirin 81 mg 04/14/20 10:00 04/15/20 10:44 Asa - PO Not Given DAILY [facility] Atorvastatin Calcium 40 mg 04/14/20 22:00 04/14/20 21:18 Lipitor - PO 40 mg HS [facility] Administration Famotidine 20 mg 04/14/20 10:00 04/15/20 10:44 Pepcid - PO Not Given DAILY [facility] Ferrous Sulfate 325 mg 04/14/20 10:00 04/15/20 10:44 Feosol - PO Not Given DAILY [facility] Ampicillin Sodium 2 gm/ Sodium 100 mls @ 200 mls/hr 04/14/20 02:00 04/15/20 10:42 Chloride IVPB Not Given Q4H-IV [facility] Protocol Cefepime HCl 2 gm/ Dextrose 100 mls @ 200 mls/hr 04/14/20 02:00 04/15/20 10:42 IVPB Not Given Q8H-IV [facility] Protocol Levothyroxine Sodium 100 mcg 04/14/20 07:00 04/15/20 06:33 Synthroid - PO Not Given ACBK [facility] Magnesium Hydroxide 30 ml 04/14/20 00:39 Milk Of Magnesia - PO DAILY PRN CONSTIPATION Mirtazapine 15 mg 04/14/20 22:00 04/14/20 21:18 Remeron - PO 15 mg HS [facility] Administration Multivitamins/Minerals/Vitamin C 1 tab 04/14/20 10:00 04/15/20 10:34 Tab-A-Vit - PO 1 tab DAILY [facility] Administration Nitroglycerin 0.5 inch 04/14/20 06:00 04/15/20 06:31 Nitro-Bid 2% Paste - TD Not Given Q6H [facility] Oxycodone HCl 5 mg 04/14/20 09:26 04/14/20 12:12 Roxicodone - PO 5 mg Q6H PRN Administration PAIN LEVEL 6-10 Senna 2 tab 04/14/20 22:00 04/14/20 21:18 Senna - PO 2 tab HS [facility] Administration Tamsulosin HCl 0.4 mg 04/14/20 08:30 04/15/20 08:38 Flomax - PO 0.4 mg DAILY@0830 [facility] Administration Vital Signs Period Temp Pulse Resp BP Sys/Pantoja Pulse Ox Last 24 Hr 97.5 F-97.9 F 78-95 18-18 98-150/57-90 97-100 nad no jvd rrr s1s2 no mrg cta bl nl eff no le edema abd nt nd pos bs no jaundice diaphoresis +dp pt no carotid bruits CBC, BMP 04/14/20 10:30 04/14/20 10:30 echo 02/2020: lvef 35%, global hk, nl rv, lae, nl bio avr, mild mr, mild tr, rvsp 38 echo 03/2020 EF 35-40%, mod to severe global hypokinesis of LV, severe hypokinesis of apical anterior wall and apex, LA mod dilated, mild to mod MAC, mild to mod MR, mild TR, bio AVR, well seated prosthetic valve, mild AR ecg: sr, rbbb, PVCs cxr: clear a/p: 80 m hx htn, syst chf, as s/p remote bio avr, cad s/p remote pci, tia, presented with DUNG, sepsis with chest pain, elevated trops chest pain, elevated troponin, CAD, remote PCI - patient unable to give further history regarding chest pain, resolved - EKG unchanged from prior - may be 2/2 demand in setting of underlying anemia, DUNG, vs NSTEMI from plaque rupture - also with wall motion abnormalities on echo here from 04/02/2020, known underlying CAD - given poor prognosis and desire to minimize invasive procedures, would defer ischemic workup at this point and continue medical management for underlying CAD - cont aspirin, statin chronic syst chf: - held coreg for low BPs, not on FLACO/ARB due to DUNG - appears euvolemic, hold diuretics hypotension, septic shock, UTI - bacteremia 2/2 UTI, bcx no growth from 04/01 - improved with IVF, abx - manage per pmd, ID DUNG - improving with IVF htn: - bp stable off meds avr: -stable, nl fcn on echo
[2020-04-15] MEDS: oxyCODONE HCL 5 MG TABLET PO PRN ×2 (12:37→18:26)
--- NOTE | 2020-04-15 15:12 | PN ---
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, Physician History of Present Illness: Pt seen and examined at bedside. He is awake and alert. He is less agitated than yesterday. - Current Medication List Current Medications: Active Medications Acetaminophen (Tylenol -) 1,000 mg PO Q6H PRN PRN Reason: PAIN LEVEL 1-5 Albuterol Sulfate (Ventolin Hfa Inhaler -) 2 puff IH TID PRN PRN Reason: ASTHMA Last Admin: 04/15/20 02:05 Dose: 2 puff Documented by: Ascorbic Acid (Vitamin C -) 250 mg PO DAILY [facility] Last Admin: 04/15/20 10:44 Dose: Not Given Documented by: Aspirin (Asa -) 81 mg PO DAILY [facility] Last Admin: 04/15/20 10:44 Dose: Not Given Documented by: Atorvastatin Calcium (Lipitor -) 40 mg PO [facility] Last Admin: 04/14/20 21:18 Dose: 40 mg Documented by: Famotidine (Pepcid -) 20 mg PO DAILY [facility] Last Admin: 04/15/20 10:44 Dose: Not Given Documented by: Ferrous Sulfate (Feosol -) 325 mg PO DAILY [facility] Last Admin: 04/15/20 10:44 Dose: Not Given Documented by: Ampicillin Sodium 2 gm/ Sodium (Chloride) 100 mls @ 200 mls/hr IVPB Q4H-IV [facility]; Protocol Last Admin: 04/15/20 10:42 Dose: Not Given Documented by: Cefepime HCl 2 gm/ Dextrose 100 mls @ 200 mls/hr IVPB Q8H-IV [facility]; Protocol Last Admin: 04/15/20 10:42 Dose: Not Given Documented by: Levothyroxine Sodium (Synthroid -) 100 mcg PO ACBK [facility] Last Admin: 04/15/20 06:33 Dose: Not Given Documented by: Magnesium Hydroxide (Milk Of Magnesia -) 30 ml PO DAILY PRN PRN Reason: CONSTIPATION Mirtazapine (Remeron -) 15 mg PO HS [facility] Last Admin: 04/14/20 21:18 Dose: 15 mg Documented by: Multivitamins/Minerals/Vitamin C (Tab-A-Vit -) 1 tab PO DAILY [facility] Last Admin: 04/15/20 10:34 Dose: 1 tab Documented by: Nitroglycerin (Nitro-Bid 2% Paste -) 0.5 inch TD Q6H [facility] Last Admin: 04/15/20 12:39 Dose: 0.5 inch Documented by: Oxycodone HCl (Roxicodone -) 5 mg PO Q6H PRN PRN Reason: PAIN LEVEL 6-10 Last Admin: 04/15/20 12:37 Dose: 5 mg Documented by: Gayle (Senna -) 2 tab PO HS [facility] Last Admin: 04/14/20 21:18 Dose: 2 tab Documented by: Tamsulosin HCl (Flomax -) 0.4 mg PO DAILY@0830 [facility] Last Admin: 04/15/20 08:38 Dose: 0.4 mg Documented by: - Objective Vital Signs: Vital Signs Temperature 97.9 F 04/15/20 05:29 Pulse Rate 88 04/15/20 14:37 Respiratory Rate 18 04/15/20 14:37 Blood Pressure 136/71 04/15/20 14:37 O2 Sat by Pulse Oximetry (%) 100 04/15/20 14:37 Constitutional: Yes: Calm Eyes: Yes: Conjunctiva Clear HENT: Yes: Atraumatic Neck: Yes: Supple Cardiovascular: Yes: S1, S2 Respiratory: Yes: CTA Bilaterally Gastrointestinal: Yes: Soft Genitourinary: Yes: WNL Musculoskeletal: Yes: WNL Edema: No Neurological: Yes: Oriented Psychiatric: Yes: Oriented Labs: CBC, BMP 04/14/20 10:30 04/14/20 10:30 INR, PTT INR 0.95 (0.83-1.09) 03/29/20 22:50 Problem List - Problems (1) DUNG (acute kidney injury) Code(s): N17.9 - ACUTE KIDNEY FAILURE, UNSPECIFIED (2) Hyperkalemia Code(s): E87.5 - HYPERKALEMIA (3) Sepsis Code(s): A41.9 - SEPSIS, UNSPECIFIED ORGANISM Assessment/Plan Current Medications Generic Name Dose Route Start Last Admin Trade Name Freq PRN Reason Stop Dose Admin Acetaminophen 1,000 mg 04/14/20 00:39 Tylenol - PO Q6H PRN PAIN LEVEL 1-5 Albuterol Sulfate 2 puff 04/14/20 00:39 04/15/20 02:05 Ventolin Hfa Inhaler - IH 2 puff TID PRN Administration ASTHMA Ascorbic Acid 250 mg 04/14/20 10:00 04/15/20 10:44 Vitamin C - PO Not Given DAILY [facility] Aspirin 81 mg 04/14/20 10:00 04/15/20 10:44 Asa - PO Not Given DAILY COUNT [facility]CLUD[facility] Atorvastatin Calcium 40 mg 04/14/20 22:00 04/14/20 21:18 Lipitor - PO 40 mg HS [facility] Administration Famotidine 20 mg 04/14/20 10:00 04/15/20 10:44 Pepcid - PO Not Given DAILY COUNT [facility] Ferrous Sulfate 325 mg 04/14/20 10:00 04/15/20 10:44 Feosol - PO Not Given DAILY COUNT [facility]ES [facility] Ampicillin Sodium 2 gm/ Sodium 100 mls @ 200 mls/hr 04/14/20 02:00 04/15/20 10:42 Chloride IVPB Not Given Q4H-IV COUNT [facility]CLUDES [facility] Protocol Cefepime HCl 2 gm/ Dextrose 100 mls @ 200 mls/hr 04/14/20 02:00 04/15/20 10:42 IVPB Not Given Q8H-IV COUNT [facility]ES [facility] Protocol Levothyroxine Sodium 100 mcg 04/14/20 07:00 04/15/20 06:33 Synthroid - PO Not Given ACBK COUNT [facility]CLUDES [facility] Magnesium Hydroxide 30 ml 04/14/20 00:39 Milk Of Magnesia - PO DAILY PRN CONSTIPATION Mirtazapine 15 mg 04/14/20 22:00 04/14/20 21:18 Remeron - PO 15 mg HS [facility] Administration Multivitamins/Minerals/Vitamin C 1 tab 04/14/20 10:00 04/15/20 10:34 Tab-A-Vit - PO 1 tab DAILY [facility] Administration Nitroglycerin 0.5 inch 04/14/20 06:00 04/15/20 12:39 Nitro-Bid 2% Paste - TD 0.5 inch Q6H COUNT [facility] Administration Oxycodone HCl 5 mg 04/14/20 09:26 04/15/20 12:37 Roxicodone - PO 5 mg Q6H PRN Administration PAIN LEVEL 6-10 Senna 2 tab 04/14/20 22:00 04/14/20 21:18 Senna - PO 2 tab HS [facility] Administration Tamsulosin HCl 0.4 mg 04/14/20 08:30 04/15/20 08:38 Flomax - PO 0.4 mg DAILY@0830 [facility] Administration Impression 1. DUNG 2. sepsis 3. hyperkalemia 4. hypotension 5. chf 6. bph 7. cad 8. tia 9. gerd 10. hypernatremia Plan - labs from yesterday are stable - he refused labs today - pt refused IV fluids - encourage po intake
[2020-04-15] MEDS: ATORVASTATIN CA 40 MG TABLET (FP) PO SCH (21:31)
[2020-04-15] MEDS: MIRTAZAPINE 15 MG TABLET (FP) PO SCH (21:31)
[2020-04-15] MEDS: SENNOSIDES 8.6MG TABLET (FP) PO SCH (21:32)
[2020-04-16] MEDS: AMPICILLIN - 2 GM in SODIUM CHLORIDE 100 ML IVPB SCH ×4 (01:13→15:10)
[2020-04-16] MEDS: CEFEPIME 2 GM in DEXTROSE 5%-WATER 100 ML IVPB SCH ×2 (01:13→10:05)
[2020-04-16] MEDS: NITROGLYCERIN 2% OINTMENT - 1GM PACKET TD SCH ×2 (05:29→12:11)
[2020-04-16] MEDS: LEVOTHYROXINE NA 100 MCG TABLET (FP) PO SCH (06:02)
--- NOTE | 2020-04-16 08:10 | PN ---
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, Physician - Current Medication List Current Medications: Active Medications Acetaminophen (Tylenol -) 1,000 mg PO Q6H PRN PRN Reason: PAIN LEVEL 1-5 Albuterol Sulfate (Ventolin Hfa Inhaler -) 2 puff IH TID PRN PRN Reason: ASTHMA Last Admin: 04/15/20 02:05 Dose: 2 puff Documented by: Ascorbic Acid (Vitamin C -) 250 mg PO DAILY [facility] Last Admin: 04/15/20 10:44 Dose: Not Given Documented by: Aspirin (Asa -) 81 mg PO DAILY [facility] Last Admin: 04/15/20 10:44 Dose: Not Given Documented by: Atorvastatin Calcium (Lipitor -) 40 mg PO [facility] Last Admin: 04/15/20 21:31 Dose: Not Given Documented by: Famotidine (Pepcid -) 20 mg PO DAILY [facility] Last Admin: 04/15/20 10:44 Dose: Not Given Documented by: Ferrous Sulfate (Feosol -) 325 mg PO DAILY [facility] Last Admin: 04/15/20 10:44 Dose: Not Given Documented by: Ampicillin Sodium 2 gm/ Sodium (Chloride) 100 mls @ 200 mls/hr IVPB Q4H-IV [facility]; Protocol Last Admin: 04/16/20 05:30 Dose: Not Given Documented by: Cefepime HCl 2 gm/ Dextrose 100 mls @ 200 mls/hr IVPB Q8H-IV [facility]; Protocol Last Admin: 04/16/20 01:13 Dose: Not Given Documented by: Levothyroxine Sodium (Synthroid -) 100 mcg PO ACBK [facility] Last Admin: 04/16/20 06:02 Dose: Not Given Documented by: Magnesium Hydroxide (Milk Of Magnesia -) 30 ml PO DAILY PRN PRN Reason: CONSTIPATION Mirtazapine (Remeron -) 15 mg PO [facility] Last Admin: 04/15/20 21:31 Dose: Not Given Documented by: Multivitamins/Minerals/Vitamin C (Tab-A-Vit -) 1 tab PO DAILY [facility] Last Admin: 04/15/20 10:34 Dose: 1 tab Documented by: Nitroglycerin (Nitro-Bid 2% Paste -) 0.5 inch TD Q6H [facility] Last Admin: 04/16/20 05:29 Dose: 0.5 inch Documented by: Oxycodone HCl (Roxicodone -) 5 mg PO Q6H PRN PRN Reason: PAIN LEVEL 6-10 Last Admin: 04/15/20 18:26 Dose: 5 mg Documented by: Senna (Senna -) 2 tab PO HS [facility] Last Admin: 04/15/20 21:32 Dose: Not Given Documented by: Tamsulosin HCl (Flomax -) 0.4 mg PO DAILY@0830 [facility] Last Admin: 04/15/20 08:38 Dose: 0.4 mg Documented by: - Objective Vital Signs: Vital Signs Temperature 97.6 F 04/16/20 05:00 Pulse Rate 87 04/16/20 05:00 Respiratory Rate 18 04/15/20 21:32 Blood Pressure 146/78 04/16/20 05:00 O2 Sat by Pulse Oximetry (%) 100 04/16/20 05:00 Cardiovascular: Yes: S1, S2 Respiratory: Yes: Regular, CTA Bilaterally Gastrointestinal: Yes: Normal Bowel Sounds, Soft Labs: CBC, BMP 04/14/20 10:30 04/14/20 10:30 INR, PTT INR 0.95 (0.83-1.09) 03/29/20 22:50 Problem List - Problems (1) Dysphagia Code(s): R13.10 - DYSPHAGIA, UNSPECIFIED (2) Weakness Code(s): R53.1 - WEAKNESS (3) DUNG (acute kidney injury) Code(s): N17.9 - ACUTE KIDNEY FAILURE, UNSPECIFIED (4) Chronic retention of urine Code(s): R33.9 - RETENTION OF URINE, UNSPECIFIED (5) Sepsis Code(s): A41.9 - SEPSIS, UNSPECIFIED ORGANISM Assessment/Plan - Problems (1) Chronic retention of urine Assessment/Plan: -Continue iyer cath Problems reviewed: Yes Code(s): R33.9 - RETENTION OF URINE, UNSPECIFIED (2) DUNG (acute kidney injury) Assessment/Plan: -Nephrology consult -Renal U/S -UC pseudomonas -Cr at baseline -REFUSING IVF--DC--LABS--refuses Problems reviewed: Yes Code(s): N17.9 - ACUTE KIDNEY FAILURE, UNSPECIFIED (3) Hyperkalemia Assessment/Plan: -K hemolyzed yesterday -repeat CMP -Nephrology on board Problems reviewed: Yes Code(s): E87.5 - HYPERKALEMIA (4) Sepsis Assessment/Plan: -ID consult -IV Ampicillin + Cefepime--IF PT AGREES -No Lactic acidosis -Afebrile -Cultures: Microbiology 04/01/20 09:37 Blood - Peripheral Venous Blood Culture - Final NO GROWTH AFTER 5 DAYS INCUBATION 03/31/20 17:15 Blood - Peripheral Venous Blood Culture - Final NO GROWTH AFTER 5 DAYS INCUBATION 03/31/20 17:30 Blood - Peripheral Venous Blood Culture - Final NO GROWTH AFTER 5 DAYS INCUBATION 03/31/20 22:25 Urine - Urine Iyer Urine Culture - Final Pseudomonas Aeruginosa 03/29/20 22:50 Blood - Peripheral Venous Blood Culture - Final Group D Strep Or Entero Coccus Pseudomonas Species 03/29/20 22:50 Blood - Peripheral Venous Blood Culture - Final Enterococcus Faecalis Pseudomonas Aeruginosa 03/30/20 00:27 Urine - Urine - Catheterized Urine Culture - Final Contaminated: Please Repeat PICC LINE Problems reviewed: Yes Code(s): A41.9 - SEPSIS, UNSPECIFIED ORGANISM (5) Failure to thrive Assessment/Plan: -Add multivitamin -Ensure pudding + Magic cup -Seen by Speech pathology -MBS- Mod to severe stasis with puree. Aspiration on thin liquid -Dysphagia puree thinned out with nectar thick liquids Problems reviewed: Yes Code(s): ZQS2889 - (6) Malnutrition Assessment/Plan: -Multivitamin -Mirtazapine Problems reviewed: Yes Code(s): E46 - UNSPECIFIED PROTEIN-CALORIE MALNUTRITION Qualifiers: Protein-calorie malnutrition severity: severe (7) Bacteremia Assessment/Plan: -Cultures: Microbiology 04/01/20 09:37 Blood - Peripheral Venous Blood Culture - Final NO GROWTH AFTER 5 DAYS INCUBATION 03/31/20 17:15 Blood - Peripheral Venous Blood Culture - Final NO GROWTH AFTER 5 DAYS INCUBATION 03/31/20 17:30 Blood - Peripheral Venous Blood Culture - Final NO GROWTH AFTER 5 DAYS INCUBATION 03/31/20 22:25 Urine - Urine Iyer Urine Culture - Final Pseudomonas Aeruginosa 03/29/20 22:50 Blood - Peripheral Venous Blood Culture - Final Group D Strep Or Entero Coccus Pseudomonas Species 03/29/20 22:50 Blood - Peripheral Venous Blood Culture - Final Enterococcus Faecalis Pseudomonas Aeruginosa 03/30/20 00:27 Urine - Urine - Catheterized Urine Culture - Final Contaminated: Please Repeat -rest as above Problems reviewed: Yes Code(s): R78.81 - BACTEREMIA (8) Chest pain Assessment/Plan: -Cardiology consult appreciated -Conservative measures -Tele monitor -Nitro patch -Echo reviewed -EKG AND CE IF AGREES Problems reviewed: Yes Code(s): R07.9 - CHEST PAIN, UNSPECIFIED (9) Elevated troponin Assessment/Plan: as above Problems reviewed: Yes Code(s): R79.89 - OTHER SPECIFIED ABNORMAL FINDINGS OF BLOOD CHEMISTRY (10) NSTEMI (non-ST elevated myocardial infarction) Assessment/Plan: as above Problems reviewed: Yes Code(s): I21.4 - NON-ST ELEVATION (NSTEMI) MYOCARDIAL INFARCTION (11) Abdominal pain Assessment/Plan: -2/2 to constipation -Milk of magnesia -CTAP reviewed-unremarkable except constipation Problems reviewed: Yes Code(s): R10.9 - UNSPECIFIED ABDOMINAL PAIN (12) Constipation Assessment/Plan: -Continue Senna 2 tabs HS -MOM PRN Problems reviewed: Yes Code(s): K59.00 - CONSTIPATION, UNSPECIFIED PALLIATIVE CARE CONSULT Appreciated DC PLANNING PICC LINE Refuses
--- NOTE | 2020-04-16 09:21 | PN ---
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, Physician Chief Complaint: no acute distress - Current Medication List Current Medications: Active Medications Acetaminophen (Tylenol -) 1,000 mg PO Q6H PRN PRN Reason: PAIN LEVEL 1-5 Albuterol Sulfate (Ventolin Hfa Inhaler -) 2 puff IH TID PRN PRN Reason: ASTHMA Last Admin: 04/15/20 02:05 Dose: 2 puff Documented by: Ascorbic Acid (Vitamin C -) 250 mg PO DAILY [facility] Last Admin: 04/15/20 10:44 Dose: Not Given Documented by: Aspirin (Asa -) 81 mg PO DAILY [facility] Last Admin: 04/15/20 10:44 Dose: Not Given Documented by: Atorvastatin Calcium (Lipitor -) 40 mg PO HS [facility] Last Admin: 04/15/20 21:31 Dose: Not Given Documented by: Famotidine (Pepcid -) 20 mg PO DAILY [facility] Last Admin: 04/15/20 10:44 Dose: Not Given Documented by: Ferrous Sulfate (Feosol -) 325 mg PO DAILY [facility] Last Admin: 04/15/20 10:44 Dose: Not Given Documented by: Ampicillin Sodium 2 gm/ Sodium (Chloride) 100 mls @ 200 mls/hr IVPB Q4H-IV [facility]; Protocol Last Admin: 04/16/20 05:30 Dose: Not Given Documented by: Cefepime HCl 2 gm/ Dextrose 100 mls @ 200 mls/hr IVPB Q8H-IV [facility]; Protocol Last Admin: 04/16/20 01:13 Dose: Not Given Documented by: Levothyroxine Sodium (Synthroid -) 100 mcg PO ACBK [facility] Last Admin: 04/16/20 06:02 Dose: Not Given Documented by: Magnesium Hydroxide (Milk Of Magnesia -) 30 ml PO DAILY PRN PRN Reason: CONSTIPATION Mirtazapine (Remeron -) 15 mg PO [facility] Last Admin: 04/15/20 21:31 Dose: Not Given Documented by: Multivitamins/Minerals/Vitamin C (Tab-A-Vit -) 1 tab PO DAILY [facility] Last Admin: 04/15/20 10:34 Dose: 1 tab Documented by: Nitroglycerin (Nitro-Bid 2% Paste -) 0.5 inch TD Q6H [facility] Last Admin: 04/16/20 05:29 Dose: 0.5 inch Documented by: Oxycodone HCl (Roxicodone -) 5 mg PO Q6H PRN PRN Reason: PAIN LEVEL 6-10 Last Admin: 04/15/20 18:26 Dose: 5 mg Documented by: Senna (Senna -) 2 tab PO HS [facility] Last Admin: 04/15/20 21:32 Dose: Not Given Documented by: Tamsulosin HCl (Flomax -) 0.4 mg PO DAILY@0830 [facility] Last Admin: 04/15/20 08:38 Dose: 0.4 mg Documented by: - Objective Vital Signs: Vital Signs Temperature 97.6 F 04/16/20 05:00 Pulse Rate 87 04/16/20 05:00 Respiratory Rate 18 04/15/20 21:32 Blood Pressure 146/78 04/16/20 05:00 O2 Sat by Pulse Oximetry (%) 100 04/16/20 05:00 Constitutional: Yes: Calm Cardiovascular: Yes: Regular Rate and Rhythm Respiratory: Yes: CTA Bilaterally (no wheezing) Gastrointestinal: Yes: Soft (NT) Edema: No Neurological: Yes: Alert, Oriented Labs: CBC, BMP 04/14/20 10:30 04/14/20 10:30 INR, PTT INR 0.95 (0.83-1.09) 03/29/20 22:50 Assessment/Plan echo 02/2020: lvef 35%, global hk, nl rv, lae, nl bio avr, mild mr, mild tr, rvsp 38 echo 03/2020 EF 35-40%, mod to severe global hypokinesis of LV, severe hypokinesis of apical anterior wall and apex, LA mod dilated, mild to mod MAC, mild to mod MR, mild TR, bio AVR, well seated prosthetic valve, mild AR ecg: sr, rbbb, PVCs cxr: clear a/p: 80 m hx htn, syst chf, as s/p remote bio avr, cad s/p remote pci, tia, presented with DUNG, sepsis with chest pain, elevated trops chest pain, elevated troponin, CAD, remote PCI: - patient unable to give further history regarding chest pain, resolved - EKG unchanged from prior - may be 2/2 demand in setting of underlying anemia, DUNG, vs NSTEMI from plaque rupture - also with wall motion abnormalities on echo here from 04/02/2020, known underlying CAD - given poor prognosis and desire to minimize invasive procedures, would defer ischemic workup at this point and continue medical management for underlying CAD - cont aspirin, statin, nitro chronic syst chf: - held coreg for low BPs, not on FLACO/ARB due to DUNG - appears euvolemic, hold diuretics hypotension, septic shock, UTI: - bacteremia 2/2 UTI, bcx no growth from 04/01 - improved with IVF, abx - manage per pmd, ID DUNG: - improved htn: - bp stable off meds avr: -stable, nl fcn on echo DNR/DNI
[2020-04-16] MEDS ORDERED: PT OWN MED DRAWER 7, Y5N ONE ×2 (09:39→10:18)
[2020-04-16] MEDS: ASPIRIN 81 MG CHEWABLE TABLETS PO SCH (10:04)
[2020-04-16] MEDS: FERROUS SO4 325 MG TABLET (FP) PO SCH (10:04)
[2020-04-16] MEDS: TAMSULOSIN HCL 0.4 MG CAP PO SCH (10:04)
[2020-04-16] MEDS: FAMOTIDINE 20 MG TABLET PO SCH (10:04)
[2020-04-16] MEDS: MULTIVITAMINS (DAILY MVI) TABLET (FP) PO SCH (10:04)
[2020-04-16] MEDS: ASCORBIC ACID 250 MG TABLET (FP) PO SCH (10:05)
[2020-04-16 10:13] VITALS: PULSE 88
--- NOTE | 2020-04-16 11:04 | PN ---
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, [employer] - Note 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: Selected Entries 04/10/20 04/10/20 04/10/20 09:00 09:19 13:16 Breakfast 25% NPO NPO Diet Tolerated Lunch NPO NPO Supper Temperature Pulse Rate Blood Pressure O2 Sat by Pulse Oximetry (%) Oxygen Delivery Method 04/10/20 04/11/20 04/11/20 20:00 10:00 14:22 Breakfast NPO 50% Diet Tolerated Poor Poor Lunch NPO 75% Supper 25% Temperature Pulse Rate Blood Pressure O2 Sat by Pulse Oximetry (%) Oxygen Delivery Method 04/12/20 04/12/20 04/13/20 15:00 21:47 00:00 Breakfast 25% Diet Tolerated Poor Refused Lunch 75% Supper Temperature Pulse Rate 88 Blood Pressure 140/73 O2 Sat by Pulse Oximetry (%) Oxygen Delivery Method 04/13/20 04/13/20 04/13/20 04:00 09:00 09:41 Breakfast 75% Diet Tolerated Lunch Supper Temperature 98.2 F Pulse Rate 86 Blood Pressure 159/87 O2 Sat by Pulse 100 Oximetry (%) Oxygen Delivery Room Air Method 04/13/20 10:40 Breakfast Diet Tolerated Lunch Supper Temperature Pulse Rate 95 H Blood Pressure 127/77 O2 Sat by Pulse 100 Oximetry (%) Oxygen Delivery Method Laboratory Tests 04/09/20 04/10/20 04/11/20 07:35 10:45 06:00 WBC 13.1 H 10.7 H 11.7 H 04/12/20 05:15 WBC 9.3 Selected Entries 04/13/20 04/13/20 04/14/20 09:41 15:00 02:00 Breakfast 75% 75% Diet Tolerated Lunch 50% 50% Temperature 97.7 F Pulse Rate 78 Blood Pressure 105/64 04/14/20 04/14/20 06:00 09:33 Breakfast 25% Diet Tolerated Poor Lunch Temperature 97.5 F L Pulse Rate 83 Blood Pressure 142/79 Laboratory Tests 04/12/20 05:15 WBC 9.3 Selected Entries 04/14/20 04/14/20 04/15/20 09:33 21:26 05:29 Breakfast 25% Diet Tolerated Poor Well Lunch 75% Supper 50% Temperature 97.9 F Pulse Rate 95 H Blood Pressure 150/90 Laboratory Tests 04/14/20 10:30 WBC 7.1 Selected Entries 04/15/20 04/15/20 04/16/20 10:44 21:43 05:00 Breakfast 25% Diet Tolerated Poor Supper 50% Temperature 97.6 F Blood Pressure 146/78 04/16/20 04/16/20 10:00 10:12 Breakfast 25% Diet Tolerated Poor Supper Temperature 98.3 F Blood Pressure 106/59 L Laboratory Tests 04/14/20 10:30 WBC 7.1 MBS 04/09- SILENT ASPIRATION ON THIN LIQUID Downgraded to [place] thick due to silent aspiration, and upgrade trial of dysphagia chopped. Supplements b/n meals. Eating intermittently. often angry, limited cooperation. On Remeron but does not accept medication xconsistently
--- NOTE | 2020-04-16 13:11 | PN ---
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, Physician History of Present Illness: Pt seen and examined at bedside. He is awake and alert. He is aggitated. - Current Medication List Current Medications: Active Medications Acetaminophen (Tylenol -) 1,000 mg PO Q6H PRN PRN Reason: PAIN LEVEL 1-5 Albuterol Sulfate (Ventolin Hfa Inhaler -) 2 puff IH TID PRN PRN Reason: ASTHMA Last Admin: 04/15/20 02:05 Dose: 2 puff Documented by: Ascorbic Acid (Vitamin C -) 250 mg PO DAILY [facility] Last Admin: 04/16/20 10:05 Dose: 250 mg Documented by: Aspirin (Asa -) 81 mg PO DAILY [facility] Last Admin: 04/16/20 10:04 Dose: 81 mg Documented by: Atorvastatin Calcium (Lipitor -) 40 mg PO [facility] Last Admin: 04/15/20 21:31 Dose: Not Given Documented by: Famotidine (Pepcid -) 20 mg PO DAILY [facility] Last Admin: 04/16/20 10:04 Dose: 20 mg Documented by: Ferrous Sulfate (Feosol -) 325 mg PO DAILY [facility] Last Admin: 04/16/20 10:04 Dose: 325 mg Documented by: Ampicillin Sodium 2 gm/ Sodium (Chloride) 100 mls @ 200 mls/hr IVPB Q4H-IV [facility]; Protocol Last Admin: 04/16/20 10:25 Dose: Not Given Documented by: Cefepime HCl 2 gm/ Dextrose 100 mls @ 200 mls/hr IVPB Q8H-IV [facility]; Protocol Last Admin: 04/16/20 10:05 Dose: Not Given Documented by: Levothyroxine Sodium (Synthroid -) 100 mcg PO ACBK [facility] Last Admin: 04/16/20 06:02 Dose: Not Given Documented by: Magnesium Hydroxide (Milk Of Magnesia -) 30 ml PO DAILY PRN PRN Reason: CONSTIPATION Mirtazapine (Remeron -) 15 mg PO HS [facility] Last Admin: 04/15/20 21:31 Dose: Not Given Documented by: Multivitamins/Minerals/Vitamin C (Tab-A-Vit -) 1 tab PO DAILY [facility] Last Admin: 04/16/20 10:04 Dose: 1 tab Documented by: Nitroglycerin (Nitro-Bid 2% Paste -) 0.5 inch TD Q6H [facility] Last Admin: 04/16/20 05:29 Dose: 0.5 inch Documented by: Oxycodone HCl (Roxicodone -) 5 mg PO Q6H PRN PRN Reason: PAIN LEVEL 6-10 Last Admin: 04/15/20 18:26 Dose: 5 mg Documented by: Senna (Senna -) 2 tab PO HS [facility] Last Admin: 04/15/20 21:32 Dose: Not Given Documented by: Tamsulosin HCl (Flomax -) 0.4 mg PO DAILY@0830 [facility] Last Admin: 04/16/20 10:04 Dose: 0.4 mg Documented by: - Objective Vital Signs: Vital Signs Temperature 98.3 F 04/16/20 10:12 Pulse Rate 88 04/16/20 10:12 Respiratory Rate 19 04/16/20 10:12 Blood Pressure 106/59 L 04/16/20 10:12 O2 Sat by Pulse Oximetry (%) 100 04/16/20 10:12 Constitutional: Yes: Calm Eyes: Yes: Conjunctiva Clear Cardiovascular: Yes: S1, S2 Respiratory: Yes: CTA Bilaterally Gastrointestinal: Yes: Soft Genitourinary: Yes: WNL Musculoskeletal: Yes: WNL Edema: No Neurological: Yes: Oriented Psychiatric: Yes: Oriented Labs: CBC, BMP 04/14/20 10:30 04/14/20 10:30 INR, PTT INR 0.95 (0.83-1.09) 03/29/20 22:50 Problem List - Problems (1) DUNG (acute kidney injury) Code(s): N17.9 - ACUTE KIDNEY FAILURE, UNSPECIFIED (2) Hyperkalemia Code(s): E87.5 - HYPERKALEMIA (3) Sepsis Code(s): A41.9 - SEPSIS, UNSPECIFIED ORGANISM Assessment/Plan Current Medications Generic Name Dose Route Start Last Admin Trade Name Freq PRN Reason Stop Dose Admin Acetaminophen 1,000 mg 04/14/20 00:39 Tylenol - PO Q6H PRN PAIN LEVEL 1-5 Albuterol Sulfate 2 puff 04/14/20 00:39 04/15/20 02:05 Ventolin Hfa Inhaler - IH 2 puff TID PRN Administration ASTHMA Ascorbic Acid 250 mg 04/14/20 10:00 04/16/20 10:05 Vitamin C - PO 250 mg DAILY [facility] Administration Aspirin 81 mg 04/14/20 10:00 04/16/20 10:04 Asa - PO 81 mg DAILY [facility] Administration Atorvastatin Calcium 40 mg 04/14/20 22:00 04/15/20 21:31 Lipitor - PO Not Given HS [facility] Famotidine 20 mg 04/14/20 10:00 04/16/20 10:04 Pepcid - PO 20 mg DAILY [facility] Administration Ferrous Sulfate 325 mg 04/14/20 10:00 04/16/20 10:04 Feosol - PO 325 mg DAILY [facility] Administration Ampicillin Sodium 2 gm/ Sodium 100 mls @ 200 mls/hr 04/14/20 02:00 04/16/20 10:25 Chloride IVPB Not Given Q4H-IV [facility] Protocol Cefepime HCl 2 gm/ Dextrose 100 mls @ 200 mls/hr 04/14/20 02:00 04/16/20 10:05 IVPB Not Given Q8H-IV [facility] Protocol Levothyroxine Sodium 100 mcg 04/14/20 07:00 04/16/20 06:02 Synthroid - PO Not Given ACBK [facility] Magnesium Hydroxide 30 ml 04/14/20 00:39 Milk Of Magnesia - PO DAILY PRN CONSTIPATION Mirtazapine 15 mg 04/14/20 22:00 04/15/20 21:31 Remeron - PO Not Given HS [facility] Multivitamins/Minerals/Vitamin C 1 tab 04/14/20 10:00 04/16/20 10:04 Tab-A-Vit - PO 1 tab DAILY [facility] Administration Nitroglycerin 0.5 inch 04/14/20 06:00 04/16/20 05:29 Nitro-Bid 2% Paste - TD 0.5 inch Q6H [facility] Administration Oxycodone HCl 5 mg 04/14/20 09:26 04/15/20 18:26 Roxicodone - PO 5 mg Q6H PRN Administration PAIN LEVEL 6-10 Senna 2 tab 04/14/20 22:00 04/15/20 21:32 Senna - PO Not Given HS [facility] Tamsulosin HCl 0.4 mg 04/14/20 08:30 04/16/20 10:04 Flomax - PO 0.4 mg DAILY@0830 [facility] Administration Impression 1. DUNG 2. sepsis 3. hyperkalemia 4. hypotension 5. chf 6. bph 7. cad 8. tia 9. gerd 10. hypernatremia Plan - no new labs - encourage po intake - monitor lytes - pt not cooperative with staff - will follow prn
[2020-04-16 14:24] VITALS: BP 103/64; TEMP 97.2
--- NOTE | 2020-04-16 14:30 | EKG ---
Test Reason : Blood Pressure : / mmHG Vent. Rate : 085 BPM Atrial Rate : 085 BPM P-R Int : 216 ms QRS Dur : 170 ms QT Int : 436 ms P-R-T Axes : 000 270 085 degrees QTc Int : 518 ms SINUS RHYTHM WITH SINUS ARRHYTHMIA WITH 1ST DEGREE A-V BLOCK LEFT AXIS DEVIATION RIGHT BUNDLE BRANCH BLOCK INFERIOR INFARCT (CITED ON OR BEFORE 22-FEB-2020) ANTEROLATERAL INFARCT (CITED ON OR BEFORE 22-FEB-2020) ABNORMAL ECG WHEN COMPARED WITH ECG OF 10-APR-2020 14:21, PREMATURE SUPRAVENTRICULAR COMPLEXES ARE NO LONGER PRESENT Confirmed by OLENA JEFFREY MD ([id number]) on 04/16/2020 2:30:42 PM Referred By: BARBARA HAJI DR Confirmed By:OLENA JEFFREY MD
== END 2020-04-16 17:03 | disposition hospice, inpatient (51) | DRG 871 ==
LOC: JER 21:50 → JERBED 23:17 → J5S 03-31 14:27 → JICU 04-10 05:41 → J6S 04-14 00:34
PROVIDERS: ADMIT Hospitalist; ATTEND Family Medicine
DX: A41.59 Other Gram-negative sepsis (principal); E43 Unspecified severe protein-calorie malnutrition; I21.4 Non-ST elevation (NSTEMI) myocardial infarction; R65.21 Severe sepsis with septic shock; N17.9 Acute kidney failure, unspecified; N39.0 Urinary tract infection, site not specified; Z68.1 Body mass index [BMI] 19.9 or less, adult; E87.0 Hyperosmolality and hypernatremia; R64 Cachexia; I50.22 Chronic systolic (congestive) heart failure; I11.0 Hypertensive heart disease with heart failure; A41.89 Other specified sepsis; I25.10 Atherosclerotic heart disease of native coronary artery without angina pectoris; N40.0 Benign prostatic hyperplasia without lower urinary tract symptoms; E03.9 Hypothyroidism, unspecified; I95.9 Hypotension, unspecified; K21.9 Gastro-esophageal reflux disease without esophagitis; D72.829 Elevated white blood cell count, unspecified; I35.0 Nonrheumatic aortic (valve) stenosis; E87.5 Hyperkalemia; R33.9 Retention of urine, unspecified; R62.7 Adult failure to thrive; R13.10 Dysphagia, unspecified; K59.00 Constipation, unspecified; R79.89 Other specified abnormal findings of blood chemistry; R10.9 Unspecified abdominal pain; R07.89 Other chest pain; Z95.2 Presence of prosthetic heart valve; Z95.5 Presence of coronary angioplasty implant and graft; Z86.73 Personal history of transient ischemic attack (TIA), and cerebral infarction without residual deficits; R45.1 Restlessness and agitation
CPT/HCPCS: 36415; 71045-TC-FY; 74176-TC; 74190-TC-FY; 74230-TC-FY; 76775-TC; 80048; 80053; 80061; 81003; 82272; 82436; 82550; 82565; 83605; 83721; 83735; 83880; 84133; 84300; 84484; 85025; 85027; 85610; 85730; 87040; 87086; 87186; 92611-GN; 93005; 93010; 93306-TC; 97116-GP; 97162-GP; 99285-25; G0480; J0131; J1644; J3480; Q9967; U0003

== ENCOUNTER 2022-05-20 17:39 | Inpatient (IN) | payer OTHER, BC ==
[2022-05-20] MEDS ORDERED: ACETAMINOPHEN 1000 MG/100 ML BAG IVPB ONE (19:07)
[2022-05-20 19:21] LABS: BASO % 0.2 % (0-2.0); HEMATOCRIT 37.2 % (35.4-49); HEMOGLOBIN 11.6 GM/dL (11.7-16.9); LYMPH % 2.5 % (8-40); MCH 28.7 pg (25.7-33.7); MCHC 31.2 g/dl (32.0-35.9); MEAN CELL VOLUME 91.9 fl (80-96); MEAN PLT VOLUME 9.4 fl (7.5-11.1); NEUT % 90.3 % (42.8-82.8); PLATELET COUNT 206 10^3/uL (134-434); RBC 4.05 M/mm3 (4.00-5.60); RDW 15.7 % (11.9-15.9); WHITE BLOOD COUNT 21.4 K/mm3 (4.0-10.0)
[2022-05-20] MEDS ORDERED: ACETAMINOPHEN INJECTION 100 ML IVPB ONE (19:27)
[2022-05-20 19:28] LABS: INR 1.23 (0.83-1.09); PROTHROMBIN TIME (PATIENT) 14.2 SEC (9.7-13.0)
[2022-05-20 19:31] LABS: ACTIVATED PTT 34.5 SECONDS (25.2-36.5)
[2022-05-20 19:42] LABS: ALBUMIN 3.3 g/dl (3.4-5.0); BLOOD UREA NITROGEN 27.6 mg/dL (7-18); CALCIUM 8.9 mg/dL (8.5-10.1)
[2022-05-20 19:45] LABS: CREATININE 1.8 mg/dL (0.55-1.3)
[2022-05-20 19:47] LABS: BILIRUBIN,TOTAL 1.4 mg/dL (0.2-1); TOT PROT 7.5 g/dl (6.4-8.2)
[2022-05-20] MEDS ORDERED: LACTATED RINGERS SOLUTION 1,000 ML IV STA (19:55)
[2022-05-20] MEDS ORDERED: MIDAZOLAM HCL 2 MG/2 ML SINGLE DOSE VIAL IVPUSH ONE ×2 (20:00→22:35)
[2022-05-20 20:09] LABS: ANISOCYTOSIS 0; MACROCYTOSIS 0; OVALOCYTE 1+
[2022-05-20] MEDS ORDERED: ASPIRIN 81 MG CHEWABLE TABLETS PO ONE (20:22)
[2022-05-20] MEDS ORDERED: ASPIRIN 81 MG CHEWABLE TABLETS ONE (20:54)
[2022-05-20] MEDS ORDERED: DEXAMETHASONE SOD PHOSPHATE 4 MG/1 ML VIAL IVPUSH ONE (21:28)
[2022-05-20] MEDS ORDERED: DEXAMETHASONE SOD PHOSPHATE 10 MG/1 ML VIAL ONE (21:39)
[2022-05-20] MEDS ORDERED: MIDAZOLAM HCL 2 MG/2 ML SINGLE DOSE VIAL ONE ×2 (21:39→22:35)
[2022-05-20] MEDS ORDERED: MIDAZOLAM HCL 5 MG/1 ML Single Dose Vial IVPUSH ONE (22:57)
[2022-05-20] MEDS ORDERED: MIDAZOLAM HCL 5 MG/1 ML Single Dose Vial ONE (22:59)
[2022-05-21] MEDS ORDERED: MELATONIN 5 MG TABLETS ONE (04:14)
[2022-05-21] MEDS ORDERED: ACETAMINOPHEN 1000 MG/100 ML BAG IVPB PRN ×2 (04:30→04:40)
[2022-05-21] MEDS ORDERED: DEXAMETHASONE SOD PHOSPHATE 10 MG/1 ML VIAL ONE (08:08)
[2022-05-21] MEDS ORDERED: ASPIRIN COATED 81 MG TABLET.EC ONE (08:44)
[2022-05-21 09:28] LABS: HEMATOCRIT 36.7 % (35.4-49); HEMOGLOBIN 11.6 GM/dL (11.7-16.9); MCH 29.2 pg (25.7-33.7); MCHC 31.5 g/dl (32.0-35.9); MEAN CELL VOLUME 92.7 fl (80-96); PLATELET COUNT 159 10^3/uL (134-434); RBC 3.96 M/mm3 (4.00-5.60); RDW 15.7 % (11.9-15.9)
[2022-05-21 09:46] LABS: CHLORIDE 108 mmol/L (98-107); SODIUM 140 mmol/L (136-145)
[2022-05-21 09:48] LABS: ANION GAP 9 MMOL/L (8-16); BLOOD UREA NITROGEN 35.3 mg/dL (7-18); CALCIUM 8.6 mg/dL (8.5-10.1); CO2 23 mmol/L (21-32); GLUCOSE,RANDOM 133 mg/dL (74-106)
[2022-05-21 09:50] LABS: CREATININE 2.1 mg/dL (0.55-1.3); SGPT/ALT 65 U/L (13-61)
[2022-05-21 09:52] LABS: SGOT/AST 310 U/L (15-37)
[2022-05-21 09:53] LABS: BILIRUBIN,TOTAL 0.8 mg/dL (0.2-1)
[2022-05-21 09:54] LABS: ALK PHOS 159 U/L (45-117)
[2022-05-21] MEDS ORDERED: DEXAMETHASONE SOD PHOSPHATE 10 MG/1 ML VIAL IVPUSH SCH (10:00)
[2022-05-21] MEDS ORDERED: ASPIRIN COATED 81 MG TABLET.EC PO SCH (10:00)
[2022-05-21] MEDS ORDERED: CARVEDILOL 6.25 MG TABLET (FP) PO SCH (10:00)
[2022-05-21] MEDS ORDERED: METOPROLOL TARTRATE 25 MG TABLET (FP) PO SCH (10:00)
[2022-05-21] MEDS: SODIUM CHLORIDE 1,000 ML IV SCH (18:00)
[2022-05-21] MEDS ORDERED: ATORVASTATIN CA 80 MG TABLET (FP) ONE (22:03)
[2022-05-21] MEDS ORDERED: CARVEDILOL 3.125 MG TABLET (FP) ONE (22:03)
[2022-05-21] MEDS: CARVEDILOL 3.125 MG TABLET (FP) PO SCH (22:16)
[2022-05-21] MEDS: ATORVASTATIN CA 80 MG TABLET (FP) PO SCH (22:16)
[2022-05-22] MEDS ORDERED: ACETAMINOPHEN 325 MG TABLET (FP) PO PRN ×3 (04:26)
[2022-05-22] MEDS ORDERED: ACETAMINOPHEN 1000 MG/100 ML BAG IVPB ONE (10:31)
[2022-05-22] MEDS ORDERED: CARVEDILOL 3.125 MG TABLET (FP) ONE ×2 (12:01→21:38)
[2022-05-22] MEDS ORDERED: ACETAMINOPHEN INJECTION 100 ML IVPB ONE (12:01)
[2022-05-22] MEDS: SODIUM CHLORIDE 1,000 ML IV SCH (12:10)
[2022-05-22] MEDS: CARVEDILOL 3.125 MG TABLET (FP) PO SCH ×2 (12:10→23:55)
[2022-05-22] MEDS ORDERED: ATORVASTATIN CA 80 MG TABLET (FP) ONE (21:38)
[2022-05-22 22:20] LABS: EPI CELLS 0 /uL (0-25.1); HYALINE CASTS 0 /uL (0-3.1); URINE APPEARANCE CLOUDY; URINE BACTERIA >9,000 /uL (0-1359); URINE BILIRUBIN NEGATIVE (NEGATIVE); URINE COLOR YELLOW; URINE GLUCOSE (UA) NEGATIVE (NEGATIVE); URINE KETONE TRACE (NEGATIVE); URINE LEUK ESTERASE 2+ (NEGATIVE); URINE NITRITE NEGATIVE (NEGATIVE); URINE PROTEIN 1+ (NEGATIVE); URINE WBC 380 /uL (0-25.8)
[2022-05-22 23:11] LABS: URINE RBC 23.3 /uL (0-23.9); YEAST NONE SEEN (NEGATIVE)
[2022-05-22] MEDS: ATORVASTATIN CA 80 MG TABLET (FP) PO SCH (23:55)
[2022-05-23 04:03] VITALS: BMI 16.2
[2022-05-23] MEDS: CARVEDILOL 3.125 MG TABLET (FP) PO SCH ×2 (10:03→22:17)
[2022-05-23] MEDS: ATORVASTATIN CA 80 MG TABLET (FP) PO SCH (22:17)
[2022-05-24] MEDS: SODIUM CHLORIDE 1,000 ML IV SCH ×2 (02:40→11:20)
[2022-05-24] MEDS: CARVEDILOL 3.125 MG TABLET (FP) PO SCH ×2 (10:12→21:05)
[2022-05-24] MEDS: ATORVASTATIN CA 80 MG TABLET (FP) PO SCH (21:05)
[2022-05-25] MEDS: CARVEDILOL 3.125 MG TABLET (FP) PO SCH ×2 (09:16→21:27)
[2022-05-25] MEDS ORDERED: PANTOPRAZOLE SODIUM 40 MG VIAL IVPUSH ONE (12:11)
[2022-05-25] MEDS: SODIUM CHLORIDE 1,000 ML IV SCH (13:55)
[2022-05-25] MEDS: MAG HYDROX/AL HYDROX/SIMETH 30 ML UNIT-DOSE CUP PO SCH (17:22)
[2022-05-25] MEDS: ATORVASTATIN CA 80 MG TABLET (FP) PO SCH (21:27)
[2022-05-26] MEDS: MAG HYDROX/AL HYDROX/SIMETH 30 ML UNIT-DOSE CUP PO SCH ×4 (01:15→18:12)
[2022-05-26] MEDS: CARVEDILOL 3.125 MG TABLET (FP) PO SCH ×2 (10:04→22:00)
[2022-05-26] MEDS: PANTOPRAZOLE SODIUM 40 MG VIAL IVPUSH SCH (10:04)
[2022-05-26] MEDS: SODIUM CHLORIDE 1,000 ML IV SCH ×2 (13:05→16:24)
[2022-05-27] MEDS: MAG HYDROX/AL HYDROX/SIMETH 30 ML UNIT-DOSE CUP PO SCH ×4 (01:52→17:23)
[2022-05-27] MEDS ORDERED: ACETAMINOPHEN 325 MG TABLET (FP) PO PRN (08:49)
[2022-05-27] MEDS: CARVEDILOL 3.125 MG TABLET (FP) PO SCH ×2 (09:24→21:31)
[2022-05-27] MEDS: PANTOPRAZOLE SODIUM 40 MG VIAL IVPUSH SCH (09:25)
[2022-05-27] MEDS: morphine SULFATE 4 MG/ML VIAL IVPUSH PRN ×2 (09:27→15:12)
[2022-05-27] MEDS: SODIUM CHLORIDE 1,000 ML IV SCH (13:03)
[2022-05-27] MEDS: ACETAMINOPHEN 1000 MG/100 ML BAG IVPB PRN (13:11)
[2022-05-28] MEDS: MAG HYDROX/AL HYDROX/SIMETH 30 ML UNIT-DOSE CUP PO SCH ×3 (00:01→11:34)
[2022-05-28] MEDS: morphine SULFATE 4 MG/ML VIAL IVPUSH PRN ×2 (01:20→10:10)
[2022-05-28 01:30] VITALS: RESP 20
[2022-05-28] MEDS: ACETAMINOPHEN 1000 MG/100 ML BAG IVPB PRN ×2 (05:05→10:10)
[2022-05-28] MEDS: CARVEDILOL 3.125 MG TABLET (FP) PO SCH (10:10)
[2022-05-28] MEDS: PANTOPRAZOLE SODIUM 40 MG VIAL IVPUSH SCH (10:22)
[2022-05-28 10:24] VITALS: BP 148/86; PULSE 72; TEMP 98
== END 2022-05-28 12:34 | disposition hospice, inpatient (51) | DRG 178 ==
LOC: JER 17:39 → JERBED 20:43 → J8W 05-22 23:27
PROVIDERS: ADMIT Internal Medicine; ATTEND Nurse Practitioner Acute Care
DX: U07.1 COVID-19 (principal); I50.22 Chronic systolic (congestive) heart failure; N17.9 Acute kidney failure, unspecified; M62.82 Rhabdomyolysis; I71.21 Aneurysm of the ascending aorta, without rupture; I11.0 Hypertensive heart disease with heart failure; D64.9 Anemia, unspecified; E78.5 Hyperlipidemia, unspecified; K21.9 Gastro-esophageal reflux disease without esophagitis; Z51.5 Encounter for palliative care; I25.10 Atherosclerotic heart disease of native coronary artery without angina pectoris; Z95.5 Presence of coronary angioplasty implant and graft; D72.829 Elevated white blood cell count, unspecified
CPT/HCPCS: 0241U-QW; 36415; 70450-TC; 71045-TC-FY; 71250-TC; 72125-TC; 72128-TC; 72131-TC; 72170-TC-FY; 73502-TC-LT-FY; 73552-TC-LT-FY; 74019-TC-FY; 74176-TC; 80053; 81003; 82550; 82553; 84484; 85025; 85027; 85610; 85730; 86850; 86900; 86901; 87086; 87186; 93005; 93010; 97116-GP; 97161-GP; 99285-25